=== PATIENT | female | born 1950 | race Caucasian/White ===

== ENCOUNTER → 2016-05-11 | Outpatient (CLI) | payer MEDICAID | LOC: RAD 17:15 | PROVIDERS: ATTEND Nurse Practitioner Family | DX: R05 Cough (principal); M54.2 Cervicalgia; M54.9 Dorsalgia, unspecified | CPT/HCPCS: 71020; 72050; 72070; 72110 ==

== ENCOUNTER 2016-06-07 15:13 | Emergency (ER) | payer MEDICAID ==
--- NOTE | 2016-06-07 15:44 | ER Document Report ---
ED Medical Screen (RME) - General Stated Complaint: LEG PAIN Time seen by provider: 15:43 Mode of Arrival: Wheelchair Information source: Patient Notes: 65-year-old female presents to ED with pain to her left foot running up to her left hip. She is a diabetic. There is no active sores noted at this time. I have greeted and performed a rapid initial assessment of this patient. A comprehensive ED assessment and evaluation of the patient, analysis of test results and completion of medical decision making process will be conducted by an additional ED providers. TRAVEL OUTSIDE OF THE [place] IN LAST 30 DAYS: No - Related Data Allergies/Adverse Reactions: alprazolam [From Xanax] Allergy (Verified 06/07/16 15:41) azithromycin [Azithromycin] Allergy (Verified 06/07/16 15:41) propoxyphene napsylate [From Darvocet-N 100] Allergy (Verified 06/07/16 15:41) Past Medical History - Past Medical History Cardiac Medical History: Reports: Hx Hypercholesterolemia, Hx Hypertension Endocrine Medical History: Reports: Hx Diabetes Mellitus Type 2 Psychiatric Medical History: Reports: Hx Depression Past Surgical History: Reports: Hx Hysterectomy Physical Exam - Vital signs Vitals: Temp Pulse Resp BP Pulse Ox 97.9 F 77 16 114/61 98 06/07/16 15:20 06/07/16 15:20 06/07/16 15:20 06/07/16 15:20 06/07/16 15:20 Course - Vital Signs Vital signs: Temp Pulse Resp BP Pulse Ox 97.9 F 77 16 114/61 98 06/07/16 15:20 06/07/16 15:20 06/07/16 15:20 06/07/16 15:20 06/07/16 15:20
[2016-06-07] MEDS ORDERED: IBUPROFEN 800 MG TABLET PO ONE (16:40)
--- NOTE | 2016-06-07 17:40 | ER Document Report ---
ED General - General Chief Complaint: Leg Pain Stated Complaint: LEG PAIN Mode of Arrival: Wheelchair Information source: Patient Notes: Patient presents to the emergency department with complaints of left lower leg pain. She reports pain started in her toes on Wednesday and now radiates up her leg. She denies trauma. She denies history of DVT or PE. Patient reports she was evaluated by her primary care provider on Wednesday but did not mention the leg. She reports that she is waiting for pain management for her chronic back pain. She denies fever vomiting diarrhea. She denies recent trip. Patient is a diabetic. TRAVEL OUTSIDE OF THE [place] IN LAST 30 DAYS: No - HPI Onset: Other - wednesday Onset/Duration: Gradual, Persistent Quality of pain: Achy Severity: Severe Pain Level: 5 Associated symptoms: None Exacerbated by: Walking Relieved by: Denies Similar symptoms previously: No Recently seen / treated by doctor: Yes - Related Data Allergies/Adverse Reactions: alprazolam [From Xanax] Allergy (Verified 06/07/16 15:41) azithromycin [Azithromycin] Allergy (Verified 06/07/16 15:41) propoxyphene napsylate [From Darvocet-N 100] Allergy (Verified 06/07/16 15:41) Past Medical History - General Information source: Patient Last Menstrual Period: hys - Social History Smoking Status: Never Smoker Cigarette use (# per day): No Chew tobacco use (# tins/day): No Frequency of alcohol use: None Drug Abuse: None Lives with: Family - daughter Family History: Reviewed & Not Pertinent Patient has suicidal ideation: No Patient has homicidal ideation: No - Past Medical History Cardiac Medical History: Reports: Hx Hypercholesterolemia, Hx Hypertension Endocrine Medical History: Reports: Hx Diabetes Mellitus Type 2 Renal/ Medical History: Denies: Hx Peritoneal Dialysis Psychiatric Medical History: Reports: Hx Depression Past Surgical History: Reports: Hx Hysterectomy, Hx Oral Surgery, Hx Orthopedic Surgery, Hx Tonsillectomy - Immunizations Hx Diphtheria, Pertussis, Tetanus Vaccination: Yes Review of Systems - Review of Systems Notes: Review HPI for review of systems., All other systems negative Physical Exam - Vital signs Vitals: Temp Pulse Resp BP Pulse Ox 97.9 F 77 16 114/61 98 06/07/16 15:20 06/07/16 15:20 06/07/16 15:20 06/07/16 15:20 06/07/16 15:20 - Notes Notes: PHYSICAL EXAMINATION: GENERAL: Well-appearing and in no acute distress nontoxic looking HEAD: Atraumatic, normocephalic. EYES: Pupils equal round extraocular movements intact, sclera anicteric, conjunctiva are normal. ENT: nares patent, oropharynx clear without exudates. Moist mucous membranes. NECK: Normal range of motion, supple without lymphadenopathy LUNGS: CTAB and equal. No wheezes rales or rhonchi. HEART: Regular rate and rhythm without murmurs ABDOMEN: Soft, no tenderness. No guarding, no rebound BACK: No c/o pain EXTREMITIES: Normal range of motion, no pitting edema. No cyanosis. neg homans NEUROLOGICAL: Cranial nerves grossly intact. Normal sensory/motor exams. PSYCH: Normal mood, normal affect. SKIN: Warm, Dry, normal turgor, no rashes or lesions noted - Extremities General upper extremity: Normal ROM General lower extremity: Tender, Normal color - no erythema, no swelling, no signs of DVT, Normal ROM, Normal temperature, Other - good pedal pulse, brisk cap refill. No: Nasreen's sign Calf: Tender - no erythema, no swelling, no warmth, no signs of DVT Left calf in cm: 40 Right calf in cm: 40 Course - Re-evaluation Re-evalutation: 06/07/16 PT INSTRUCTED ON PENDING DOPPLER. 06/07/16 19:01 Preliminary report is negative patient will be discharged follow-up with her primary care provider - Vital Signs Vital signs: Temp Pulse Resp BP Pulse Ox 97.9 F 77 16 114/61 98 06/07/16 15:20 06/07/16 15:20 06/07/16 15:20 06/07/16 15:20 06/07/16 15:20 - Diagnostic Test Radiology reviewed: Image reviewed Discharge - Discharge Clinical Impression: Lower extremity pain, left Condition: Stable Disposition: HOME, SELF-CARE Additional Instructions: *You have been evaluated for left leg pain *Take tylenol as indicated for pain *Follow up with your primary care provider tomorrow *Return to ED for worsening condition, changes, needs Referrals: GUANAKO FRIEDMAN MD [Primary Care Provider] - Follow up tomorrow
--- NOTE | 2016-06-07 20:18 | VASCULAR PRELIM REPORT ---
Provider Note Provider Note: negative for DVT. called in to the er at 2018 hrs.
[2016-06-07 20:56] VITALS: BP 116/69
--- NOTE | 2016-06-08 14:53 | XCELERA REPORT ---
[address] [address] Lower Extremity Venous Evaluation Name: IMANI WHITTAKER Age: 65 yrs Gender: Female : 1950 Patient Status: Emergency Patient Location: ER Study Date: 06/07/2016 06:10 PM Procedure: Color flow and duplex imaging of the veins of the left lower extremity as well as the right Common Femoral vein. Reason For Study: DANE ch pain Ordering Physician: MEGAN ESPARZA Performed By: Valarie Spear Right Sided Venous Evaluation The right common femoral vein is fully compressible. Spontaneous and phasic flow is present in the right common femoral vein. Left Sided Venous Evaluation Normal vessel filling wall to wall, compression and augmentation as well as Colour flow down to the infrageniculate veins. Critical Findings Per preliminary report. Interpretation Summary No duplex evidence of DVT or obstruction in the left lower extremity nor in the right Common Femoral vein. : MEGAN ESPARZA > Rigo Laguna
== END 2016-06-07 19:45 | disposition home or self-care (01) ==
LOC: ER 15:13
DX: M79.662 Pain in left lower leg (principal); E11.9 Type 2 diabetes mellitus without complications; M54.9 Dorsalgia, unspecified; G89.29 Other chronic pain; I10 Essential (primary) hypertension; Z88.8 Allergy status to other drugs, medicaments and biological substances; Z88.1 Allergy status to other antibiotic agents; Z88.5 Allergy status to narcotic agent
CPT/HCPCS: 99283; 93971 ×2; J3490

== ENCOUNTER 2016-11-02 22:59 | Emergency (ER) | payer MEDICAID ==
--- NOTE | 2016-11-03 00:27 | ER Document Report ---
ED General - General Chief Complaint: Low Back Pain Stated Complaint: LOWER BACK PAIN Time Seen by Provider: 11/02/16 23:06 Mode of Arrival: Medic Information source: Patient Notes: 65-year-old female presents with multitude of complaints. Patient notes that she fell one week prior landed on her buttocks has had coccyx pain which improved but then worsened today. Patient denies any numbness weakness. Patient also notes that she has had a sore throat for over one month duration states that she has had decreased appetite. Patient also notes shakiness in her hands, admits to weakness in her legs, admits to vaginal foul smell, admits to hearing voices. Patient denies any suicidal or homicidal ideations. Patient denies any recent sexual activity TRAVEL OUTSIDE OF THE [place] IN LAST 30 DAYS: No - HPI Onset: Last week Onset/Duration: Persistent Quality of pain: Achy Severity: Mild Pain Level: 1 Associated symptoms: Other Exacerbated by: Denies Relieved by: Denies Similar symptoms previously: No Recently seen / treated by doctor: No - Related Data Allergies/Adverse Reactions: alprazolam [From Xanax] Allergy (Verified 06/07/16 15:41) azithromycin [Azithromycin] Allergy (Verified 06/07/16 15:41) propoxyphene napsylate [From Darvocet-N 100] Allergy (Verified 06/07/16 15:41) Past Medical History - Social History Smoking Status: Never Smoker Cigarette use (# per day): No Chew tobacco use (# tins/day): No Smoking Education Provided: No Family History: Reviewed & Not Pertinent Patient has suicidal ideation: No Patient has homicidal ideation: No - Past Medical History Cardiac Medical History: Reports: Hx Hypercholesterolemia, Hx Hypertension Endocrine Medical History: Reports: Hx Diabetes Mellitus Type 2 Renal/ Medical History: Denies: Hx Peritoneal Dialysis Psychiatric Medical History: Reports: Hx Depression Past Surgical History: Reports: Hx Hysterectomy, Hx Oral Surgery, Hx Orthopedic Surgery, Hx Tonsillectomy - Immunizations Hx Diphtheria, Pertussis, Tetanus Vaccination: Yes Review of Systems - Review of Systems Notes: REVIEW OF SYSTEMS: CONSTITUTIONAL : Denies fever, chills, or sweats. Denies recent illness. EENT: Admits to difficulty swallowing CARDIOVASCULAR: Denies chest pain. Denies palpitations or racing or irregular heart beat. Denies ankle edema. RESPIRATORY: Denies cough, cold, or chest congestion. Denies shortness of breath, difficulty breathing, or wheezing. GASTROINTESTINAL: Admits to decreased appetite GENITOURINARY: Denies difficulty urinating, painful urination, burning, frequency, blood in urine, or discharge. FEMALE GENITOURINARY: Admits to vaginal discharge and foul smell MUSCULOSKELETAL: Admits to coccyx pain SKIN: Denies rash, lesions or sores. HEMATOLOGIC : Denies easy bruising or bleeding. LYMPHATIC: Denies swollen, enlarged glands. NEUROLOGICAL: Admits to tremors PSYCHIATRIC: Admits to hearing voices ALL OTHER SYSTEMS REVIEWED AND NEGATIVE. PHYSICAL EXAMINATION: GENERAL: Well-appearing, well-nourished and in no acute distress. HEAD: Atraumatic, normocephalic. EYES: Pupils equal round and reactive to light, extraocular movements intact, conjunctiva are normal. ENT: Nares patent, oropharynx clear without exudates. Moist mucous membranes. NECK: Normal range of motion, supple without lymphadenopathy LUNGS: Breath sounds clear to auscultation bilaterally and equal. No wheezes rales or rhonchi. HEART: Regular rate and rhythm without murmurs ABDOMEN: Soft, nontender, nondistended abdomen. No guarding, no rebound. No masses appreciated. Female : deferred Musculoskeletal: Normal range of motion, no pitting or edema. No cyanosis. NEUROLOGICAL: Cranial nerves grossly intact. Normal speech, normal gait. Normal sensory, motor exams PSYCH: Normal mood, normal affect. SKIN: Warm, Dry, normal turgor, no rashes or lesions noted. Dictation was performed using [employer] voice recognition software Physical Exam - Vital signs Vitals: Temp Pulse Resp BP Pulse Ox 98.3 F 83 17 100/67 100 11/02/16 23:11 11/02/16 23:11 11/02/16 23:11 11/02/16 23:11 11/02/16 23:11 Course - Re-evaluation Re-evalutation: 11/03/16 00:27 Patient appears to have a multitude of complaints, lab work is pending at this time, she defers on pelvic exam, 11/03/16 02:36 Patient's lab work is consistent with chronic mild renal insufficiency otherwise patient has been resting comfortably, I will have patient follow-up with mental health as well as primary care for further evaluation and care Patient given resources for mental health After performing a Medical Screening Examination, I estimate there is LOW risk for INTRACRANIAL HEMORRHAGE, ISCHEMIC CVA, MALIGNANT DYSRHYTHMIA, ACUTE CORONARY SYNDROME, MENINGITIS, PULMONARY EMBOLISM, or SEPSIS thus I consider the discharge disposition reasonable. I have reevaluated this patient multiple times and no significant life threatening changes are noted. The patient and I have discussed the diagnosis and risks, and we agree with discharging home with close follow-up with the understanding that symptoms and presentations can change. We also discussed returning to the Emergency Department immediately if new or worsening symptoms occur. We have discussed the symptoms which are most concerning (e.g., changing or worsening pain, weakness, vomiting, fever) that necessitate immediate return. - Vital Signs Vital signs: Temp Pulse Resp BP Pulse Ox 97.8 F 86 14 104/63 97 11/02/16 23:19 11/02/16 23:19 11/02/16 23:19 11/02/16 23:19 11/02/16 23:19 - Laboratory Result Diagrams: 11/03/16 00:10 11/03/16 00:10 Laboratory results interpreted by me: 11/03/16 11/03/16 00:10 00:10 Hgb 11.3 L Hct 35.8 L MCHC 31.6 L Chloride 109 H Carbon Dioxide 17 L BUN 26 H Creatinine 1.70 H Est GFR ( Amer) 37 L Est GFR (Non-Af Amer) 30 L Glucose 132 H Calcium 11.1 H Alkaline Phosphatase 34 L Discharge - Discharge Clinical Impression: Hypercalcemia, Decreased appetite CKD (chronic kidney disease) Qualifiers: Chronic kidney disease stage: stage 2 (mild) Qualified Code(s): N18.2 - Chronic kidney disease, stage 2 (mild) Low back pain Qualifiers: Chronicity: acute Back pain laterality: midline Sciatica presence: without sciatica Qualified Code(s): M54.5 - Low back pain Condition: Stable Disposition: HOME, SELF-CARE Instructions: Low Back Pain ([facility]) Referrals: GUANAKO FRIEDMAN MD [Primary Care Provider] - Follow up tomorrow
[2016-11-03 00:44] LABS: ABSOLUTE BASOPHILS # (AUTO) 0.1 10^3/uL (0.0-0.2); ABSOLUTE EOSINOPHILS # (AUTO) 0.1 10^3/uL (0.0-0.6); ABSOLUTE LYMPHOCYTES (AUTO) 1.9 10^3/uL (0.5-4.7); ABSOLUTE MONOCYTES (AUTO) 0.6 10^3/uL (0.1-1.4); ABSOLUTE NEUT (AUTO) 6.3 10^3/uL (1.7-8.2); BASOPHILS % (AUTO) 0.6 % (0-2); EOSINOPHILS % (AUTO) 1.3 % (0-6); HEMATOCRIT 35.8 % (36.0-47.0); HEMOGLOBIN 11.3 g/dL (12.0-15.5); HGB HCT DIFFERENCE -1.9; LYMPHOCYTES % (AUTO) 20.9 % (13-45); MEAN CORPUSCULAR HEMOGLOBIN 27.7 pg (27.0-33.4); MEAN CORPUSCULAR HGB CONC 31.6 g/dL (32.0-36.0); MEAN CORPUSCULAR VOLUME 88 fl (80-97); MONOCYTES % (AUTO) 6.8 % (3-13); RED BLOOD COUNT 4.09 10^6/uL (3.72-5.28); RED CELL DISTRIBUTION WIDTH 12.7 % (11.5-14.0); SEGMENTED NEUTROPHILS % (AUTO) 70.4 % (42-78); WHITE BLOOD COUNT 8.9 10^3/uL (4.0-10.5)
[2016-11-03 00:45] LABS: ALANINE AMINOTRANSFERASE 31 U/L (9-52); ALBUMIN 4.1 g/dL (3.5-5.0); ALKALINE PHOSPHATASE 34 U/L (38-126); ANION GAP 14 (5-19); ASPARTATE AMINO TRANSFERASE 32 U/L (14-36); BILIRUBIN,DIRECT 0.4 mg/dL (0.0-0.4); BILIRUBIN,TOTAL 0.4 mg/dL (0.2-1.3); BLOOD UREA NITROGEN 26 mg/dL (7-20); CALCIUM 11.1 mg/dL (8.4-10.2); CARBON DIOXIDE 17 mmol/L (22-30); CHLORIDE 109 mmol/L (98-107); GLUCOSE 132 mg/dL (75-110); POTASSIUM 4.6 mmol/L (3.6-5.0); SODIUM 140.3 mmol/L (137-145); TOTAL PROTEIN 6.9 g/dL (6.3-8.2)
[2016-11-03 02:28] LABS: APPEARANCE,URINE CLEAR; BILIRUBIN,URINE NEGATIVE (NEGATIVE); GLUCOSE, URINE NEGATIVE (NEGATIVE); KETONES,URINE NEGATIVE (NEGATIVE); LEUKOCYTE ESTERASE,URINE NEGATIVE (NEGATIVE); NITRITE,URINE NEGATIVE (NEGATIVE); PROTEIN,URINE NEGATIVE (NEGATIVE); UROBILINOGEN,URINE NEGATIVE mg/dL (<2.0)
[2016-11-03 05:11] VITALS: BP 104/56
== END 2016-11-03 04:19 | disposition home or self-care (01) ==
LOC: ER 22:59
DX: M54.5 Low back pain (principal); M53.3 Sacrococcygeal disorders, not elsewhere classified; W19.XXXA Unspecified fall, initial encounter; E83.52 Hypercalcemia; I12.9 Hypertensive chronic kidney disease with stage 1 through stage 4 chronic kidney disease, or unspecified chronic kidney disease; E11.22 Type 2 diabetes mellitus with diabetic chronic kidney disease; N18.2 Chronic kidney disease, stage 2 (mild); J02.9 Acute pharyngitis, unspecified; R63.0 Anorexia; R13.10 Dysphagia, unspecified; R53.1 Weakness; R25.1 Tremor, unspecified; N89.8 Other specified noninflammatory disorders of vagina; R44.0 Auditory hallucinations; Z88.8 Allergy status to other drugs, medicaments and biological substances; Z88.1 Allergy status to other antibiotic agents; Z88.5 Allergy status to narcotic agent
CPT/HCPCS: 36415; 80053; 81001; 85025; 99284

== ENCOUNTER → 2016-12-30 | Outpatient (CLI) | payer MEDICAID ==
--- NOTE | 2016-12-30 16:23 | RADIOLOGY REPORT (SQ) ---
EXAM DESCRIPTION: MRI HEAD WITHOUT COMPLETED DATE/TIME: 12/30/2016 3:56 pm REASON FOR STUDY: VISUAL HALLUCINATIONS R44.1 VISUAL HALLUCINATIONS COMPARISON: None. TECHNIQUE: Multiplanar imaging includes non-contrasted T1, T2, FLAIR, and diffusion with ADC map seq uences. Images stored on PACS. LIMITATIONS: None. FINDINGS: ANATOMY: No anomalies. Normal vascular flow voids. Pituitary fossa normal. CSF SPACES: Normal in size and contour. No hemorrhage. CEREBRUM: Sulci and gyri normal in size and contour. Normal white matter signal on FLAIR imaging. No evidence of hemorrhage, mass, or extraaxial fluid collection. POSTERIOR FOSSA: No signal alteration. No hemorrhage. No edema, masses or mass effect. Internal pankaj tory canals, cerebello-pontine angles, mastoids normal. DIFFUSION IMAGING: Negative for acute or sub-acute infarction. ORBITS: No masses. Globes post cataract surgery. . PARANASAL SINUSES: Left maxillary sinus is opacified with fluid and dried secretions. Remainder of the paranasal sinuses are clear. OTHER: No other significant finding. IMPRESSION: CHRONIC INFLAMMATORY CHANGES LEFT MAXILLARY SINUS. OTHERWISE, MRI OF THE BRAIN WITHOUT INTRAVENOUS GADOLINIUM CONTRAST. EVIDENCE OF ACUTE STROKE: NO. TECHNICAL DOCUMENTATION: JOB ID: [id number] [employer]- All Rights Reserved
--- NOTE | 2016-12-30 16:30 | RADIOLOGY REPORT (SQ) ---
EXAM DESCRIPTION: SHOULDER RIGHT 2 OR MORE VIEWS COMPLETED DATE/TIME: 12/30/2016 4:14 pm REASON FOR STUDY: SHOULDER PAIN, RIGHT R44.1 VISUAL HALLUCINATIONS COMPARISON: None. NUMBER OF VIEWS: Three views. TECHNIQUE: Internal rotation, external rotation, and Y view images acquired of the right shoulder. LIMITATIONS: None. FINDINGS: MINERALIZATION: Normal. BONES: No acute fracture is seen. The humeral head is sitting quite low in the joint, raising the po ssibility of an anterior dislocation. JOINTS: Possible anterior dislocation. VISUALIZED LUNGS AND RIBS: No pneumothorax. No rib fracture. SOFT TISSUES: No radiopaque foreign body. OTHER: No other significant finding. IMPRESSION: Possible anterior dislocation of the glenohumeral joint. TECHNICAL DOCUMENTATION: JOB ID: [id number]- All Rights Reserved
--- NOTE | 2016-12-30 16:34 | RADIOLOGY REPORT (SQ) ---
EXAM DESCRIPTION: CERV SP 4 OR 5 VIEWS COMPLETED DATE/TIME: 12/30/2016 4:14 pm REASON FOR STUDY: NECK PAIN, CHRONIC R44.1 VISUAL HALLUCINATIONS COMPARISON: 05/11/2016 NUMBER OF VIEWS: Five views. TECHNIQUE: AP, lateral, obliques and odontoid radiographic images acquired of the cervical spine. LIMITATIONS: None. FINDINGS: MINERALIZATION: Osteopenia. ALIGNMENT: Anatomic. VERTEBRAE: Vertebral bodies of normal height. DISCS: Surgical changes are present from C4-C6. Bridging anterior osteophytes extend from C2 to C7. FORAMINA: No osteophytes or foraminal narrowing. LATERAL AND POSTERIOR ELEMENTS: Facets, lateral masses and spinous processes without significant find ings. HARDWARE: An anterior plate extends from C4-C6 with screws extending into the vertebral bodies. SOFT TISSUES: No masses or calcifications. Lung apices clear. OTHER: No other significant finding. IMPRESSION: Surgical changes with extensive spondylosis. The neural foramina remain patent. TECHNICAL DOCUMENTATION: JOB ID: [id number] [employer]- All Rights Reserved
== END ==
LOC: RAD 14:58
PROVIDERS: ATTEND Family Medicine
DX: M25.511 Pain in right shoulder (principal); R44.1 Visual hallucinations; M54.2 Cervicalgia
CPT/HCPCS: 70551; 72050

== ENCOUNTER 2017-01-23 00:32 | Emergency (ER) | payer MEDICAID ==
[2017-01-23] MEDS ORDERED: LIDOCAINE 2% JELLY 5 ML TUBE TOP ONE (02:50)
[2017-01-23] MEDS ORDERED: CEPHALEXIN 500 MG CAPSULE PO ONE (02:51)
[2017-01-23] MEDS ORDERED: SULFAMETHOXAZOLE/TRIMETHOPRIM 800-160 MG TABLET PO ONE (02:51)
--- NOTE | 2017-01-23 02:51 | ER Document Report ---
ED General - General Chief Complaint: Ear Pain Stated Complaint: LEFT EAR PAIN Time Seen by Provider: 01/23/17 02:21 Notes: Patient is a 66-year-old female with a history of diabetes, hypertension, obesity who presents with complaints of left ear pain. Patient does present by EMS. She states for the past 12 hours she has had a severe, constant, stabbing pain to the left ear. Nothing improves or worsens the pain. States she has had similar symptoms on the right ear for the past 2 months but never anything to the left ear. She has not tried anything to relieve her pain and has not noted that anything worsens her pain. Patient has not seen her primary doctor regarding today's concerns. TRAVEL OUTSIDE OF THE [place] IN LAST 30 DAYS: No - Related Data Allergies/Adverse Reactions: alprazolam [From Xanax] Allergy (Verified 01/23/17 00:42) azithromycin [Azithromycin] Allergy (Verified 01/23/17 00:42) propoxyphene napsylate [From Darvocet-N 100] Allergy (Verified 01/23/17 00:42) Past Medical History - General Information source: Patient - Social History Smoking Status: Never Smoker Frequency of alcohol use: None Drug Abuse: None Lives with: Family Family History: Reviewed & Not Pertinent Patient has suicidal ideation: No Patient has homicidal ideation: No - Past Medical History Cardiac Medical History: Reports: Hx Hypercholesterolemia, Hx Hypertension Endocrine Medical History: Reports: Hx Diabetes Mellitus Type 2 Renal/ Medical History: Denies: Hx Peritoneal Dialysis Psychiatric Medical History: Reports: Hx Depression Past Surgical History: Reports: Hx Hysterectomy, Hx Oral Surgery, Hx Orthopedic Surgery, Hx Tonsillectomy - Immunizations Hx Diphtheria, Pertussis, Tetanus Vaccination: Yes Review of Systems - Review of Systems Notes: Constitutional: Negative for fever. HENT: Negative for sore throat. Positive for ear pain Eyes: Negative for visual changes. Cardiovascular: Negative for chest pain. Respiratory: Negative for shortness of breath. Gastrointestinal: Negative for abdominal pain, vomiting or diarrhea. Genitourinary: Negative for dysuria. Musculoskeletal: Negative for back pain. Skin: Positive for rash. Neurological: Negative for headaches, weakness or numbness. 10 point ROS negative except as marked above and in HPI. Physical Exam - Vital signs Vitals: Temp Pulse Resp BP Pulse Ox 98.0 F 107 H 18 135/69 H 98 10/14/17 00:42 01/23/17 00:42 01/23/17 00:42 01/23/17 00:42 01/23/17 00:42 Interpretation: Tachycardic Notes: PHYSICAL EXAMINATION: GENERAL: Well-appearing, well-nourished and in no acute distress. HEAD: Atraumatic, normocephalic. EYES: Pupils equal round and reactive to light, extraocular movements intact, sclera anicteric, conjunctiva are normal. ENT: nares patent, oropharynx clear without exudates. Moist mucous membranes. Right TM clear. Left TM with a purulent effusion and slight bulging of an erythematous tympanic membrane NECK: Normal range of motion, supple without lymphadenopathy LUNGS: Breath sounds clear to auscultation bilaterally and equal. No wheezes rales or rhonchi. HEART: Regular rate and rhythm without murmurs ABDOMEN: Soft, nontender, normoactive bowel sounds. No guarding, no rebound. No masses appreciated. EXTREMITIES: Normal range of motion, no pitting or edema. No cyanosis. NEUROLOGICAL: No focal neurological deficits. Moves all extremities spontaneously and on command. PSYCH: Normal mood, normal affect. SKIN: Warm, Dry, normal turgor, there is a 2 x 2 centimeter open wound on the right elbow with a mild area of surrounding erythema. There is a small amount of purulent drainage coming from the wound. Course - Re-evaluation Re-evalutation: 01/23/17 02:48 Patient presents with findings consistent with an acute left otitis media. Patient incidentally was also noted to have a cellulitis with associated purulent drainage over the right olecranon which she states is been present for the past 2-3 weeks. This was not originally the reason for her ER visit but given that I noted this on examination she has been started on TMP-SMX as well as cephalexin for coverage of both the cellulitis and otitis media. Patient is otherwise well in appearance, vitals within normal limits, no acute distress. No indication for laboratories or imaging. At this time will discharge with return precautions and follow-up recommendations. Verbal discharge instructions given a the bedside and opportunity for questions given. Medication warnings reviewed. Patient is in agreement with this plan and has verbalized understanding of return precautions and the need for primary care follow-up in the next 24-72 hours. - Vital Signs Vital signs: Temp Pulse Resp BP Pulse Ox 98.0 F 76 15 133/74 H 97 01/23/17 00:42 01/23/17 03:13 01/23/17 03:13 01/23/17 03:13 01/23/17 03:13 Discharge - Discharge Clinical Impression: Otitis media Qualifiers: Otitis media type: serous Chronicity: acute Laterality: left Recurrence: not specified as recurrent Qualified Code(s): H65.02 - Acute serous otitis media, left ear Cellulitis Qualifiers: Site of cellulitis: extremity Site of cellulitis of extremity: upper extremity Laterality: right Qualified Code(s): L03.113 - Cellulitis of right upper limb Condition: Good Disposition: HOME, SELF-CARE Additional Instructions: The rash is likely due to infection of your skin. You need to take the antibiotics as prescribed. Do not stop even if the rash goes away until you have completed all the antibiotics. These antibiotics will also treat your left ear infection. You should also return if you develop fevers with temperature greater than 101, persistent vomiting, worsening pain, or have any other symptoms that are concerning to you. Prescriptions: Cephalexin Monohydrate [Keflex 500 mg Capsule] 500 mg PO Q6H 7 Days capsule Sulfamethoxazole/Trimethoprim [Bactrim Ds Tablet] 2 tab PO BID #20 tablet Referrals: GUANAKO FRIEDMAN MD [Primary Care Provider] - Follow up in 3-5 days
[2017-01-23 03:17] VITALS: BP 133/74
== END 2017-01-23 03:15 | disposition home or self-care (01) ==
LOC: ER 00:32
DX: H65.02 Acute serous otitis media, left ear (principal); L03.113 Cellulitis of right upper limb; H92.02 Otalgia, left ear; R00.0 Tachycardia, unspecified; E11.9 Type 2 diabetes mellitus without complications; I10 Essential (primary) hypertension; Z88.8 Allergy status to other drugs, medicaments and biological substances; Z88.1 Allergy status to other antibiotic agents; Z88.5 Allergy status to narcotic agent
CPT/HCPCS: 99283; J3490 ×2

== ENCOUNTER 2017-02-02 14:04 | Inpatient (IN) | payer MEDICAID ==
[2017-02-02] MEDS ORDERED: NORMAL SALINE 1000 ML 1,000 ML IV ONE (15:17)
--- NOTE | 2017-02-02 15:18 | ER Document Report ---
ED Medical Screen (RME) - General Chief Complaint: General Weakness Stated Complaint: FALL Time Seen by Provider: 02/02/17 15:17 Notes: Patient is brought in by family for weakness low blood sugar and falls. They state that the patient has a history of schizophrenia and has recently been diagnosed with dementia. Family states patient is refusing to eat. She has no longer taking her diabetic medications because she is not eating. No vomiting or diarrhea. Patient states he just does not feel hungry. Family states they have taken the patient to the family doctor who has referred her for lab work but laboratory is unable to draw her blood so they brought her here. TRAVEL OUTSIDE OF THE [place] IN LAST 30 DAYS: No - Related Data Allergies/Adverse Reactions: alprazolam [From Xanax] Allergy (Verified 02/02/17 14:22) azithromycin [Azithromycin] Allergy (Verified 02/02/17 14:22) propoxyphene napsylate [From Darvocet-N 100] Allergy (Verified 02/02/17 14:22) Tetanus Vaccines and Toxoid Allergy (Verified 02/02/17 14:22) Past Medical History - Past Medical History Cardiac Medical History: Reports: Hx Hypercholesterolemia, Hx Hypertension Endocrine Medical History: Reports: Hx Diabetes Mellitus Type 2 Renal/ Medical History: Denies: Hx Peritoneal Dialysis Psychiatric Medical History: Reports: Hx Depression Past Surgical History: Reports: Hx Hysterectomy, Hx Oral Surgery, Hx Orthopedic Surgery, Hx Tonsillectomy - Immunizations Hx Diphtheria, Pertussis, Tetanus Vaccination: Yes Physical Exam - Vital signs Vitals: Temp Pulse BP Pulse Ox 97.9 F 104 H 134/67 H 99 02/02/17 14:19 02/02/17 14:19 02/02/17 14:19 02/02/17 14:19 Course - Vital Signs Vital signs: Temp Pulse Resp BP Pulse Ox 97.9 F 104 H 134/67 H 99 02/02/17 14:19 02/02/17 14:19 02/02/17 14:19 02/02/17 14:19
[2017-02-02 17:48] LABS: ABSOLUTE BASOPHILS # (AUTO) 0.1 10^3/uL (0.0-0.2); ABSOLUTE EOSINOPHILS # (AUTO) 0.1 10^3/uL (0.0-0.6); ABSOLUTE LYMPHOCYTES (AUTO) 1.4 10^3/uL (0.5-4.7); ABSOLUTE MONOCYTES (AUTO) 0.5 10^3/uL (0.1-1.4); ABSOLUTE NEUT (AUTO) 5.9 10^3/uL (1.7-8.2); BASOPHILS % (AUTO) 0.8 % (0-2); EOSINOPHILS % (AUTO) 0.9 % (0-6); HEMATOCRIT 31.1 % (36.0-47.0); HEMOGLOBIN 10.1 g/dL (12.0-15.5); HGB HCT DIFFERENCE -0.8; LYMPHOCYTES % (AUTO) 17.4 % (13-45); MEAN CORPUSCULAR HEMOGLOBIN 26.7 pg (27.0-33.4); MEAN CORPUSCULAR HGB CONC 32.4 g/dL (32.0-36.0); MEAN CORPUSCULAR VOLUME 82 fl (80-97); MONOCYTES % (AUTO) 6.3 % (3-13); RED BLOOD COUNT 3.78 10^6/uL (3.72-5.28); RED CELL DISTRIBUTION WIDTH 15.8 % (11.5-14.0); SEGMENTED NEUTROPHILS % (AUTO) 74.6 % (42-78); WHITE BLOOD COUNT 7.9 10^3/uL (4.0-10.5)
--- NOTE | 2017-02-02 18:02 | RADIOLOGY REPORT (SQ) ---
EXAM DESCRIPTION: CHEST SINGLE VIEW COMPLETED DATE/TIME: 02/02/2017 5:50 pm REASON FOR STUDY: Weight loss COMPARISON: None. EXAM PARAMETERS: NUMBER OF VIEWS: One view. TECHNIQUE: Single frontal radiographic view of the chest acquired. RADIATION DOSE: NA LIMITATIONS: None. FINDINGS: LUNGS AND PLEURA: No opacities, masses or pneumothorax. No pleural effusion. MEDIASTINUM AND HILAR STRUCTURES: No masses. Contour normal. HEART AND VASCULAR STRUCTURES: Heart normal in size. Normal vasculature. BONES: Degenerative changes are identified in the thoracic spine. HARDWARE: Orthopedic hardware is identified in the lower cervical spine OTHER: No other significant finding. IMPRESSION: NO ACUTE RADIOGRAPHIC FINDING IN THE CHEST. TECHNICAL DOCUMENTATION: JOB ID: [id number]
[2017-02-02 18:07] LABS: ALANINE AMINOTRANSFERASE 64 U/L (9-52); ALBUMIN 3.8 g/dL (3.5-5.0); ALKALINE PHOSPHATASE 40 U/L (38-126); ANION GAP 10 (5-19); ASPARTATE AMINO TRANSFERASE 69 U/L (14-36); BILIRUBIN,DIRECT 0.4 mg/dL (0.0-0.4); BILIRUBIN,TOTAL 0.4 mg/dL (0.2-1.3); BLOOD UREA NITROGEN 14 mg/dL (7-20); CARBON DIOXIDE 24 mmol/L (22-30); CHLORIDE 103 mmol/L (98-107); CREATININE RESULT 1.16 mg/dL (0.52-1.25); GLUCOSE 93 mg/dL (75-110); TOTAL PROTEIN 7.1 g/dL (6.3-8.2)
[2017-02-02 18:18] LABS: CALCIUM 12.2 mg/dL (8.4-10.2)
[2017-02-02 18:48] LABS: APPEARANCE,URINE CLEAR; BILIRUBIN,URINE NEGATIVE (NEGATIVE); GLUCOSE, URINE NEGATIVE (NEGATIVE); KETONES,URINE NEGATIVE (NEGATIVE); LEUKOCYTE ESTERASE,URINE NEGATIVE (NEGATIVE); NITRITE,URINE NEGATIVE (NEGATIVE); PROTEIN,URINE NEGATIVE (NEGATIVE); UROBILINOGEN,URINE NEGATIVE mg/dL (<2.0)
--- NOTE | 2017-02-02 19:18 | ER Document Report ---
ED General - General Chief Complaint: General Weakness Stated Complaint: WEAKNESS Time Seen by Provider: 02/02/17 15:17 Notes: Patient is a 66-year-old female brought in by her family because she is having continuous falling episodes for the past several months. It is happening once or twice a week. She is also acting confused and "delusional" and they are concerned that she may have dementia. She has had about a 50 pound weight loss in the last 4 months. She walks with a walker because she is so weak. She previously was on oral meds or high blood sugar, but her family stopped it because her blood sugars have been running low because she is not eating. Today it was 51. She has had some vomiting lately, but no diarrhea. No UTI symptoms. No shortness of breath or difficulty breathing. Patient was seen here couple of weeks ago and was told that she had an ear infection and a right elbow infection and was put on Keflex, which she is continuing to take, and Bactrim which she has finished. Patient denies any fever, chills, or sweats. Patient has been seeing her local doctor, Dr. Charles, over the past couple of months and the family is upset that he is not finding anything wrong with her. He did do an MRI of her brain about a month ago and it was read as normal. TRAVEL OUTSIDE OF THE [place] IN LAST 30 DAYS: No - Related Data Allergies/Adverse Reactions: alprazolam [From Xanax] Allergy (Verified 02/02/17 14:22) azithromycin [Azithromycin] Allergy (Verified 02/02/17 14:22) propoxyphene napsylate [From Darvocet-N 100] Allergy (Verified 02/02/17 14:22) Tetanus Vaccines and Toxoid Allergy (Verified 02/02/17 14:22) Home Medications: Current Home Medications Aripiprazole 20 mg PO DAILY 02/02/17 [History] Aspirin [Aspirin EC] 81 mg PO DAILY 02/02/17 [History] Atorvastatin Calcium [Lipitor 40 mg Tablet] 40 mg PO QHS 02/02/17 [History] Cephalexin [Keflex] 500 mg PO Q6H 02/02/17 [History] Cyclobenzaprine HCl 10 mg PO TID PRN 02/02/17 [History] Doxepin HCl 100 mg PO DAILY 02/02/17 [History] Hydroxyzine Pamoate 100 mg PO TID 02/02/17 [History] [place]-3 Fatty Acids/Fish Oil [Fish Oil 1,000 mg Capsule] 1 each PO BID 02/02/17 [History] Oxycodone HCl/Acetaminophen [Oxycodon-Acetaminophen 7.5-325] 1 each PO Q8H PRN 02/02/17 [History] Ranitidine HCl [Zantac 150 mg Tablet] 150 mg PO BID 02/02/17 [History] Topiramate 100 mg PO BID 02/02/17 [History] Past Medical History - Social History Smoking Status: Current Every Day Smoker Frequency of alcohol use: Occasional Family History: Reviewed & Not Pertinent - Past Medical History Cardiac Medical History: Reports: Hx Hypercholesterolemia, Hx Hypertension Endocrine Medical History: Reports: Hx Diabetes Mellitus Type 2 Psychiatric Medical History: Reports: Hx Depression Past Surgical History: Reports: Hx Hysterectomy, Hx Oral Surgery, Hx Orthopedic Surgery, Hx Tonsillectomy - Immunizations Hx Diphtheria, Pertussis, Tetanus Vaccination: Yes Review of Systems - Review of Systems Notes: REVIEW OF SYSTEMS: CONSTITUTIONAL : Denies fever. EENT: Denies eye, ear, nose or mouth or throat pain or other symptoms. CARDIOVASCULAR: Denies chest pain. RESPIRATORY: Denies cough, chest congestion, but occasional difficulty breathing and shortness of breath. GASTROINTESTINAL: Denies abdominal pain. See HPI. GENITOURINARY: Denies difficulty or painful urinating, urinary frequency, blood in urine. MUSCULOSKELETAL: Denies back or neck pain. Denies joint pain or swelling. SKIN: Patient has several skin lesions that look like they could be infections , 1 distal to the right elbow on the proximal forearm, another over the right hip and another very close to the right anus. NEUROLOGICAL: Denies LOC. See HPI. Denies headache. Denies sensory loss or motor deficits. ALL OTHER SYSTEMS REVIEWED AND NEGATIVE. Physical Exam - Vital signs Vitals: Temp Pulse BP Pulse Ox 97.9 F 104 H 134/67 H 99 02/02/17 14:19 02/02/17 14:19 02/02/17 14:19 02/02/17 14:19 Interpretation: Normal - Notes Notes: PHYSICAL EXAMINATION: GENERAL: Well-appearing, in no acute distress. Cooperative and seems to understand westerns and follows commands. HEAD: Atraumatic, normocephalic. EYES: Pupils equal round and reactive to light, extraocular movements intact. ENT: oropharynx clear without exudates. Moist mucous membranes. NECK: Normal range of motion, supple. LUNGS: Breath sounds clear and equal bilaterally. HEART: Regular rate and rhythm without murmurs. ABDOMEN: Soft, nontender. No guarding or rebound. BACK: No tenderness throughout entire back. EXTREMITIES: Normal range of motion without pain. NEUROLOGICAL: Normal speech, unable to stand patient up to examine gait. Awake, alert, and oriented x3. Grossly normal neurologic awareness. SKIN: Warm, dry. Patient has a weeping wound of the proximal right forearm just distal to the elbow which appears to be infected. She has a large eschar on the right lateral buttock and hip area. It surrounded by some erythematous margin. Nurse says that there is another lesion near the patient's anus which I cannot get to and examine by myself. Patient also has a couple of cuts with Band-Aids on them on her shins which the family says is from her falling. Course - Re-evaluation Re-evalutation: 02/02/17 19:[address] Hoffman who is the hospitalist retail consultant and he will admit the patient for treatment of her hypercalcemia and her wound infections. - Vital Signs Vital signs: Temp Pulse Resp BP Pulse Ox 97.9 F 104 H 134/67 H 99 02/02/17 14:19 02/02/17 14:19 02/02/17 14:19 02/02/17 14:19 - Laboratory Result Diagrams: 02/02/17 17:15 02/02/17 17:15 Laboratory results interpreted by me: 02/02/17 02/02/17 17:15 17:15 Hgb 10.1 L Hct 31.1 L MCH 26.7 L RDW 15.8 H Est GFR ( Amer) 57 L Est GFR (Non-Af Amer) 47 L Calcium 12.2 H* AST 69 H ALT 64 H 02/02/17 19:37 Calcium is 12.2. Patient has had high calcium in the past treated with IV fluids. Discharge - Discharge Clinical Impression: Altered mental status, Hypercalcemia, Multiple wounds of skin Condition: Stable Disposition: ADMITTED INPATIENT Admitting Provider: Hospitalist Unit Admitted: Telemetry
[2017-02-02] MEDS ORDERED: GLUCAGON,HUMAN RECOMB 1 MG INJ IM PRN (19:30)
[2017-02-02] MEDS ORDERED: INSULIN LISPRO 100 UNIT/ML 3 ML VIAL SUBCUT PRN (19:30)
[2017-02-02] MEDS ORDERED: DEXTROSE 40% GEL 15 GM TUBE PO PRN (19:30)
[2017-02-02] MEDS ORDERED: ACETAMINOPHEN 325 MG TABLET PO PRN (19:30)
[2017-02-02] MEDS ORDERED: MAG HYDROX/AL HYDROX/SIMETH SUSP 30 ML UDCUP PO PRN (19:30)
[2017-02-02] MEDS ORDERED: IPRATROPIUM/ALBUTEROL 0.5-2.5 MG/3 ML AMPUL NEB PRN (19:30)
[2017-02-02 19:58] LABS: URINE BARBITURATES SCREEN NEGATIVE; URINE METHADONE SCREEN NEGATIVE; URINE OPIATES LOW UNCONFIRMED POSITIVE; URINE PHENCYCLIDINE SCREEN NEGATIVE
[2017-02-02 21:12] LABS: CREATINE KINASE MB 1.33 ng/mL (<4.55)
[2017-02-02 21:17] LABS: TROPONIN I < 0.012 ng/mL
[2017-02-02] MEDS: NORMAL SALINE 1000 ML 1,000 ML IV SCH (22:15)
[2017-02-02] MEDS: HEPARIN SOD (PORCINE) 5,000 UNIT/ML 1 ML SYRINGE SUBCUT SCH (22:28)
[2017-02-03] MEDS ORDERED: INFLUENZA ADLT QUAD (36MOS+) 2017-18 VAC 0.5 ML SYR IM PRN (00:43)
[2017-02-03] MEDS: OXYCODONE-ACETAMINOPHEN 5-325 MG TABLET PO PRN ×3 (00:48→21:54)
[2017-02-03] MEDS: NORMAL SALINE 1000 ML 1,000 ML IV SCH (02:30)
[2017-02-03] MEDS: HEPARIN SOD (PORCINE) 5,000 UNIT/ML 1 ML SYRINGE SUBCUT SCH ×3 (05:02→21:50)
[2017-02-03 05:09] LABS: ABSOLUTE BASOPHILS # (AUTO) 0.1 10^3/uL (0.0-0.2); ABSOLUTE EOSINOPHILS # (AUTO) 0.1 10^3/uL (0.0-0.6); ABSOLUTE LYMPHOCYTES (AUTO) 1.7 10^3/uL (0.5-4.7); ABSOLUTE MONOCYTES (AUTO) 0.5 10^3/uL (0.1-1.4); ABSOLUTE NEUT (AUTO) 4.4 10^3/uL (1.7-8.2); BASOPHILS % (AUTO) 0.8 % (0-2); EOSINOPHILS % (AUTO) 1.8 % (0-6); HEMATOCRIT 27.6 % (36.0-47.0); HGB HCT DIFFERENCE -0.6; LYMPHOCYTES % (AUTO) 24.8 % (13-45); MEAN CORPUSCULAR HEMOGLOBIN 26.9 pg (27.0-33.4); MEAN CORPUSCULAR HGB CONC 32.6 g/dL (32.0-36.0); MEAN CORPUSCULAR VOLUME 82 fl (80-97); RED BLOOD COUNT 3.35 10^6/uL (3.72-5.28); RED CELL DISTRIBUTION WIDTH 15.7 % (11.5-14.0); SEGMENTED NEUTROPHILS % (AUTO) 65.6 % (42-78); WHITE BLOOD COUNT 6.7 10^3/uL (4.0-10.5)
--- NOTE | 2017-02-03 05:09 | PDOC H&P ---
History of Present Illness Admission Date/PCP: 02/02/17 19:30 Patient complains of: Altered mental status History of Present Illness: IMANI WHITTAKER is a 66 year old female with a past medical history of obesity, diabetes, hypertension, depression and anxiety. She had been her usual state of health until approximately a month ago having recurrent falls, weight loss and confusion. Patient is unable to provide history as she is awake and alert but very poor historian. In the emergency room she is also found to have hypercalcemia of 12.2, right arm Cellulitis and tardive dyskinesia. She is started on IV fluids and empiric antibiotics and referred to the hospitalist for admission. It is unclear if she is on any new medications patient denies chest pain nausea or vomiting. Past Medical History Cardiac Medical History: Reports: Hyperlipidema, Hypertension Endocrine Medical History: Reports: Diabetes Mellitus Type 2, Obesity Psychiatric Medical History: Reports: Depression, General Anxiety Disorder, Tobacco Dependency Past Surgical History Past Surgical History: Reports: Hysterectomy, Orthopedic Surgery, Tonsillectomy Social History Information Source: [facility] Smoking Status: Current Some Day Smoker Cigarettes Packs Per Day: 0.5 Number of Years Smokin Frequency of Alcohol Use: None Hx Recreational Drug Use: No Drugs: None Hx Prescription Drug Abuse: No - Advance Directive Resuscitation Status: Full Code Family History Family History: CAD, COPD, Malignancy - Lung cancer Parental Family History Reviewed: Yes Children Family History Reviewed: Yes Sibling(s) Family History Reviewed.: Yes Medication/Allergy Home Medications: Aripiprazole 20 mg PO DAILY 02/02/17 Aspirin [Aspirin EC] 81 mg PO DAILY 02/02/17 Atorvastatin Calcium [Lipitor 40 mg Tablet] 40 mg PO QHS 02/02/17 Cyclobenzaprine HCl 10 mg PO Q8HP PRN 02/02/17 Doxepin HCl 100 mg PO DAILY 02/02/17 Hydroxyzine Pamoate 100 mg PO Q8 02/02/17 Lisinopril [Prinivil 40 mg Tablet] 40 mg PO DAILY 02/02/17 Lubiprostone [Amitiza 24 Mcg Capsule] 24 mcg PO Q12 02/02/17 Metformin HCl [Glucophage 500 mg Tablet] 1,000 mg PO BID 02/02/17 Metoprolol Succinate [Toprol Xl 50 mg Tab.sr] 50 mg PO DAILY 02/02/17 [place]-3 Fatty Acids/Fish Oil [Fish Oil 1,000 mg Capsule] 1 each PO BID 02/02/17 Oxycodone HCl/Acetaminophen [Oxycodon-Acetaminophen 7.5-325] 1 each PO Q8HP PRN 02/02/17 Polyethylene Glycol 3350 [Miralax Powder 17 gm/Packet] 17 gm PO DAILY 02/02/17 Topiramate 100 mg PO Q12 02/02/17 Allergies/Adverse Reactions: Penicillins Allergy (Severe, Verified 02/03/17 00:33) Anaphylaxis alprazolam [From Xanax] Allergy (Verified 02/02/17 14:22) azithromycin [Azithromycin] Allergy (Verified 02/02/17 14:22) propoxyphene napsylate [From Darvocet-N 100] Allergy (Verified 02/02/17 14:22) Tetanus Vaccines and Toxoid Allergy (Verified 02/02/17 14:22) Review of Systems ROS unobtainable: Due to mental status Physical Exam Vital Signs: Temp Pulse Resp BP Pulse Ox 97.7 F 94 15 141/74 H 100 02/02/17 22:29 02/03/17 02:00 02/02/17 22:29 02/02/17 22:29 02/02/17 22:29 Intake & Output 02/01/17 02/02/17 02/03/17 11:59 11:59 11:59 Intake Total 2300 Output Total 450 Balance 1850 General appearance: PRESENT: cooperative, disheveled, mild distress, obese Head exam: PRESENT: atraumatic, normocephalic Eye exam: PRESENT: conjunctiva pink, EOMI, PERRLA. ABSENT: scleral icterus Ear exam: PRESENT: normal external ear exam Mouth exam: PRESENT: moist, tongue midline Neck exam: ABSENT: carotid bruit, JVD, lymphadenopathy, thyromegaly Respiratory exam: PRESENT: clear to auscultation christy. ABSENT: rales, rhonchi, wheezes Cardiovascular exam: PRESENT: RRR. ABSENT: diastolic murmur, rubs, systolic murmur Pulses: PRESENT: normal dorsalis pedis pul Vascular exam: PRESENT: normal capillary refill GI/Abdominal exam: PRESENT: normal bowel sounds, soft. ABSENT: distended, guarding, mass, organolmegaly, rebound, tenderness Rectal exam: PRESENT: deferred Extremities exam: PRESENT: other - Right arm proximal, medial with 2 cm eschar with purulent exudate and surrounding erythema Musculoskeletal exam: PRESENT: other - Global atrophy Neurological exam: PRESENT: alert, altered, awake, oriented to person, CN II- XII grossly intact, other - Tardive dyskinesia. ABSENT: oriented to place, oriented to time, oriented to situation Psychiatric exam: PRESENT: appropriate affect, normal mood. ABSENT: homicidal ideation, suicidal ideation Skin exam: PRESENT: dry, intact, warm, other - Right arm proximal, medial with 2 cm eschar with purulent exudate and surrounding erythema. ABSENT: cyanosis, rash Results Laboratory Results: 02/02/17 02/02/17 20:18 20:18 Creatine Kinase 74 CK-MB (CK-2) 1.33 Troponin I < 0.012 Impressions: Chest X-Ray 02/02/17 17:05 IMPRESSION: NO ACUTE RADIOGRAPHIC FINDING IN THE CHEST. Assessment & Plan - Diagnosis (1) Hypercalcemia Is this a current diagnosis for this admission?: Yes Plan: Patient had previous episode of hypercalcemia with unclear workup in conclusion. She is admitted to a telemetry bed with IV fluid hydration and consider loop diuretic and bisphosphonate. UPEP and SPEP ordered. Likely contributing to mental status changes. (2) Cellulitis Qualifiers: Site of cellulitis: unspecified site Qualified Code(s): L03.90 - Cellulitis , unspecified Is this a current diagnosis for this admission?: Yes Plan: Right arm proximal, medial with 2 cm eschar with purulent exudate and surrounding erythema. Will obtain surgical consult, consider bone biopsy versus MRI for likely osteomyelitis. Vancomycin initiated follow-up CBC (3) Osteomyelitis Plan: Right arm proximal, medial with 2 cm eschar with purulent exudate and surrounding erythema. Will obtain surgical consult, consider bone biopsy versus MRI for likely osteomyelitis. Vancomycin initiated follow-up CBC and culture (4) Weight loss Is this a current diagnosis for this admission?: Yes Plan: Obtain TSH (5) Encephalopathy Is this a current diagnosis for this admission?: Yes Plan: Possibly secondary to hypercalcemia though multiple medications also suspected. We will reduce Percocet, topiramate, hold doxepin for tardive dyskinesia. - Time Time Spent: 50 to 70 Minutes
[2017-02-03] MEDS ORDERED: FUROSEMIDE INJ/PF 40 MG/4 ML SDV IV ONE (05:30)
[2017-02-03 05:40] LABS: ANION GAP 9 (5-19); BLOOD UREA NITROGEN 10 mg/dL (7-20); CALCIUM 10.6 mg/dL (8.4-10.2); CARBON DIOXIDE 20 mmol/L (22-30); CHLORIDE 111 mmol/L (98-107); CREATININE RESULT 0.93 mg/dL (0.52-1.25); GLUCOSE 98 mg/dL (75-110); POTASSIUM 3.8 mmol/L (3.6-5.0); SODIUM 139.9 mmol/L (137-145)
[2017-02-03 05:45] LABS: CREATINE KINASE MB 1.32 ng/mL (<4.55)
[2017-02-03 06:02] LABS: TROPONIN I < 0.012 ng/mL
[2017-02-03] MEDS: POLYETHYLENE GLYCOL 3350 POWDER 17 GM/1 PACKET PO SCH (09:54)
[2017-02-03] MEDS: ASPIRIN 81 MG TABLET, ENT COATED PO SCH (09:55)
[2017-02-03] MEDS: DOCUSATE SODIUM 100 MG CAPSULE PO SCH ×2 (09:55→18:35)
[2017-02-03] MEDS: METOPROLOL SUCCINATE 50 MG TAB.SR.24H PO SCH (09:56)
[2017-02-03] MEDS: ARIPIPRAZOLE 5 MG TABLET PO SCH (09:56)
[2017-02-03] MEDS: TOPIRAMATE 100 MG TABLET PO SCH ×2 (09:56→21:50)
[2017-02-03] MEDS ORDERED: ARIPIPRAZOLE 20 MG PO SCH (10:00)
[2017-02-03 13:09] LABS: TROPONIN I < 0.012 ng/mL
--- NOTE | 2017-02-03 14:28 | PDOC CONSULTATION ---
Consultation Consult Date: 02/03/17 Attending physician:: GUANAKO GRADY Consult reason:: right arm cellulitis History of Present Illness Admission Date/PCP: 02/02/17 19:30 Patient complains of: Falls History of Present Illness: Mrs Ma is a 66 year old female who presents to [facility] ER with recurrent history of falling and altered mentation. Currently she has both daughters present at bedside to corroborate history as patient's confusion has improved per family but not resolved. Notable per the patient and family member she has had recurrent episodes of falling over the last month that it progressively worsened. She has sores to her right elbow right hip and sacral area. The right elbow site is without surrounding cellulitis at this time but was documented on presentation. This gives rise to the possibility of either a resolved infection or recent trauma to the area. Regardless with normal white count and no apparent cellulitis or edema would not pursue continued workup of the area. Likely this is secondary to pressure for which now she has a pressure reduction bandage both the right hip and right elbow. Right elbow wound is measuring 1-1/2 cm in greatest diameter in the right hip 2 cm in greatest diameter currently in the subcutaneous fat. No surrounding cellulitis at this time. Currently denying any fever chest pain shortness of breath nausea vomiting diarrhea. Workup at this time is for intermittent episodes of falling. With further questioning of the patient she denies any dizziness or history of seizures strokes. Past Medical History Cardiac Medical History: Reports: Hyperlipidema, Hypertension Endocrine Medical History: Reports: Diabetes Mellitus Type 2, Obesity Psychiatric Medical History: Reports: Depression, General Anxiety Disorder, Tobacco Dependency Past Surgical History Past Surgical History: Reports: Hysterectomy, Orthopedic Surgery, Tonsillectomy , Other - JAMARCUS/BSO, EGD, Colonoscopy - incomplete most recent, Left jaw plate/ trauma Social History Information Source: Patient Lives with: Family Smoking Status: Current Some Day Smoker Cigarettes Packs Per Day: 0.5 Number of Years Smokin Frequency of Alcohol Use: None Hx Recreational Drug Use: No Drugs: None Hx Prescription Drug Abuse: No - Advance Directive Resuscitation Status: Full Code Family History Family History: CAD, COPD, DM - Grandfather, Malignancy - Lung cancer Parental Family History Reviewed: Yes Children Family History Reviewed: Yes Sibling(s) Family History Reviewed.: Yes Medication/Allergy Home Medications: Aripiprazole 20 mg PO DAILY 02/02/17 Aspirin [Aspirin EC] 81 mg PO DAILY 02/02/17 Atorvastatin Calcium [Lipitor 40 mg Tablet] 40 mg PO QHS 02/02/17 Cyclobenzaprine HCl 10 mg PO Q8HP PRN 02/02/17 Doxepin HCl 100 mg PO DAILY 02/02/17 Hydroxyzine Pamoate 100 mg PO Q8 02/02/17 Lisinopril [Prinivil 40 mg Tablet] 40 mg PO DAILY 02/02/17 Lubiprostone [Amitiza 24 Mcg Capsule] 24 mcg PO Q12 02/02/17 Metformin HCl [Glucophage 500 mg Tablet] 1,000 mg PO BID 02/02/17 Metoprolol Succinate [Toprol Xl 50 mg Tab.sr] 50 mg PO DAILY 02/02/17 [place]-3 Fatty Acids/Fish Oil [Fish Oil 1,000 mg Capsule] 1 each PO BID 02/02/17 Oxycodone HCl/Acetaminophen [Oxycodon-Acetaminophen 7.5-325] 1 each PO Q8HP PRN 02/02/17 Polyethylene Glycol 3350 [Miralax Powder 17 gm/Packet] 17 gm PO DAILY 02/02/17 Topiramate 100 mg PO Q12 02/02/17 Allergies/Adverse Reactions: Penicillins Allergy (Severe, Verified 02/03/17 00:33) Anaphylaxis alprazolam [From Xanax] Allergy (Verified 02/02/17 14:22) azithromycin [Azithromycin] Allergy (Verified 02/02/17 14:22) propoxyphene napsylate [From Darvocet-N 100] Allergy (Verified 02/02/17 14:22) Tetanus Vaccines and Toxoid Allergy (Verified 02/02/17 14:22) Review of Systems Constitutional: PRESENT: fatigue, weakness. ABSENT: fever(s), headache(s) Eyes: ABSENT: visual disturbances Ears: ABSENT: hearing changes Nose, Mouth, and Throat: ABSENT: headache(s), mouth pain, vertigo Cardiovascular: ABSENT: chest pain, dyspnea on exertion, orthropnea Respiratory: ABSENT: cough, dyspnea, hemoptysis Gastrointestinal: ABSENT: abdominal pain, nausea, vomiting Genitourinary: ABSENT: difficulty urinating, dysuria Musculoskeletal: ABSENT: joint swelling Integumentary: PRESENT: as per HPI - as per HPI, sacral wound an avulsion very superficial and appears recent, measures 2cms Neurological: PRESENT: confusion - family at bedside assisting with history, daughters, frequent falls, weakness. ABSENT: dizziness, numbness, paresthesias , syncope Physical Exam Vital Signs: Temp Pulse Resp BP Pulse Ox 98.0 F 96 16 137/66 H 96 02/03/17 03:00 02/03/17 13:50 02/03/17 13:50 02/03/17 03:00 02/03/17 13:50 Intake & Output 02/02/17 02/03/17 02/04/17 06:59 06:59 06:59 Intake Total 2600 Output Total 1350 Balance 1250 General appearance: PRESENT: no acute distress, obese Head exam: PRESENT: atraumatic, normocephalic Eye exam: PRESENT: conjunctiva pink Mouth exam: PRESENT: moist, neck supple, tongue midline Neck exam: ABSENT: thyromegaly, tracheal deviation Respiratory exam: PRESENT: symmetrical, unlabored Vascular exam: PRESENT: normal capillary refill GI/Abdominal exam: PRESENT: soft. ABSENT: tenderness Extremities exam: ABSENT: calf tenderness, clubbing, joint swelling, tenderness Skin exam: PRESENT: other - as per HPI, apparant pressure ulcers to right elbow and right hip Results Laboratory Results: 02/03/17 04:35 02/03/17 04:35 02/03/17 02/03/17 02/03/17 04:35 04:35 04:35 WBC 6.7 RBC 3.35 L Hgb 9.0 L Hct 27.6 L MCV 82 MCH 26.9 L MCHC 32.6 RDW 15.7 H Plt Count 331 Seg Neutrophils % 65.6 Lymphocytes % 24.8 Monocytes % 7.0 Eosinophils % 1.8 Basophils % 0.8 Absolute Neutrophils 4.4 Absolute Lymphocytes 1.7 Absolute Monocytes 0.5 Absolute Eosinophils 0.1 Absolute Basophils 0.1 Sodium 139.9 Potassium 3.8 Chloride 111 H Carbon Dioxide 20 L Anion Gap 9 BUN 10 Creatinine 0.93 Est GFR ( Amer) > 60 Est GFR (Non-Af Amer) > 60 Glucose 98 Calcium 10.6 H Ionized Calcium Alfreda C-Reactive Protein 53.2 H 02/03/17 09:22 WBC RBC Hgb Hct MCV MCH MCHC RDW Plt Count Seg Neutrophils % Lymphocytes % Monocytes % Eosinophils % Basophils % Absolute Neutrophils Absolute Lymphocytes Absolute Monocytes Absolute Eosinophils Absolute Basophils Sodium Potassium Chloride Carbon Dioxide Anion Gap BUN Creatinine Est GFR ( Amer) Est GFR (Non-Af Amer) Glucose Calcium Ionized Calcium Alfreda 1.46 H C-Reactive Protein 02/02/17 02/02/17 02/03/17 20:18 20:18 04:35 Creatine Kinase 74 58 CK-MB (CK-2) 1.33 Troponin I < 0.012 02/03/17 02/03/17 02/03/17 04:35 12:21 12:21 Creatine Kinase 53 CK-MB (CK-2) 1.32 1.00 Troponin I < 0.012 < 0.012 Impressions: Chest X-Ray 02/02/17 17:05 IMPRESSION: NO ACUTE RADIOGRAPHIC FINDING IN THE CHEST. Assessment & Plan - Diagnosis (1) Pressure ulcer of right hip, stage 2 Is this a current diagnosis for this admission?: No Plan: Pressure reduction strategies Monitor WBC but would not pursue workup without sirs/sepsis criteria Superficial dressings, pressure reduction dressings Current workup pressing for recent falls, pending MRI (2) Pressure ulcer of right elbow, stage 2 Is this a current diagnosis for this admission?: No Plan: Pressure reduction strategies Monitor WBC but would not pursue workup without sirs/sepsis criteria Superficial dressings, pressure reduction dressings Current workup pressing for recent falls, pending MRI
--- NOTE | 2017-02-03 17:33 | RADIOLOGY REPORT (SQ) ---
EXAM DESCRIPTION: MRI RT UPPER EXTREMITY WITHOUT COMPLETED DATE/TIME: 02/03/2017 5:08 pm REASON FOR STUDY: arm wound, r/o osteo COMPARISON: None. TECHNIQUE: Multiplanar imaging of the right elbow to include fat and fluid sensitive sequences. LIMITATIONS: Large patient, heterogeneous fat saturation, motion artifact FINDINGS: There is subcutaneous edema along the dorsal proximal forearm, with a 2.5 cm diameter soft tissue ulcer, just distal to the bony olecranon. No soft tissue fluid collection worrisome for abscess. Inflammation and cellulitis is extrinsic to the forearm extensor muscle compartment. There is no olecranon for ulnar bone marrow edema worrisome for osteomyelitis. In the antecubital fossa, there is edema, question superficial thrombophlebitis in area. Adjacent br achialis muscle and distal biceps tendon grossly intact. IMPRESSION: Subcutaneous edema along the dorsal proximal forearm ulcer with cellulitis. No bone marrow edema worrisome for osteomyelitis Edema is present in the deep antecubital fossa along the median cubital vein. Question thrombophlebi tis. Adjacent brachialis and distal biceps muscle and tendon are intact. TECHNICAL DOCUMENTATION: JOB ID: [id number] [employer]- All Rights Reserved
--- NOTE | 2017-02-03 18:23 | RADIOLOGY REPORT (SQ) ---
EXAM DESCRIPTION: U/S ABDOMEN COMPLETE W/O DOP COMPLETED DATE/TIME: 02/03/2017 6:11 pm REASON FOR STUDY: elevated lft COMPARISON: None. TECHNIQUE: Dynamic and static grayscale images acquired of the abdomen and recorded on PACS. Additio nal selected color Doppler and spectral images recorded. LIMITATIONS: None. FINDINGS: PANCREAS: No masses. Visualized pancreatic duct normal caliber. LIVER: No masses. Echotexture normal. LIVER VASCULATURE: Normal directional flow of the main portal vein and hepatic veins. GALLBLADDER: No stones. Small amount of layering sludge. Normal wall thickness. No pericholecystic fluid. ULTRASOUND-DETECTED FRIAS'S SIGN: Negative. INTRAHEPATIC DUCTS AND COMMON DUCT: CBD and intrahepatic ducts normal caliber. No filling defects. INFERIOR VENA CAVA: Normal flow. AORTA: No aneurysm. RIGHT KIDNEY: Normal size. Normal echogenicity. No solid or suspicious masses. No hydronephros is. No calcifications. LEFT KIDNEY: Normal size. Normal echogenicity. No solid or suspicious masses. No hydronephrosi s. No calcifications. SPLEEN: Not visualized. PERITONEAL AND PLEURAL SPACES: No ascites or effusions. OTHER: No other significant finding. IMPRESSION: SMALL AMOUNT OF SLUDGE IN THE GALLBLADDER. NO OTHER SIGNIFICANT FINDINGS. THE SPLEEN I S NOT VISUALIZED DUE TO OVERLYING BOWEL GAS. TECHNICAL DOCUMENTATION: JOB ID: [id number] [employer]- All Rights Reserved
[2017-02-03] MEDS: COLLAGENASE CLOSTRIDIUM HIST. OINT 30 GM TP SCH (18:35)
[2017-02-03] MEDS ORDERED: VANCOMYCIN HCL 0 MG in DEXTROSE 5%-WATER 250 ML IV NR (19:00)
--- NOTE | 2017-02-03 19:05 | PDOC PROGRESS REPORT ---
Subjective Progress Note for:: 02/03/17 Subjective:: The patient is resting in her bed. She states that overall she just is not feeling well today. She is having pain at the site of her arm. She states she has had increasing weakness. She states that she has 0 appetite and has lost 50 pounds over the past 4 months. She states that she does not get nauseated and that she does not have any abdominal pain. She states she just has no appetite. Food does not taste good. She does not report any difficulty swallowing. She has had no abdominal pain. She reports intermittent constipation. She has noted no black stools or tarry stools. No blood noted in her stools. She has no dysuria, frequency or hematuria. Physical Exam Vital Signs: Temp Pulse Resp BP Pulse Ox 97.9 F 85 16 126/52 H 100 02/03/17 15:45 02/03/17 15:45 02/03/17 13:50 02/03/17 15:45 02/03/17 15:45 Intake & Output 02/02/17 02/03/17 02/04/17 06:59 06:59 06:59 Intake Total 2600 100 Output Total 1350 1000 Balance 1250 -900 General appearance: PRESENT: no acute distress, morbidly obese Head exam: PRESENT: atraumatic, normocephalic Ear exam: PRESENT: normal external ear exam Mouth exam: PRESENT: moist, tongue midline Respiratory exam: PRESENT: clear to auscultation christy. ABSENT: rales, rhonchi, wheezes Cardiovascular exam: PRESENT: RRR. ABSENT: diastolic murmur, rubs, systolic murmur GI/Abdominal exam: PRESENT: normal bowel sounds, soft. ABSENT: distended, guarding, mass, organolmegaly, rebound, tenderness Extremities exam: PRESENT: full ROM. ABSENT: calf tenderness, clubbing, pedal edema Neurological exam: PRESENT: alert, awake, oriented to person, oriented to place , oriented to time, oriented to situation. ABSENT: motor sensory deficit Psychiatric exam: PRESENT: appropriate affect, normal mood. ABSENT: homicidal ideation, suicidal ideation Skin exam: PRESENT: dry, intact, warm. ABSENT: cyanosis, rash Results Laboratory Results: 02/03/17 04:35 02/03/17 04:35 02/03/17 02/03/17 02/03/17 04:35 04:35 04:35 WBC 6.7 RBC 3.35 L Hgb 9.0 L Hct 27.6 L MCV 82 MCH 26.9 L MCHC 32.6 RDW 15.7 H Plt Count 331 Seg Neutrophils % 65.6 Lymphocytes % 24.8 Monocytes % 7.0 Eosinophils % 1.8 Basophils % 0.8 Absolute Neutrophils 4.4 Absolute Lymphocytes 1.7 Absolute Monocytes 0.5 Absolute Eosinophils 0.1 Absolute Basophils 0.1 Sodium 139.9 Potassium 3.8 Chloride 111 H Carbon Dioxide 20 L Anion Gap 9 BUN 10 Creatinine 0.93 Est GFR ( Amer) > 60 Est GFR (Non-Af Amer) > 60 Glucose 98 Calcium 10.6 H Ionized Calcium Alfreda C-Reactive Protein 53.2 H 02/03/17 09:22 WBC RBC Hgb Hct MCV MCH MCHC RDW Plt Count Seg Neutrophils % Lymphocytes % Monocytes % Eosinophils % Basophils % Absolute Neutrophils Absolute Lymphocytes Absolute Monocytes Absolute Eosinophils Absolute Basophils Sodium Potassium Chloride Carbon Dioxide Anion Gap BUN Creatinine Est GFR ( Amer) Est GFR (Non-Af Amer) Glucose Calcium Ionized Calcium Alfreda 1.46 H C-Reactive Protein 02/02/17 02/02/17 02/03/17 20:18 20:18 04:35 Creatine Kinase 74 58 CK-MB (CK-2) 1.33 Troponin I < 0.012 02/03/17 02/03/17 02/03/17 04:35 12:21 12:21 Creatine Kinase 53 CK-MB (CK-2) 1.32 1.00 Troponin I < 0.012 < 0.012 Impressions: Chest X-Ray 02/02/17 17:05 IMPRESSION: NO ACUTE RADIOGRAPHIC FINDING IN THE CHEST. Abdomen Ultrasound 02/03/17 00:00 IMPRESSION: SMALL AMOUNT OF SLUDGE IN THE GALLBLADDER. NO OTHER SIGNIFICANT FINDINGS. THE SPLEEN IS NOT VISUALIZED DUE TO OVERLYING BOWEL GAS. Upper Extremity MRI 02/03/17 00:00 IMPRESSION: Subcutaneous edema along the dorsal proximal forearm ulcer with cellulitis. No bone marrow edema worrisome for osteomyelitis Edema is present in the deep antecubital fossa along the median cubital vein. Question thrombophlebitis. Adjacent brachialis and distal biceps muscle and tendon are intact. Assessment & Plan - Diagnosis (1) Hypercalcemia Is this a current diagnosis for this admission?: Yes Plan: We will obtain an intact PTH and ionized calcium today. She is receiving IV fluids however I am highly suspicious of underlying malignancy. Workup will be outlined below. (2) Encephalopathy Is this a current diagnosis for this admission?: Yes Plan: The patient's encephalopathy seems to be improving with IV fluids. She has had a recent workup from her primary care provider as an outpatient with a recent MRI of the brain. Her acute encephalopathy could have been due to underlying infection. (3) Bacteremia Plan: Emergency room but still just this is the second patient the patient has underlying cellulitis which is likely the source of her bacteremia. At this point she has 3 blood cultures positive for gram-positive cocci. She has been started on IV vancomycin and Zosyn. This is the first full day of treatment. We can repeat blood cultures in the next 24-48 hours. (4) Cellulitis Qualifiers: Site of cellulitis: unspecified site Qualified Code(s): L03.90 - Cellulitis , unspecified Is this a current diagnosis for this admission?: Yes Plan: The patient has right upper extremity wound as well as a stage II sacral decubitus ulcer and also a stage II ulcer on her hip. She has been started on IV vancomycin and Zosyn. This is day #1 of treatment. (5) Weight loss Is this a current diagnosis for this admission?: Yes Plan: The patient has lost over 50 pounds in the past 4 months. She will have an abdominal ultrasound today to evaluate her elevated liver function tests. I am highly worried about malignancy in light of her hypercalcemia. (6) Elevated liver function tests Plan: These will be repleted in the repeated in the morning. I will obtain an abdominal ultrasound. (7) Anemia Plan: I will obtain an anemia panel. (8) Metabolic acidosis Plan: She will have a chemistry panel drawn in the morning. (9) Chronic narcotic use Plan: The patient has chronic pain with continuous narcotic use. She has as needed Percocet listed as a home med but according to the daughter takes it on a regular basis every day. (10) Ambulatory dysfunction Plan: We will have PT see the patient. She has been having frequent falls at home. (11) Hypertension Plan: Stable for now (13) Depression Plan: Continue Abilify (14) Diabetes Plan: Stable - Time Time Spent with patient: 25-34 minutes - Inpatient Certification Medical Necessity: Need For IV Fluids, Need for IV Antibiotics - Inpatient hospitalization remains necessary. The patient has 3 positive blood cultures and underlying cellulitis. Timing of disposition will be determined by her clinical course.
[2017-02-03] MEDS ORDERED: AZTREONAM 1 GM in DEXTROSE 5%-WATER 50 ML IV ONE (20:00)
[2017-02-03] MEDS ORDERED: PIPERACILLIN SODIUM/TAZOBACTAM 3.375 GM in NORMAL SALINE 100 ML IV SCH (21:00)
[2017-02-03] MEDS: VANCOMYCIN HCL 750 MG in DEXTROSE 5%-WATER 250 ML IV SCH (21:50)
[2017-02-03] MEDS: ATORVASTATIN CALCIUM 40 MG TABLET PO SCH (21:50)
[2017-02-04] MEDS: AZTREONAM 1 GM in DEXTROSE 5%-WATER 50 ML IV SCH ×3 (02:18→19:19)
--- NOTE | 2017-02-04 04:16 | Physician Advisory Note ---
Physician Advisor ProgressNote .: Pursuant to the plan for [facility], I have reviewed the medical record for this patient. Physician Advisor Statement: Very nice documentation of co-morbidities & clinical thinking. When stating "metabolic acidosis", please don't forget to state if it is "acute ". CK
[2017-02-04] MEDS: HEPARIN SOD (PORCINE) 5,000 UNIT/ML 1 ML SYRINGE SUBCUT SCH ×3 (05:15→22:38)
--- NOTE | 2017-02-04 08:24 | PDOC PROGRESS REPORT ---
Subjective Progress Note for:: 02/04/17 Subjective:: No events overnight Minimal pain to right elbow eschar site Wound inspected today, again resolution of erythema and edema, eschar near total resolution - continue santyl Right hip eschar site still solid, continue santyl Continue pressure reduction strategies Physical Exam Vital Signs: Temp Pulse Resp BP Pulse Ox 98.2 F 84 18 129/58 H 100 02/03/17 23:52 02/04/17 02:00 02/03/17 23:52 02/03/17 23:52 02/03/17 23:52 Intake & Output 02/03/17 02/04/17 02/05/17 06:59 06:59 06:59 Intake Total 2600 750 Output Total 1350 1200 Balance 1250 -450 Weight 79.1 kg General appearance: PRESENT: no acute distress, cooperative, obese Head exam: PRESENT: atraumatic, normocephalic Eye exam: PRESENT: conjunctiva pink Mouth exam: PRESENT: moist, neck supple Neck exam: ABSENT: lymphadenopathy, thyromegaly, tracheal deviation Respiratory exam: PRESENT: symmetrical, unlabored. ABSENT: tachypnea GI/Abdominal exam: PRESENT: soft. ABSENT: distended, firm, tenderness Neurological exam: PRESENT: awake, oriented to person, oriented to place, CN II- XII grossly intact, other - Mild confusion, not great historian, no family at bedside Results Laboratory Results: 02/03/17 04:35 02/03/17 04:35 02/03/17 02/03/17 02/04/17 04:35 09:22 06:39 Retic Count (auto) 1.71 Absolute Retic 0.062 Ionized Calcium Alfreda 1.46 H C-Reactive Protein 53.2 H 02/02/17 02/02/17 02/03/17 20:18 20:18 04:35 Creatine Kinase 74 58 CK-MB (CK-2) 1.33 Troponin I < 0.012 02/03/17 02/03/17 02/03/17 04:35 12:21 12:21 Creatine Kinase 53 CK-MB (CK-2) 1.32 1.00 Troponin I < 0.012 < 0.012 Impressions: Chest X-Ray 02/02/17 17:05 IMPRESSION: NO ACUTE RADIOGRAPHIC FINDING IN THE CHEST. Abdomen Ultrasound 02/03/17 00:00 IMPRESSION: SMALL AMOUNT OF SLUDGE IN THE GALLBLADDER. NO OTHER SIGNIFICANT FINDINGS. THE SPLEEN IS NOT VISUALIZED DUE TO OVERLYING BOWEL GAS. Upper Extremity MRI 02/03/17 00:00 IMPRESSION: Subcutaneous edema along the dorsal proximal forearm ulcer with cellulitis. No bone marrow edema worrisome for osteomyelitis Edema is present in the deep antecubital fossa along the median cubital vein. Question thrombophlebitis. Adjacent brachialis and distal biceps muscle and tendon are intact. Assessment & Plan - Diagnosis (1) Pressure ulcer of right hip, stage 2 Is this a current diagnosis for this admission?: No Plan: Wound inspected today, again resolution of erythema and edema, eschar near total resolution - continue santyl Right hip eschar site still solid, continue santyl Continue pressure reduction strategies No signs of cellulitis since admission, presence noted on admission note, continue antibiotics as per PCP note significant response to antibiotic regimen (2) Pressure ulcer of right elbow, stage 2 Is this a current diagnosis for this admission?: No Plan: maintain pressure reduction strategies and santyl to site to help with eschar resolution
[2017-02-04 08:38] LABS: FOLATE 2.62 ng/mL (>2.76)
[2017-02-04] MEDS: ARIPIPRAZOLE 5 MG TABLET PO SCH (09:18)
[2017-02-04] MEDS: ASPIRIN 81 MG TABLET, ENT COATED PO SCH (09:18)
[2017-02-04] MEDS: TOPIRAMATE 100 MG TABLET PO SCH ×2 (09:18→22:38)
[2017-02-04] MEDS: DOCUSATE SODIUM 100 MG CAPSULE PO SCH ×2 (09:18→19:19)
[2017-02-04] MEDS: POLYETHYLENE GLYCOL 3350 POWDER 17 GM/1 PACKET PO SCH (09:18)
[2017-02-04] MEDS: COLLAGENASE CLOSTRIDIUM HIST. OINT 30 GM TP SCH (09:18)
[2017-02-04] MEDS: METOPROLOL SUCCINATE 50 MG TAB.SR.24H PO SCH (09:18)
--- NOTE | 2017-02-04 10:57 | PDOC PROGRESS REPORT ---
Subjective Subjective:: The patient is a 66-year-old -Spanish female with a past medical history significant for obesity, diabetes mellitus, hypertension as well as depression and anxiety. She presented to the emergency room with altered mental status and recurrent falls at home. She was found to have evidence of hypercalcemia. She also had a wound on her right arm, sacrum and right hip with evidence of cellulitis. She was admitted to the hospital. In obtaining further history it appears that she has had a 50 pound weight loss over the past 4 months. She overall has been having increasing weakness. She states she has been having night sweats for the past 4 months associated with increasing weakness and frequent falls. She states that over the past week or 2 she felt as if she has had some fevers and chills, especially at night. She has a little bit of a cough but overall her breathing has been stable. She reports that she has no appetite. Food does not taste good. She denies difficulty swallowing. She has had no abdominal pain. She really has not had any nausea at home. She reports intermittent constipation. She has not noted any black or tarry stools. She has had no dysuria, frequency or hematuria. Her outpatient physician ordered an MRI of the brain which was negative. She was scheduled in the near future to have a colonoscopy as an outpatient. This morning the nursing staff reports that she vomited. She vomited when she tried to eat her breakfast and after she took her pills. The patient states that she just does not feel well this morning and is somewhat nauseated. No fever chills overnight. No chest pain, shortness of breath or heart palpitations. She has not had a bowel movement yet. No abdominal pain. No dysuria, frequency or hematuria. Of note the patient has been followed by general surgery and they do not feel as if any of her wounds need surgical debridement. Physical Exam Vital Signs: Temp Pulse Resp BP Pulse Ox 98.2 F 82 18 129/58 H 100 02/03/17 23:52 02/04/17 07:00 02/03/17 23:52 02/03/17 23:52 02/03/17 23:52 Intake & Output 02/03/17 02/04/17 02/05/17 06:59 06:59 06:59 Intake Total 2600 750 Output Total 1350 1200 Balance 1250 -450 Weight 79.1 kg General appearance: PRESENT: no acute distress, obese Head exam: PRESENT: atraumatic, normocephalic Eye exam: PRESENT: conjunctiva pink, EOMI, PERRLA. ABSENT: scleral icterus Mouth exam: PRESENT: moist, tongue midline Respiratory exam: PRESENT: clear to auscultation christy. ABSENT: rales, rhonchi, wheezes Cardiovascular exam: PRESENT: RRR. ABSENT: diastolic murmur, rubs, systolic murmur GI/Abdominal exam: PRESENT: normal bowel sounds, soft. ABSENT: distended, guarding, mass, organolmegaly, rebound, tenderness Rectal exam: PRESENT: deferred Extremities exam: PRESENT: full ROM. ABSENT: calf tenderness, clubbing, pedal edema Neurological exam: PRESENT: alert, awake, oriented to person, oriented to place , oriented to time, oriented to situation. ABSENT: motor sensory deficit Psychiatric exam: PRESENT: appropriate affect, normal mood. ABSENT: homicidal ideation, suicidal ideation Skin exam: PRESENT: dry, warm, other - The patient has wound on her right elbow , the wound looks clean with no evidence of infection today. Sacrum and right hip were not examined today. She has stage II decubitus ulcers per exam yesterday.. ABSENT: cyanosis, rash Results Laboratory Results: 02/03/17 04:35 02/03/17 04:35 02/04/17 02/04/17 06:39 06:39 Retic Count (auto) 1.71 Absolute Retic 0.062 Iron 48.6 TIBC 174 L % Saturation 28 Ferritin 304.00 H Vitamin B12 579.0 Folate 2.62 L 02/02/17 02/02/17 02/03/17 20:18 20:18 04:35 Creatine Kinase 74 58 CK-MB (CK-2) 1.33 Troponin I < 0.012 02/03/17 02/03/17 02/03/17 04:35 12:21 12:21 Creatine Kinase 53 CK-MB (CK-2) 1.32 1.00 Troponin I < 0.012 < 0.012 Impressions: Chest X-Ray 02/02/17 17:05 IMPRESSION: NO ACUTE RADIOGRAPHIC FINDING IN THE CHEST. Abdomen Ultrasound 02/03/17 00:00 IMPRESSION: SMALL AMOUNT OF SLUDGE IN THE GALLBLADDER. NO OTHER SIGNIFICANT FINDINGS. THE SPLEEN IS NOT VISUALIZED DUE TO OVERLYING BOWEL GAS. Upper Extremity MRI 02/03/17 00:00 IMPRESSION: Subcutaneous edema along the dorsal proximal forearm ulcer with cellulitis. No bone marrow edema worrisome for osteomyelitis Edema is present in the deep antecubital fossa along the median cubital vein. Question thrombophlebitis. Adjacent brachialis and distal biceps muscle and tendon are intact. Assessment & Plan - Diagnosis (1) Hypercalcemia Is this a current diagnosis for this admission?: Yes Plan: The patient's ionized calcium level is elevated. Her calcium level is somewhat better today after receiving IV fluids overnight. Intact PTH is pending. We will follow-up with these results. I am concerned about possible underlying malignancy. The patient is having increasing nausea. I am going to scan her chest abdomen and pelvis today and we will follow-up with those results. (2) Gram-positive bacteremia Plan: Patient has 2 out of 2 blood cultures positive for gram-positive cocci. She has MRSA growing from the wound on her arm. BHAVIN to vancomycin is 1. Her multiple wounds are likely the source of her bacteremia. Repeat blood cultures will be drawn today. This is day #2 of treatment with IV vancomycin. I have ordered a 2D echocardiogram. Hopefully her blood cultures were clear and she will not require further evaluation or a ODALIS. (3) Encephalopathy Is this a current diagnosis for this admission?: Yes Plan: The patient's encephalopathy seems to be improving with IV fluids. She has had a recent workup from her primary care provider as an outpatient with a recent MRI of the brain. Her acute encephalopathy could have been due to underlying infection as well as hypercalcemia she is somewhat improved. (4) Cellulitis Qualifiers: Site of cellulitis: unspecified site Qualified Code(s): L03.90 - Cellulitis , unspecified Is this a current diagnosis for this admission?: Yes Plan: Patient has MRSA growing from the wound on her elbow. Continue IV vancomycin. This is day #2 of treatment. General surgery has seen the patient and does not feel as if she needs any surgical debridement. Continue local wound care. (5) Weight loss Is this a current diagnosis for this admission?: Yes Plan: The patient has lost over 50 pounds in the past 4 months. Abdominal ultrasound was unremarkable. I am going to get a CT scan of the abdomen and pelvis as well as the chest. We will use IV and oral contrast. Unfortunately we do not have gastroenterology available today. We will follow-up with these results. I am quite worried about an underlying malignancy. (6) Elevated liver function tests Plan: Again we are going to get a CT scan of the abdomen and pelvis today. Abdominal ultrasound was unrevealing. Will repeat liver function test today. (7) Anemia Plan: I will obtain an anemia panel. (8) Metabolic acidosis Plan: The patient has had nausea and vomiting this morning. Labs are still pending as of the time of this dictation. At this point it is difficult to determine the clinical significance. Will follow up with the results from today's blood work. (9) Chronic narcotic use Plan: The patient has chronic pain with continuous narcotic use. She has as needed Percocet listed as a home med but according to the daughter takes it on a regular basis every day. (10) Ambulatory dysfunction Plan: We will have PT see the patient. She has been having frequent falls at home. (11) Hypertension Plan: Stable for now (12) Tobacco abuse Plan: Certainly would be in her best interest to quit smoking (13) Depression Plan: Continue Abilify (14) Diabetes Plan: Stable. Continue sliding scale coverage here in the hospital. - Time Time Spent with patient: 25-34 minutes - Inpatient Certification Medical Necessity: Need For IV Fluids, Need for IV Antibiotics - Inpatient hospitalization remains necessary. The patient has bacteremia and wound infection requiring parenteral antibiotics. She still has hypercalcemia requiring IV fluids. Timing of disposition will be determined by her clinical course.
[2017-02-04 11:43] LABS: ABSOLUTE BASOPHILS # (AUTO) 0.1 10^3/uL (0.0-0.2); ABSOLUTE EOSINOPHILS # (AUTO) 0.1 10^3/uL (0.0-0.6); ABSOLUTE LYMPHOCYTES (AUTO) 1.7 10^3/uL (0.5-4.7); ABSOLUTE MONOCYTES (AUTO) 0.5 10^3/uL (0.1-1.4); ABSOLUTE NEUT (AUTO) 4.9 10^3/uL (1.7-8.2); BASOPHILS % (AUTO) 0.8 % (0-2); EOSINOPHILS % (AUTO) 1.7 % (0-6); HEMATOCRIT 28.5 % (36.0-47.0); HEMOGLOBIN 9.1 g/dL (12.0-15.5); HGB HCT DIFFERENCE -1.2; LYMPHOCYTES % (AUTO) 23.9 % (13-45); MEAN CORPUSCULAR HEMOGLOBIN 26.4 pg (27.0-33.4); MEAN CORPUSCULAR HGB CONC 32.1 g/dL (32.0-36.0); MEAN CORPUSCULAR VOLUME 82 fl (80-97); MONOCYTES % (AUTO) 6.6 % (3-13); RED BLOOD COUNT 3.47 10^6/uL (3.72-5.28); RED CELL DISTRIBUTION WIDTH 15.4 % (11.5-14.0); WHITE BLOOD COUNT 7.3 10^3/uL (4.0-10.5)
[2017-02-04 12:01] LABS: ALANINE AMINOTRANSFERASE 53 U/L (9-52); ALBUMIN 2.9 g/dL (3.5-5.0); ALKALINE PHOSPHATASE 33 U/L (38-126); ANION GAP 10 (5-19); ASPARTATE AMINO TRANSFERASE 35 U/L (14-36); BILIRUBIN,DIRECT 0.3 mg/dL (0.0-0.4); BILIRUBIN,TOTAL 0.3 mg/dL (0.2-1.3); BLOOD UREA NITROGEN 9 mg/dL (7-20); CALCIUM 10.6 mg/dL (8.4-10.2); CARBON DIOXIDE 24 mmol/L (22-30); CHLORIDE 104 mmol/L (98-107); CREATININE RESULT 0.97 mg/dL (0.52-1.25); GLUCOSE 100 mg/dL (75-110); PHOSPHORUS 2.1 mg/dL (2.5-4.5); POTASSIUM 3.9 mmol/L (3.6-5.0); SODIUM 137.8 mmol/L (137-145); TOTAL PROTEIN 5.5 g/dL (6.3-8.2)
[2017-02-04 12:20] LABS: MAGNESIUM 1.2 mg/dL (1.6-2.3)
[2017-02-04] MEDS ORDERED: MAGNESIUM OXIDE 400 MG TABLET PO ONE (12:45)
--- NOTE | 2017-02-04 16:06 | Operative Report ---
Operative Report DATE OF SURGERY: 02/04/17 Operative Report: Patient was sterilely prepped and draped in usual manner. Positioning was supine in Trendelenburg. Access point was right subclavian. Prior to axis that was locally anesthetized with 1% lidocaine without epinephrine which 3 mL' s were used. Access to the vein was accomplished with the introducer needle and guidewire was advanced. Introducer needle was removed site was incised and dilated up using accompanying dilator. Triple lumen catheter was advanced to 16 cm and fixed to the skin using the accompanying device as well as stitches 2. Bioblock patch was placed to skin and superficially surgical site was placed after the site was then cleaned a second time using ChloraPrep. Patient tolerated the procedure well. Pending portable chest x-ray for confirmation placement. At completion of procedure 2 ports were able to be accessed and blood withdrawn the third was unable to draw blood, injection of sterile saline was easily done needleless lock system were applied all port sites. PREOPERATIVE DIAGNOSIS: Cellulitis, Hypercalcemia, need for CVC POSTOPERATIVE DIAGNOSIS: Cellulitis, Hypercalcemia, need for CVC OPERATION: right subclavian CVC SURGEON: MIMA PATIÑO ANESTHESIA: Local COMPLICATIONS: None ESTIMATED BLOOD LOSS: 5mls
[2017-02-04] MEDS: VANCOMYCIN HCL 750 MG in DEXTROSE 5%-WATER 250 ML IV SCH ×2 (16:21→22:38)
[2017-02-04] MEDS ORDERED: MORPHINE SULFATE 10 MG/ML INJ ONE (16:30)
[2017-02-04 16:40] LABS: ALBUMIN UR 24.7 % (.); GAMMA GLOBULIN URINE 32.2 % (.); M-SPIKE % UR Not Observed % (Not Observed)
--- NOTE | 2017-02-04 16:56 | RADIOLOGY REPORT (SQ) ---
EXAM DESCRIPTION: CHEST SINGLE VIEW COMPLETED DATE/TIME: 02/04/2017 4:40 pm REASON FOR STUDY: central line placement COMPARISON: 02/02/2017 EXAM PARAMETERS: NUMBER OF VIEWS: One view. TECHNIQUE: Single frontal radiographic view of the chest acquired. RADIATION DOSE: NA LIMITATIONS: None. FINDINGS: LUNGS AND PLEURA: No opacities, masses or pneumothorax. No pleural effusion. MEDIASTINUM AND HILAR STRUCTURES: No masses. Contour normal. HEART AND VASCULAR STRUCTURES: Heart normal in size. Normal vasculature. BONES: No acute findings. Degenerative changes are identified. HARDWARE: Central line is identified extending superiorly presumably in the right internal jugular ve in without its tip being identified. OTHER: No other significant finding. IMPRESSION: No evidence for pneumothorax. No acute consolidations or pleural effusions. Central li ne is identified extending superiorly presumably in the right internal jugular vein without its tip b geo identified TECHNICAL DOCUMENTATION: JOB ID: [id number]
--- NOTE | 2017-02-04 17:04 | Operative Report ---
Operative Report DATE OF SURGERY: 02/04/17 Operative Report: Clinical indications: Mrs Ma is a 66 year old female who presented to [facility] ER for fall, altered mentation. During ER evaluation she was noted to have hypercalcemia as well as what appeared to be cellulitis of the right arm prompting admission. During admission her peripheral IV access was lost to and subsequent attempts at IV access were unsuccessful. She was found to have a bacteremia with her initial workup in the ER and given this PICC line option was foregone for central venous catheterization. Recently a right subclavian central venous catheter was placed but postprocedural x-ray noted that the catheter had made a cephalad turn. At this point further questioning of the patient and family member notes that she has had a prior central catheter in her neck on the same side. Given the concerns for stenosis and difficulty for repositioning is opted at this time to have her undergo right femoral central venous catheterization. A completion of the procedure the right subclavian CVC was removed and a pressure dressing was placed. Procedure in detail: She sterilely prepped and draped in usual manner. Positioning was supine recumbent reverse Trendelenburg. Prior to access local was instilled in the subcutaneous tissue 1% lidocaine without epinephrine of which 5 mL's were used. Access to the vein was done using the introducer needle , guidewire was advanced, needle was withdrawn, incision was done to the site. Dilation was done to allow advancement of the catheter which was advanced until the triple-lumen catheter cannula was butted up against the skin. At this point it was secured to the skin using the accompanying stitch. The Biopatch was placed against the skin after the skin was cleaned using the second ChloraPrep stick. Superficial dressing was of an OpSite. All 3 cannula sites were able to be aspirated with easy return of blood and flushed with 10 cc of saline at each site. The needleless skin access points were used for each site. Patient tolerated the procedure well. PREOPERATIVE DIAGNOSIS: Cellulitis, Hypercalcemia, need for CVC POSTOPERATIVE DIAGNOSIS: Cellulitis, Hypercalcemia, need for CVC OPERATION: right femoral CVC SURGEON: MIMA PATIÑO ANESTHESIA: Local ESTIMATED BLOOD LOSS: 5mls
--- NOTE | 2017-02-04 18:20 | RADIOLOGY REPORT (SQ) ---
EXAM DESCRIPTION: CT CHEST WITH COMPLETED DATE/TIME: 02/04/2017 6:06 pm REASON FOR STUDY: 50 pound weight loss, sob, cough COMPARISON: None. TECHNIQUE: CT scan of the chest performed using helical scanning technique with dynamic intravenous contrast injection. Images reviewed with lung, soft tissue and bone windows. Reconstructed coronal and sagittal MPR images reviewed. All images stored on PACS. All CT scanners at this facility use dose modulation, iterative reconstruction, and/or weight based d osing when appropriate to reduce radiation dose to as low as reasonably achievable (ALARA). [facility]: Dose Right [facility]: CareDose [facility]: Dose Right [facility]: Teradose 4D [facility]: PhotoTLC CONTRAST TYPE AND DOSE: 95 cc Isovue 370- low osmolar. RENAL FUNCTION: Not recorded. RADIATION DOSE: Total exam DLP 1969 mGy cm LIMITATIONS: None. FINDINGS: LUNGS AND PLEURA: No opacities, nodules, masses. No pneumothorax. No effusions. HILAR AND MEDIASTINAL STRUCTURES: No identified masses or abnormal nodes. HEART AND VASCULAR STRUCTURES: No aneurysm or dissection. No central pulmonary emboli. No pericardi al effusion. HARDWARE: None in the chest. UPPER ABDOMEN: See separate report of the CT of the abdomen. THYROID AND OTHER SOFT TISSUES: No masses. No adenopathy. BONES: Bridging osteophytes in the thoracic spine. No acute abnormality. OTHER: No other significant finding. IMPRESSION: Extensive thoracic spondylosis. No acute abnormality in the thorax. TECHNICAL DOCUMENTATION: JOB ID: [id number] Quality ID # [id number]: Final reports with documentation of one or more dose reduction techniques (e.g., Au tomated exposure control, adjustment of the mA and/or kV according to patient size, use of iterative reconstruction technique) 2010 [employer]- All Rights Reserved
--- NOTE | 2017-02-04 18:34 | RADIOLOGY REPORT (SQ) ---
EXAM DESCRIPTION: CT ABD/PELVIS WITH IV ORAL COMPLETED DATE/TIME: 02/04/2017 6:06 pm REASON FOR STUDY: 50 pound weight loss, NV, constipation COMPARISON: None. TECHNIQUE: CT scan of the abdomen and pelvis performed using helical scanning technique with dynamic intravenous contrast injection and with oral contrast. Images reviewed with lung, soft tissue, and b one windows. Reconstructed coronal and sagittal MPR images reviewed. Delayed images for evaluation of the urinary system also acquired. All images stored on PACS. All CT scanners at this facility use dose modulation, iterative reconstruction, and/or weight based d osing when appropriate to reduce radiation dose to as low as reasonably achievable (ALARA). [facility]: Dose Right [facility]: CareDose [facility]: Dose Right [facility]: Teradose 4D [facility]: Bitly CONTRAST TYPE AND DOSE: contrast/concentration: Isovue 370.00 mg/ml; Total Contrast Delivered: 95.0 ml; Total Saline Delivered: 69.0 ml RENAL FUNCTION: BUN 9 creatinine 0.97. RADIATION DOSE: Up-to-date CT equipment and radiation dose reduction techniques were employed. CTDIv ol: 15.7 - 19.4 mGy. DLP: 1969 mGy-cm.. LIMITATIONS: None. FINDINGS: LOWER CHEST: No significant findings. No nodules or infiltrates. LIVER: Normal size. No masses. No dilated ducts. SPLEEN: Normal size. No focal lesions. PANCREAS: No masses. No significant calcifications. No adjacent inflammation or peripancreatic fluid collections. Pancreatic duct not dilated. GALLBLADDER: No identified stones by CT criteria. No inflammatory changes to suggest cholecystitis. ADRENAL GLANDS: No significant masses or asymmetry. RIGHT KIDNEY AND URETER: No solid masses. No significant calcifications. No hydronephrosis or hyd roureter. LEFT KIDNEY AND URETER: No solid masses. No significant calcifications. No hydronephrosis or hydr oureter. AORTA AND VESSELS: No aneurysm. No dissection. Renal arteries, SMA, celiac without stenosis. RETROPERITONEUM: No retroperitoneal adenopathy, hemorrhage or masses. BOWEL AND PERITONEAL CAVITY: No masses or inflammatory changes. No free fluid or peritoneal masses. APPENDIX: Normal. PELVIS: No mass. No free fluid. Catheter in the bladder. Right femoral vein catheter. ABDOMINAL WALL: No masses. No hernias. BONES: No significant or acute findings. OTHER: No other significant finding. IMPRESSION: NO SIGNIFICANT OR ACUTE FINDING IN THE ABDOMEN OR PELVIS ON CT SCAN WITH IV CONTRAST. TECHNICAL DOCUMENTATION: JOB ID: [id number] Quality ID # [id number]: Final reports with documentation of one or more dose reduction techniques (e.g., Au tomated exposure control, adjustment of the mA and/or kV according to patient size, use of iterative reconstruction technique) 2010 [employer]- All Rights Reserved
--- NOTE | 2017-02-04 19:21 | XCELERA REPORT ---
[address] [address] Transthoracic Echocardiogram Report Name: IMANI WHITTAKER Age: 66 yrs Gender: Female : 1950 Patient Status: Inpatient Patient Location: [address] [place] [address] Study Date: 02/04/2017 02:21 PM Height: 64 in Weight: 174 lb BSA: 1.8 m2 Procedure: A complete two-dimensional transthoracic echocardiogram was performed (2D, M-mode, spectral and color flow Doppler). The study was technically adequate with some images being suboptimal in quality. Reason For Study: bacteremia Ordering Physician: CRIS GONZALES Performed By: Lashell Pereyra Interpretation Summary The left ventricular ejection fraction is within normal limits. There is mild concentric left ventricular hypertrophy. Doppler measurements suggest pseudonormalized left ventricular relaxation, which is associated with grade II/IV or mild to moderate diastolic dysfunction The left ventricle is grossly normal size. Wall motion cannot be accurately commented on, but no definite regional wall motion abnormalities noted. The right ventricular systolic function is normal. The left atrial size is normal. The right atrium is normal in size There is a trace amount of mitral regurgitation There is no mitral valve stenosis. No aortic regurgitation is present. There is no aortic valve stenosis There is a trace or physiologic amount of tricuspid regurgitation Tricuspid regurgitation jet envelope not well defined to measure RV systolic pressure accurately. There is no pericardial effusion. No definite vegetations noted but if clinical suspicion is high, then consider ODALIS and multiple blood cultures. MMode/2D Measurements & Calculations RVDd: 2.7 cm LVIDd: 4.2 cm FS: 34.4 % Ao root diam: 2.4 cm IVSd: 0.96 cm LVIDs: 2.7 cm EDV(Teich): 77.6 ml LVPWd: 1.0 cm ESV(Teich): 28.0 ml Ao root area: 4.6 cm2 EF(Teich): 63.9 % Doppler Measurements & Calculations MV E max gilberto: MV dec slope: Ao V2 max: LV V1 max P.0 cm/sec 109.9 cm/sec 2.6 mmHg MV A max gilberto: 300.6 cm/sec2 Ao max PG: LV V1 max: 72.1 cm/sec MV dec time: 4.8 mmHg 81.2 cm/sec MV E/A: 0.79 0.19 sec PA V2 max: TR max gilberto: 63.6 cm/sec 177.1 cm/sec PA max PG: TR max P.6 mmHg 1.6 mmHg Left Ventricle The left ventricle is grossly normal size. There is mild concentric left ventricular hypertrophy. The left ventricular ejection fraction is within normal limits. Doppler measurements suggest pseudonormalized left ventricular relaxation, which is associated with grade II/IV or mild to moderate diastolic dysfunction. Wall motion cannot be accurately commented on, but no definite regional wall motion abnormalities noted. Right Ventricle The right ventricle is grossly normal size. There is normal right ventricular wall thickness. The right ventricular systolic function is normal. Atria The right atrium is normal in size. The left atrial size is normal. Interarterial septum not well visualized and not well dopplered. Cannot comment on ASD/PFO presence. Mitral Valve The mitral valve is grossly normal. There is no mitral valve stenosis. There is a trace amount of mitral regurgitation. Aortic Valve The aortic valve is grossly normal. There is no aortic valve stenosis. No aortic regurgitation is present. Tricuspid Valve The tricuspid valve is not well visualized, but is grossly normal. There is no tricuspid stenosis. There is a trace or physiologic amount of tricuspid regurgitation. Tricuspid regurgitation jet envelope not well defined to measure RV systolic pressure accurately. Pulmonic Valve The pulmonic valve is not well visualized. Great Vessels The aortic root is not well visualized but is probably normal size. The inferior vena cava appeared normal and decreased < 50% with respiration (RAP 10-15 mmHg). Effusions There is no pericardial effusion. Incidental Findings No definite vegetations noted but cannot completely rule it out. No definite vegetations noted but if clinical suspicion is high, then consider ODALIS and multiple blood cultures. : CRIS GONZALES > Annabella Jones
[2017-02-04] MEDS: ATORVASTATIN CALCIUM 40 MG TABLET PO SCH (22:38)
[2017-02-04] MEDS: OXYCODONE-ACETAMINOPHEN 5-325 MG TABLET PO PRN (22:38)
[2017-02-05] MEDS: AZTREONAM 1 GM in DEXTROSE 5%-WATER 50 ML IV SCH ×3 (02:48→18:29)
[2017-02-05] MEDS: HEPARIN SOD (PORCINE) 5,000 UNIT/ML 1 ML SYRINGE SUBCUT SCH ×3 (06:07→22:02)
[2017-02-05 06:24] LABS: ABSOLUTE EOSINOPHILS # (AUTO) 0.2 10^3/uL (0.0-0.6); ABSOLUTE MONOCYTES (AUTO) 0.6 10^3/uL (0.1-1.4); ABSOLUTE NEUT (AUTO) 6.3 10^3/uL (1.7-8.2); BASOPHILS % (AUTO) 0.5 % (0-2); LYMPHOCYTES % (AUTO) 21.5 % (13-45); MEAN CORPUSCULAR HEMOGLOBIN 26.5 pg (27.0-33.4); MEAN CORPUSCULAR HGB CONC 32.1 g/dL (32.0-36.0); MEAN CORPUSCULAR VOLUME 83 fl (80-97); MONOCYTES % (AUTO) 6.8 % (3-13); RED CELL DISTRIBUTION WIDTH 15.7 % (11.5-14.0); SEGMENTED NEUTROPHILS % (AUTO) 69.2 % (42-78); WHITE BLOOD COUNT 9.2 10^3/uL (4.0-10.5)
[2017-02-05 06:42] LABS: ANION GAP 9 (5-19); BLOOD UREA NITROGEN 10 mg/dL (7-20); CALCIUM 10.5 mg/dL (8.4-10.2); CARBON DIOXIDE 24 mmol/L (22-30); CHLORIDE 105 mmol/L (98-107); CREATININE RESULT 0.93 mg/dL (0.52-1.25); GLUCOSE 75 mg/dL (75-110); MAGNESIUM 1.3 mg/dL (1.6-2.3); POTASSIUM 4.1 mmol/L (3.6-5.0); SODIUM 138.2 mmol/L (137-145)
--- NOTE | 2017-02-05 09:06 | PDOC PROGRESS REPORT ---
Subjective Progress Note for:: 02/05/17 Subjective:: No events overnight CVC sites doing well, no echymosis, minimal pain Right Subclavian site removed last pm after right femoral site obtained Pressure bandages in place with santyl to right elbow and right hip Pressure reduction strategies in place Physical Exam Vital Signs: Temp Pulse Resp BP Pulse Ox 97.4 F 77 15 131/62 H 100 02/05/17 08:11 02/05/17 08:11 02/05/17 08:11 02/05/17 08:11 02/05/17 08:11 Intake & Output 02/04/17 02/05/17 02/06/17 06:59 06:59 06:59 Intake Total 750 950 Output Total 1200 1500 Balance -450 -550 Weight 79.1 kg 85.2 kg General appearance: PRESENT: no acute distress, well-developed Head exam: PRESENT: atraumatic, normocephalic Eye exam: PRESENT: conjunctiva pale Mouth exam: PRESENT: moist, neck supple Neck exam: ABSENT: lymphadenopathy, thyromegaly, tracheal deviation Respiratory exam: PRESENT: symmetrical, unlabored. ABSENT: tachypnea GI/Abdominal exam: PRESENT: soft. ABSENT: firm, guarding, hernia, tenderness Extremities exam: ABSENT: calf tenderness, tenderness Neurological exam: PRESENT: alert, awake, oriented to person, oriented to place , CN II-XII grossly intact Skin exam: PRESENT: other - right elbow wound improving with santyl, no signs of surrounding cellulitis right hip wound improving with santyl, no signs of surrounding cellulitis Results Laboratory Results: 02/05/17 06:00 02/05/17 06:00 02/04/17 02/04/17 02/04/17 06:39 11:20 11:20 WBC 7.3 RBC 3.47 L Hgb 9.1 L Hct 28.5 L MCV 82 MCH 26.4 L MCHC 32.1 RDW 15.4 H Plt Count 336 Seg Neutrophils % 67.0 Lymphocytes % 23.9 Monocytes % 6.6 Eosinophils % 1.7 Basophils % 0.8 Absolute Neutrophils 4.9 Absolute Lymphocytes 1.7 Absolute Monocytes 0.5 Absolute Eosinophils 0.1 Absolute Basophils 0.1 Sodium 137.8 Potassium 3.9 Chloride 104 Carbon Dioxide 24 Anion Gap 10 BUN 9 Creatinine 0.97 Est GFR ( Amer) > 60 Est GFR (Non-Af Amer) 58 L Glucose 100 Calcium 10.6 H Phosphorus 2.1 L Magnesium 1.2 L* Transferrin 121 L Total Bilirubin 0.3 AST 35 ALT 53 H Alkaline Phosphatase 33 L Total Protein 5.5 L Albumin 2.9 L 02/05/17 02/05/17 06:00 06:00 WBC 9.2 RBC 3.40 L Hgb 9.0 L Hct 28.0 L MCV 83 MCH 26.5 L MCHC 32.1 RDW 15.7 H Plt Count 327 Seg Neutrophils % 69.2 Lymphocytes % 21.5 Monocytes % 6.8 Eosinophils % 2.0 Basophils % 0.5 Absolute Neutrophils 6.3 Absolute Lymphocytes 2.0 Absolute Monocytes 0.6 Absolute Eosinophils 0.2 Absolute Basophils 0.0 Sodium 138.2 Potassium 4.1 Chloride 105 Carbon Dioxide 24 Anion Gap 9 BUN 10 Creatinine 0.93 Est GFR ( Amer) > 60 Est GFR (Non-Af Amer) > 60 Glucose 75 Calcium 10.5 H Phosphorus Magnesium 1.3 L Transferrin Total Bilirubin AST ALT Alkaline Phosphatase Total Protein Albumin 02/02/17 02/02/17 02/03/17 20:18 20:18 04:35 Creatine Kinase 74 58 CK-MB (CK-2) 1.33 Troponin I < 0.012 02/03/17 02/03/17 02/03/17 04:35 12:21 12:21 Creatine Kinase 53 CK-MB (CK-2) 1.32 1.00 Troponin I < 0.012 < 0.012 Impressions: Abdomen Ultrasound 02/03/17 00:00 IMPRESSION: SMALL AMOUNT OF SLUDGE IN THE GALLBLADDER. NO OTHER SIGNIFICANT FINDINGS. THE SPLEEN IS NOT VISUALIZED DUE TO OVERLYING BOWEL GAS. Upper Extremity MRI 02/03/17 00:00 IMPRESSION: Subcutaneous edema along the dorsal proximal forearm ulcer with cellulitis. No bone marrow edema worrisome for osteomyelitis Edema is present in the deep antecubital fossa along the median cubital vein. Question thrombophlebitis. Adjacent brachialis and distal biceps muscle and tendon are intact. Abdomen/Pelvis CT 02/04/17 00:00 IMPRESSION: NO SIGNIFICANT OR ACUTE FINDING IN THE ABDOMEN OR PELVIS ON CT SCAN WITH IV CONTRAST. Chest CT 02/04/17 00:00 IMPRESSION: Extensive thoracic spondylosis. No acute abnormality in the thorax. Chest X-Ray 02/04/17 00:00 IMPRESSION: No evidence for pneumothorax. No acute consolidations or pleural effusions. Central line is identified extending superiorly presumably in the right internal jugular vein without its tip being identified Assessment & Plan - Diagnosis (1) Pressure ulcer of right hip, stage 2 Is this a current diagnosis for this admission?: No Plan: Continue pressure reduction strategies for right hip and right elbow wound Monitor sacrum for any signs of deterioration, avulsion injury noted from prior to admission Santyl to both right hip and right elbow to return wounds from chronic to active healing states Optimize nutrition CVC management per hospital protocols Call with any questions (2) Pressure ulcer of right elbow, stage 2 Is this a current diagnosis for this admission?: No
[2017-02-05] MEDS: OXYCODONE-ACETAMINOPHEN 5-325 MG TABLET PO PRN (10:09)
[2017-02-05] MEDS: ARIPIPRAZOLE 5 MG TABLET PO SCH (10:10)
[2017-02-05] MEDS: TOPIRAMATE 100 MG TABLET PO SCH ×2 (10:11→22:02)
[2017-02-05] MEDS: ASPIRIN 81 MG TABLET, ENT COATED PO SCH (10:11)
[2017-02-05] MEDS: METOPROLOL SUCCINATE 50 MG TAB.SR.24H PO SCH (10:12)
[2017-02-05] MEDS: VANCOMYCIN HCL 750 MG in DEXTROSE 5%-WATER 250 ML IV SCH ×2 (10:14→22:02)
[2017-02-05] MEDS ORDERED: MAGNESIUM SULFATE 4 GM/100 ML RTUPB IV ONE (12:00)
[2017-02-05] MEDS: DOCUSATE SODIUM 100 MG CAPSULE PO SCH ×2 (13:23→17:15)
[2017-02-05] MEDS: POLYETHYLENE GLYCOL 3350 POWDER 17 GM/1 PACKET PO SCH (13:23)
--- NOTE | 2017-02-05 15:19 | PDOC PROGRESS REPORT ---
Subjective Progress Note for:: 02/05/17 Subjective:: Prior inpatient history: The patient is a 66-year-old -[place] female with a past medical history significant for obesity, diabetes mellitus, hypertension as well as depression and anxiety. She presented to the emergency room with altered mental status and recurrent falls at home. She was found to have evidence of hypercalcemia. She also had a wound on her right arm, sacrum and right hip with evidence of cellulitis. She was admitted to the hospital. In obtaining further history it appears that she has had a 50 pound weight loss over the past 4 months. She overall has been having increasing weakness. She states she has been having night sweats for the past 4 months associated with increasing weakness and frequent falls. She states that over the past week or 2 she felt as if she has had some fevers and chills, especially at night. She has a little bit of a cough but overall her breathing has been stable. She reports that she has no appetite. Food does not taste good. She denies difficulty swallowing. She has had no abdominal pain. She really has not had any nausea at home. She reports intermittent constipation. She has not noted any black or tarry stools. She has had no dysuria, frequency or hematuria. Her outpatient physician ordered an MRI of the brain which was negative. She was scheduled in the near future to have a colonoscopy as an outpatient. Today, the patient was seen with 2 of her daughters. In addition to the history above the daughter who lives with the patient stated that her mother's Klonopin was abruptly discontinued a couple of months ago. In place of Klonopin she was placed on high-dose Vistaril. Also, the daughter has mentioned that she has had some lip smacking since this medication change was made. Today, the patient is not really complaining of any pain. She has no breathing difficulties. She was able to eat a little bit of breakfast and according to both daughters this is the most she has eaten in a long time. Physical Exam Vital Signs: Temp Pulse Resp BP Pulse Ox 97.3 F 66 16 116/57 L 100 02/05/17 11:08 02/05/17 13:00 02/05/17 13:00 02/05/17 11:08 02/05/17 11:08 Intake & Output 02/04/17 02/05/17 02/06/17 06:59 06:59 06:59 Intake Total 750 950 Output Total 1200 1500 Balance -450 -550 Weight 79.1 kg 85.2 kg Additional comments: The patient is an obese black female. She is sitting up in bed. She is awake and alert and conversant with her daughters. Most of the history however is obtained by the daughters. Patient will answer questions when asked but is somewhat reticent to speak. Her facial appearance is normal but she does have chewing sensations without lipsmacking. Her mucous membranes and lips are moist and normal. The lungs are clear to auscultation bilaterally. Cardiac exam is regular. She has a grade 1/6 systolic ejection murmur at the left upper sternal border. The abdomen is soft and flat. Bowel sounds are present in all 4 quadrants. She has mild mid epigastric pain only with deep palpation. There are no hernias or masses noted. There is no guarding or rebound noted. The lower extremities are warm to touch without pitting edema. The right elbow shows a 2.5 cm x 1.5 cm lesion that appears to be healing. The lesion on the right hip and right buttocks actually appear to be stage II decubitus ulcers that are healing well. Results Laboratory Results: 02/05/17 06:00 02/05/17 06:00 02/04/17 02/05/17 02/05/17 06:39 06:00 06:00 WBC 9.2 RBC 3.40 L Hgb 9.0 L Hct 28.0 L MCV 83 MCH 26.5 L MCHC 32.1 RDW 15.7 H Plt Count 327 Seg Neutrophils % 69.2 Lymphocytes % 21.5 Monocytes % 6.8 Eosinophils % 2.0 Basophils % 0.5 Absolute Neutrophils 6.3 Absolute Lymphocytes 2.0 Absolute Monocytes 0.6 Absolute Eosinophils 0.2 Absolute Basophils 0.0 Sodium 138.2 Potassium 4.1 Chloride 105 Carbon Dioxide 24 Anion Gap 9 BUN 10 Creatinine 0.93 Est GFR ( Amer) > 60 Est GFR (Non-Af Amer) > 60 Glucose 75 Calcium 10.5 H Magnesium 1.3 L Transferrin 121 L 02/02/17 02/02/17 02/03/17 20:18 20:18 04:35 Creatine Kinase 74 58 CK-MB (CK-2) 1.33 Troponin I < 0.012 02/03/17 02/03/1717 04:35 12:21 12:21 Creatine Kinase 53 CK-MB (CK-2) 1.32 1.00 Troponin I < 0.012 < 0.012 Impressions: Abdomen Ultrasound 02/03/17 00:00 IMPRESSION: SMALL AMOUNT OF SLUDGE IN THE GALLBLADDER. NO OTHER SIGNIFICANT FINDINGS. THE SPLEEN IS NOT VISUALIZED DUE TO OVERLYING BOWEL GAS. Upper Extremity MRI 02/03/17 00:00 IMPRESSION: Subcutaneous edema along the dorsal proximal forearm ulcer with cellulitis. No bone marrow edema worrisome for osteomyelitis Edema is present in the deep antecubital fossa along the median cubital vein. Question thrombophlebitis. Adjacent brachialis and distal biceps muscle and tendon are intact. Abdomen/Pelvis CT 02/04/17 00:00 IMPRESSION: NO SIGNIFICANT OR ACUTE FINDING IN THE ABDOMEN OR PELVIS ON CT SCAN WITH IV CONTRAST. Chest CT 02/04/17 00:00 IMPRESSION: Extensive thoracic spondylosis. No acute abnormality in the thorax. Chest X-Ray 02/04/17 00:00 IMPRESSION: No evidence for pneumothorax. No acute consolidations or pleural effusions. Central line is identified extending superiorly presumably in the right internal jugular vein without its tip being identified Assessment & Plan - Diagnosis (1) Ambulatory dysfunction Is this a current diagnosis for this admission?: Yes (2) Anemia Is this a current diagnosis for this admission?: Yes (3) Cellulitis Qualifiers: Site of cellulitis: unspecified site Qualified Code(s): L03.90 - Cellulitis , unspecified Is this a current diagnosis for this admission?: Yes (4) Chronic narcotic use Is this a current diagnosis for this admission?: Yes (6) Elevated liver function tests Is this a current diagnosis for this admission?: Yes (7) Encephalopathy Is this a current diagnosis for this admission?: Yes (8) Gram-positive bacteremia Is this a current diagnosis for this admission?: Yes (9) Hypercalcemia Is this a current diagnosis for this admission?: Yes (10) Hypertension Is this a current diagnosis for this admission?: Yes (11) Metabolic acidosis Is this a current diagnosis for this admission?: Yes (12) Pressure ulcer of right elbow, stage 2 Is this a current diagnosis for this admission?: No (13) Pressure ulcer of right hip, stage 2 Is this a current diagnosis for this admission?: Yes (14) Tobacco abuse Is this a current diagnosis for this admission?: Yes (15) Weight loss Is this a current diagnosis for this admission?: Yes (16) Diabetes Is this a current diagnosis for this admission?: Yes - Time Time Spent with patient: 25-34 minutes - Inpatient Certification Medical Necessity: Need Close Monitoring Due to Risk of Patient Decompensation, Need for IV Antibiotics - Plan Summary Plan Summary: The patient is admitted for the above diagnoses. The patient presented with significant hypercalcemia, this is improving. A PTH hormone is not currently available. I will reorder this. In terms of the patient's bacteremia she is currently receiving vancomycin for MRSA. Her encephalopathy appears to be improving. Her areas of cellulitis also appeared to be improving significantly. She does not appear to have any underlying osteomyelitis. Certainly, the patient's presentation with hypercalcemia and weight loss is very concerning for malignancy. Thankfully, the abdomen and pelvic CT was unremarkable. She will need a full evaluation. She was scheduled to have colonoscopy as an outpatient. Currently, we are waiting for GI evaluation during her inpatient stay. Her anemia will be followed and certainly this could be associated with malignancy. She presented with an acute metabolic acidosis and currently her labs indicate that this is resolved. The patient is chronically on narcotics. She uses Percocet daily. Certainly, this could predispose to her ambulatory dysfunction and falls at home. However, her electrolytes disturbances could do the same thing. I am also concerned about her facial movements. She was recently discontinued on Clonopin. This could lead to subacute seizures and other abnormalities. Since this was done many months ago I am not going to restart the benzodiazepines secondary to her falls , etc. The patient continues to smoke which is increasing her risk for cancer. She is on a low-dose sliding scale insulin for diabetes and currently, her hypertension is under good control. The patient had severe hypomagnesemia which was replaced IV today.
[2017-02-05] MEDS: MORPHINE SULFATE 10 MG/ML INJ IV PRN ×2 (15:56→23:02)
[2017-02-05 16:39] LABS: ALBUMIN URINE 24.8 % (.); BETA GLOBULIN UR 22.5 % (.); GAMMA GLOBULIN UR 29.4 % (.); M-SPIKE % URINE Not Observed % (Not Observed)
[2017-02-05] MEDS: ATORVASTATIN CALCIUM 40 MG TABLET PO SCH (22:02)
[2017-02-06] MEDS: AZTREONAM 1 GM in DEXTROSE 5%-WATER 50 ML IV SCH ×3 (02:43→17:59)
[2017-02-06] MEDS: OXYCODONE-ACETAMINOPHEN 5-325 MG TABLET PO PRN ×3 (02:43→23:10)
[2017-02-06] MEDS: HEPARIN SOD (PORCINE) 5,000 UNIT/ML 1 ML SYRINGE SUBCUT SCH ×3 (05:55→22:50)
[2017-02-06] MEDS: COLLAGENASE CLOSTRIDIUM HIST. OINT 30 GM TP SCH (10:32)
[2017-02-06] MEDS: POLYETHYLENE GLYCOL 3350 POWDER 17 GM/1 PACKET PO SCH (10:32)
[2017-02-06] MEDS: METOPROLOL SUCCINATE 50 MG TAB.SR.24H PO SCH (10:33)
[2017-02-06] MEDS: TOPIRAMATE 100 MG TABLET PO SCH ×2 (10:34→22:50)
[2017-02-06] MEDS: DOCUSATE SODIUM 100 MG CAPSULE PO SCH ×2 (10:35→17:55)
[2017-02-06] MEDS: ASPIRIN 81 MG TABLET, ENT COATED PO SCH (10:35)
[2017-02-06] MEDS: VANCOMYCIN HCL 750 MG in DEXTROSE 5%-WATER 250 ML IV SCH ×2 (10:51→22:51)
[2017-02-06 11:03] LABS: CREATININE RESULT 0.79 mg/dL (0.52-1.25)
--- NOTE | 2017-02-06 14:19 | PDOC PROGRESS REPORT ---
Subjective Progress Note for:: 02/06/17 Subjective:: Prior inpatient history: The patient is a 66-year-old -H[place] female with a past medical history significant for obesity, diabetes mellitus, hypertension as well as depression and anxiety. She presented to the emergency room with altered mental status and recurrent falls at home. She was found to have evidence of hypercalcemia. She also had a wound on her right arm, sacrum and right hip with evidence of cellulitis. She was admitted to the hospital. In obtaining further history it appears that she has had a 50 pound weight loss over the past 4 months. She overall has been having increasing weakness. She states she has been having night sweats for the past 4 months associated with increasing weakness and frequent falls. She states that over the past week or 2 she felt as if she has had some fevers and chills, especially at night. She has a little bit of a cough but overall her breathing has been stable. She reports that she has no appetite. Food does not taste good. She denies difficulty swallowing. She has had no abdominal pain. She really has not had any nausea at home. She reports intermittent constipation. She has not noted any black or tarry stools. She has had no dysuria, frequency or hematuria. Her outpatient physician ordered an MRI of the brain which was negative. She was scheduled in the near future to have a colonoscopy as an outpatient. Yesterday, the patient was seen with 2 of her daughters. In addition to the history above the daughter who lives with the patient stated that her mother's Klonopin was abruptly discontinued a couple of months ago. In place of Klonopin she was placed on high-dose Vistaril. Also, the daughter has mentioned that she has had some lip smacking since this medication change was made. This morning, the patient was able to eat her breakfast. She is aware of moving her mouth more frequently and then in the past but she stated that this started months before the Klonopin was abruptly discontinued. She is not having a pulmonary complaints this morning. She is breathing well. She has no GI or complaints. She denies subjective fevers or chills. When I asked her what she thinks is wrong she states that she really does not know. Physical Exam Vital Signs: Temp Pulse Resp BP Pulse Ox 97.4 F 76 17 135/60 H 100 02/06/17 11:20 02/06/17 11:20 02/06/17 11:20 02/06/17 11:20 02/06/17 11:20 Intake & Output 02/05/17 02/06/17 02/07/17 06:59 06:59 06:59 Intake Total 950 1290 Output Total 1500 1200 680 Balance -550 90 -680 Weight 85.2 kg 85.2 kg Additional comments: Patient was very awake and interactive today. She does not appear to be in any distress and she does not appear to be septic or toxic at this time. Her mentation appears to be appropriate. She was able to give me fairly explicit details of her recent medical history. Her facial appearance is normal. She is edentulous. Her lungs are noted to be clear bilaterally. Her cardiac exam demonstrates a regular rate and rhythm. No murmurs, gallops or rubs are noted. The abdomen is soft and flat. Bowel sounds are noted in the lower quadrants. There is no guarding or rebound noted and there are no hernias or masses noted. The lower extremities are warm to touch. No pitting edema is present. The wounds were examined yesterday. They are currently covered with Tegaderm dressings. Results Laboratory Results: 02/05/17 06:00 02/06/17 10:20 02/06/17 10:20 Creatinine 0.79 Est GFR ( Amer) > 60 Est GFR (Non-Af Amer) > 60 02/02/17 02/02/17 02/03/17 20:18 20:18 04:35 Creatine Kinase 74 58 CK-MB (CK-2) 1.33 Troponin I < 0.012 02/03/17 02/03/17 02/03/17 04:35 12:21 12:21 Creatine Kinase 53 CK-MB (CK-2) 1.32 1.00 Troponin I < 0.012 < 0.012 Impressions: Abdomen Ultrasound 02/03/17 00:00 IMPRESSION: SMALL AMOUNT OF SLUDGE IN THE GALLBLADDER. NO OTHER SIGNIFICANT FINDINGS. THE SPLEEN IS NOT VISUALIZED DUE TO OVERLYING BOWEL GAS. Upper Extremity MRI 02/03/17 00:00 IMPRESSION: Subcutaneous edema along the dorsal proximal forearm ulcer with cellulitis. No bone marrow edema worrisome for osteomyelitis Edema is present in the deep antecubital fossa along the median cubital vein. Question thrombophlebitis. Adjacent brachialis and distal biceps muscle and tendon are intact. Abdomen/Pelvis CT 02/04/17 00:00 IMPRESSION: NO SIGNIFICANT OR ACUTE FINDING IN THE ABDOMEN OR PELVIS ON CT SCAN WITH IV CONTRAST. Chest CT 02/04/17 00:00 IMPRESSION: Extensive thoracic spondylosis. No acute abnormality in the thorax. Chest X-Ray 02/04/17 00:00 IMPRESSION: No evidence for pneumothorax. No acute consolidations or pleural effusions. Central line is identified extending superiorly presumably in the right internal jugular vein without its tip being identified Assessment & Plan - Diagnosis (1) Ambulatory dysfunction Is this a current diagnosis for this admission?: Yes Plan: Begin or continue physical therapy. (2) Anemia Is this a current diagnosis for this admission?: Yes Plan: Patient will need GI evaluation. Colonoscopy is needed. Upper endoscopy may be required if colonoscopy is negative. (3) Cellulitis Qualifiers: Site of cellulitis: unspecified site Qualified Code(s): L03.90 - Cellulitis , unspecified Is this a current diagnosis for this admission?: Yes Plan: Continue aztreonam and vancomycin. (4) Chronic narcotic use Is this a current diagnosis for this admission?: Yes Plan: As could certainly be predisposing the patient to fall. (5) Depression Plan: This could be secondary to medication effect. She does not appear to be significantly depressed to me. Psychiatry consult is not warranted at this time. (6) Elevated liver function tests Is this a current diagnosis for this admission?: Yes Plan: ALT was minimally elevated on admission. Will repeat. (7) Encephalopathy Is this a current diagnosis for this admission?: Yes Plan: Resolved. (8) Gram-positive bacteremia Is this a current diagnosis for this admission?: Yes Plan: Cultures are growing staph epi and staph capitis. These are likely contaminants. However, vancomycin will be continued for the wound which is growing MRSA. (9) Hypercalcemia Is this a current diagnosis for this admission?: Yes Plan: Intact PTH was ordered yesterday. Pending results, malignancy evaluation should be completed as well. (10) Hypertension Is this a current diagnosis for this admission?: Yes Plan: stable (11) Metabolic acidosis Is this a current diagnosis for this admission?: Yes Plan: resolved (12) Pressure ulcer of right elbow, stage 2 Is this a current diagnosis for this admission?: No Plan: Continue wound care and dressing care. (13) Pressure ulcer of right hip, stage 2 Is this a current diagnosis for this admission?: Yes Plan: Change wound care and dressing care. (14) Tobacco abuse Is this a current diagnosis for this admission?: Yes (15) Weight loss Is this a current diagnosis for this admission?: Yes (16) Diabetes Is this a current diagnosis for this admission?: Yes Plan: Continue fingerstick checks and sliding scale insulin. - Time Time Spent with patient: 25-34 minutes - Inpatient Certification Medical Necessity: Need for IV Antibiotics - Plan Summary Plan Summary: Patient has many complex healthcare problems. I explained to the patient and her daughters that a lot of these issues will need to be formally evaluated in the outpatient setting and that we will just try to stabilize her current issues. I am very concerned about the potential for malignancy. The patient is a smoker. She presents with hypercalcemia and weight loss. GI evaluation will be underway early this week. She still requires IV antibiotics at this time is not yet stable for discharge.
--- NOTE | 2017-02-06 14:27 | Progress Note ---
Provider Note Provider Note: Patient was receiving psychiatric medications that could have contributed to tardive dyskinesia. Also, upon admission and SPEP and UPEP were ordered regarding the hypercalcemia. I will need to track down these results. They may still be outstanding. I do think that her facial movements are from tardive dyskinesia.
[2017-02-06] MEDS ORDERED: MAGNESIUM OXIDE 400 MG TABLET PO ONE (15:00)
[2017-02-06] MEDS: MAGNESIUM OXIDE 400 MG TABLET PO SCH (17:56)
[2017-02-06] MEDS: ARIPIPRAZOLE 5 MG TABLET PO SCH (18:19)
[2017-02-06] MEDS: DOXEPIN HCL 25 MG CAPSULE PO PRN (22:49)
[2017-02-06] MEDS: ATORVASTATIN CALCIUM 40 MG TABLET PO SCH (22:50)
[2017-02-07] MEDS: AZTREONAM 1 GM in DEXTROSE 5%-WATER 50 ML IV SCH ×2 (02:46→10:13)
[2017-02-07] MEDS: HEPARIN SOD (PORCINE) 5,000 UNIT/ML 1 ML SYRINGE SUBCUT SCH ×3 (06:13→22:59)
[2017-02-07 06:48] LABS: ABSOLUTE BASOPHILS # (AUTO) 0.1 10^3/uL (0.0-0.2); ABSOLUTE EOSINOPHILS # (AUTO) 0.2 10^3/uL (0.0-0.6); ABSOLUTE LYMPHOCYTES (AUTO) 2.2 10^3/uL (0.5-4.7); ABSOLUTE MONOCYTES (AUTO) 0.6 10^3/uL (0.1-1.4); ABSOLUTE NEUT (AUTO) 3.8 10^3/uL (1.7-8.2); BASOPHILS % (AUTO) 0.7 % (0-2); EOSINOPHILS % (AUTO) 3.5 % (0-6); HEMATOCRIT 28.1 % (36.0-47.0); HEMOGLOBIN 8.9 g/dL (12.0-15.5); HGB HCT DIFFERENCE -1.4; LYMPHOCYTES % (AUTO) 31.3 % (13-45); MEAN CORPUSCULAR HEMOGLOBIN 26.1 pg (27.0-33.4); MEAN CORPUSCULAR HGB CONC 31.8 g/dL (32.0-36.0); MEAN CORPUSCULAR VOLUME 82 fl (80-97); MONOCYTES % (AUTO) 8.8 % (3-13); RED BLOOD COUNT 3.43 10^6/uL (3.72-5.28); RED CELL DISTRIBUTION WIDTH 16.1 % (11.5-14.0); SEGMENTED NEUTROPHILS % (AUTO) 55.7 % (42-78); WHITE BLOOD COUNT 6.9 10^3/uL (4.0-10.5)
[2017-02-07 07:34] LABS: ALANINE AMINOTRANSFERASE 52 U/L (9-52); ALBUMIN 2.7 g/dL (3.5-5.0); ALKALINE PHOSPHATASE 46 U/L (38-126); ANION GAP 7 (5-19); ASPARTATE AMINO TRANSFERASE 25 U/L (14-36); BILIRUBIN,DIRECT 0.4 mg/dL (0.0-0.4); BILIRUBIN,TOTAL 0.4 mg/dL (0.2-1.3); BLOOD UREA NITROGEN 9 mg/dL (7-20); CALCIUM 10.5 mg/dL (8.4-10.2); CARBON DIOXIDE 24 mmol/L (22-30); CHLORIDE 108 mmol/L (98-107); CREATININE RESULT 0.81 mg/dL (0.52-1.25); GLUCOSE 85 mg/dL (75-110); MAGNESIUM 1.9 mg/dL (1.6-2.3); PHOSPHORUS 2.2 mg/dL (2.5-4.5); POTASSIUM 4.3 mmol/L (3.6-5.0); SODIUM 138.7 mmol/L (137-145)
[2017-02-07] MEDS: DOCUSATE SODIUM 100 MG CAPSULE PO SCH ×2 (10:10→17:38)
[2017-02-07] MEDS: OXYCODONE-ACETAMINOPHEN 5-325 MG TABLET PO PRN ×2 (10:10→18:26)
[2017-02-07] MEDS: MAGNESIUM OXIDE 400 MG TABLET PO SCH ×2 (10:11→17:40)
[2017-02-07] MEDS: TOPIRAMATE 100 MG TABLET PO SCH ×2 (10:11→22:59)
[2017-02-07] MEDS: ASPIRIN 81 MG TABLET, ENT COATED PO SCH (10:11)
[2017-02-07] MEDS: METOPROLOL SUCCINATE 50 MG TAB.SR.24H PO SCH (10:12)
[2017-02-07] MEDS: COLLAGENASE CLOSTRIDIUM HIST. OINT 30 GM TP SCH (10:13)
[2017-02-07] MEDS: POLYETHYLENE GLYCOL 3350 POWDER 17 GM/1 PACKET PO SCH (10:14)
[2017-02-07] MEDS: VANCOMYCIN HCL 750 MG in DEXTROSE 5%-WATER 250 ML IV SCH (11:21)
--- NOTE | 2017-02-07 15:38 | PDOC PROGRESS REPORT ---
Subjective Progress Note for:: 02/07/17 Subjective:: Prior inpatient history: The patient is a 66-year-old -Tristanian female with a past medical history significant for obesity, diabetes mellitus, hypertension as well as depression and anxiety. She presented to the emergency room with altered mental status and recurrent falls at home. She was found to have evidence of hypercalcemia. She also had a wound on her right arm, sacrum and right hip with evidence of cellulitis. She was admitted to the hospital. In obtaining further history it appears that she has had a 50 pound weight loss over the past 4 months. She overall has been having increasing weakness. She states she has been having night sweats for the past 4 months associated with increasing weakness and frequent falls. She states that over the past week or 2 she felt as if she has had some fevers and chills, especially at night. She has a little bit of a cough but overall her breathing has been stable. She reports that she has no appetite. Food does not taste good. She denies difficulty swallowing. She has had no abdominal pain. She really has not had any nausea at home. She reports intermittent constipation. She has not noted any black or tarry stools. She has had no dysuria, frequency or hematuria. Her outpatient physician ordered an MRI of the brain which was negative. She was scheduled in the near future to have a colonoscopy as an outpatient. Today, the patient was examined with the daughter who lives with her. Her daughter does state that she thinks that her mother is feeling better. She is not eating normally but she is eating more than when she first came into the hospital. We discussed the movements of her face. I explained that this is likely tar dive dyskinesia from the Abilify. The daughter was satisfied with this answer and agrees with me. I explained to the patient and her daughter that I am still concerned about the hypercalcemia and the weight loss and that there is a possibility of malignancy. We are waiting for GI consultants and potential for colonoscopy. I did explain that many of these procedures could be delayed into the outpatient setting. They are happy with the plan so far. I also spoke to pharmacy today. We are going to switch the patient from IV vancomycin for the MRSA in the wound to Bactrim. Physical Exam Vital Signs: Temp Pulse Resp BP Pulse Ox 97.7 F 78 18 116/53 L 100 02/07/17 12:05 02/07/17 12:05 02/07/17 12:05 02/07/17 12:05 02/07/17 12:05 Intake & Output 02/06/17 02/07/17 02/08/17 06:59 06:59 06:59 Intake Total 1290 1450 Output Total 1200 1705 Balance 90 -255 Weight 85.2 kg 84.2 kg Additional comments: The patient is a middle-aged black female. She is not in any distress. She does have facial movements consistent with tardive dyskinesia. Otherwise, the facial appearance is normal. Her mentation is intact. She follows commands. Her lungs are clear to auscultation bilaterally. Her cardiac exam is regular without murmurs, gallops or rubs. The abdomen is soft and flat. Bowel sounds are noted in the lower quadrants. There is no guarding or rebound noted and there are no hernias or masses present. The lower extremities are warm to touch. Her ulcers are covered with Tegaderm at this time. I did examine them yesterday and they appear to be healing nicely. Results Laboratory Results: 02/07/17 06:25 02/07/17 06:25 02/07/17 02/07/17 06:25 06:25 WBC 6.9 RBC 3.43 L Hgb 8.9 L Hct 28.1 L MCV 82 MCH 26.1 L MCHC 31.8 L RDW 16.1 H Plt Count 292 Seg Neutrophils % 55.7 Lymphocytes % 31.3 Monocytes % 8.8 Eosinophils % 3.5 Basophils % 0.7 Absolute Neutrophils 3.8 Absolute Lymphocytes 2.2 Absolute Monocytes 0.6 Absolute Eosinophils 0.2 Absolute Basophils 0.1 Sodium 138.7 Potassium 4.3 Chloride 108 H Carbon Dioxide 24 Anion Gap 7 BUN 9 Creatinine 0.81 Est GFR ( Amer) > 60 Est GFR (Non-Af Amer) > 60 Glucose 85 Calcium 10.5 H Phosphorus 2.2 L Magnesium 1.9 Total Bilirubin 0.4 AST 25 ALT 52 Alkaline Phosphatase 46 Total Protein 5.0 L Albumin 2.7 L 02/02/17 20:18 Blood Blood Culture - Final Staphylococcus Capitis 02/02/17 02/02/17 02/03/17 20:18 20:18 04:35 Creatine Kinase 74 58 CK-MB (CK-2) 1.33 Troponin I < 0.012 02/03/17 02/03/17 02/03/17 04:35 12:21 12:21 Creatine Kinase 53 CK-MB (CK-2) 1.32 1.00 Troponin I < 0.012 < 0.012 Impressions: Abdomen Ultrasound 02/03/17 00:00 IMPRESSION: SMALL AMOUNT OF SLUDGE IN THE GALLBLADDER. NO OTHER SIGNIFICANT FINDINGS. THE SPLEEN IS NOT VISUALIZED DUE TO OVERLYING BOWEL GAS. Upper Extremity MRI 02/03/17 00:00 IMPRESSION: Subcutaneous edema along the dorsal proximal forearm ulcer with cellulitis. No bone marrow edema worrisome for osteomyelitis Edema is present in the deep antecubital fossa along the median cubital vein. Question thrombophlebitis. Adjacent brachialis and distal biceps muscle and tendon are intact. Abdomen/Pelvis CT 02/04/17 00:00 IMPRESSION: NO SIGNIFICANT OR ACUTE FINDING IN THE ABDOMEN OR PELVIS ON CT SCAN WITH IV CONTRAST. Chest CT 02/04/17 00:00 IMPRESSION: Extensive thoracic spondylosis. No acute abnormality in the thorax. Chest X-Ray 02/04/17 00:00 IMPRESSION: No evidence for pneumothorax. No acute consolidations or pleural effusions. Central line is identified extending superiorly presumably in the right internal jugular vein without its tip being identified Assessment & Plan - Diagnosis (1) Ambulatory dysfunction Is this a current diagnosis for this admission?: Yes Plan: Begin or continue physical therapy. (2) Anemia Is this a current diagnosis for this admission?: Yes Plan: Patient will need GI evaluation. Colonoscopy is needed. Upper endoscopy may be required if colonoscopy is negative. (3) Cellulitis Qualifiers: Site of cellulitis: unspecified site Qualified Code(s): L03.90 - Cellulitis , unspecified Is this a current diagnosis for this admission?: Yes Plan: Cultures are likely due to contamination with staph epi and staph capitis. MRSA in the wound is now being treated with Bactrim. (4) Chronic narcotic use Is this a current diagnosis for this admission?: Yes Plan: As could certainly be predisposing the patient to fall. (5) Depression Plan: This could be secondary to medication effect. She does not appear to be significantly depressed to me. Psychiatry consult is not warranted at this time. (6) Elevated liver function tests Is this a current diagnosis for this admission?: Yes Plan: ALT was minimally elevated on admission. Will repeat. (7) Encephalopathy Is this a current diagnosis for this admission?: Yes Plan: Resolved. (8) Gram-positive bacteremia Is this a current diagnosis for this admission?: Yes Plan: Cultures are growing staph epi and staph capitis. These are likely contaminants. Vancomycin has been discontinued and patient is now on Bactrim. (9) Hypercalcemia Is this a current diagnosis for this admission?: Yes Plan: Intact PTH was ordered yesterday. Pending results, malignancy evaluation should be completed as well. SPEP and UPEP have been reordered as well. (10) Hypertension Is this a current diagnosis for this admission?: Yes Plan: stable (11) Metabolic acidosis Is this a current diagnosis for this admission?: Yes Plan: resolved (12) Pressure ulcer of right elbow, stage 2 Is this a current diagnosis for this admission?: No Plan: Continue wound care and dressing care. (13) Pressure ulcer of right hip, stage 2 Is this a current diagnosis for this admission?: Yes Plan: Change wound care and dressing care. (14) Tobacco abuse Is this a current diagnosis for this admission?: Yes Plan: Daughter has noted that her mother is no longer coughing since she came into the hospital. I explained that this is likely from cessation of smoking while she is an inpatient. I also explained that because she is a smoker she is at increased risk for malignancy and again we need to make sure that her malignancy screening is up-to-date. Daughter is in agreement. (15) Weight loss Is this a current diagnosis for this admission?: Yes (16) Diabetes Is this a current diagnosis for this admission?: Yes Plan: Continue fingerstick checks and sliding scale insulin. (17) Tardive dyskinesia Is this a current diagnosis for this admission?: Yes Plan: This is likely associated with long-term use of Abilify. Patient and daughter are aware. I explained that this will not likely get better and could progress. - Time Time Spent with patient: 25-34 minutes - Inpatient Certification Medical Necessity: Risk of Diagnosis Which Will Require Inpatient Eval/Care/ Monitoring - Plan Summary Plan Summary: Divided the patient remains improved I will determine if she can be discharged home versus [facility] facility early this week. I would like her seen by our heritage consultant hopefully tomorrow. I will also make sure physical therapy has evaluated the patient's that we can make a disposition for home versus [facility] facility. Hopefully discharge can be accomplished by Wednesday of this week.
[2017-02-07] MEDS: ARIPIPRAZOLE 5 MG TABLET PO SCH (17:40)
[2017-02-07] MEDS: ATORVASTATIN CALCIUM 40 MG TABLET PO SCH (22:58)
[2017-02-07] MEDS: SULFAMETHOXAZOLE/TRIMETHOPRIM 800-160 MG TABLET PO SCH (22:59)
[2017-02-07] MEDS ORDERED: DOXEPIN HCL 25 MG CAPSULE ONE (23:46)
[2017-02-07] MEDS: DOXEPIN HCL 25 MG CAPSULE PO PRN (23:52)
[2017-02-08] MEDS: OXYCODONE-ACETAMINOPHEN 5-325 MG TABLET PO PRN ×3 (02:34→22:52)
[2017-02-08] MEDS: HEPARIN SOD (PORCINE) 5,000 UNIT/ML 1 ML SYRINGE SUBCUT SCH ×3 (05:28→22:54)
[2017-02-08] MEDS: ASPIRIN 81 MG TABLET, ENT COATED PO SCH (09:43)
[2017-02-08] MEDS: TOPIRAMATE 100 MG TABLET PO SCH ×2 (09:46→22:54)
[2017-02-08] MEDS: MAGNESIUM OXIDE 400 MG TABLET PO SCH ×2 (09:46→18:27)
[2017-02-08] MEDS: POLYETHYLENE GLYCOL 3350 POWDER 17 GM/1 PACKET PO SCH (09:47)
[2017-02-08] MEDS: SULFAMETHOXAZOLE/TRIMETHOPRIM 800-160 MG TABLET PO SCH ×2 (09:47→22:54)
[2017-02-08] MEDS: METOPROLOL SUCCINATE 50 MG TAB.SR.24H PO SCH (09:48)
[2017-02-08] MEDS: DOCUSATE SODIUM 100 MG CAPSULE PO SCH ×2 (09:48→18:27)
[2017-02-08] MEDS: COLLAGENASE CLOSTRIDIUM HIST. OINT 30 GM TP SCH (09:49)
--- NOTE | 2017-02-08 14:43 | PDOC CONSULTATION ---
Consultation Consult Date: 02/08/17 Attending physician:: IZABELA STOUT Consult reason:: anemia, possible GI bleeding History of Present Illness Admission Date/PCP: 02/02/17 19:30 History of Present Illness: patient has been admitted for the treatment of cellulitis has apparently seen Dr Alegria in the past had EGD done, does not know findings has anemia likely has a combination of iron deficiency and anemia of chronic disease asked to perform colonoscopy to evaluate for possible GI source Patient denies any nausea vomiting There is no melena reported Denies any family history of colorectal cancer Denies any diarrhea Past Medical History Cardiac Medical History: Reports: Hyperlipidema, Hypertension Endocrine Medical History: Reports: Diabetes Mellitus Type 2, Obesity Psychiatric Medical History: Reports: Depression, General Anxiety Disorder, Tobacco Dependency Past Surgical History Past Surgical History: Reports: Hysterectomy, Orthopedic Surgery, Tonsillectomy , Other - JAMARCUS/BSO, EGD, Colonoscopy - incomplete most recent, Left jaw plate/ trauma Social History Lives with: Family Smoking Status: Current Some Day Smoker Cigarettes Packs Per Day: 0.5 Number of Years Smokin Frequency of Alcohol Use: None Hx Recreational Drug Use: No Drugs: None Hx Prescription Drug Abuse: No - Advance Directive Resuscitation Status: Full Code Family History Family History: CAD, COPD, DM - Grandfather, Malignancy - Lung cancer Parental Family History Reviewed: Yes Children Family History Reviewed: Unknown Sibling(s) Family History Reviewed.: Unknown Medication/Allergy Home Medications: Aripiprazole 20 mg PO DAILY 02/02/17 Aspirin [Aspirin EC] 81 mg PO DAILY 02/02/17 Atorvastatin Calcium [Lipitor 40 mg Tablet] 40 mg PO QHS 02/02/17 Cyclobenzaprine HCl 10 mg PO Q8HP PRN 02/02/17 Doxepin HCl 100 mg PO DAILY 02/02/17 Hydroxyzine Pamoate 100 mg PO Q8 02/02/17 Lisinopril [Prinivil 40 mg Tablet] 40 mg PO DAILY 02/02/17 Lubiprostone [Amitiza 24 Mcg Capsule] 24 mcg PO Q12 02/02/17 Metformin HCl [Glucophage 500 mg Tablet] 1,000 mg PO BID 02/02/17 Metoprolol Succinate [Toprol Xl 50 mg Tab.sr] 50 mg PO DAILY 02/02/17 Jensen-3 Fatty Acids/Fish Oil [Fish Oil 1,000 mg Capsule] 1 each PO BID 02/02/17 Oxycodone HCl/Acetaminophen [Oxycodon-Acetaminophen 7.5-325] 1 each PO Q8HP PRN 02/02/17 Polyethylene Glycol 3350 [Miralax Powder 17 gm/Packet] 17 gm PO DAILY 02/02/17 Topiramate 100 mg PO Q12 02/02/17 Allergies/Adverse Reactions: Penicillins Allergy (Severe, Verified 02/03/17 00:33) Anaphylaxis alprazolam [From Xanax] Allergy (Verified 02/02/17 14:22) azithromycin [Azithromycin] Allergy (Verified 02/02/17 14:22) propoxyphene napsylate [From Darvocet-N 100] Allergy (Verified 02/02/17 14:22) Tetanus Vaccines and Toxoid Allergy (Verified 02/02/17 14:22) Review of Systems Constitutional: ABSENT: fever(s), headache(s), night sweats, weakness Eyes: ABSENT: visual disturbances Ears: ABSENT: hearing changes Nose, Mouth, and Throat: ABSENT: mouth pain, sore throat Cardiovascular: ABSENT: chest pain, edema, orthropnea, palpitations Respiratory: ABSENT: dyspnea, hemoptysis Gastrointestinal: ABSENT: diarrhea, dysphagia, melena, nausea, vomiting Genitourinary: ABSENT: dysuria, hematuria Musculoskeletal: ABSENT: deformity, joint swelling Integumentary: ABSENT: lesions, pruritus Neurological: ABSENT: syncope, tingling, tremor(s), vertigo Endocrine: ABSENT: polydipsia, polyphagia, polyuria Hematologic/Lymphatic: ABSENT: easy bruising Physical Exam Vital Signs: Temp Pulse Resp BP Pulse Ox 98.3 F 76 14 116/41 L 95 02/08/17 11:16 02/08/17 11:16 02/08/17 11:16 02/08/17 11:16 02/08/17 11:16 Intake & Output 02/07/17 02/08/17 02/09/17 06:59 06:59 06:59 Intake Total 1450 1180 Output Total 1705 1700 Balance -255 -520 Weight 84.2 kg 85 kg General appearance: PRESENT: no acute distress, well-developed, well-nourished Head exam: PRESENT: atraumatic, normocephalic Eye exam: PRESENT: EOMI, PERRLA. ABSENT: nystagmus, periorbital swelling, scleral icterus Mouth exam: PRESENT: moist, neck supple Throat exam: ABSENT: tonsillar exudate, tonsillogmegaly Neck exam: ABSENT: meningismus, tenderness, thyromegaly Respiratory exam: PRESENT: unlabored. ABSENT: symmetrical, tachypnea, wheezes Cardiovascular exam: PRESENT: RRR, +S1, +S2 GI/Abdominal exam: PRESENT: soft. ABSENT: Dupree's sign, rebound, rigid, tenderness Extremities exam: ABSENT: joint swelling Musculoskeletal exam: PRESENT: full ROM Neurological exam: PRESENT: alert, awake, oriented to time, oriented to situation, CN II-XII grossly intact Psychiatric exam: PRESENT: appropriate affect Skin exam: PRESENT: normal color. ABSENT: mottled, pallor, petechiae, urticaria , vesicles Results Laboratory Results: 02/07/17 06:25 02/07/17 06:25 02/06/17 05:50 PTH Intact 71 H 02/02/17 02/02/17 02/03/17 20:18 20:18 04:35 Creatine Kinase 74 58 CK-MB (CK-2) 1.33 Troponin I < 0.012 02/03/17 02/03/17 02/03/17 04:35 12:21 12:21 Creatine Kinase 53 CK-MB (CK-2) 1.32 1.00 Troponin I < 0.012 < 0.012 Impressions: Abdomen Ultrasound 02/03/17 00:00 IMPRESSION: SMALL AMOUNT OF SLUDGE IN THE GALLBLADDER. NO OTHER SIGNIFICANT FINDINGS. THE SPLEEN IS NOT VISUALIZED DUE TO OVERLYING BOWEL GAS. Upper Extremity MRI 02/03/17 00:00 IMPRESSION: Subcutaneous edema along the dorsal proximal forearm ulcer with cellulitis. No bone marrow edema worrisome for osteomyelitis Edema is present in the deep antecubital fossa along the median cubital vein. Question thrombophlebitis. Adjacent brachialis and distal biceps muscle and tendon are intact. Abdomen/Pelvis CT 02/04/17 00:00 IMPRESSION: NO SIGNIFICANT OR ACUTE FINDING IN THE ABDOMEN OR PELVIS ON CT SCAN WITH IV CONTRAST. Chest CT 02/04/17 00:00 IMPRESSION: Extensive thoracic spondylosis. No acute abnormality in the thorax. Chest X-Ray 02/04/17 00:00 IMPRESSION: No evidence for pneumothorax. No acute consolidations or pleural effusions. Central line is identified extending superiorly presumably in the right internal jugular vein without its tip being identified Assessment & Plan - Diagnosis (1) Anemia Qualifiers: Anemia type: unspecified type Qualified Code(s): D64.9 - Anemia, unspecified Plan: could be due to possible GI bleeding, has not had a colonoscopy will need to exclude possible GI source had EGD done as an outpatient will need colonoscopy Risks, benefits and alternatives are explained to the patient in detail further recommendations to follow she is willing to proceed - Time Time Spent: 50 to 70 Minutes
[2017-02-08] MEDS ORDERED: INFLUENZA ADLT QUAD (36MOS+) 2017-18 VAC 0.5 ML SYR IM PRN (15:00)
--- NOTE | 2017-02-08 15:26 | PDOC PROGRESS REPORT ---
Subjective Progress Note for:: 02/08/17 Subjective:: Prior inpatient history: The patient is a 66-year-old -[place] Citizen female with a past medical history significant for obesity, diabetes mellitus, hypertension as well as depression and anxiety. She presented to the emergency room with altered mental status and recurrent falls at home. She was found to have evidence of hypercalcemia. She also had a wound on her right arm, sacrum and right hip with evidence of cellulitis. She was admitted to the hospital. In obtaining further history it appears that she has had a 50 pound weight loss over the past 4 months. She overall has been having increasing weakness. She states she has been having night sweats for the past 4 months associated with increasing weakness and frequent falls. She states that over the past week or 2 she felt as if she has had some fevers and chills, especially at night. She has a little bit of a cough but overall her breathing has been stable. She reports that she has no appetite. Food does not taste good. She denies difficulty swallowing. She has had no abdominal pain. She really has not had any nausea at home. She reports intermittent constipation. She has not noted any black or tarry stools. She has had no dysuria, frequency or hematuria. Her outpatient physician ordered an MRI of the brain which was negative. She was scheduled in the near future to have a colonoscopy as an outpatient. 02/07/17: the patient was examined with the daughter who lives with her. Her daughter does state that she thinks that her mother is feeling better. She is not eating normally but she is eating more than when she first came into the hospital. We discussed the movements of her face. I explained that this is likely tar dive dyskinesia from the Abilify. The daughter was satisfied with this answer and agrees with me. I explained to the patient and her daughter that I am still concerned about the hypercalcemia and the weight loss and that there is a possibility of malignancy. We are waiting for GI consultants and potential for colonoscopy. I did explain that many of these procedures could be delayed into the outpatient setting. They are happy with the plan so far. I also spoke to pharmacy today. We are going to switch the patient from IV vancomycin for the MRSA in the wound to Bactrim. Today, the patient was alone in her room. She is intermittently complaining of ear pain. This was brought to my attention from the nurse. She did not complain to me herself. However, she is receiving systemic antibiotics and this reassured her. She really is not feeling bad. She has not been getting up out of bed but by report the daughter who is an MEDICAL ASSISTING PROGRAM DIRECTOR has been getting the patient up out of bed and she is able to ambulate to the bathroom and take a shower. Physical therapy has been consulted. GI has been consulted. Dr. Ely saw the patient today and is planning on colonoscopy in the morning. Physical Exam Vital Signs: Temp Pulse Resp BP Pulse Ox 98.3 F 103 H 14 116/41 L 95 02/08/17 11:16 02/08/17 14:00 02/08/17 11:16 02/08/17 11:16 02/08/17 11:16 Intake & Output 02/07/17 02/08/17 02/09/17 06:59 06:59 06:59 Intake Total 1450 1180 Output Total 1705 1700 Balance -255 -520 Weight 84.2 kg 85 kg Additional comments: The patient was not in any distress this morning. She continues to have facial movements consistent with tardive dyskinesia but they did appear to be less apparent than previously. Otherwise, her facial appearance is normal. Her lungs are clear to auscultation bilaterally. She does not have any wheezing, rales or rhonchi noted. The cardiac exam is regular. She does not have any murmurs, gallops or rubs. The abdomen is soft and flat. Bowel sounds are present. There is no guarding or rebound noted. There are no hernias or masses noted. The lower extremities are warm to touch without edema. The lesion on the right elbow looks significantly improved. The eschar that was present is completely gone. Patient has a shallow based ulcer with good granulation tissue present. The 2 lesions on the right hip and buttock are also healing well with granulation tissue present. Results Laboratory Results: 02/07/17 06:25 02/07/17 06:25 02/06/17 05:50 PTH Intact 71 H 02/02/17 02/02/17 02/03/17 20:18 20:18 04:35 Creatine Kinase 74 58 CK-MB (CK-2) 1.33 Troponin I < 0.012 02/03/17 02/03/17 02/03/17 04:35 12:21 12:21 Creatine Kinase 53 CK-MB (CK-2) 1.32 1.00 Troponin I < 0.012 < 0.012 Impressions: Abdomen Ultrasound 02/03/17 00:00 IMPRESSION: SMALL AMOUNT OF SLUDGE IN THE GALLBLADDER. NO OTHER SIGNIFICANT FINDINGS. THE SPLEEN IS NOT VISUALIZED DUE TO OVERLYING BOWEL GAS. Upper Extremity MRI 02/03/17 00:00 IMPRESSION: Subcutaneous edema along the dorsal proximal forearm ulcer with cellulitis. No bone marrow edema worrisome for osteomyelitis Edema is present in the deep antecubital fossa along the median cubital vein. Question thrombophlebitis. Adjacent brachialis and distal biceps muscle and tendon are intact. Abdomen/Pelvis CT 02/04/17 00:00 IMPRESSION: NO SIGNIFICANT OR ACUTE FINDING IN THE ABDOMEN OR PELVIS ON CT SCAN WITH IV CONTRAST. Chest CT 02/04/17 00:00 IMPRESSION: Extensive thoracic spondylosis. No acute abnormality in the thorax. Chest X-Ray 02/04/17 00:00 IMPRESSION: No evidence for pneumothorax. No acute consolidations or pleural effusions. Central line is identified extending superiorly presumably in the right internal jugular vein without its tip being identified Assessment & Plan - Diagnosis (1) Ambulatory dysfunction Is this a current diagnosis for this admission?: Yes Plan: Begin or continue physical therapy. (2) Anemia Is this a current diagnosis for this admission?: Yes Plan: GI evaluation was completed today. Patient has seen Dr. Alegria in the past. Upper endoscopy was performed. Colonoscopy will be performed in the morning. (3) Cellulitis Qualifiers: Site of cellulitis: unspecified site Qualified Code(s): L03.90 - Cellulitis , unspecified Is this a current diagnosis for this admission?: Yes Plan: Cultures are likely due to contamination with staph epi and staph capitis. MRSA in the wound is now being treated with Bactrim. (4) Chronic narcotic use Is this a current diagnosis for this admission?: Yes Plan: As could certainly be predisposing the patient to falls. (5) Depression Plan: This could be secondary to medication effect, e.g. narcotics. She does not appear to be significantly depressed to me. Psychiatry consult is not warranted at this time. (6) Elevated liver function tests Is this a current diagnosis for this admission?: Yes Plan: ALT was minimally elevated on admission. On repeat is normal. (7) Encephalopathy Is this a current diagnosis for this admission?: Yes Plan: Resolved. However, the patient does appear to have some deficits at times. Also, she does appear to perseverate on certain things. (8) Gram-positive bacteremia Is this a current diagnosis for this admission?: Yes Plan: Cultures are growing staph epi and staph capitis. These are likely contaminants. Vancomycin has been discontinued and patient is now on Bactrim for MRSA in the wound. (9) Hypercalcemia Is this a current diagnosis for this admission?: Yes Plan: Patient remains hypercalcemic. Intact PTH and SPEP and UPEP are still pending. (10) Hypertension Is this a current diagnosis for this admission?: Yes Plan: stable (11) Metabolic acidosis Is this a current diagnosis for this admission?: Yes Plan: resolved (12) Pressure ulcer of right elbow, stage 2 Is this a current diagnosis for this admission?: No Plan: Continue wound care and dressing care. Improved. (13) Pressure ulcer of right hip, stage 2 Is this a current diagnosis for this admission?: Yes Plan: Change wound care and dressing care. ImProved. (14) Tobacco abuse Is this a current diagnosis for this admission?: Yes Plan: Daughter has noted that her mother is no longer coughing since she came into the hospital. I explained that this is likely from cessation of smoking while she is an inpatient. I also explained that because she is a smoker she is at increased risk for malignancy and again we need to make sure that her malignancy screening is up-to-date. Daughter is in agreement. (15) Weight loss Is this a current diagnosis for this admission?: Yes Plan: We are continuing to screen the patient for malignancy. (16) Diabetes Is this a current diagnosis for this admission?: Yes Plan: Continue fingerstick checks and sliding scale insulin. (17) Tardive dyskinesia Is this a current diagnosis for this admission?: Yes Plan: This is likely associated with long-term use of Abilify. Patient and daughter are aware. I explained that this will not likely get better and could progress. - Time Time Spent with patient: 25-34 minutes - Inpatient Certification Medical Necessity: Risk of Diagnosis Which Will Require Inpatient Eval/Care/ Monitoring
[2017-02-08] MEDS ORDERED: MAG HYDROX/AL HYDROX/SIMETH SUSP 30 ML UDCUP PO PRN (15:30)
[2017-02-08] MEDS ORDERED: PEG 3350/NA SULF,BICARB,CL/KCL 4000 ML PO SCH (16:00)
[2017-02-08] MEDS: PHOSPHORUS #1 250 MG TABLET PO SCH (16:31)
[2017-02-08] MEDS: DEXTROSE 50%-WATER 25 GM/50 ML DISP.SYRIN IV PRN (17:20)
[2017-02-08] MEDS ORDERED: DEXTROSE 5%-1/2 NORMAL SALINE 1,000 ML IV PRN (18:01)
[2017-02-08] MEDS: ARIPIPRAZOLE 5 MG TABLET PO SCH (18:27)
[2017-02-08] MEDS: ATORVASTATIN CALCIUM 40 MG TABLET PO SCH (22:54)
[2017-02-08] MEDS ORDERED: DOXEPIN HCL 25 MG CAPSULE ONE (23:57)
[2017-02-09] MEDS: DOXEPIN HCL 25 MG CAPSULE PO PRN ×2 (00:15→22:31)
[2017-02-09] MEDS: HEPARIN SOD (PORCINE) 5,000 UNIT/ML 1 ML SYRINGE SUBCUT SCH ×3 (05:33→21:56)
[2017-02-09] MEDS: PHOSPHORUS #1 250 MG TABLET PO SCH ×3 (08:16→16:44)
[2017-02-09] MEDS: SULFAMETHOXAZOLE/TRIMETHOPRIM 800-160 MG TABLET PO SCH ×2 (11:12→21:56)
[2017-02-09] MEDS: ASPIRIN 81 MG TABLET, ENT COATED PO SCH (11:12)
[2017-02-09] MEDS: DOCUSATE SODIUM 100 MG CAPSULE PO SCH ×2 (11:12→18:01)
[2017-02-09] MEDS: METOPROLOL SUCCINATE 50 MG TAB.SR.24H PO SCH (11:12)
[2017-02-09] MEDS: MAGNESIUM OXIDE 400 MG TABLET PO SCH ×2 (11:12→17:58)
[2017-02-09] MEDS: POLYETHYLENE GLYCOL 3350 POWDER 17 GM/1 PACKET PO SCH (11:12)
[2017-02-09] MEDS: TOPIRAMATE 100 MG TABLET PO SCH ×2 (11:12→21:56)
[2017-02-09] MEDS: COLLAGENASE CLOSTRIDIUM HIST. OINT 30 GM TP SCH (11:15)
[2017-02-09] MEDS ORDERED: ONDANSETRON HCL INJ/PF 4 MG/2 ML SDV ONE (12:17)
[2017-02-09] MEDS ORDERED: DIPHENHYDRAMINE HCL 50 MG/ML VIAL ONE (12:17)
[2017-02-09] MEDS ORDERED: NALOXONE HCL INJ/PF 0.4 MG/1 ML SDV ONE (12:18)
[2017-02-09] MEDS ORDERED: GLUCAGON,HUMAN RECOMB 1 MG INJ ONE (12:19)
[2017-02-09] MEDS ORDERED: FLUMAZENIL INJ 0.5 MG/5 ML VIAL ONE (12:19)
[2017-02-09] MEDS ORDERED: FENTANYL CITRATE INJ/PF 100 MCG/2 ML AMPUL ONE ×2 (12:19)
[2017-02-09] MEDS ORDERED: EPINEPHRINE INJ 1 MG/10 ML DISP.SYRIN ONE (12:19)
[2017-02-09] MEDS: MIDAZOLAM 2 MG/2 ML INJ ONE ×2 (13:25→13:31)
--- NOTE | 2017-02-09 13:54 | Operative Report ---
Operative Report DATE OF SURGERY: 02/09/17 Operative Report: The risks, benefits and alternatives of the procedure including risks of bleeding, perforation requiring surgery are explained to the patient in detail and informed consent was obtained. Patient is brought back to the endoscopy suite and placed in the left, lateral decubital position. Timeout was called. Conscious sedation medications are provided. A rectal examination is done which did not reveal any masses, tears or fissures. An Olympus videoscope was inserted into the patient's rectum. The scope was then carefully advanced all the way to the cecum. The cecum was identified by the usual anatomical landmarks including the ileocecal valve as well as the appendiceal office. Photodocumentation is obtained. Prep is reasonably good. I did have to irrigate the colon and suctioned back the material. Good luminal and circumferential views are obtained. The scope was then sequentially pulled back via the various segments of the colon including the ascending colon, hepatic flexure, transverse colon, splenic flexure, descending colon went to the rectosigmoid portions of the colon. Retroflexion maneuvers performed. PREOPERATIVE DIAGNOSIS: Chronic anemia, rule out GI bleed POSTOPERATIVE DIAGNOSIS: No inflammation noted, right side of the colon status post biopsy. Internal hemorrhoids. Diverticulosis OPERATION: Colonoscopy with biopsy SURGEON: IZABELA STOUT ANESTHESIA: Moderate Sedation - 3 mg of Versed, 25 mcg of fentanyl. Conscious sedation monitoring time 30 minutes. TISSUE REMOVED OR ALTERED: As noted above. COMPLICATIONS: None. ESTIMATED BLOOD LOSS: None. INTRAOPERATIVE FINDINGS: As noted above. PROCEDURE: Patient tolerated procedure well. No immediate postprocedure complications are noted. Patient is sent back to her room in good condition. Resume previous diet. Resume previous activity level. No observed GI bleeding. We will await biopsies. Follow-up as outpatient.
[2017-02-09 16:39] LABS: ALBUMIN 3 2.8 g/dL (2.9-4.4); ALPHA-1-GLOBULIN 0.3 g/dL (0.0-0.4); ALPHA-2-GLOBULIN 3 0.8 g/dL (0.4-1.0); BETA GLOBULIN 0.8 g/dL (0.7-1.3); GLOBULIN TTL 2.4 g/dL (2.2-3.9); IMMUNOGLOBULIN A 153 mg/dL (87-352); IMMUNOGLOBULIN G 704 mg/dL (700-1600); MONOCLONAL-SPIKE Not Observed g/dL (Not Observed); PROTEIN TOTAL SERUM 5.2 g/dL (6.0-8.5)
--- NOTE | 2017-02-09 17:51 | PDOC PROGRESS REPORT ---
Subjective Progress Note for:: 02/09/17 Subjective:: Prior inpatient history: The patient is a 66-year-old -[place] female with a past medical history significant for obesity, diabetes mellitus, hypertension as well as depression and anxiety. She presented to the emergency room with altered mental status and recurrent falls at home. She was found to have evidence of hypercalcemia. She also had a wound on her right arm, sacrum and right hip with evidence of cellulitis. She was admitted to the hospital. In obtaining further history it appears that she has had a 50 pound weight loss over the past 4 months. She overall has been having increasing weakness. She states she has been having night sweats for the past 4 months associated with increasing weakness and frequent falls. She states that over the past week or 2 she felt as if she has had some fevers and chills, especially at night. She has a little bit of a cough but overall her breathing has been stable. She reports that she has no appetite. Food does not taste good. She denies difficulty swallowing. She has had no abdominal pain. She really has not had any nausea at home. She reports intermittent constipation. She has not noted any black or tarry stools. She has had no dysuria, frequency or hematuria. Her outpatient physician ordered an MRI of the brain which was negative. She was scheduled in the near future to have a colonoscopy as an outpatient. Therefore, GI was consulted during this hospitalization. Dr. Ely performed a colonoscopy today which only demonstrated internal hemorrhoids and diverticulosis. Patient is noted to have tar dive dyskinesia. This is likely secondary to the fact that she has been using Abilify. Both the patient and the daughter are aware of this connection. Upon admission blood cultures were drawn secondary to the patient's fever. She has had 2 blood cultures. One blood culture grew staph epidermidis and one blood culture grew staph capitis. These are likely contaminants. The wound culture has grown MRSA. IV therapy has been discontinued and the patient is receiving oral Bactrim. Other workup for the patient's hypercalcemia has included an intact PTH which is mildly elevated at 71. SPEP and UPEP are still pending. Yesterday, the patient developed hypoglycemia requiring therapy with dextrose and she continues on a dextrose drip at this time. She is only receiving a mild amount of dextrose per hour but still not eating enough to maintain her blood sugars. This is a fairly new development. Current nursing staff the patient has been assisting more with her activities of daily living. She is getting up and moving about. Physical therapy is consulted. Physical Exam Vital Signs: Temp Pulse Resp BP Pulse Ox 98.2 F 82 18 110/50 L 100 02/09/17 16:30 02/09/17 16:30 02/09/17 16:30 02/09/17 16:30 02/09/17 16:30 Intake & Output 02/08/17 02/09/17 02/10/17 06:59 06:59 06:59 Intake Total 1180 721 275 Output Total 1700 700 Balance -520 21 275 Weight 85 kg Additional comments: The patient was not in any distress this morning. Her mentation and cognition are appropriate. She is able to follow all commands. Her strength is 5/5 throughout upper and lower extremities. Her facial appearance again demonstrates tar dive dyskinesia but otherwise cranial nerves II through XII are intact. The patient's lungs are noted to be clear to auscultation both anteriorly and posteriorly. Cardiac exam is regular. I do not appreciate any murmurs, gallops or rubs. The abdomen is soft and flat. Bowel sounds are noted in all 4 quadrants and are normoactive. There is no guarding or rebound noted and there are no hernias or masses noted. The lower extremities are warm to touch without any edema. The skin is warm, dry and intact. The lesion on the right elbow shows a 2 x 2 centimeter ulcer. Granulation tissue is present. The patient also has a lesion on the right hip which is a dime-sized lesion and an area on the sacrum which is a shallow based ulcer. All of her ulcers appear to be healing nicely. They are currently being treated with Santyl and Tegaderm. Results Laboratory Results: 02/07/17 06:25 02/07/17 06:25 02/04/17 13:16 Blood Blood Culture - Final NO GROWTH IN 5 DAYS 02/02/17 02/02/17 02/03/17 20:18 20:18 04:35 Creatine Kinase 74 58 CK-MB (CK-2) 1.33 Troponin I < 0.012 02/03/17 02/03/17 02/03/17 04:35 12:21 12:21 Creatine Kinase 53 CK-MB (CK-2) 1.32 1.00 Troponin I < 0.012 < 0.012 Impressions: Abdomen Ultrasound 02/03/17 00:00 IMPRESSION: SMALL AMOUNT OF SLUDGE IN THE GALLBLADDER. NO OTHER SIGNIFICANT FINDINGS. THE SPLEEN IS NOT VISUALIZED DUE TO OVERLYING BOWEL GAS. Upper Extremity MRI 02/03/17 00:00 IMPRESSION: Subcutaneous edema along the dorsal proximal forearm ulcer with cellulitis. No bone marrow edema worrisome for osteomyelitis Edema is present in the deep antecubital fossa along the median cubital vein. Question thrombophlebitis. Adjacent brachialis and distal biceps muscle and tendon are intact. Abdomen/Pelvis CT 02/04/17 00:00 IMPRESSION: NO SIGNIFICANT OR ACUTE FINDING IN THE ABDOMEN OR PELVIS ON CT SCAN WITH IV CONTRAST. Chest CT 02/04/17 00:00 IMPRESSION: Extensive thoracic spondylosis. No acute abnormality in the thorax. Chest X-Ray 02/04/17 00:00 IMPRESSION: No evidence for pneumothorax. No acute consolidations or pleural effusions. Central line is identified extending superiorly presumably in the right internal jugular vein without its tip being identified Assessment & Plan - Diagnosis (1) Ambulatory dysfunction Is this a current diagnosis for this admission?: Yes Plan: Begin or continue physical therapy. I have discussed the potential for custodial facility placement with the patient and care team. However, the patient is ambulating with her daughter. Her daughter explained to me that she is able to get up and get into the shower slowly. Therefore, the plan will be for discharge home when patient is medically stable. (2) Anemia Is this a current diagnosis for this admission?: Yes Plan: GI evaluation was completed today. Patient has seen Dr. Alegria in the past. Upper endoscopy was performed by Dr. Alegria. Anoscopy was performed today with Dr. Ely. The findings were only significant for internal hemorrhoids and diverticulosis. (3) Cellulitis Qualifiers: Site of cellulitis: unspecified site Qualified Code(s): L03.90 - Cellulitis , unspecified Is this a current diagnosis for this admission?: Yes Plan: Cultures are likely due to contamination with staph epi and staph capitis. MRSA in the wound is now being treated with Bactrim. (4) Chronic narcotic use Is this a current diagnosis for this admission?: Yes Plan: This could certainly be predisposing the patient to falls. (5) Depression Plan: This could be secondary to medication effect, e.g. narcotics. She does not appear to be significantly depressed to me. Psychiatry consult is not warranted at this time. (6) Elevated liver function tests Is this a current diagnosis for this admission?: Yes Plan: ALT was minimally elevated on admission. On repeat is normal. (7) Encephalopathy Is this a current diagnosis for this admission?: Yes Plan: Resolved. However, the patient does appear to have some deficits at times. Also, she does appear to perseverate on certain things. Certainly could be secondary to the hypercalcemia and hyperparathyroidism. (8) Gram-positive bacteremia Is this a current diagnosis for this admission?: Yes Plan: Cultures are growing staph epi and staph capitis. These are likely contaminants. Vancomycin has been discontinued and patient is now on Bactrim for MRSA in the wound. (9) Hypercalcemia Is this a current diagnosis for this admission?: Yes Plan: Patient remains hypercalcemic. Intact PTH is slightly elevated at 71. SPEP and UPEP are still pending. Currently, the working diagnosis is primary hyperparathyroidism. Due to the fact that the patient appears to be having neuro psychiatric defects she may be a candidate for surgery. At this point time I would like to check thyroid studies. If these are abnormal thyroid ultrasound will be warranted. However, her workup can be completed after discharge. (10) Hypertension Is this a current diagnosis for this admission?: Yes Plan: stable (11) Metabolic acidosis Is this a current diagnosis for this admission?: Yes Plan: resolved (12) Pressure ulcer of right elbow, stage 2 Is this a current diagnosis for this admission?: No Plan: Continue wound care and dressing care. Improving. (13) Pressure ulcer of right hip, stage 2 Is this a current diagnosis for this admission?: Yes Plan: Change wound care and dressing care. Improving. (14) Tobacco abuse Is this a current diagnosis for this admission?: Yes Plan: Daughter has noted that her mother is no longer coughing since she came into the hospital. I explained that this is likely from cessation of smoking while she is an inpatient. I also explained that because she is a smoker she is at increased risk for malignancy and again we need to make sure that her malignancy screening is up-to-date. Daughter is in agreement. (15) Weight loss Is this a current diagnosis for this admission?: Yes Plan: Is reassuring that colonoscopy does not demonstrate malignancy. (16) Diabetes Is this a current diagnosis for this admission?: Yes Plan: Patient is not receiving any oral hypoglycemics or insulin. She has been having issues with hypoglycemia since she started the prep last night for the colonoscopy. She remains on dextrose. We will need to correct her high hypoglycemia prior to discharge. Hopefully, p.o. intake will correct this. Otherwise, additional workup may be needed for an insulinoma? (17) Tardive dyskinesia Is this a current diagnosis for this admission?: Yes Plan: This is likely associated with long-term use of Abilify. Patient and daughter are aware. I explained that this will not likely get better and could progress. (18) Hypoglycemia Is this a current diagnosis for this admission?: Yes Plan: She is now receiving a dextrose drip. This developed after she was made n.p.o. and started on her colon prep. However, this is preventing discharge at this time. - Time Time Spent with patient: 25-34 minutes - Inpatient Certification Medical Necessity: Need For IV Fluids
[2017-02-09] MEDS: OXYCODONE-ACETAMINOPHEN 5-325 MG TABLET PO PRN (17:58)
[2017-02-09] MEDS: ARIPIPRAZOLE 5 MG TABLET PO SCH (18:00)
[2017-02-09] MEDS: ATORVASTATIN CALCIUM 40 MG TABLET PO SCH (21:56)
[2017-02-09] MEDS ORDERED: DOXEPIN HCL 25 MG CAPSULE ONE (22:19)
[2017-02-10] MEDS ORDERED: OXYCODONE-ACETAMINOPHEN 5-325 MG TABLET PO ONE (03:15)
[2017-02-10] MEDS: HEPARIN SOD (PORCINE) 5,000 UNIT/ML 1 ML SYRINGE SUBCUT SCH ×3 (06:03→22:26)
[2017-02-10 07:02] LABS: ABSOLUTE EOSINOPHILS # (AUTO) 0.2 10^3/uL (0.0-0.6); ABSOLUTE LYMPHOCYTES (AUTO) 1.9 10^3/uL (0.5-4.7); ABSOLUTE MONOCYTES (AUTO) 0.5 10^3/uL (0.1-1.4); BASOPHILS % (AUTO) 0.5 % (0-2); EOSINOPHILS % (AUTO) 2.7 % (0-6); HEMATOCRIT 26.2 % (36.0-47.0); HEMOGLOBIN 8.5 g/dL (12.0-15.5); HGB HCT DIFFERENCE -0.7; LYMPHOCYTES % (AUTO) 25.1 % (13-45); MEAN CORPUSCULAR HEMOGLOBIN 26.9 pg (27.0-33.4); MEAN CORPUSCULAR HGB CONC 32.5 g/dL (32.0-36.0); MEAN CORPUSCULAR VOLUME 83 fl (80-97); MONOCYTES % (AUTO) 6.7 % (3-13); RED BLOOD COUNT 3.16 10^6/uL (3.72-5.28); RED CELL DISTRIBUTION WIDTH 16.3 % (11.5-14.0); WHITE BLOOD COUNT 7.7 10^3/uL (4.0-10.5)
[2017-02-10 07:08] LABS: IMMUNOGLOBULIN M 22 mg/dL (26-217)
[2017-02-10 07:15] LABS: ALANINE AMINOTRANSFERASE 50 U/L (9-52); ALBUMIN 2.6 g/dL (3.5-5.0); ALKALINE PHOSPHATASE 47 U/L (38-126); ANION GAP 8 (5-19); ASPARTATE AMINO TRANSFERASE 38 U/L (14-36); BILIRUBIN,DIRECT 0.2 mg/dL (0.0-0.4); BILIRUBIN,TOTAL 0.2 mg/dL (0.2-1.3); BLOOD UREA NITROGEN 6 mg/dL (7-20); CALCIUM 10.6 mg/dL (8.4-10.2); CARBON DIOXIDE 21 mmol/L (22-30); CHLORIDE 110 mmol/L (98-107); CREATININE RESULT 0.87 mg/dL (0.52-1.25); GLUCOSE 154 mg/dL (75-110); MAGNESIUM 1.7 mg/dL (1.6-2.3); PHOSPHORUS 3.3 mg/dL (2.5-4.5); POTASSIUM 4.4 mmol/L (3.6-5.0); SODIUM 138.9 mmol/L (137-145); TOTAL PROTEIN 4.9 g/dL (6.3-8.2)
[2017-02-10 07:32] LABS: FREE T3 3.36 pg/mL (2.77-5.27)
[2017-02-10 07:45] LABS: THYROID STIMULATING HORMONE 3.11 uIU/mL (0.47-4.68)
--- NOTE | 2017-02-10 09:19 | RADIOLOGY REPORT (SQ) ---
EXAM DESCRIPTION: U/S THYROID/SFT TISS HD NECK COMPLETED DATE/TIME: 02/10/2017 8:58 am REASON FOR STUDY: patient with hyperparathyroidism COMPARISON: None. TECHNIQUE: Dynamic and static jones-scale images acquired of the thyroid gland. Selected additional c olor/power Doppler images recorded. All images stored to PACS. LIMITATIONS: None. FINDINGS: RIGHT LOBE: Normal size. Homogeneous echotexture. No cystic or solid masses. LEFT LOBE: Normal size. Homogeneous echotexture. No cystic or solid masses. ISTHMUS: Normal size. Homogeneous echotexture. No cystic or solid masses. OTHER: No other significant finding. IMPRESSION: NORMAL THYROID ULTRASOUND. NO FOCAL MASSES. TECHNICAL DOCUMENTATION: JOB ID: [id number] [employer]- All Rights Reserved
[2017-02-10] MEDS: MAGNESIUM OXIDE 400 MG TABLET PO SCH ×2 (09:21→18:47)
[2017-02-10] MEDS: PHOSPHORUS #1 250 MG TABLET PO SCH ×3 (09:22→18:47)
[2017-02-10] MEDS: METOPROLOL SUCCINATE 50 MG TAB.SR.24H PO SCH ×2 (09:22→18:49)
[2017-02-10] MEDS: DOCUSATE SODIUM 100 MG CAPSULE PO SCH ×2 (09:22→18:47)
[2017-02-10] MEDS: TOPIRAMATE 100 MG TABLET PO SCH (09:23)
[2017-02-10] MEDS: SULFAMETHOXAZOLE/TRIMETHOPRIM 800-160 MG TABLET PO SCH ×2 (09:23→22:18)
[2017-02-10] MEDS: ASPIRIN 81 MG TABLET, ENT COATED PO SCH (09:23)
[2017-02-10] MEDS: POLYETHYLENE GLYCOL 3350 POWDER 17 GM/1 PACKET PO SCH (09:25)
[2017-02-10] MEDS: COLLAGENASE CLOSTRIDIUM HIST. OINT 30 GM TP SCH (11:04)
[2017-02-10] MEDS ORDERED: OXYCODONE-ACETAMINOPHEN 5-325 MG TABLET ONE (11:16)
--- NOTE | 2017-02-10 11:56 | PDOC PROGRESS REPORT ---
Subjective Progress Note for:: 02/10/17 Subjective:: patient underwent colonoscopy and tolerated her procedure well did not have any significant overnight events no bleeding is noted had EGD done by Dr Alegria recently and reportedly was normal patient undergoing further work up denies any abdominal pain tolerated diet some mild internal hemorrhoids are noted biopsies are still pending Physical Exam Vital Signs: Temp Pulse Resp BP Pulse Ox 97.4 F 84 16 114/52 L 96 02/10/17 07:59 02/10/17 09:20 02/10/17 09:20 02/10/17 07:59 02/10/17 09:20 Intake & Output 02/09/17 02/10/17 02/11/17 06:59 06:59 06:59 Intake Total 721 2380 Output Total 700 1000 Balance 21 1380 Weight 86.5 kg General appearance: PRESENT: no acute distress, well-developed, well-nourished Head exam: PRESENT: atraumatic, normocephalic Eye exam: PRESENT: EOMI, PERRLA. ABSENT: nystagmus, periorbital swelling, scleral icterus Mouth exam: PRESENT: moist, neck supple Throat exam: ABSENT: tonsillar exudate, tonsillogmegaly Neck exam: ABSENT: meningismus, tenderness, thyromegaly Respiratory exam: PRESENT: symmetrical, unlabored. ABSENT: tachypnea Cardiovascular exam: PRESENT: RRR, +S1, systolic murmur GI/Abdominal exam: PRESENT: soft. ABSENT: rebound, rigid, tenderness Extremities exam: ABSENT: joint swelling Neurological exam: PRESENT: alert, oriented to person, oriented to place, oriented to time, oriented to situation, CN II-XII grossly intact Psychiatric exam: PRESENT: appropriate affect Skin exam: ABSENT: erythema, jaundice, urticaria, vesicles Results Laboratory Results: 02/10/17 06:00 02/10/17 06:00 02/06/17 02/10/17 02/10/17 10:20 06:00 06:00 WBC 7.7 RBC 3.16 L Hgb 8.5 L Hct 26.2 L MCV 83 MCH 26.9 L MCHC 32.5 RDW 16.3 H Plt Count 281 Seg Neutrophils % 65.0 Lymphocytes % 25.1 Monocytes % 6.7 Eosinophils % 2.7 Basophils % 0.5 Absolute Neutrophils 5.0 Absolute Lymphocytes 1.9 Absolute Monocytes 0.5 Absolute Eosinophils 0.2 Absolute Basophils 0.0 Sodium 138.9 Potassium 4.4 Chloride 110 H Carbon Dioxide 21 L Anion Gap 8 BUN 6 L Creatinine 0.87 Est GFR ( Amer) > 60 Est GFR (Non-Af Amer) > 60 Glucose 154 H Calcium 10.6 H Phosphorus 3.3 Magnesium 1.7 Total Bilirubin 0.2 AST 38 H ALT 50 Alkaline Phosphatase 47 Total Protein 5.2 L 4.9 L Albumin 2.8 L 2.6 L TSH Free T4 Free T3 pg/mL 02/10/17 06:00 WBC RBC Hgb Hct MCV MCH MCHC RDW Plt Count Seg Neutrophils % Lymphocytes % Monocytes % Eosinophils % Basophils % Absolute Neutrophils Absolute Lymphocytes Absolute Monocytes Absolute Eosinophils Absolute Basophils Sodium Potassium Chloride Carbon Dioxide Anion Gap BUN Creatinine Est GFR ( Amer) Est GFR (Non-Af Amer) Glucose Calcium Phosphorus Magnesium Total Bilirubin AST ALT Alkaline Phosphatase Total Protein Albumin TSH 3.11 Free T4 0.89 Free T3 pg/mL 3.36 02/04/17 19:12 Blood Blood Culture - Final NO GROWTH IN 5 DAYS 02/04/17 13:16 Blood Blood Culture - Final NO GROWTH IN 5 DAYS 02/02/17 02/02/17 02/03/17 20:18 20:18 04:35 Creatine Kinase 74 58 CK-MB (CK-2) 1.33 Troponin I < 0.012 02/03/17 02/03/17 02/03/17 04:35 12:21 12:21 Creatine Kinase 53 CK-MB (CK-2) 1.32 1.00 Troponin I < 0.012 < 0.012 Impressions: Abdomen Ultrasound 02/03/17 00:00 IMPRESSION: SMALL AMOUNT OF SLUDGE IN THE GALLBLADDER. NO OTHER SIGNIFICANT FINDINGS. THE SPLEEN IS NOT VISUALIZED DUE TO OVERLYING BOWEL GAS. Upper Extremity MRI 02/03/17 00:00 IMPRESSION: Subcutaneous edema along the dorsal proximal forearm ulcer with cellulitis. No bone marrow edema worrisome for osteomyelitis Edema is present in the deep antecubital fossa along the median cubital vein. Question thrombophlebitis. Adjacent brachialis and distal biceps muscle and tendon are intact. Abdomen/Pelvis CT 02/04/17 00:00 IMPRESSION: NO SIGNIFICANT OR ACUTE FINDING IN THE ABDOMEN OR PELVIS ON CT SCAN WITH IV CONTRAST. Chest CT 02/04/17 00:00 IMPRESSION: Extensive thoracic spondylosis. No acute abnormality in the thorax. Chest X-Ray 02/04/17 00:00 IMPRESSION: No evidence for pneumothorax. No acute consolidations or pleural effusions. Central line is identified extending superiorly presumably in the right internal jugular vein without its tip being identified Thyroid Ultrasound 02/10/17 00:00 IMPRESSION: NORMAL THYROID ULTRASOUND. NO FOCAL MASSES. Assessment & Plan - Diagnosis (1) Anemia Qualifiers: Anemia type: unspecified type Qualified Code(s): D64.9 - Anemia, unspecified Plan: likely multifactorial, there is no evidence for acute GI bleeding in the colon previous EGD done by Dr Alegria, may want to get copy of procedure, biopsies from Dr Alegria's office will wait on biopsies otherwise doing better continue work up follow up as needed - Time Time Spent with patient: 15-24 minutes
--- NOTE | 2017-02-10 14:48 | RADIOLOGY REPORT (SQ) ---
EXAM DESCRIPTION: CT HEAD WITHOUT COMPLETED DATE/TIME: 02/10/2017 2:38 pm REASON FOR STUDY: falls and confusion COMPARISON: MR dated 12/30/2016. TECHNIQUE: Axial images acquired through the brain without intravenous contrast. Images reviewed wi th bone, brain and subdural windows. Images stored on PACS. All CT scanners at this facility use dose modulation, iterative reconstruction, and/or weight based d osing when appropriate to reduce radiation dose to as low as reasonably achievable (ALARA). [facility]: Dose Right [facility]: CareDose [facility]: Dose Right [facility]: Teradose 4D [facility]: Thumb Reading RADIATION DOSE: Up-to-date CT equipment and radiation dose reduction techniques were employed. CTDIv ol: 49.0 mGy. DLP: 783 mGy-cm. mGy. LIMITATIONS: None. FINDINGS: VENTRICLES: Normal size and contour. CEREBRUM: No masses. No hemorrhage. No midline shift. No evidence for acute infarction. Normal gra y/white matter differentiation. No areas of low density in the white matter. CEREBELLUM: No masses. No hemorrhage. No alteration of density. No evidence for acute infarction. EXTRAAXIAL SPACES: No fluid collections. No masses. ORBITS AND GLOBE: No intra- or extraconal masses. Normal contour of globe without masses. CALVARIUM: No fracture. PARANASAL SINUSES: Soft tissue in the left maxillary sinus. SOFT TISSUES: No mass or hematoma. OTHER: No other significant finding. IMPRESSION: NORMAL BRAIN CT WITHOUT CONTRAST. LEFT MAXILLARY SINUS DISEASE. EVIDENCE OF ACUTE STROKE: NO. COMMENT: Quality ID # [id number]: Final reports with documentation of one or more dose reduction techniques (e.g., Automated exposure control, adjustment of the mA and/or kV according to patient size, use of iterative reconstruction technique) TECHNICAL DOCUMENTATION: JOB ID: [id number] [employer]- All Rights Reserved
[2017-02-10 15:38] LABS: M-SPIKE % UR Not Observed % (Not Observed)
--- NOTE | 2017-02-10 17:03 | PDOC PROGRESS REPORT ---
Subjective Progress Note for:: 02/10/17 Subjective:: Patient presented with altered mental status and falls at home. Patient found to have hypercalcemia. Patient did have some abnormal cultures which were thought to be contaminants. Patient did have MRSA in her wound for which patient is currently on Bactrim. After speaking with patient's daughter it was stated to us that patient has been confused for the past 6 months and paranoid and combative at home. She is concerned that her mother may have signs of dementia. I did ask where patient was receiving her psych medications and she told me at the clinic however she is not really followed closely. Also she has been having some weight loss however she has not been eating. She states that her mother is getting better however she still not back to herself. Physical Exam Vital Signs: Temp Pulse Resp BP Pulse Ox 97.4 F 84 16 114/52 L 96 02/10/17 07:59 02/10/17 09:20 02/10/17 09:20 02/10/17 07:59 02/10/17 09:20 Intake & Output 02/09/17 02/10/17 02/11/17 06:59 06:59 06:59 Intake Total 721 2380 Output Total 700 1000 Balance 21 1380 Weight 86.5 kg General appearance: PRESENT: no acute distress, well-nourished Head exam: PRESENT: normocephalic Eye exam: PRESENT: EOMI. ABSENT: scleral icterus Ear exam: PRESENT: normal external ear exam Mouth exam: PRESENT: moist Neck exam: ABSENT: carotid bruit, JVD, lymphadenopathy, thyromegaly Respiratory exam: PRESENT: clear to auscultation christy. ABSENT: rales, rhonchi, wheezes Cardiovascular exam: PRESENT: RRR. ABSENT: diastolic murmur, rubs, systolic murmur Pulses: PRESENT: normal dorsalis pedis pul Vascular exam: PRESENT: normal capillary refill GI/Abdominal exam: PRESENT: normal bowel sounds, soft. ABSENT: distended, guarding, mass, organolmegaly, rebound, tenderness Rectal exam: PRESENT: deferred Extremities exam: PRESENT: full ROM. ABSENT: calf tenderness, clubbing, pedal edema Neurological exam: PRESENT: alert, awake, oriented to person, oriented to place , oriented to time, oriented to situation, CN II-XII grossly intact. ABSENT: motor sensory deficit Psychiatric exam: PRESENT: appropriate affect, normal mood. ABSENT: homicidal ideation, suicidal ideation Skin exam: PRESENT: dry, intact, warm. ABSENT: cyanosis, rash Results Laboratory Results: 02/10/17 06:00 02/10/17 06:00 02/06/17 02/10/17 02/10/17 10:20 06:00 06:00 WBC 7.7 RBC 3.16 L Hgb 8.5 L Hct 26.2 L MCV 83 MCH 26.9 L MCHC 32.5 RDW 16.3 H Plt Count 281 Seg Neutrophils % 65.0 Lymphocytes % 25.1 Monocytes % 6.7 Eosinophils % 2.7 Basophils % 0.5 Absolute Neutrophils 5.0 Absolute Lymphocytes 1.9 Absolute Monocytes 0.5 Absolute Eosinophils 0.2 Absolute Basophils 0.0 Sodium 138.9 Potassium 4.4 Chloride 110 H Carbon Dioxide 21 L Anion Gap 8 BUN 6 L Creatinine 0.87 Est GFR ( Amer) > 60 Est GFR (Non-Af Amer) > 60 Glucose 154 H Calcium 10.6 H Phosphorus 3.3 Magnesium 1.7 Total Bilirubin 0.2 AST 38 H ALT 50 Alkaline Phosphatase 47 Total Protein 5.2 L 4.9 L Albumin 2.8 L 2.6 L TSH Free T4 Free T3 pg/mL 02/10/17 06:00 WBC RBC Hgb Hct MCV MCH MCHC RDW Plt Count Seg Neutrophils % Lymphocytes % Monocytes % Eosinophils % Basophils % Absolute Neutrophils Absolute Lymphocytes Absolute Monocytes Absolute Eosinophils Absolute Basophils Sodium Potassium Chloride Carbon Dioxide Anion Gap BUN Creatinine Est GFR ( Amer) Est GFR (Non-Af Amer) Glucose Calcium Phosphorus Magnesium Total Bilirubin AST ALT Alkaline Phosphatase Total Protein Albumin TSH 3.11 Free T4 0.89 Free T3 pg/mL 3.36 02/04/17 19:12 Blood Blood Culture - Final NO GROWTH IN 5 DAYS 02/04/17 13:16 Blood Blood Culture - Final NO GROWTH IN 5 DAYS 02/02/17 02/02/17 02/03/17 20:18 20:18 04:35 Creatine Kinase 74 58 CK-MB (CK-2) 1.33 Troponin I < 0.012 02/03/17 02/03/17 02/03/17 04:35 12:21 12:21 Creatine Kinase 53 CK-MB (CK-2) 1.32 1.00 Troponin I < 0.012 < 0.012 Impressions: Abdomen Ultrasound 02/03/17 00:00 IMPRESSION: SMALL AMOUNT OF SLUDGE IN THE GALLBLADDER. NO OTHER SIGNIFICANT FINDINGS. THE SPLEEN IS NOT VISUALIZED DUE TO OVERLYING BOWEL GAS. Upper Extremity MRI 02/03/17 00:00 IMPRESSION: Subcutaneous edema along the dorsal proximal forearm ulcer with cellulitis. No bone marrow edema worrisome for osteomyelitis Edema is present in the deep antecubital fossa along the median cubital vein. Question thrombophlebitis. Adjacent brachialis and distal biceps muscle and tendon are intact. Abdomen/Pelvis CT 02/04/17 00:00 IMPRESSION: NO SIGNIFICANT OR ACUTE FINDING IN THE ABDOMEN OR PELVIS ON CT SCAN WITH IV CONTRAST. Chest CT 02/04/17:00 IMPRESSION: Extensive thoracic spondylosis. No acute abnormality in the thorax. Chest X-Ray 02/04/17 IMPRESSION: No evidence for pneumothorax. No acute consolidations or pleural effusions. Central line is identified extending superiorly presumably in the right internal jugular vein without its tip being identified Thyroid Ultrasound 02/10/17 00:00 IMPRESSION: NORMAL THYROID ULTRASOUND. NO FOCAL MASSES. Assessment & Plan - Diagnosis (1) Encephalopathy Is this a current diagnosis for this admission?: Yes Plan: Metabolic encephalopathy although improved. Patient did come in with hypercalcemia which can cause confusion. However on speaking to the family patient may have dementia as these changes and behaviors have been going on for the last 6 months. Psychology was consulted to help adjust her medications as some of the psych medications may be exacerbating her symptoms. I believe the patient has dementia with behavioral changes. Psychology did recommend discontinuing the Abilify the doxepin. They did a recommend Depakote sprinkles 500 twice daily BuSpar 5 mg in the morning and 10 mg at night and decreasing Topamax to 100 mg daily. This can also be worsened by hypoglycemia. Efforts are being made to correct this. So far her blood glucoses seem to be improving. (2) Ambulatory dysfunction Is this a current diagnosis for this admission?: Yes Plan: Started having falls. Did repeat a CT of the head that did not show any acute findings. Will have patient evaluated by PT during this hospitalization. (3) Anemia Is this a current diagnosis for this admission?: Yes Plan: Was evaluated by GI. Dr. Alegria in the past has done an EGD which was negative colonoscopy did show internal hemorrhoids and reticulosis. Patient B12 was normal her folate was low. Patient iron level was normal ferritin was elevated. Will start patient on oral iron replacement. This could be related to her nutritional status. (4) Cellulitis Qualifiers: Site of cellulitis: unspecified site Qualified Code(s): L03.90 - Cellulitis , unspecified Is this a current diagnosis for this admission?: Yes Plan: Patient wound growing MRSA. Patient currently on Bactrim and will require 10 days of antibiotics. (5) Chronic narcotic use Is this a current diagnosis for this admission?: Yes Plan: This could put patient at risk for falls. This could also be affecting her mentation. (6) Depression Is this a current diagnosis for this admission?: Yes Plan: She is on Abilify however this may be affecting her mentation. There is concerned that patient may have underlying dementia therefore certain medications could be impacting her negatively. Psychology has seen patient and have recommended medication changes including discontinuing Abilify. Has been started on BuSpar 5 mg in the morning and 10 mg at night. Patient also started on Depakote 500 mg twice daily. (7) Elevated liver function tests Is this a current diagnosis for this admission?: Yes Plan: Resolved. However will follow-up since patient is being started on Depakote and this can affect her liver function (8) Gram-positive bacteremia Is this a current diagnosis for this admission?: Yes Plan: Both contaminants. Repeat cultures show no growth. (9) Hypercalcemia Is this a current diagnosis for this admission?: Yes Plan: Patient appears to have primary hyperparathyroidism. Echo of the thyroid is normal. Patient started on Sensipar daily. Will also check vitamin D levels. (10) Hypertension Is this a current diagnosis for this admission?: Yes Plan: Patient blood pressures are low normal on metoprolol succinate 50. Will decrease to 25 mg p.o. daily (11) Hypoglycemia Is this a current diagnosis for this admission?: Yes Plan: Uncertain as to why patient is hypoglycemic. Most likely due to being n.p.o. and not eating. Patient is on fluids with glucose. Patient blood glucoses appear to be trending up. Will encourage p.o. intake. (12) Metabolic acidosis Is this a current diagnosis for this admission?: Yes Plan: Possibly due to dehydration. (13) Pressure ulcer of right elbow, stage 2 Is this a current diagnosis for this admission?: No Plan: Appears to be healing. Continue wound care. (14) Pressure ulcer of right hip, stage 2 Is this a current diagnosis for this admission?: Yes (15) Tardive dyskinesia Is this a current diagnosis for this admission?: Yes Plan: Is likely due to the use of antipsychotic psychotics. Appears to be stable at this time. (16) Tobacco abuse Is this a current diagnosis for this admission?: Yes Plan: Encourage smoking cessation. (17) Weight loss Is this a current diagnosis for this admission?: Yes Plan: She does not have any obvious malignancy that may be causing her weight loss. This may be related to decreased p.o. intake and the use of Topamax can cause weight loss. By patient having a smoking history patient CT scan did not show any concerning lesions in the chest. (18) Hypomagnesemia Is this a current diagnosis for this admission?: Yes Plan: Patient currently on oral replacement. Patient magnesium is now 1.7. - Time Time Spent with patient: 15-24 minutes Anticipated discharge: Home with Homehealth Within: Other - Did have a discussion with the patient's daughter. Patient is minimally improved per the daughter. At this time patient is not eating very much. Patient was started on new psych medications would like to see how patient responds to the medications prior to discharging her home. - Inpatient Certification Medical Necessity: Significant Comorbidiites Make Outpatient Treatment Too Risky
[2017-02-10] MEDS: CINACALCET HCL 30 MG TABLET PO SCH (18:47)
[2017-02-10] MEDS: CARBAMIDE PEROXIDE 6.5% OTIC SOLN 15 ML AU SCH (18:48)
[2017-02-10] MEDS: OXYCODONE-ACETAMINOPHEN 5-325 MG TABLET PO PRN (19:51)
[2017-02-10] MEDS: DEXTROSE 40% GEL 15 GM TUBE PO PRN (19:59)
[2017-02-10] MEDS: ATORVASTATIN CALCIUM 40 MG TABLET PO SCH (22:25)
[2017-02-10] MEDS: BUSPIRONE HCL 10 MG TABLET PO SCH (22:26)
[2017-02-10] MEDS: DIVALPROEX SODIUM 125 MG CAP.SPRINK PO SCH (22:26)
[2017-02-11] MEDS: OXYCODONE-ACETAMINOPHEN 5-325 MG TABLET PO PRN ×2 (05:06→16:32)
[2017-02-11] MEDS: HEPARIN SOD (PORCINE) 5,000 UNIT/ML 1 ML SYRINGE SUBCUT SCH ×3 (05:06→21:32)
[2017-02-11] MEDS: PHOSPHORUS #1 250 MG TABLET PO SCH ×3 (08:35→16:31)
[2017-02-11] MEDS: MAGNESIUM OXIDE 400 MG TABLET PO SCH ×2 (09:59→16:32)
[2017-02-11] MEDS: FERROUS SULFATE 325 MG TABLET PO SCH (09:59)
[2017-02-11] MEDS: TOPIRAMATE 100 MG TABLET PO SCH (10:00)
[2017-02-11] MEDS: SULFAMETHOXAZOLE/TRIMETHOPRIM 800-160 MG TABLET PO SCH ×2 (10:00→21:32)
[2017-02-11] MEDS: BUSPIRONE HCL 10 MG TABLET PO SCH ×2 (10:00→21:32)
[2017-02-11] MEDS: DOCUSATE SODIUM 100 MG CAPSULE PO SCH ×2 (10:00→16:30)
[2017-02-11] MEDS: DIVALPROEX SODIUM 125 MG CAP.SPRINK PO SCH ×2 (10:01→21:32)
[2017-02-11] MEDS: POLYETHYLENE GLYCOL 3350 POWDER 17 GM/1 PACKET PO SCH (10:01)
[2017-02-11] MEDS: CARBAMIDE PEROXIDE 6.5% OTIC SOLN 15 ML AU SCH ×2 (10:02→17:35)
[2017-02-11] MEDS: COLLAGENASE CLOSTRIDIUM HIST. OINT 30 GM TP SCH (10:02)
[2017-02-11] MEDS: ASPIRIN 81 MG TABLET, ENT COATED PO SCH (10:03)
[2017-02-11] MEDS: MEGESTROL ACETATE SUSP 400 MG/10 ML UDCUP PO SCH (12:40)
--- NOTE | 2017-02-11 15:30 | PSYCHOLOGICAL NOTE ---
Psych Note - Psych Note Psych Note: Patient is brought in by family for weakness low blood sugar and falls. They state that the patient has a history of schizophrenia and has recently been diagnosed with dementia. Family states patient is refusing to eat. She has no longer taking her diabetic medications because she is not eating. Head CT 02/10/2017: no findings. Chart review: Patient appears to have slightly increased food intake. Evaluation: Patient disclosed that she is feeling better than yesterday "yes, I feel a difference." Patient was able to engage with clinician and correctly answer questions. Patient disclosed that she knows she is in the hospital in [place]. She states she came to the hospital because "lack of eating" patient is unable to explain why she stopped eating stating "I do not know...I cannot swallow it. " Patient was asked if she had ever had thoughts of harming herself patient stated "oh no" patient responded no thoughts of homicidal ideation. Patient disclosed she does not have an outpatient provider for mental health. Patient is alert and orientated to person, place, time and circumstance. Mood is euthymic with congruent affect. Patient denies suicidal and homicidal ideation. Patient denies auditory and visual hallucinations. Patient's family disclosed a history of schizophrenia. Patient is not presenting with psychosis. delusions are absent and behavior is consistence with an intact reality based presentation (i.e. organized, linear, rational thinking). Additionally patient made good eye contact and conversational speech was within normal rate tone and prosody. Intellectual abilities appear to be within the average range. Attention and concentration were good. Insight, judgment, impulse control appear to be fair due to patient's understanding that she should eat, acknowledges she has not, but is unclear on why she has not. 799.59 (R41.9) Unspecified Neurocognitive Disorder per history per patient's family 298.9 (F29) Unspecified schizophrenia spectrum and other psychosis disorder per history provided by family Impression\\plan: Patient is considered psychiatrically clear. Family disclosed the patient has recently been diagnosed with dementia. Behavioral health team provided medication recommendations. Studies have shown the risk for developing dementia is twice as high compared to patients without a severe mental health disease and functional abnormalities (rather than structural imaging abnormalities) are ajy in identifying a neurocognitive disorder. It is also important for patients that have a previous diagnosis with schizophrenia, to watch for any warning signs of a UTIs. Studies have shown a correlation between UTIs and relapse of active psychosis when the patient has a history of any diagnosis within the 8 DSM-V category of schizophrenia spectrum. Attending physicians are asked to consider not prescribing benzodiazepines (Ativan, Xanax , Valium), antipsychotics (Geodon, Haldol, Zyprexa), some medications commonly used for sleep (Ambien, temazepam, Elavil, trazodone and Seroquel), pain medication such as narcotics and steroids such as prednisone. These medications can exacerbate in aggression, confusion, and psychosis in patient with neurocognitive disorder. Dr. Antonio was consulted on the care and management of this patient.
[2017-02-11] MEDS: CINACALCET HCL 30 MG TABLET PO SCH (16:30)
[2017-02-11] MEDS: METOPROLOL SUCCINATE 50 MG TAB.SR.24H PO SCH (16:31)
--- NOTE | 2017-02-11 18:00 | PDOC PROGRESS REPORT ---
Subjective Progress Note for:: 02/11/17 Subjective:: Patient presented with altered mental status and falls at home. Patient found to have hypercalcemia. Patient did have some abnormal cultures which were thought to be contaminants. Patient did have MRSA in her wound for which patient is currently on Bactrim. The patient has been confused for some time. Patient daughter is upset that she was stopped off her doxepin. Discontinue the medication was per psychology's recommendations. To see the patient this morning. Patient stated that she still not eating very much. Suspicious exudates the food gets into her mouth she feels nauseated. Patient does not have any dentition stating that her dentures do not fit. Physical Exam Vital Signs: Temp Pulse Resp BP Pulse Ox 97.6 F 84 17 121/58 L 97 02/11/17 15:59 02/11/17 15:59 02/11/17 15:59 02/11/17 15:59 02/11/17 15:59 Intake & Output 02/10/17 02/11/17 02/12/17 06:59 06:59 06:59 Intake Total 2380 2750 480 Output Total 1000 3000 700 Balance 1380 -250 -220 Weight 86.5 kg 86.3 kg General appearance: PRESENT: no acute distress, morbidly obese Head exam: PRESENT: normocephalic Eye exam: PRESENT: EOMI. ABSENT: scleral icterus Ear exam: PRESENT: normal external ear exam Mouth exam: PRESENT: moist Teeth exam: PRESENT: edentulous Neck exam: ABSENT: carotid bruit, JVD, lymphadenopathy, thyromegaly Respiratory exam: PRESENT: clear to auscultation christy. ABSENT: rales, rhonchi, wheezes Cardiovascular exam: PRESENT: RRR. ABSENT: diastolic murmur, rubs, systolic murmur Pulses: PRESENT: normal dorsalis pedis pul Vascular exam: PRESENT: normal capillary refill GI/Abdominal exam: PRESENT: normal bowel sounds, soft. ABSENT: distended, guarding, mass, organolmegaly, rebound, tenderness Rectal exam: PRESENT: deferred Extremities exam: PRESENT: full ROM. ABSENT: calf tenderness, clubbing, pedal edema Neurological exam: PRESENT: alert, altered, awake, oriented to person, oriented to place, CN II-XII grossly intact. ABSENT: motor sensory deficit Psychiatric exam: PRESENT: flat affect. ABSENT: homicidal ideation, suicidal ideation Skin exam: PRESENT: dry, intact, warm. ABSENT: cyanosis, rash Results Laboratory Results: 02/10/17 06:00 02/10/17 06:00 02/02/17 02/02/17 02/03/17 20:18 20:18 04:35 Creatine Kinase 74 58 CK-MB (CK-2) 1.33 Troponin I < 0.012 02/03/17 02/03/17 02/03/17 04:35 12:21 12:21 Creatine Kinase 53 CK-MB (CK-2) 1.32 1.00 Troponin I < 0.012 < 0.012 Impressions: Abdomen Ultrasound 02/03/17 00:00 IMPRESSION: SMALL AMOUNT OF SLUDGE IN THE GALLBLADDER. NO OTHER SIGNIFICANT FINDINGS. THE SPLEEN IS NOT VISUALIZED DUE TO OVERLYING BOWEL GAS. Upper Extremity MRI 02/03/17 00:00 IMPRESSION: Subcutaneous edema along the dorsal proximal forearm ulcer with cellulitis. No bone marrow edema worrisome for osteomyelitis Edema is present in the deep antecubital fossa along the median cubital vein. Question thrombophlebitis. Adjacent brachialis and distal biceps muscle and tendon are intact. Abdomen/Pelvis CT 02/04/17 00:00 IMPRESSION: NO SIGNIFICANT OR ACUTE FINDING IN THE ABDOMEN OR PELVIS ON CT SCAN WITH IV CONTRAST. Chest CT 02/04/17 00:00 IMPRESSION: Extensive thoracic spondylosis. No acute abnormality in the thorax. Chest X-Ray 02/04/17 00:00 IMPRESSION: No evidence for pneumothorax. No acute consolidations or pleural effusions. Central line is identified extending superiorly presumably in the right internal jugular vein without its tip being identified Head CT 02/10/17 00:00 IMPRESSION: NORMAL BRAIN CT WITHOUT CONTRAST. LEFT MAXILLARY SINUS DISEASE. EVIDENCE OF ACUTE STROKE: NO. Thyroid Ultrasound 02/10/17 00:00 IMPRESSION: NORMAL THYROID ULTRASOUND. NO FOCAL MASSES. Assessment & Plan - Diagnosis (1) Encephalopathy Is this a current diagnosis for this admission?: Yes Plan: Metabolic encephalopathy gradually improving. Patient did come in with hypercalcemia which can cause confusion. However on speaking to the family patient may have dementia as these changes and behaviors have been going on for the last 6 months. Psychology made their recommendations which are currently being followed. Patient family's however upset that she was stopped off the doxepin. Will allow current medications to take effect before adjusting or resuming other medications. Patient insomnia could be a part of her dementia. Did discuss with psychology possible options they stated that the BuSpar and "should help with her insomnia. If the insomnia can continues then melatonin may be an option. (2) Ambulatory dysfunction Is this a current diagnosis for this admission?: Yes Plan: Started having falls. Did repeat a CT of the head that did not show any acute findings. Will have patient evaluated by PT during this hospitalization. It may benefit from home health and physical therapy on discharge. Patient family does not want her to be placed anywhere for rehabilitation. (3) Anemia Is this a current diagnosis for this admission?: Yes Plan: Was evaluated by GI. Dr. Alegria in the past has done an EGD which was negative colonoscopy did show internal hemorrhoids and diverticulosis. Patient B12 was normal her folate was low. She was given folate replacement. Will start patient on oral iron replacement. This could be related to her nutritional status. (4) Cellulitis Qualifiers: Site of cellulitis: unspecified site Qualified Code(s): L03.90 - Cellulitis , unspecified Is this a current diagnosis for this admission?: Yes Plan: Patient wound growing MRSA. Patient currently on Bactrim and will require 10 days of antibiotics. (5) Chronic narcotic use Is this a current diagnosis for this admission?: Yes Plan: This could put patient at risk for falls. This could also be affecting her mentation. Will continue current home dose. (6) Depression Is this a current diagnosis for this admission?: Yes Plan: She is on Abilify however this may be affecting her mentation. There is concerned that patient may have underlying dementia therefore certain medications could be impacting her negatively. Psychology has seen patient and have recommended medication changes including discontinuing Abilify. Continue BuSpar 5 mg in the morning and 10 mg at night. Patient also started on Depakote 500 mg twice daily. (7) Elevated liver function tests Is this a current diagnosis for this admission?: Yes Plan: Resolved. Will follow up liver functions as patient was started on depakote. (8) Gram-positive bacteremia Is this a current diagnosis for this admission?: Yes Plan: Both contaminants. Repeat cultures show no growth. (9) Hypercalcemia Is this a current diagnosis for this admission?: Yes Plan: Patient appears to have primary hyperparathyroidism. Echo of the thyroid is normal. Patient started on Sensipar daily. Vitamin level still pending. (10) Hypertension Is this a current diagnosis for this admission?: Yes Plan: Continue metoprolol succinate 25 mg p.o. daily (11) Hypoglycemia Is this a current diagnosis for this admission?: Yes Plan: Hypoglycemic resolved. Will continue dextrose for now and discontnue in the am. (12) Metabolic acidosis Is this a current diagnosis for this admission?: Yes Plan: Possibly due to dehydration. Resolved. (13) Pressure ulcer of right elbow, stage 2 Is this a current diagnosis for this admission?: No Plan: Appears to be healing. Continue wound care and bactrium. (14) Pressure ulcer of right hip, stage 2 Is this a current diagnosis for this admission?: Yes (15) Tardive dyskinesia Is this a current diagnosis for this admission?: Yes Plan: Is likely due to the use of antipsychotic psychotics. Appears to be stable at this time. (16) Tobacco abuse Is this a current diagnosis for this admission?: Yes Plan: Encourage smoking cessation. (17) Weight loss Is this a current diagnosis for this admission?: Yes Plan: She does not have any obvious malignancy that may be causing her weight loss. This may be related to decreased p.o. intake and the use of Topamax can cause weight loss. By patient having a smoking history patient CT scan did not show any concerning lesions in the chest. Patient started on megace. Patient placed on mechanical soft diet as patient has no dentition. (18) Hypomagnesemia Is this a current diagnosis for this admission?: Yes Plan: Resolved. Patient currently on oral replacement. Patient magnesium is now 1.7. - Time Time Spent with patient: Less than 15 minutes Anticipated discharge: Home with Homehealth - Inpatient Certification Medical Necessity: Need For IV Fluids - Patient being monitored for hypoglycemia. Patient still not eating.
[2017-02-11] MEDS: METOCLOPRAMIDE HCL 10 MG TABLET PO SCH (21:28)
[2017-02-11] MEDS: ATORVASTATIN CALCIUM 40 MG TABLET PO SCH (21:32)
[2017-02-11] MEDS: DEXTROSE 50%-WATER 25 GM/50 ML DISP.SYRIN IV PRN (22:43)
[2017-02-11] MEDS ORDERED: DEXTROSE 10%-WATER 1,000 ML IV PRN (23:08)
[2017-02-12] MEDS: DEXTROSE 50%-WATER 25 GM/50 ML DISP.SYRIN IV PRN (00:13)
[2017-02-12] MEDS: OXYCODONE-ACETAMINOPHEN 5-325 MG TABLET PO PRN ×3 (00:46→21:47)
[2017-02-12 05:40] LABS: ANION GAP 11 (5-19); BLOOD UREA NITROGEN 7 mg/dL (7-20); CALCIUM 9.9 mg/dL (8.4-10.2); CARBON DIOXIDE 21 mmol/L (22-30); CHLORIDE 109 mmol/L (98-107); CREATININE RESULT 0.97 mg/dL (0.52-1.25); GLUCOSE 119 mg/dL (75-110); PHOSPHORUS 3.4 mg/dL (2.5-4.5); POTASSIUM 4.3 mmol/L (3.6-5.0); SODIUM 140.9 mmol/L (137-145)
[2017-02-12] MEDS: HEPARIN SOD (PORCINE) 5,000 UNIT/ML 1 ML SYRINGE SUBCUT SCH ×3 (06:07→21:48)
[2017-02-12 07:24] LABS: VITAMIN D 25-HYDROXY 18.2 ng/mL (30.0-100.0)
[2017-02-12] MEDS: COLLAGENASE CLOSTRIDIUM HIST. OINT 30 GM TP SCH (10:00)
[2017-02-12] MEDS: CARBAMIDE PEROXIDE 6.5% OTIC SOLN 15 ML AU SCH ×2 (10:00→17:26)
[2017-02-12] MEDS: POLYETHYLENE GLYCOL 3350 POWDER 17 GM/1 PACKET PO SCH (10:00)
[2017-02-12] MEDS: MEGESTROL ACETATE SUSP 400 MG/10 ML UDCUP PO SCH ×2 (10:00→17:26)
[2017-02-12] MEDS: DIVALPROEX SODIUM 125 MG CAP.SPRINK PO SCH ×2 (10:01→21:47)
[2017-02-12] MEDS: SULFAMETHOXAZOLE/TRIMETHOPRIM 800-160 MG TABLET PO SCH ×2 (10:01→21:47)
[2017-02-12] MEDS: BUSPIRONE HCL 10 MG TABLET PO SCH ×2 (10:01→21:47)
[2017-02-12] MEDS: METOCLOPRAMIDE HCL 10 MG TABLET PO SCH ×4 (10:02→21:47)
[2017-02-12] MEDS: DOCUSATE SODIUM 100 MG CAPSULE PO SCH ×2 (10:02→17:24)
[2017-02-12] MEDS: PHOSPHORUS #1 250 MG TABLET PO SCH ×3 (10:02→17:24)
[2017-02-12] MEDS: MAGNESIUM OXIDE 400 MG TABLET PO SCH (10:03)
[2017-02-12] MEDS: FERROUS SULFATE 325 MG TABLET PO SCH (10:03)
[2017-02-12] MEDS: ASPIRIN 81 MG TABLET, ENT COATED PO SCH (10:03)
[2017-02-12] MEDS: TOPIRAMATE 100 MG TABLET PO SCH (10:03)
[2017-02-12 14:11] LABS: VITAMIN D 1,25 DIHYDROXY 53.5 pg/mL (19.9-79.3)
[2017-02-12] MEDS: METOPROLOL SUCCINATE 50 MG TAB.SR.24H PO SCH (17:25)
[2017-02-12] MEDS: CINACALCET HCL 30 MG TABLET PO SCH (17:26)
[2017-02-12] MEDS: NYSTATIN/DEXAMETH/DIPHEN SUSP 120 ML PO SCH (21:47)
[2017-02-12] MEDS: ATORVASTATIN CALCIUM 40 MG TABLET PO SCH (21:47)
[2017-02-13] MEDS: OXYCODONE-ACETAMINOPHEN 5-325 MG TABLET PO PRN ×3 (05:31→22:28)
[2017-02-13] MEDS: HEPARIN SOD (PORCINE) 5,000 UNIT/ML 1 ML SYRINGE SUBCUT SCH ×3 (05:31→22:28)
[2017-02-13] MEDS: METOCLOPRAMIDE HCL 10 MG TABLET PO SCH (09:41)
[2017-02-13] MEDS: SULFAMETHOXAZOLE/TRIMETHOPRIM 800-160 MG TABLET PO SCH ×2 (09:42→22:28)
[2017-02-13] MEDS: TOPIRAMATE 100 MG TABLET PO SCH (09:42)
[2017-02-13] MEDS: DOCUSATE SODIUM 100 MG CAPSULE PO SCH ×2 (09:43→17:18)
[2017-02-13] MEDS: MAGNESIUM OXIDE 400 MG TABLET PO SCH (09:43)
[2017-02-13] MEDS: PHOSPHORUS #1 250 MG TABLET PO SCH ×2 (09:44→12:29)
[2017-02-13] MEDS: FERROUS SULFATE 325 MG TABLET PO SCH (09:44)
[2017-02-13] MEDS: ASPIRIN 81 MG TABLET, ENT COATED PO SCH (09:44)
[2017-02-13] MEDS: BUSPIRONE HCL 10 MG TABLET PO SCH ×2 (09:45→22:34)
[2017-02-13] MEDS: DIVALPROEX SODIUM 125 MG CAP.SPRINK PO SCH ×2 (09:46→22:33)
[2017-02-13] MEDS: MEGESTROL ACETATE SUSP 400 MG/10 ML UDCUP PO SCH ×2 (09:47→17:19)
[2017-02-13] MEDS: CARBAMIDE PEROXIDE 6.5% OTIC SOLN 15 ML AU SCH ×2 (09:48→17:19)
[2017-02-13] MEDS: COLLAGENASE CLOSTRIDIUM HIST. OINT 30 GM TP SCH (09:48)
[2017-02-13] MEDS: NYSTATIN/DEXAMETH/DIPHEN SUSP 120 ML PO SCH ×4 (09:51→22:32)
[2017-02-13] MEDS ORDERED: DEXTROSE 10%-WATER 1,000 ML IV PRN (11:51)
[2017-02-13] MEDS ORDERED: SCOPOLAMINE HYDROBROMIDE 1.5 MG PATCH.TD72 TD ONE (12:30)
[2017-02-13] MEDS: CHOLECALCIFEROL (D3) 1,000 UNIT TABLET PO SCH (14:13)
[2017-02-13] MEDS: CINACALCET HCL 30 MG TABLET PO SCH (17:17)
[2017-02-13] MEDS: METOPROLOL SUCCINATE 50 MG TAB.SR.24H PO SCH (17:20)
[2017-02-13] MEDS: ATORVASTATIN CALCIUM 40 MG TABLET PO SCH (22:28)
[2017-02-14] MEDS: ACETAMINOPHEN 325 MG TABLET PO PRN (05:41)
[2017-02-14] MEDS: HEPARIN SOD (PORCINE) 5,000 UNIT/ML 1 ML SYRINGE SUBCUT SCH ×3 (05:41→21:44)
[2017-02-14] MEDS: SULFAMETHOXAZOLE/TRIMETHOPRIM 800-160 MG TABLET PO SCH (09:56)
[2017-02-14] MEDS: FERROUS SULFATE 325 MG TABLET PO SCH (09:57)
[2017-02-14] MEDS: DOCUSATE SODIUM 100 MG CAPSULE PO SCH ×2 (09:57→17:39)
[2017-02-14] MEDS: BUSPIRONE HCL 10 MG TABLET PO SCH ×2 (09:57→21:45)
[2017-02-14] MEDS: TOPIRAMATE 100 MG TABLET PO SCH (09:58)
[2017-02-14] MEDS: ASPIRIN 81 MG TABLET, ENT COATED PO SCH (09:58)
[2017-02-14] MEDS: CARBAMIDE PEROXIDE 6.5% OTIC SOLN 15 ML AU SCH (09:59)
[2017-02-14] MEDS: MEGESTROL ACETATE SUSP 400 MG/10 ML UDCUP PO SCH ×2 (09:59→17:42)
[2017-02-14] MEDS: COLLAGENASE CLOSTRIDIUM HIST. OINT 30 GM TP SCH (10:00)
[2017-02-14] MEDS: NYSTATIN/DEXAMETH/DIPHEN SUSP 120 ML PO SCH ×4 (10:00→21:46)
[2017-02-14] MEDS: DIVALPROEX SODIUM 125 MG CAP.SPRINK PO SCH ×2 (10:01→21:46)
[2017-02-14] MEDS: INSULIN LISPRO 100 UNIT/ML 3 ML VIAL SUBCUT SCH ×3 (10:21→21:44)
[2017-02-14] MEDS: CHOLECALCIFEROL (D3) 1,000 UNIT TABLET PO SCH (12:17)
[2017-02-14] MEDS: CINACALCET HCL 30 MG TABLET PO SCH (17:39)
[2017-02-14] MEDS: METOPROLOL SUCCINATE 50 MG TAB.SR.24H PO SCH (17:42)
[2017-02-14] MEDS: ATORVASTATIN CALCIUM 40 MG TABLET PO SCH (21:45)
[2017-02-14] MEDS: OXYCODONE-ACETAMINOPHEN 5-325 MG TABLET PO PRN (22:40)
[2017-02-15] MEDS: HEPARIN SOD (PORCINE) 5,000 UNIT/ML 1 ML SYRINGE SUBCUT SCH ×2 (05:14→15:15)
[2017-02-15] MEDS: INSULIN LISPRO 100 UNIT/ML 3 ML VIAL SUBCUT SCH (08:39)
[2017-02-15] MEDS: MEGESTROL ACETATE SUSP 400 MG/10 ML UDCUP PO SCH (09:39)
[2017-02-15] MEDS: ACETAMINOPHEN 325 MG TABLET PO PRN (09:40)
[2017-02-15] MEDS: BUSPIRONE HCL 10 MG TABLET PO SCH (09:41)
[2017-02-15] MEDS: COLLAGENASE CLOSTRIDIUM HIST. OINT 30 GM TP SCH (09:41)
[2017-02-15] MEDS: DOCUSATE SODIUM 100 MG CAPSULE PO SCH (09:42)
[2017-02-15] MEDS: TOPIRAMATE 100 MG TABLET PO SCH (09:43)
[2017-02-15] MEDS: FERROUS SULFATE 325 MG TABLET PO SCH (09:43)
[2017-02-15] MEDS: ASPIRIN 81 MG TABLET, ENT COATED PO SCH (09:43)
[2017-02-15] MEDS: DIVALPROEX SODIUM 125 MG CAP.SPRINK PO SCH (09:44)
[2017-02-15] MEDS: NYSTATIN/DEXAMETH/DIPHEN SUSP 120 ML PO SCH ×2 (09:44→15:14)
[2017-02-15] MEDS: CHOLECALCIFEROL (D3) 1,000 UNIT TABLET PO SCH (11:24)
[2017-02-15] MEDS: OXYCODONE-ACETAMINOPHEN 5-325 MG TABLET PO PRN (12:26)
[2017-02-16] MEDS: MEGESTROL ACETATE SUSP 400 MG/10 ML UDCUP PO SCH ×3 (00:32→18:35)
[2017-02-16] MEDS: METOPROLOL SUCCINATE 50 MG TAB.SR.24H PO SCH ×2 (00:32→18:34)
[2017-02-16] MEDS: DOCUSATE SODIUM 100 MG CAPSULE PO SCH ×3 (00:32→18:33)
[2017-02-16] MEDS ORDERED: OXYCODONE-ACETAMINOPHEN 5-325 MG TABLET ONE (00:43)
[2017-02-16] MEDS ORDERED: HEPARIN SOD (PORCINE) 5,000 UNIT/ML 1 ML SYRINGE ONE (00:44)
[2017-02-16] MEDS: DIVALPROEX SODIUM 125 MG CAP.SPRINK PO SCH ×3 (00:56→21:31)
[2017-02-16] MEDS: BUSPIRONE HCL 10 MG TABLET PO SCH ×3 (00:57→21:31)
[2017-02-16] MEDS: NYSTATIN/DEXAMETH/DIPHEN SUSP 120 ML PO SCH ×5 (00:57→21:31)
[2017-02-16] MEDS: HEPARIN SOD (PORCINE) 5,000 UNIT/ML 1 ML SYRINGE SUBCUT SCH ×4 (00:58→21:31)
[2017-02-16] MEDS: DEXTROSE 5%-WATER 1000 ML 1,000 ML IV PRN (01:15)
[2017-02-16] MEDS: TOPIRAMATE 100 MG TABLET PO SCH (10:52)
[2017-02-16] MEDS: FERROUS SULFATE 325 MG TABLET PO SCH (10:53)
[2017-02-16] MEDS: ASPIRIN 81 MG TABLET, ENT COATED PO SCH (10:53)
[2017-02-16] MEDS: SCOPOLAMINE HYDROBROMIDE 1.5 MG PATCH.TD72 TD SCH (10:55)
[2017-02-16] MEDS: COLLAGENASE CLOSTRIDIUM HIST. OINT 30 GM TP SCH (10:56)
[2017-02-16] MEDS: OXYCODONE-ACETAMINOPHEN 5-325 MG TABLET PO PRN ×2 (11:05→21:30)
[2017-02-16] MEDS: CHOLECALCIFEROL (D3) 1,000 UNIT TABLET PO SCH (12:53)
[2017-02-16] MEDS: ATORVASTATIN CALCIUM 40 MG TABLET PO SCH (21:31)
[2017-02-17] MEDS: HEPARIN SOD (PORCINE) 5,000 UNIT/ML 1 ML SYRINGE SUBCUT SCH ×3 (05:46→21:45)
[2017-02-17] MEDS: DEXTROSE 50%-WATER 25 GM/50 ML DISP.SYRIN IV PRN (06:20)
[2017-02-17] MEDS: DOCUSATE SODIUM 100 MG CAPSULE PO SCH ×2 (09:39→17:48)
[2017-02-17] MEDS: MEGESTROL ACETATE SUSP 400 MG/10 ML UDCUP PO SCH ×2 (09:40→17:49)
[2017-02-17] MEDS: FERROUS SULFATE 325 MG TABLET PO SCH (09:40)
[2017-02-17] MEDS: TOPIRAMATE 100 MG TABLET PO SCH (09:40)
[2017-02-17] MEDS: ASPIRIN 81 MG TABLET, ENT COATED PO SCH (09:40)
[2017-02-17] MEDS: BUSPIRONE HCL 10 MG TABLET PO SCH ×2 (09:40→21:45)
[2017-02-17] MEDS: NYSTATIN/DEXAMETH/DIPHEN SUSP 120 ML PO SCH ×4 (09:41→21:45)
[2017-02-17] MEDS: DIVALPROEX SODIUM 125 MG CAP.SPRINK PO SCH ×2 (09:41→21:45)
[2017-02-17] MEDS: COLLAGENASE CLOSTRIDIUM HIST. OINT 30 GM TP SCH (09:49)
[2017-02-17] MEDS: CHOLECALCIFEROL (D3) 1,000 UNIT TABLET PO SCH (11:34)
--- NOTE | 2017-02-17 17:22 | PDOC PROGRESS REPORT ---
Subjective Progress Note for:: 02/17/17 Subjective:: Patient is a 66-year-old -[place] woman with history of obesity, diabetes hypertension depression and anxiety has been admitted since January with altered mental status. She has been having increasing confusion and recurrent falls and weight loss prior to admission. She did have evidence of hypocalcemia, right arm cellulitis on admission have been resolved with IV antibiotic and IV fluid. Spoke with her daughter Savana this pm, she she reports to have been having loss of appetite the last 4 months and has had EGD and other evaluation outpatient and thus far unrevealing. She has been seen by psych and her regimen adjusted. She continues to have hypoglycemic episode and poor PO intake. Physical Exam Vital Signs: Temp Pulse Resp BP Pulse Ox 98.3 F 98 20 123/57 L 100 02/17/17 15:54 02/17/17 15:54 02/17/17 15:54 02/17/17 15:54 02/17/17 15:54 Intake & Output 02/16/17 02/17/17 02/18/17 06:59 06:59 06:59 Intake Total 920 2625 Output Total 400 700 Balance 520 1925 General appearance: PRESENT: no acute distress, obese, well-developed, well- nourished Head exam: PRESENT: atraumatic, normocephalic Eye exam: PRESENT: conjunctiva pink, EOMI, PERRLA. ABSENT: scleral icterus Ear exam: PRESENT: normal external ear exam Mouth exam: PRESENT: moist, tongue midline Neck exam: ABSENT: carotid bruit, JVD, lymphadenopathy, thyromegaly Respiratory exam: PRESENT: clear to auscultation christy. ABSENT: rales, rhonchi, wheezes Cardiovascular exam: PRESENT: RRR. ABSENT: diastolic murmur, rubs, systolic murmur Vascular exam: PRESENT: normal capillary refill GI/Abdominal exam: PRESENT: normal bowel sounds, soft. ABSENT: distended, guarding, mass, organolmegaly, rebound, tenderness Rectal exam: PRESENT: deferred Extremities exam: PRESENT: full ROM. ABSENT: calf tenderness, clubbing, pedal edema Neurological exam: PRESENT: alert, awake, oriented to person, oriented to place , oriented to time, oriented to situation. ABSENT: motor sensory deficit Psychiatric exam: PRESENT: depressed. ABSENT: homicidal ideation, suicidal ideation Skin exam: PRESENT: dry, warm. ABSENT: cyanosis, rash Results Laboratory Results: 02/10/17 06:00 02/12/17 04:20 02/02/17 02/02/17 02/03/17 20:18 20:18 04:35 Creatine Kinase 74 58 CK-MB (CK-2) 1.33 Troponin I < 0.012 02/03/17 02/03/17 02/03/17 04:35 12:21 12:21 Creatine Kinase 53 CK-MB (CK-2) 1.32 1.00 Troponin I < 0.012 < 0.012 Impressions: Abdomen Ultrasound 02/03/17 00:00 IMPRESSION: SMALL AMOUNT OF SLUDGE IN THE GALLBLADDER. NO OTHER SIGNIFICANT FINDINGS. THE SPLEEN IS NOT VISUALIZED DUE TO OVERLYING BOWEL GAS. Upper Extremity MRI 02/03/17 00:00 IMPRESSION: Subcutaneous edema along the dorsal proximal forearm ulcer with cellulitis. No bone marrow edema worrisome for osteomyelitis Edema is present in the deep antecubital fossa along the median cubital vein. Question thrombophlebitis. Adjacent brachialis and distal biceps muscle and tendon are intact. Abdomen/Pelvis CT 02/04/17 00:00 IMPRESSION: NO SIGNIFICANT OR ACUTE FINDING IN THE ABDOMEN OR PELVIS ON CT SCAN WITH IV CONTRAST. Chest CT 02/04/17 00:00 IMPRESSION: Extensive thoracic spondylosis. No acute abnormality in the thorax. Chest X-Ray 02/04/17 00:00 IMPRESSION: No evidence for pneumothorax. No acute consolidations or pleural effusions. Central line is identified extending superiorly presumably in the right internal jugular vein without its tip being identified Head CT 02/10/17 00:00 IMPRESSION: NORMAL BRAIN CT WITHOUT CONTRAST. LEFT MAXILLARY SINUS DISEASE. EVIDENCE OF ACUTE STROKE: NO. Thyroid Ultrasound 02/10/17 00:00 IMPRESSION: NORMAL THYROID ULTRASOUND. NO FOCAL MASSES. Assessment & Plan - Diagnosis (1) Encephalopathy Is this a current diagnosis for this admission?: Yes Plan: Seems to have improved although she continues to have hypoglycemia and poor PO intake She has been by psych and her medication regimen adjusted. She may need to be admitted to inpatient psych (2) Hypoglycemia Is this a current diagnosis for this admission?: Yes Plan: Likely 2/2 poor PO intake She has been off all insulin Continue to encourage PO intake and psych medications She did have insulin level done this admission and seems to be on the high side She may be benefited from endocrinology outpatient for further workup (3) Ambulatory dysfunction Is this a current diagnosis for this admission?: Yes Plan: Fall risks Continue physical therapy (4) Weight loss Is this a current diagnosis for this admission?: Yes Plan: Per the daughter 2 months ago, she has had EGD which was normal Will try to get the records Daughter continues to discuss with patient to have PEG done. She may be benefited from inpatient psych (5) Anemia of chronic disease Is this a current diagnosis for this admission?: Yes Plan: Continue to monitor hemoglobin Check iron studies CBC in a.m. (6) Depression Qualifiers: Depression Type: major depressive disorder Active/Remission status: currently active Is this a current diagnosis for this admission?: Yes Plan: Continue current regimen and she likely will benefit from inpatient psych
[2017-02-17] MEDS: METOPROLOL SUCCINATE 50 MG TAB.SR.24H PO SCH (17:46)
[2017-02-17] MEDS ORDERED: OXYCODONE-ACETAMINOPHEN 5-325 MG TABLET PO PRN (17:58)
[2017-02-17] MEDS: ATORVASTATIN CALCIUM 40 MG TABLET PO SCH (21:45)
[2017-02-17] MEDS: OXYCODONE-ACETAMINOPHEN 5-325 MG TABLET PO PRN (21:45)
[2017-02-18] MEDS: HEPARIN SOD (PORCINE) 5,000 UNIT/ML 1 ML SYRINGE SUBCUT SCH ×3 (05:42→21:16)
[2017-02-18] MEDS: DIVALPROEX SODIUM 125 MG CAP.SPRINK PO SCH (09:41)
[2017-02-18] MEDS: COLLAGENASE CLOSTRIDIUM HIST. OINT 30 GM TP SCH (09:41)
[2017-02-18] MEDS: MEGESTROL ACETATE SUSP 400 MG/10 ML UDCUP PO SCH ×2 (09:41→18:27)
[2017-02-18] MEDS: FERROUS SULFATE 325 MG TABLET PO SCH (09:42)
[2017-02-18] MEDS: TOPIRAMATE 100 MG TABLET PO SCH (09:42)
[2017-02-18] MEDS: ASPIRIN 81 MG TABLET, ENT COATED PO SCH (09:42)
[2017-02-18] MEDS: DOCUSATE SODIUM 100 MG CAPSULE PO SCH ×2 (09:42→18:27)
[2017-02-18] MEDS: BUSPIRONE HCL 10 MG TABLET PO SCH ×2 (09:42→21:32)
[2017-02-18] MEDS: NYSTATIN/DEXAMETH/DIPHEN SUSP 120 ML PO SCH ×4 (09:43→21:27)
[2017-02-18] MEDS: OXYCODONE-ACETAMINOPHEN 5-325 MG TABLET PO PRN ×2 (09:54→21:32)
[2017-02-18] MEDS: CHOLECALCIFEROL (D3) 1,000 UNIT TABLET PO SCH (12:08)
[2017-02-18] MEDS: DEXTROSE 5%-WATER 1000 ML 1,000 ML IV PRN (15:11)
--- NOTE | 2017-02-18 17:44 | PDOC PROGRESS REPORT ---
Subjective Progress Note for:: 02/18/17 Subjective:: Patient is a 66-year-old -[place] woman with history of obesity, diabetes hypertension depression and anxiety has been admitted since January with altered mental status. She has been having increasing confusion and recurrent falls and weight loss prior to admission. She did have evidence of hypocalcemia, right arm cellulitis on admission have been resolved with IV antibiotic and IV fluid. Spoke with her daughter Savana this admission who reported that patient has been having loss of appetite the last 4 months and has had EGD and other evaluation outpatient and thus far unrevealing. She has been seen by psych and her regimen adjusted. She continues to have hypoglycemic episode and poor PO intake during this admission. Seen and examined this am and no hypoglycemia noted ON. The patient is reluctant to have PEG inserted. Spoke with Nya the daughter about possibility of transferring to a facility with inpatient psych. Physical Exam Vital Signs: Temp Pulse Resp BP Pulse Ox 97.9 F 113 H 18 119/79 100 02/18/17 11:55 02/18/17 11:55 02/18/17 11:55 02/18/17 11:55 02/18/17 07:54 Intake & Output 02/17/17 02/18/17 02/19/17 06:59 06:59 06:59 Intake Total 2625 2589 Output Total 700 600 Balance 1925 1988 General appearance: PRESENT: no acute distress Head exam: PRESENT: atraumatic, normocephalic Eye exam: PRESENT: EOMI. ABSENT: scleral icterus Mouth exam: PRESENT: moist, tongue midline Neck exam: PRESENT: full ROM, other - posterior neck with lump- > abscess and tender and + fluctuant Respiratory exam: PRESENT: clear to auscultation christy. ABSENT: rales, rhonchi, wheezes Cardiovascular exam: PRESENT: RRR. ABSENT: diastolic murmur, rubs, systolic murmur Vascular exam: PRESENT: normal capillary refill GI/Abdominal exam: PRESENT: normal bowel sounds, soft. ABSENT: distended, guarding, mass, organolmegaly, rebound, tenderness Rectal exam: PRESENT: deferred Extremities exam: PRESENT: full ROM. ABSENT: calf tenderness, clubbing, pedal edema Neurological exam: PRESENT: alert, awake, oriented to person, oriented to place , oriented to time, oriented to situation. ABSENT: motor sensory deficit Psychiatric exam: PRESENT: depressed, homicidal ideation, normal mood, suicidal ideation Skin exam: PRESENT: dry, warm. ABSENT: cyanosis, rash Results Laboratory Results: 02/10/17 06:00 02/12/17 04:20 02/02/17 02/02/17 02/03/17 20:18 20:18 04:35 Creatine Kinase 74 58 CK-MB (CK-2) 1.33 Troponin I < 0.012 02/03/17 02/03/17 02/03/17 04:35 12:21 12:21 Creatine Kinase 53 CK-MB (CK-2) 1.32 1.00 Troponin I < 0.012 < 0.012 Impressions: Abdomen Ultrasound 02/03/17 00:00 IMPRESSION: SMALL AMOUNT OF SLUDGE IN THE GALLBLADDER. NO OTHER SIGNIFICANT FINDINGS. THE SPLEEN IS NOT VISUALIZED DUE TO OVERLYING BOWEL GAS. Upper Extremity MRI 02/03/17 00:00 IMPRESSION: Subcutaneous edema along the dorsal proximal forearm ulcer with cellulitis. No bone marrow edema worrisome for osteomyelitis Edema is present in the deep antecubital fossa along the median cubital vein. Question thrombophlebitis. Adjacent brachialis and distal biceps muscle and tendon are intact. Abdomen/Pelvis CT 02/04/17 00:00 IMPRESSION: NO SIGNIFICANT OR ACUTE FINDING IN THE ABDOMEN OR PELVIS ON CT SCAN WITH IV CONTRAST. Chest CT 02/04/17 00:00 IMPRESSION: Extensive thoracic spondylosis. No acute abnormality in the thorax. Chest X-Ray 02/04/17 00:00 IMPRESSION: No evidence for pneumothorax. No acute consolidations or pleural effusions. Central line is identified extending superiorly presumably in the right internal jugular vein without its tip being identified Head CT 02/10/17 00:00 IMPRESSION: NORMAL BRAIN CT WITHOUT CONTRAST. LEFT MAXILLARY SINUS DISEASE. EVIDENCE OF ACUTE STROKE: NO. Thyroid Ultrasound 02/10/17 00:00 IMPRESSION: NORMAL THYROID ULTRASOUND. NO FOCAL MASSES. Assessment & Plan - Diagnosis (1) Encephalopathy Is this a current diagnosis for this admission?: Yes Plan: Seems to have resolved The last 24 hours she seems to have eaten more and no further episode of hypoglycemia She may need to be admitted to inpatient psych Cornelius Fay plans to discuss with her mother before pursuing inpatient psych option (2) Hypoglycemia Is this a current diagnosis for this admission?: Yes Plan: Likely 2/2 poor PO intake She has been off all insulin regimen Continue to encourage PO intake and psych medications She did have insulin level done this admission and seems to be on the high side She may be benefited from endocrinology outpatient for further workup once medically optimized (3) Ambulatory dysfunction Is this a current diagnosis for this admission?: Yes Plan: Fall risks Continue physical therapy (4) Weight loss Is this a current diagnosis for this admission?: Yes Plan: Per the daughter 2 months ago, she has had EGD which was normal Will try to get the records Daughter continues to discuss with patient to have PEG done and she is reluctant She may be benefited from inpatient psych (5) Anemia of chronic disease Is this a current diagnosis for this admission?: Yes Plan: Continue to monitor hemoglobin Fe studies done this admission and adequate (6) Depression Qualifiers: Depression Type: major depressive disorder Active/Remission status: currently active Is this a current diagnosis for this admission?: Yes Plan: Continue current regimen and she likely will benefit from inpatient psych - Time Time Spent with patient: 15-24 minutes
[2017-02-18] MEDS: METOPROLOL SUCCINATE 25 MG TAB.SR.24H PO SCH (18:25)
--- NOTE | 2017-02-18 18:49 | PDOC CONSULTATION ---
Consultation Consult reason:: Abscess History of Present Illness Admission Date/PCP: 02/02/17 19:30 History of Present Illness: 66-year-old female currently in the hospital for failure to thrive noted with swelling and pain at the upper mid back. No drainage no prior surgical history at this site. Patient is diabetic Past Medical History Cardiac Medical History: Reports: Hyperlipidema, Hypertension Neurological Medical History: Denies: Seizures Endocrine Medical History: Reports: Diabetes Mellitus Type 2, Obesity Psychiatric Medical History: Reports: Depression, General Anxiety Disorder, Tobacco Dependency Past Surgical History Past Surgical History: Reports: Orthopedic Surgery, Tonsillectomy, Other - JAMARCUS/ BSO, EGD, Colonoscopy - incomplete most recent, Left jaw plate/trauma Denies: Hysterectomy Social History Lives with: Family Smoking Status: Current Some Day Smoker Cigarettes Packs Per Day: 0.5 Number of Years Smokin Frequency of Alcohol Use: None Hx Recreational Drug Use: No Drugs: None Hx Prescription Drug Abuse: No - Advance Directive Resuscitation Status: Full Code Family History Family History: CAD, COPD, DM - Grandfather, Malignancy - Lung cancer Parental Family History Reviewed: No Children Family History Reviewed: No Sibling(s) Family History Reviewed.: No Medication/Allergy Home Medications: Aripiprazole 20 mg PO DAILY 02/02/17 Aspirin [Aspirin EC] 81 mg PO DAILY 02/02/17 Atorvastatin Calcium [Lipitor 40 mg Tablet] 40 mg PO QHS 02/02/17 Cyclobenzaprine HCl 10 mg PO Q8HP PRN 02/02/17 Doxepin HCl 100 mg PO DAILY 02/02/17 Hydroxyzine Pamoate 100 mg PO Q8 02/02/17 Lisinopril [Prinivil 40 mg Tablet] 40 mg PO DAILY 02/02/17 Lubiprostone [Amitiza 24 Mcg Capsule] 24 mcg PO Q12 02/02/17 Metformin HCl [Glucophage 500 mg Tablet] 1,000 mg PO BID 02/02/17 Metoprolol Succinate [Toprol Xl 50 mg Tab.sr] 50 mg PO DAILY 02/02/17 [place]-3 Fatty Acids/Fish Oil [Fish Oil 1,000 mg Capsule] 1 each PO BID 02/02/17 Oxycodone HCl/Acetaminophen [Oxycodon-Acetaminophen 7.5-325] 1 each PO Q8HP PRN 02/02/17 Polyethylene Glycol 3350 [Miralax Powder 17 gm/Packet] 17 gm PO DAILY 02/02/17 Topiramate 100 mg PO Q12 02/02/17 Allergies/Adverse Reactions: Penicillins Allergy (Severe, Verified 02/03/17 00:33) Anaphylaxis alprazolam [From Xanax] Allergy (Verified 02/02/17 14:22) azithromycin [Azithromycin] Allergy (Verified 02/02/17 14:22) propoxyphene napsylate [From Darvocet-N 100] Allergy (Verified 02/02/17 14:22) Tetanus Vaccines and Toxoid Allergy (Verified 02/02/17 14:22) Physical Exam Vital Signs: Temp Pulse Resp BP Pulse Ox 97.7 F 99 18 136/56 H 99 02/18/17 16:00 02/18/17 16:00 02/18/17 16:00 02/18/17 16:00 02/18/17 16:00 Intake & Output 02/17/17 02/18/17 02/19/17 06:59 06:59 06:59 Intake Total 2625 2589 2566 Output Total 700 600 Balance 1925 1989 2566 General appearance: PRESENT: no acute distress, cooperative Respiratory exam: PRESENT: clear to auscultation christy Cardiovascular exam: PRESENT: RRR Skin exam: PRESENT: other - At the mid upper back there is an approximately 3-4 cm region of swelling with erythema with a central pit all consistent with infected sebaceous cyst. Results Laboratory Results: 02/10/17 06:00 02/12/17 04:20 02/02/17 02/02/17 02/03/17 20:18 20:18 04:35 Creatine Kinase 74 58 CK-MB (CK-2) 1.33 Troponin I < 0.012 02/03/17 02/03/17 02/03/17 04:35 12:21 12:21 Creatine Kinase 53 CK-MB (CK-2) 1.32 1.00 Troponin I < 0.012 < 0.012 Impressions: Abdomen Ultrasound 02/03/17 00:00 IMPRESSION: SMALL AMOUNT OF SLUDGE IN THE GALLBLADDER. NO OTHER SIGNIFICANT FINDINGS. THE SPLEEN IS NOT VISUALIZED DUE TO OVERLYING BOWEL GAS. Upper Extremity MRI 02/03/17 00:00 IMPRESSION: Subcutaneous edema along the dorsal proximal forearm ulcer with cellulitis. No bone marrow edema worrisome for osteomyelitis Edema is present in the deep antecubital fossa along the median cubital vein. Question thrombophlebitis. Adjacent brachialis and distal biceps muscle and tendon are intact. Abdomen/Pelvis CT 02/04/17 00:00 IMPRESSION: NO SIGNIFICANT OR ACUTE FINDING IN THE ABDOMEN OR PELVIS ON CT SCAN WITH IV CONTRAST. Chest CT 02/04/17 00:00 IMPRESSION: Extensive thoracic spondylosis. No acute abnormality in the thorax. Chest X-Ray 02/04/17:00 IMPRESSION: No evidence for pneumothorax. No acute consolidations or pleural effusions. Central line is identified extending superiorly presumably in the right internal jugular vein without its tip being identified Head CT 02/10/17 00:00 IMPRESSION: NORMAL BRAIN CT WITHOUT CONTRAST. LEFT MAXILLARY SINUS DISEASE. EVIDENCE OF ACUTE STROKE: NO. Thyroid Ultrasound 02/10/17 00:00 IMPRESSION: NORMAL THYROID ULTRASOUND. NO FOCAL MASSES. Assessment & Plan - Diagnosis (1) Infected sebaceous cyst Is this a current diagnosis for this admission?: Yes Plan: Patient will need excisional debridement. Probably better suited in the operating room due to the size of the sebaceous cyst to ensure complete excision. Patient is eating dinner as I examine her. We will plan procedure in the morning. Please keep patient n.p.o. in the morning
[2017-02-18] MEDS: DIVALPROEX SODIUM 250 MG TABLET.DR PO SCH (21:32)
[2017-02-18] MEDS: ATORVASTATIN CALCIUM 40 MG TABLET PO SCH (21:32)
[2017-02-19] MEDS: HEPARIN SOD (PORCINE) 5,000 UNIT/ML 1 ML SYRINGE SUBCUT SCH ×3 (04:02→21:31)
[2017-02-19] MEDS ORDERED: LIDOCAINE 0.5% INJ-PF (5 MG/ML) 50 ML SDV ONE (08:17)
[2017-02-19] MEDS: IPRATROPIUM/ALBUTEROL 0.5-2.5 MG/3 ML AMPUL NEB PRN (08:35)
[2017-02-19] MEDS ORDERED: CLINDAMYCIN 600 MG/D5W RTU 0 MG/0 ML RTUPB IV ONE (08:40)
[2017-02-19] MEDS ORDERED: MIDAZOLAM 2 MG/2 ML INJ ONE (09:21)
[2017-02-19] MEDS ORDERED: FENTANYL CITRATE INJ/PF 100 MCG/2 ML AMPUL ONE (09:21)
[2017-02-19] MEDS ORDERED: ONDANSETRON HCL INJ/PF 4 MG/2 ML SDV ONE (09:22)
[2017-02-19] MEDS ORDERED: PROPOFOL INJ 200 MG/20 ML VIAL IV ONE (09:22)
[2017-02-19 10:25] LABS: HEMATOCRIT 30.5 % (36.0-47.0); HEMOGLOBIN 9.9 g/dL (12.0-15.5); HGB HCT DIFFERENCE -0.8; MEAN CORPUSCULAR HEMOGLOBIN 27.3 pg (27.0-33.4); MEAN CORPUSCULAR HGB CONC 32.3 g/dL (32.0-36.0); MEAN CORPUSCULAR VOLUME 85 fl (80-97); RED BLOOD COUNT 3.61 10^6/uL (3.72-5.28); RED CELL DISTRIBUTION WIDTH 16.8 % (11.5-14.0)
[2017-02-19 10:39] LABS: ANION GAP 13 (5-19); BLOOD UREA NITROGEN 14 mg/dL (7-20); CARBON DIOXIDE 18 mmol/L (22-30); CHLORIDE 103 mmol/L (98-107); CREATININE RESULT 1.13 mg/dL (0.52-1.25); GLUCOSE 103 mg/dL (75-110); POTASSIUM 5.2 mmol/L (3.6-5.0); SODIUM 133.6 mmol/L (137-145)
[2017-02-19 10:50] LABS: CALCIUM 12.4 mg/dL (8.4-10.2)
[2017-02-19 10:57] LABS: WHITE BLOOD COUNT 17.1 10^3/uL (4.0-10.5)
--- NOTE | 2017-02-19 12:57 | EKG REPORT ---
SEVERITY:- BORDERLINE ECG - SINUS TACHYCARDIA PROBABLE LEFT ATRIAL ABNORMALITY : Confirmed by: Jl Sánchez MD 19-Feb-2017 12:56:32
--- NOTE | 2017-02-19 15:26 | PDOC PROGRESS REPORT ---
Subjective Progress Note for:: 02/19/17 Subjective:: Patient is a 66-year-old -[place] woman with history of obesity, diabetes hypertension depression and anxiety has been admitted since January with altered mental status. She has been having increasing confusion and recurrent falls and weight loss prior to admission. She did have evidence of hypercalcemia, right arm cellulitis on admission have been resolved with IV antibiotics. Her wound culture grew MRSA and she completed antibiotics. work up for hypercalcemia revealing primary hyperparathyroidism. No M-spike. Serum immunofixation without abnormal pattern. She also had colonoscopy part of the work revealing diverticulosis and internal hemorrhoid. Colonic biopsy negative for malignancy. Spoke with her daughter Savana this admission who reported that patient has been having loss of appetite the last 4 months and has had EGD and other evaluation outpatient and thus far unrevealing. She has been seen by psych and her regimen adjusted. Seen and examined this am and no hypoglycemia episodes the last 48 hours The patient is reluctant to have PEG inserted. The daughter preferred at this time to follow up outpatient with her primary psych once she is medically optimized. Physical Exam Vital Signs: Temp Pulse Resp BP Pulse Ox 97.9 F 107 H 20 120/48 L 98 02/19/17 12:00 02/19/17 12:00 02/19/17 12:00 02/19/17 12:00 02/19/17 12:00 Intake & Output 02/18/17 02/19/17 02/20/17 06:59 06:59 06:59 Intake Total 2589 3746 Output Total 600 600 Balance 1989 3146 General appearance: PRESENT: no acute distress, obese Head exam: PRESENT: atraumatic, normocephalic Eye exam: PRESENT: EOMI Mouth exam: PRESENT: moist, neck supple Neck exam: PRESENT: full ROM. ABSENT: JVD Respiratory exam: PRESENT: clear to auscultation christy, unlabored. ABSENT: accessory muscle use Rectal exam: PRESENT: deferred Extremities exam: PRESENT: full ROM Neurological exam: PRESENT: alert, oriented to person, oriented to place, oriented to time Psychiatric exam: PRESENT: flat affect Skin exam: PRESENT: dry, warm Results Laboratory Results: 02/19/17 10:07 02/19/17 10:07 02/19/17 02/19/17 10:07 10:07 WBC 17.1 H RBC 3.61 L Hgb 9.9 L Hct 30.5 L MCV 85 MCH 27.3 MCHC 32.3 RDW 16.8 H Plt Count 383 Sodium 133.6 L Potassium 5.2 H Chloride 103 Carbon Dioxide 18 L Anion Gap 13 BUN 14 Creatinine 1.13 Est GFR ( Amer) 59 L Est GFR (Non-Af Amer) 48 L Glucose 103 Calcium 12.4 H* 02/02/17 02/02/17 02/03/17 20:18 20:18 04:35 Creatine Kinase 74 58 CK-MB (CK-2) 1.33 Troponin I < 0.012 02/03/17 02/03/17 02/03/17 04:35 12:21 12:21 Creatine Kinase 53 CK-MB (CK-2) 1.32 1.00 Troponin I < 0.012 < 0.012 Impressions: Abdomen Ultrasound 02/03/17 00:00 IMPRESSION: SMALL AMOUNT OF SLUDGE IN THE GALLBLADDER. NO OTHER SIGNIFICANT FINDINGS. THE SPLEEN IS NOT VISUALIZED DUE TO OVERLYING BOWEL GAS. Upper Extremity MRI 02/03/17 00:00 IMPRESSION: Subcutaneous edema along the dorsal proximal forearm ulcer with cellulitis. No bone marrow edema worrisome for osteomyelitis Edema is present in the deep antecubital fossa along the median cubital vein. Question thrombophlebitis. Adjacent brachialis and distal biceps muscle and tendon are intact. Abdomen/Pelvis CT 02/04/17 00:00 IMPRESSION: NO SIGNIFICANT OR ACUTE FINDING IN THE ABDOMEN OR PELVIS ON CT SCAN WITH IV CONTRAST. Chest CT 02/04/17 00:00 IMPRESSION: Extensive thoracic spondylosis. No acute abnormality in the thorax. Chest X-Ray 02/04/17 00:00 IMPRESSION: No evidence for pneumothorax. No acute consolidations or pleural effusions. Central line is identified extending superiorly presumably in the right internal jugular vein without its tip being identified Head CT 02/10/17 00:00 IMPRESSION: NORMAL BRAIN CT WITHOUT CONTRAST. LEFT MAXILLARY SINUS DISEASE. EVIDENCE OF ACUTE STROKE: NO. Thyroid Ultrasound 02/10/17 00:00 IMPRESSION: NORMAL THYROID ULTRASOUND. NO FOCAL MASSES. Assessment & Plan - Diagnosis (1) Hypercalcemia due to hyperthyroidism Is this a current diagnosis for this admission?: Yes Plan: Thyroid US within normal and no focal masses Plan to have started sensipar Sensipar 30 mg PO BID Work up with no M-spike (2) Encephalopathy Is this a current diagnosis for this admission?: Yes Plan: Seems to have resolved The last 24 hours she seems to have eaten more and no further episode of hypoglycemia She may need to be admitted to inpatient psych Daughter Nya plans to discuss with her mother before pursuing inpatient psych option (3) Hypoglycemia Is this a current diagnosis for this admission?: Yes Plan: Likely 2/2 poor PO intake She has been off all insulin regimen Continue to encourage PO intake and psych medications She did have insulin level done this admission and seems to be on the high side She may be benefited from endocrinology outpatient for further workup once medically optimized (4) Ambulatory dysfunction Is this a current diagnosis for this admission?: Yes Plan: Fall risks Continue physical therapy (5) Weight loss Is this a current diagnosis for this admission?: Yes Plan: Per the daughter 2 months ago, she has had EGD which was normal Will try to get the records Daughter continues to discuss with patient to have PEG done and she is reluctant She may be benefited from inpatient psych and daughter not agreeable for psych transfer (6) Anemia of chronic disease Is this a current diagnosis for this admission?: Yes Plan: Continue to monitor hemoglobin Fe studies done this admission and adequate (7) Depression Qualifiers: Depression Type: major depressive disorder Active/Remission status: currently active Is this a current diagnosis for this admission?: Yes Plan: Continue current regimen and she likely will benefit from inpatient psych (8) Hyperkalemia Is this a current diagnosis for this admission?: Yes Plan: Mild Continue IVF and add bicarb supplements (9) Metabolic acidosis Is this a current diagnosis for this admission?: Yes Plan: Bicarb supplements added Follow up labs - Time Time Spent with patient: 25-34 minutes
[2017-02-19] MEDS ORDERED: DEXTROSE 5%-NORMAL SALINE 1,000 ML IV ONE ×2 (15:28→16:45)
[2017-02-19] MEDS ORDERED: DEXTROSE 5%-NORMAL SALINE 1,000 ML IV PRN (15:28)
[2017-02-19] MEDS: COLLAGENASE CLOSTRIDIUM HIST. OINT 30 GM TP SCH (15:37)
[2017-02-19] MEDS: CHOLECALCIFEROL (D3) 1,000 UNIT TABLET PO SCH (15:50)
[2017-02-19] MEDS: FERROUS SULFATE 325 MG TABLET PO SCH (15:50)
[2017-02-19] MEDS: ASPIRIN 81 MG TABLET, ENT COATED PO SCH (15:52)
[2017-02-19] MEDS: TOPIRAMATE 100 MG TABLET PO SCH (15:52)
[2017-02-19] MEDS: MEGESTROL ACETATE SUSP 400 MG/10 ML UDCUP PO SCH ×2 (15:55→18:59)
[2017-02-19] MEDS: DIVALPROEX SODIUM 250 MG TABLET.DR PO SCH ×2 (15:56→21:31)
[2017-02-19] MEDS: BUSPIRONE HCL 10 MG TABLET PO SCH ×2 (15:56→21:31)
[2017-02-19] MEDS: NYSTATIN/DEXAMETH/DIPHEN SUSP 120 ML PO SCH ×3 (15:57→21:31)
[2017-02-19] MEDS: DOCUSATE SODIUM 100 MG CAPSULE PO SCH ×2 (16:01→18:59)
[2017-02-19] MEDS: SCOPOLAMINE HYDROBROMIDE 1.5 MG PATCH.TD72 TD SCH (16:01)
[2017-02-19] MEDS: OXYCODONE-ACETAMINOPHEN 5-325 MG TABLET PO PRN (16:42)
--- NOTE | 2017-02-19 17:08 | PDOC PROGRESS REPORT ---
Subjective Progress Note for:: 02/19/17 Subjective:: Pains in the upper back just to the right of the midline where s He appears to have an infected cyst Neurosurgery today was canceled by anesthesia since her potassium was 5.4 and calcium is 12. Physical Exam Vital Signs: Temp Pulse Resp BP Pulse Ox 97.4 F 107 H 18 141/76 H 92 02/19/17 16:00 02/19/17 16:00 02/19/17 16:00 02/19/17 16:00 02/19/17 16:00 Intake & Output 02/18/17 02/19/17 02/20/17 06:59 06:59 06:59 Intake Total 2589 3746 Output Total 600 600 Balance 1989 3146 Exam: This about a 45 cm injury the area on the upper mid back just to the right with the middle somewhat reddened and inflamed. The mass also somewhat tender. This appears to be an infected cyst Results Laboratory Results: 02/19/17 10:07 02/19/17 10:07 02/19/17 02/19/17 10:07 10:07 WBC 17.1 H RBC 3.61 L Hgb 9.9 L Hct 30.5 L MCV 85 MCH 27.3 MCHC 32.3 RDW 16.8 H Plt Count 383 Sodium 133.6 L Potassium 5.2 H Chloride 103 Carbon Dioxide 18 L Anion Gap 13 BUN 14 Creatinine 1.13 Est GFR ( Amer) 59 L Est GFR (Non-Af Amer) 48 L Glucose 103 Calcium 12.4 H* 02/02/17 02/02/17 02/03/17 20:18 20:18 04:35 Creatine Kinase 74 58 CK-MB (CK-2) 1.33 Troponin I < 0.012 02/03/17 02/03/17 02/03/17 04:35 12:21 12:21 Creatine Kinase 53 CK-MB (CK-2) 1.32 1.00 Troponin I < 0.012 < 0.012 Impressions: Abdomen Ultrasound 02/03/17 00:00 IMPRESSION: SMALL AMOUNT OF SLUDGE IN THE GALLBLADDER. NO OTHER SIGNIFICANT FINDINGS. THE SPLEEN IS NOT VISUALIZED DUE TO OVERLYING BOWEL GAS. Upper Extremity MRI 02/03/17 00:00 IMPRESSION: Subcutaneous edema along the dorsal proximal forearm ulcer with cellulitis. No bone marrow edema worrisome for osteomyelitis Edema is present in the deep antecubital fossa along the median cubital vein. Question thrombophlebitis. Adjacent brachialis and distal biceps muscle and tendon are intact. Abdomen/Pelvis CT 02/04/17 00:00 IMPRESSION: NO SIGNIFICANT OR ACUTE FINDING IN THE ABDOMEN OR PELVIS ON CT SCAN WITH IV CONTRAST. Chest CT 02/04/17 00:00 IMPRESSION: Extensive thoracic spondylosis. No acute abnormality in the thorax. Chest X-Ray 02/04/17 00:00 IMPRESSION: No evidence for pneumothorax. No acute consolidations or pleural effusions. Central line is identified extending superiorly presumably in the right internal jugular vein without its tip being identified Head CT 02/10/17 00:00 IMPRESSION: NORMAL BRAIN CT WITHOUT CONTRAST. LEFT MAXILLARY SINUS DISEASE. EVIDENCE OF ACUTE STROKE: NO. Thyroid Ultrasound 02/10/17 00:00 IMPRESSION: NORMAL THYROID ULTRASOUND. NO FOCAL MASSES. Assessment & Plan - Diagnosis (1) Infected cyst of right shoulder Is this a current diagnosis for this admission?: Yes Plan: For possible I&D of the cyst in a.m. - Time Time Spent with patient: 15-24 minutes
[2017-02-19] MEDS: CINACALCET HCL 30 MG TABLET PO SCH (18:59)
[2017-02-19] MEDS: METOPROLOL SUCCINATE 25 MG TAB.SR.24H PO SCH (18:59)
[2017-02-19] MEDS: CLINDAMYCIN 600 MG/D5W RTU 600 MG/50 ML RTUPB IV SCH (21:30)
[2017-02-19] MEDS: ATORVASTATIN CALCIUM 40 MG TABLET PO SCH (21:31)
[2017-02-19] MEDS: SODIUM BICARBONATE 650 MG TABLET PO SCH (21:31)
[2017-02-19] MEDS ORDERED: NORMAL SALINE 1000 ML 1,000 ML IV PRN (21:57)
[2017-02-20] MEDS: CLINDAMYCIN 600 MG/D5W RTU 600 MG/50 ML RTUPB IV SCH ×4 (05:12→23:10)
[2017-02-20] MEDS: HEPARIN SOD (PORCINE) 5,000 UNIT/ML 1 ML SYRINGE SUBCUT SCH ×3 (05:14→22:06)
[2017-02-20 06:21] LABS: ANION GAP 10 (5-19); BLOOD UREA NITROGEN 12 mg/dL (7-20); CALCIUM 10.9 mg/dL (8.4-10.2); CARBON DIOXIDE 20 mmol/L (22-30); CHLORIDE 106 mmol/L (98-107); CREATININE RESULT 0.92 mg/dL (0.52-1.25); GLUCOSE 73 mg/dL (75-110); POTASSIUM 4.7 mmol/L (3.6-5.0); SODIUM 135.5 mmol/L (137-145)
[2017-02-20 06:30] LABS: HEMATOCRIT 25.4 % (36.0-47.0); HEMOGLOBIN 8.2 g/dL (12.0-15.5); HGB HCT DIFFERENCE -0.8; MEAN CORPUSCULAR HEMOGLOBIN 27.5 pg (27.0-33.4); MEAN CORPUSCULAR HGB CONC 32.3 g/dL (32.0-36.0); MEAN CORPUSCULAR VOLUME 85 fl (80-97); RED BLOOD COUNT 2.99 10^6/uL (3.72-5.28); RED CELL DISTRIBUTION WIDTH 16.7 % (11.5-14.0); WHITE BLOOD COUNT 9.8 10^3/uL (4.0-10.5)
[2017-02-20 06:56] LABS: BAND NEUTROPHILS % (MANUAL) 3 % (3-5); BASOPHILS % (MANUAL) 0 % (0-2); EOSINOPHILS % (MANUAL) 2 % (0-6); LYMPHOCYTES % (MANUAL) 13 % (13-45); TOTAL CELLS COUNTED 100
[2017-02-20 06:59] LABS: ANISOCYTOSIS 1+; POIKILOCYTOSIS 2+; POLYCHROMASIA 1+; TOXIC GRANULATION SLIGHT; TOXIC VACUOLATION PRESENT
[2017-02-20 07:00] LABS: OVALOCYTES 1+; TEAR DROP CELLS 1+
[2017-02-20 07:01] LABS: ACANTHOCYTES 1+
[2017-02-20] MEDS: IPRATROPIUM/ALBUTEROL 0.5-2.5 MG/3 ML AMPUL NEB PRN (08:24)
[2017-02-20] MEDS ORDERED: FENTANYL CITRATE INJ/PF 100 MCG/2 ML AMPUL ONE (08:39)
[2017-02-20] MEDS ORDERED: ONDANSETRON HCL INJ/PF 4 MG/2 ML SDV ONE (08:40)
[2017-02-20] MEDS ORDERED: MIDAZOLAM 2 MG/2 ML INJ ONE (08:40)
[2017-02-20] MEDS ORDERED: PROPOFOL INJ 200 MG/20 ML VIAL IV ONE (08:40)
[2017-02-20] MEDS ORDERED: LIDOCAINE 0.5% INJ-PF (5 MG/ML) 50 ML SDV ONE (09:09)
[2017-02-20] MEDS ORDERED: DIPHENHYDRAMINE HCL 50 MG/ML VIAL IV PRN (09:13)
[2017-02-20] MEDS ORDERED: FENTANYL CITRATE INJ/PF 100 MCG/2 ML AMPUL IV PRN ×2 (09:13)
[2017-02-20] MEDS ORDERED: MEPERIDINE HCL/PF INJ 25 MG/1 ML DISP.SYRIN IV PRN (09:13)
[2017-02-20] MEDS ORDERED: ONDANSETRON HCL INJ/PF 4 MG/2 ML SDV IV PRN (09:41)
--- NOTE | 2017-02-20 09:45 | PDOC PROGRESS REPORT ---
Subjective Progress Note for:: 02/12/17 Subjective:: Patient presented with altered mental status and falls at home. Patient found to have hypercalcemia. Patient did have some abnormal cultures which were thought to be contaminants. Patient did have MRSA in her wound for which patient is currently on Bactrim. The patient has been confused for some time. Patient daughter is upset that she was stopped off her doxepin. Discontinue the medication was per psychology's recommendations. Patient still not eating very much. Patient states she feels weak. Physical Exam Vital Signs: Vitals Temp 98.1 HR 90 BP 138/42 RR 20 Sat 99 General appearance: PRESENT: no acute distress, obese Head exam: PRESENT: normocephalic Eye exam: PRESENT: EOMI. ABSENT: scleral icterus Ear exam: PRESENT: normal external ear exam Mouth exam: PRESENT: moist Teeth exam: PRESENT: edentulous Neck exam: ABSENT: carotid bruit, JVD, lymphadenopathy, thyromegaly Respiratory exam: PRESENT: clear to auscultation christy. ABSENT: rales, rhonchi, wheezes Cardiovascular exam: PRESENT: RRR, +S1, +S2. ABSENT: diastolic murmur, rubs, systolic murmur GI/Abdominal exam: PRESENT: normal bowel sounds, soft. ABSENT: distended, guarding, mass, organolmegaly, rebound, tenderness Rectal exam: PRESENT: deferred Extremities exam: PRESENT: full ROM. ABSENT: calf tenderness, clubbing, pedal edema Neurological exam: PRESENT: alert, awake, oriented to person, oriented to place , oriented to time, oriented to situation, CN II-XII grossly intact. ABSENT: motor sensory deficit Psychiatric exam: PRESENT: depressed, flat affect. ABSENT: homicidal ideation, suicidal ideation Skin exam: PRESENT: dry, intact, warm, other - dressing on right elbow dressing on sacrum. ABSENT: cyanosis, rash Results Laboratory Results: 02/20/17 05:15 02/20/17 05:15 02/19/17 02/19/17 02/20/17 10:07 10:07 05:15 WBC 17.1 H 9.8 RBC 3.61 L 2.99 L Hgb 9.9 L 8.2 L Hct 30.5 L 25.4 L MCV 85 85 MCH 27.3 27.5 MCHC 32.3 32.3 RDW 16.8 H 16.7 H Plt Count 383 461 H Seg Neutrophils % Not Reportable Lymphocytes % Not Reportable Monocytes % Not Reportable Eosinophils % Not Reportable Basophils % Not Reportable Absolute Neutrophils Not Reportable Absolute Lymphocytes Not Reportable Absolute Monocytes Not Reportable Absolute Eosinophils Not Reportable Absolute Basophils Not Reportable Sodium 133.6 L Potassium 5.2 H Chloride 103 Carbon Dioxide 18 L Anion Gap 13 BUN 14 Creatinine 1.13 Est GFR ( Amer) 59 L Est GFR (Non-Af Amer) 48 L Glucose 103 Calcium 12.4 H* 02/20/17 05:15 WBC RBC Hgb Hct MCV MCH MCHC RDW Plt Count Seg Neutrophils % Lymphocytes % Monocytes % Eosinophils % Basophils % Absolute Neutrophils Absolute Lymphocytes Absolute Monocytes Absolute Eosinophils Absolute Basophils Sodium 135.5 L Potassium 4.7 Chloride 106 Carbon Dioxide 20 L Anion Gap 10 BUN 12 Creatinine 0.92 Est GFR ( Amer) > 60 Est GFR (Non-Af Amer) > 60 Glucose 73 L Calcium 10.9 H 02/02/17 02/02/17 02/03/17 20:18 20:18 04:35 Creatine Kinase 74 58 CK-MB (CK-2) 1.33 Troponin I < 0.012 02/03/17 02/03/17 02/03/17 04:35 12:21 12:21 Creatine Kinase 53 CK-MB (CK-2) 1.32 1.00 Troponin I < 0.012 < 0.012 Impressions: Abdomen Ultrasound 02/03/17 00:00 IMPRESSION: SMALL AMOUNT OF SLUDGE IN THE GALLBLADDER. NO OTHER SIGNIFICANT FINDINGS. THE SPLEEN IS NOT VISUALIZED DUE TO OVERLYING BOWEL GAS. Upper Extremity MRI 02/03/17 00:00 IMPRESSION: Subcutaneous edema along the dorsal proximal forearm ulcer with cellulitis. No bone marrow edema worrisome for osteomyelitis Edema is present in the deep antecubital fossa along the median cubital vein. Question thrombophlebitis. Adjacent brachialis and distal biceps muscle and tendon are intact. Abdomen/Pelvis CT 02/04/17 00:00 IMPRESSION: NO SIGNIFICANT OR ACUTE FINDING IN THE ABDOMEN OR PELVIS ON CT SCAN WITH IV CONTRAST. Chest CT 02/04/17 00:00 IMPRESSION: Extensive thoracic spondylosis. No acute abnormality in the thorax. Chest X-Ray 02/04/17 00:00 IMPRESSION: No evidence for pneumothorax. No acute consolidations or pleural effusions. Central line is identified extending superiorly presumably in the right internal jugular vein without its tip being identified Head CT 02/10/17 00:00 IMPRESSION: NORMAL BRAIN CT WITHOUT CONTRAST. LEFT MAXILLARY SINUS DISEASE. EVIDENCE OF ACUTE STROKE: NO. Thyroid Ultrasound 02/10/17 00:00 IMPRESSION: NORMAL THYROID ULTRASOUND. NO FOCAL MASSES. Assessment & Plan - Diagnosis (1) Weight loss Is this a current diagnosis for this admission?: Yes Plan: Patient weight loss is most likely the result of not eating. Patient dose of megace has been increased to bid. Patient drinking ensure. Will give patient some time to eat on her own. Will suggest feeding tube if does not improve. (2) Encephalopathy Is this a current diagnosis for this admission?: Yes Plan: Secondary to primary hyperparathyroidism. Improved with the correction of the calcium. No findings on CT scan. (3) Ambulatory dysfunction Is this a current diagnosis for this admission?: Yes Plan: Debility from poor nutrition and inactivity. Recommend rehab. Will continue with PT and OT. (4) Anemia Is this a current diagnosis for this admission?: Yes Plan: Was evaluated by GI. Dr. Alegria in the past has done an EGD which was negative colonoscopy did show internal hemorrhoids and diverticulosis. Patient B12 was normal her folate was low. She was given folate replacement. Will start patient on oral iron replacement. This could be related to her poor oral intake. (5) Cellulitis Qualifiers: Site of cellulitis: unspecified site Qualified Code(s): L03.90 - Cellulitis , unspecified Is this a current diagnosis for this admission?: Yes Plan: Patient wound growing MRSA. Patient currently on Bactrim and will require 10 days of antibiotics. (6) Chronic narcotic use Is this a current diagnosis for this admission?: Yes Plan: This could put patient at risk for falls. This could also be affecting her mentation. Patient continues to ask for the medication and her family wants for her to have. 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 Psychology has seen patient and have recommended medication changes including discontinuing Abilify and doxipin. Continue BuSpar 5 mg in the morning and 10 mg at night. Patient also started on Depakote 500 mg twice daily. Decrease topamax to 100mg daily. (8) Elevated liver function tests Is this a current diagnosis for this admission?: Yes Plan: Resolved. Will follow up liver functions as patient was started on depakote. (9) Gram-positive bacteremia Is this a current diagnosis for this admission?: Yes Plan: Both contaminants. Repeat cultures show no growth. (10) Hypercalcemia Is this a current diagnosis for this admission?: Yes Plan: Patient appears to have primary hyperparathyroidism. Patient was started on sensipar. Not sure patient is a surgical candidate at this time. She does qualify for the surgery. (11) Hypertension Is this a current diagnosis for this admission?: Yes Plan: Continue metoprolol succinate 25 mg p.o. daily (12) Hypoglycemia Is this a current diagnosis for this admission?: Yes Plan: Patient maintaining blood glucoses. Will continue to monitor. (13) Metabolic acidosis Is this a current diagnosis for this admission?: Yes Plan: Possibly due to dehydration. (14) Pressure ulcer of right elbow, stage 2 Is this a current diagnosis for this admission?: No Plan: Appears to be healing. Continue wound care and bactrium. Patient may having difficulty healing if she continues not to eat. Patient taking ensure. (15) Pressure ulcer of right hip, stage 2 Is this a current diagnosis for this admission?: Yes Plan: Continue local wound care. (16) Tardive dyskinesia Is this a current diagnosis for this admission?: Yes Plan: Is likely due to the use of antipsychotic psychotics. Appears to be stable at this time. (17) Tobacco abuse Is this a current diagnosis for this admission?: Yes Plan: Encourage smoking cessation. (18) Hypomagnesemia Is this a current diagnosis for this admission?: Yes Plan: Resolved. - Time Time Spent with patient: Less than 15 minutes Anticipated discharge: Home Within: Other - Patient still with poor oral intake. Monitor closely for hypoglycemia.
[2017-02-20] MEDS ORDERED: DEXTROSE 50%-WATER 25 GM/50 ML DISP.SYRIN IV ONE (09:51)
--- NOTE | 2017-02-20 09:53 | OPERATIVE REPORT E ---
Operative Report NAME: IMANI WHITTAKER : 1950 AGE: 66Y DATE OF SURGERY: 02/20/2017 ROOM: 433 PREOPERATIVE DIAGNOSIS: Infected large cyst of the upper back,just to the right of the midline. POSTOPERATIVE DIAGNOSIS: Infected large cyst of the upper back,just to the right of the midline, with the cyst measuring about 5 x 5 cm. PROCEDURE: Incision and drainage of large abscess of the back. SURGEON: MAHESH CLARK M.D. ANESTHESIA: Local MAC. INDICATION: This is a 66-year-old female noted to have a large infected cyst of the upper back. This was supposed to be drained yesterday, but the patient's potassium and calcium were elevated and rescheduled for this morning. DESCRIPTION OF PROCEDURE: After adequate IV sedation, the patient was placed in the left lateral decubitus position with the right side up. The lesion the right upper back was then prepped and draped in the usual sterile fashion. Appropriate timeout was called. Local anesthesia was then infiltrated around the cyst using at least 10 mL of saline. A cruciate incision was made on the mid part of the inflamed cyst and a lot of purulent material extruded out and cultures were obtained. The incision was further extended horizontally to about 4 cm and the mid cruciate incision about 2 cm long. The wound was then palpated with the index finger and no evidence of other tunneling noted. The area was then irrigated with saline solution. Following this, hemostasis was controlled with electrocautery and also the presumed sac of the cyst was electrocoagulated all throughout. This was done to hopefully prevent the cyst from coming back. Following this and after great hemostasis noted, the wound was then packed with quarter-inch Iodoform gauze. Sterile dressing placed over the operating site. [place], instruments and sponge counts were all correct. Estimated blood loss about 5 mL. The patient was then brought to recovery room in satisfactory condition. DICTATING PHYSICIAN: MAHESH CLARK M.D. [id number] PHY#: [id number] ID: [id number] JOB#: [id number] ACCT: [id number] cc:MAHESH CLARK M.D. >
[2017-02-20] MEDS: FERROUS SULFATE 325 MG TABLET PO SCH ×2 (11:55→18:29)
[2017-02-20] MEDS: DOCUSATE SODIUM 100 MG CAPSULE PO SCH ×2 (11:55→18:29)
[2017-02-20] MEDS: ASPIRIN 81 MG TABLET, ENT COATED PO SCH (11:56)
[2017-02-20] MEDS: CINACALCET HCL 30 MG TABLET PO SCH ×2 (11:56→16:01)
[2017-02-20] MEDS: TOPIRAMATE 100 MG TABLET PO SCH (11:56)
[2017-02-20] MEDS: SODIUM BICARBONATE 650 MG TABLET PO SCH ×2 (11:56→22:05)
[2017-02-20] MEDS: OXYCODONE-ACETAMINOPHEN 5-325 MG TABLET PO PRN ×2 (11:56→22:22)
[2017-02-20] MEDS: NYSTATIN/DEXAMETH/DIPHEN SUSP 120 ML PO SCH ×4 (11:56→22:06)
[2017-02-20] MEDS: COLLAGENASE CLOSTRIDIUM HIST. OINT 30 GM TP SCH (11:57)
--- NOTE | 2017-02-20 14:43 | PDOC PROGRESS REPORT ---
Subjective Progress Note for:: 02/20/17 Subjective:: Patient is a 66-year-old -[place] woman with history of obesity, diabetes hypertension depression and anxiety has been admitted since January with altered mental status. She has been having increasing confusion and recurrent falls and weight loss prior to admission. She did have evidence of hypercalcemia, she also had wounds on her right arm, sacrum and right hip with evidence of cellulitis. Her wound culture grew MRSA and she completed antibiotics. Blood cultures grew staph epidermidis and one blood culture grew staph capitis.Work up for hypercalcemia revealing primary hyperparathyroidism. No M-spike. Serum immunofixation without abnormal pattern. She also had colonoscopy part of the work revealing diverticulosis and internal hemorrhoid. Colonic biopsy negative for malignancy. Spoke with her daughter Savana this admission who reported that patient has been having loss of appetite and weight loss the last 4 months and has had EGD and other evaluation outpatient and thus far unrevealing. Daughter wanted her to have PEG inserted but patient has been reluctant. she has been seen by psych and her regimen adjusted.The daughter preferred at this time that she follows up outpatient with her primary psych and she declines inpatient psych. She seems to have been eating more the last few days and no hypoglycemia noted. Surgery consulted, OR cancelled for elevated Ca 12 and K 5.2. She was resumed on IV fluid and started Sensipar. She was taken to the OR early today for procedures for infected cysts. Seen and examined after she came from the OR. She had no new complaints. Apparently she mentioned to her nurse that she did want to return to her home with daughter. But she denies that when I asked her this am. Physical Exam Vital Signs: Temp Pulse Resp BP Pulse Ox 97.4 F 85 18 103/46 L 100 02/20/17 12:09 02/20/17 12:09 02/20/17 12:09 02/20/17 12:09 02/20/17 11:20 Intake & Output 02/19/17 02/20/17 02/21/17 06:59 06:59 06:59 Intake Total 3746 3141 425 Output Total 600 600 130 Balance 3146 2541 295 Weight 86.5 kg General appearance: PRESENT: no acute distress, obese Head exam: PRESENT: atraumatic, normocephalic Eye exam: PRESENT: conjunctiva pink Mouth exam: PRESENT: moist, neck supple Neck exam: PRESENT: full ROM. ABSENT: JVD Respiratory exam: PRESENT: clear to auscultation christy, symmetrical, unlabored. ABSENT: accessory muscle use Cardiovascular exam: PRESENT: RRR, +S1, +S2 GI/Abdominal exam: PRESENT: normal bowel sounds, soft. ABSENT: distended, tenderness Rectal exam: PRESENT: deferred Extremities exam: PRESENT: full ROM. ABSENT: pedal edema Musculoskeletal exam: PRESENT: full ROM Neurological exam: PRESENT: alert, oriented to person, oriented to place, oriented to time, oriented to situation Psychiatric exam: PRESENT: flat affect Skin exam: PRESENT: warm, other - Stage 3 sacrum and R hip Results Laboratory Results: 02/20/17 05:15 02/20/17 05:15 02/20/17 02/20/17 05:15 05:15 WBC 9.8 RBC 2.99 L Hgb 8.2 L Hct 25.4 L MCV 85 MCH 27.5 MCHC 32.3 RDW 16.7 H Plt Count 461 H Seg Neutrophils % Not Reportable Lymphocytes % Not Reportable Monocytes % Not Reportable Eosinophils % Not Reportable Basophils % Not Reportable Absolute Neutrophils Not Reportable Absolute Lymphocytes Not Reportable Absolute Monocytes Not Reportable Absolute Eosinophils Not Reportable Absolute Basophils Not Reportable Sodium 135.5 L Potassium 4.7 Chloride 106 Carbon Dioxide 20 L Anion Gap 10 BUN 12 Creatinine 0.92 Est GFR ( Amer) > 60 Est GFR (Non-Af Amer) > 60 Glucose 73 L Calcium 10.9 H 02/02/17 02/02/17 02/03/17 20:18 20:18 04:35 Creatine Kinase 74 58 CK-MB (CK-2) 1.33 Troponin I < 0.012 02/03/17 02/03/17 02/03/17 04:35 12:21 12:21 Creatine Kinase 53 CK-MB (CK-2) 1.32 1.00 Troponin I < 0.012 < 0.012 Impressions: Abdomen Ultrasound 02/03/17 00:00 IMPRESSION: SMALL AMOUNT OF SLUDGE IN THE GALLBLADDER. NO OTHER SIGNIFICANT FINDINGS. THE SPLEEN IS NOT VISUALIZED DUE TO OVERLYING BOWEL GAS. Upper Extremity MRI 02/03/17 00:00 IMPRESSION: Subcutaneous edema along the dorsal proximal forearm ulcer with cellulitis. No bone marrow edema worrisome for osteomyelitis Edema is present in the deep antecubital fossa along the median cubital vein. Question thrombophlebitis. Adjacent brachialis and distal biceps muscle and tendon are intact. Abdomen/Pelvis CT 02/04/17 00:00 IMPRESSION: NO SIGNIFICANT OR ACUTE FINDING IN THE ABDOMEN OR PELVIS ON CT SCAN WITH IV CONTRAST. Chest CT 02/04/17 00:00 IMPRESSION: Extensive thoracic spondylosis. No acute abnormality in the thorax. Chest X-Ray 02/04/17 00:00 IMPRESSION: No evidence for pneumothorax. No acute consolidations or pleural effusions. Central line is identified extending superiorly presumably in the right internal jugular vein without its tip being identified Head CT 02/10/17 00:00 IMPRESSION: NORMAL BRAIN CT WITHOUT CONTRAST. LEFT MAXILLARY SINUS DISEASE. EVIDENCE OF ACUTE STROKE: NO. Thyroid Ultrasound 02/10/17 00:00 IMPRESSION: NORMAL THYROID ULTRASOUND. NO FOCAL MASSES. Assessment & Plan - Diagnosis (1) Hypercalcemia due to hyperthyroidism Is this a current diagnosis for this admission?: Yes Plan: Thyroid US within normal and no focal masses Work up with no M-spike and serum immunofixation without abnormal patterns Continue Sensipar and IVF and follow up labs She will benefit from endocrine evaluation outpatient (2) Encephalopathy Is this a current diagnosis for this admission?: Yes Plan: Resolved (3) Hypoglycemia Is this a current diagnosis for this admission?: Yes Plan: Likely 2/2 poor PO intake She has been off all insulin regimen Continue to encourage PO intake and psych medications She did have insulin level done this admission and seems to be on the high side She may be benefited from endocrinology outpatient for further workup once medically optimized (4) Ambulatory dysfunction Is this a current diagnosis for this admission?: Yes Plan: Fall risks Continue physical therapy (5) Weight loss Is this a current diagnosis for this admission?: Yes Plan: Per the daughter 2 months ago, she has had EGD which was normal Obtain medical records (6) Anemia of chronic disease Is this a current diagnosis for this admission?: Yes Plan: Continue to monitor hemoglobin Continue PO iron Fe studies seems adequate (7) Depression Qualifiers: Depression Type: major depressive disorder Active/Remission status: currently active Is this a current diagnosis for this admission?: Yes Plan: Continue current regimen Plan to follow up with her primary psych once she is discharge (8) Hyperkalemia Is this a current diagnosis for this admission?: Yes Plan: Resolve d (9) Metabolic acidosis Is this a current diagnosis for this admission?: Yes Plan: Continue bicarb supplements Follow up labs (10) Decubitus skin ulcer Is this a current diagnosis for this admission?: Yes Plan: Continue wound care Encourage good PO intake (11) Infected cyst of skin Is this a current diagnosis for this admission?: Yes Plan: Posterior neck Status post drainage - Time Time Spent with patient: 25-34 minutes Anticipated discharge: Home Within: within 72 hours
[2017-02-20] MEDS ORDERED: NORMAL SALINE 1000 ML 1,000 ML IV PRN (15:46)
[2017-02-20] MEDS: MEGESTROL ACETATE SUSP 400 MG/10 ML UDCUP PO SCH ×2 (16:01→21:01)
[2017-02-20] MEDS: BUSPIRONE HCL 10 MG TABLET PO SCH ×2 (16:02→22:05)
[2017-02-20] MEDS: DIVALPROEX SODIUM 250 MG TABLET.DR PO SCH ×2 (16:02→22:05)
[2017-02-20] MEDS: METOPROLOL SUCCINATE 25 MG TAB.SR.24H PO SCH (18:29)
[2017-02-20] MEDS: ATORVASTATIN CALCIUM 40 MG TABLET PO SCH (22:05)
[2017-02-21] MEDS: DEXTROSE 50%-WATER 25 GM/50 ML DISP.SYRIN IV PRN ×4 (00:07→14:05)
[2017-02-21] MEDS: HEPARIN SOD (PORCINE) 5,000 UNIT/ML 1 ML SYRINGE SUBCUT SCH ×3 (05:30→22:48)
[2017-02-21] MEDS: CLINDAMYCIN 600 MG/D5W RTU 600 MG/50 ML RTUPB IV SCH ×4 (05:30→23:27)
[2017-02-21 07:06] LABS: ALANINE AMINOTRANSFERASE 24 U/L (9-52); ALKALINE PHOSPHATASE 35 U/L (38-126); ANION GAP 17 (5-19); ASPARTATE AMINO TRANSFERASE 27 U/L (14-36); BILIRUBIN,DIRECT 0.3 mg/dL (0.0-0.4); BILIRUBIN,TOTAL 0.3 mg/dL (0.2-1.3); BLOOD UREA NITROGEN 11 mg/dL (7-20); CALCIUM 10.4 mg/dL (8.4-10.2); CARBON DIOXIDE 18 mmol/L (22-30); CHLORIDE 114 mmol/L (98-107); CREATININE RESULT 0.96 mg/dL (0.52-1.25); GLUCOSE 44 mg/dL (75-110); POTASSIUM 5.2 mmol/L (3.6-5.0); SODIUM 149.1 mmol/L (137-145)
[2017-02-21] MEDS: DEXTROSE 5%-WATER 1000 ML 1,000 ML IV PRN ×2 (10:23→22:48)
[2017-02-21] MEDS: FERROUS SULFATE 325 MG TABLET PO SCH ×2 (10:23→17:37)
[2017-02-21] MEDS: SODIUM BICARBONATE 650 MG TABLET PO SCH ×2 (10:23→22:48)
[2017-02-21] MEDS: CINACALCET HCL 30 MG TABLET PO SCH ×2 (10:24→17:39)
[2017-02-21] MEDS: ASPIRIN 81 MG TABLET, ENT COATED PO SCH (10:24)
[2017-02-21] MEDS: TOPIRAMATE 100 MG TABLET PO SCH (10:24)
[2017-02-21] MEDS: DOCUSATE SODIUM 100 MG CAPSULE PO SCH ×2 (10:24→17:37)
[2017-02-21] MEDS: COLLAGENASE CLOSTRIDIUM HIST. OINT 30 GM TP SCH (10:25)
[2017-02-21] MEDS: MEGESTROL ACETATE SUSP 400 MG/10 ML UDCUP PO SCH ×2 (10:25→17:38)
[2017-02-21] MEDS: NYSTATIN/DEXAMETH/DIPHEN SUSP 120 ML PO SCH ×4 (10:26→22:48)
[2017-02-21] MEDS: DIVALPROEX SODIUM 250 MG TABLET.DR PO SCH ×2 (10:39→22:49)
[2017-02-21] MEDS: OXYCODONE-ACETAMINOPHEN 5-325 MG TABLET PO PRN ×3 (10:40→23:26)
[2017-02-21] MEDS: BUSPIRONE HCL 10 MG TABLET PO SCH ×2 (10:40→22:50)
--- NOTE | 2017-02-21 10:51 | PDOC PROGRESS REPORT ---
Subjective Progress Note for:: 02/21/17 Subjective:: less pains at he I&D site on the back Physical Exam Vital Signs: Temp Pulse Resp BP Pulse Ox 97.2 F 81 16 119/57 L 93 02/21/17 07:19 02/21/17 07:19 02/21/17 07:19 02/21/17 07:19 02/20/17 23:58 Intake & Output 02/20/17 02/21/17 02/22/17 06:59 06:59 06:59 Intake Total 3141 3873 Output Total 600 2705 Balance 2541 1168 Weight 86.5 kg Exam: Packing removed. Wound is dry. A light gauze dressing applied . no packing placed. Results Laboratory Results: 02/20/17 05:15 02/21/17 06:32 02/21/17 02/21/17 00:04 06:32 Sodium 149.1 H Potassium 5.2 H Chloride 114 H Carbon Dioxide 18 L Anion Gap 17 BUN 11 Creatinine 0.96 Est GFR ( Amer) > 60 Est GFR (Non-Af Amer) 59 L Glucose 130 H 44 L Calcium 10.4 H Total Bilirubin 0.3 AST 27 ALT 24 Alkaline Phosphatase 35 L Total Protein 6.0 L Albumin 3.0 L 02/02/17 02/02/17 02/03/17 20:18 20:18 04:35 Creatine Kinase 74 58 CK-MB (CK-2) 1.33 Troponin I < 0.012 02/03/17 02/03/17 02/03/17 04:35 12:21 12:21 Creatine Kinase 53 CK-MB (CK-2) 1.32 1.00 Troponin I < 0.012 < 0.012 Impressions: Abdomen Ultrasound 02/03/17 00:00 IMPRESSION: SMALL AMOUNT OF SLUDGE IN THE GALLBLADDER. NO OTHER SIGNIFICANT FINDINGS. THE SPLEEN IS NOT VISUALIZED DUE TO OVERLYING BOWEL GAS. Upper Extremity MRI 02/03/17 00:00 IMPRESSION: Subcutaneous edema along the dorsal proximal forearm ulcer with cellulitis. No bone marrow edema worrisome for osteomyelitis Edema is present in the deep antecubital fossa along the median cubital vein. Question thrombophlebitis. Adjacent brachialis and distal biceps muscle and tendon are intact. Abdomen/Pelvis CT 02/04/17 00:00 IMPRESSION: NO SIGNIFICANT OR ACUTE FINDING IN THE ABDOMEN OR PELVIS ON CT SCAN WITH IV CONTRAST. Chest CT 02/04/17 00:00 IMPRESSION: Extensive thoracic spondylosis. No acute abnormality in the thorax. Chest X-Ray 02/04/17 00:00 IMPRESSION: No evidence for pneumothorax. No acute consolidations or pleural effusions. Central line is identified extending superiorly presumably in the right internal jugular vein without its tip being identified Head CT 02/10/17 00:00 IMPRESSION: NORMAL BRAIN CT WITHOUT CONTRAST. LEFT MAXILLARY SINUS DISEASE. EVIDENCE OF ACUTE STROKE: NO. Thyroid Ultrasound 02/10/17 00:00 IMPRESSION: NORMAL THYROID ULTRASOUND. NO FOCAL MASSES. Assessment & Plan - Diagnosis (1) Infected cyst of right shoulder Is this a current diagnosis for this admission?: Yes - Time Time Spent with patient: 15-24 minutes - Plan Summary Plan Summary: Continue antibiotics x 5 days. OK to switch to po on discharge depending on the C/S results
[2017-02-21] MEDS ORDERED: NYSTATIN TOPICAL POWDER 15 GM TP ONE (12:00)
[2017-02-21] MEDS: IPRATROPIUM/ALBUTEROL 0.5-2.5 MG/3 ML AMPUL NEB PRN (14:38)
--- NOTE | 2017-02-21 16:35 | PDOC PROGRESS REPORT ---
Subjective Progress Note for:: 02/21/17 Subjective:: Patient is a 66-year-old -[place] woman with history of obesity, diabetes hypertension depression and anxiety has been admitted since January with altered mental status. She has been having increasing confusion and recurrent falls and weight loss prior to admission. She did have evidence of hypercalcemia, she also had wounds on her right arm, sacrum and right hip with evidence of cellulitis. Her wound culture grew MRSA and she completed antibiotics. Blood cultures grew staph epidermidis and one blood culture grew staph capitis.Work up for hypercalcemia revealing primary hyperparathyroidism. No M-spike. Serum immunofixation without abnormal pattern. She was started on Sensipar and she will need to be evaluated by endocrine outpatient. She also had colonoscopy part of the work revealing diverticulosis and internal hemorrhoid. Colonic biopsy negative for malignancy. Spoke with her daughter Savana this admission who reported that patient has been having loss of appetite and weight loss the last 4 months and has had EGD and other evaluation outpatient and thus far unrevealing. Daughter wanted her to have PEG inserted but patient has been reluctant. she has been seen by psych and her regimen adjusted.The daughter preferred at this time that she follows up outpatient with her primary psych and she declines inpatient psych.The patient appetite has not been consistent and not enough for maintenance. Two days ago she confided to her nurse that she does not want to go home with her daughter. She later denied when I asked her but she told that her daughter was to controlling. The last 24 hours, she has not been eating and hypoglycemia noted but glucose sent to labs earlier and not consistent with the glucometer. She reports no pain. Today she did not even eat lunch. I have discussed with her that she may need to have PEG inserted. Physical Exam Vital Signs: Temp Pulse Resp BP Pulse Ox 97.6 F 91 18 109/68 100 02/21/17 11:44 02/21/17 11:44 02/21/17 11:44 02/21/17 11:44 02/21/17 11:44 Intake & Output 02/20/17 02/21/17 02/22/17 06:59 06:59 06:59 Intake Total 3141 3873 Output Total 600 2705 Balance 2541 1168 Weight 86.5 kg General appearance: PRESENT: no acute distress, disheveled, other Head exam: PRESENT: atraumatic, normocephalic Eye exam: PRESENT: EOMI Mouth exam: PRESENT: moist, tongue midline Neck exam: PRESENT: full ROM. ABSENT: JVD Respiratory exam: PRESENT: clear to auscultation christy. ABSENT: accessory muscle use Cardiovascular exam: PRESENT: RRR, +S1, +S2 GI/Abdominal exam: PRESENT: normal bowel sounds, soft. ABSENT: distended, tenderness Rectal exam: PRESENT: deferred Extremities exam: PRESENT: full ROM Musculoskeletal exam: PRESENT: full ROM Neurological exam: PRESENT: alert, awake, oriented to person, oriented to place , oriented to situation Psychiatric exam: PRESENT: depressed, flat affect Results Laboratory Results: 02/20/17 05:15 02/21/17 02/21/17 00:04 06:32 Sodium 149.1 H Potassium 5.2 H Chloride 114 H Carbon Dioxide 18 L Anion Gap 17 BUN 11 Creatinine 0.96 Est GFR ( Amer) > 60 Est GFR (Non-Af Amer) 59 L Glucose 130 H 44 L Calcium 10.4 H Total Bilirubin 0.3 AST 27 ALT 24 Alkaline Phosphatase 35 L Total Protein 6.0 L Albumin 3.0 L 02/02/17 02/02/17 02/03/17 20:18 20:18 04:35 Creatine Kinase 74 58 CK-MB (CK-2) 1.33 Troponin I < 0.012 02/03/17 02/03/17 02/03/17 04:35 12:21 12:21 Creatine Kinase 53 CK-MB (CK-2) 1.32 1.00 Troponin I < 0.012 < 0.012 Impressions: Abdomen Ultrasound 02/03/17 00:00 IMPRESSION: SMALL AMOUNT OF SLUDGE IN THE GALLBLADDER. NO OTHER SIGNIFICANT FINDINGS. THE SPLEEN IS NOT VISUALIZED DUE TO OVERLYING BOWEL GAS. Upper Extremity MRI 02/03/17 00:00 IMPRESSION: Subcutaneous edema along the dorsal proximal forearm ulcer with cellulitis. No bone marrow edema worrisome for osteomyelitis Edema is present in the deep antecubital fossa along the median cubital vein. Question thrombophlebitis. Adjacent brachialis and distal biceps muscle and tendon are intact. Abdomen/Pelvis CT 02/04/17 00:00 IMPRESSION: NO SIGNIFICANT OR ACUTE FINDING IN THE ABDOMEN OR PELVIS ON CT SCAN WITH IV CONTRAST. Chest CT 02/04/17 00:00 IMPRESSION: Extensive thoracic spondylosis. No acute abnormality in the thorax. Chest X-Ray 02/04/17 00:00 IMPRESSION: No evidence for pneumothorax. No acute consolidations or pleural effusions. Central line is identified extending superiorly presumably in the right internal jugular vein without its tip being identified Head CT 02/10/17 00:00 IMPRESSION: NORMAL BRAIN CT WITHOUT CONTRAST. LEFT MAXILLARY SINUS DISEASE. EVIDENCE OF ACUTE STROKE: NO. Thyroid Ultrasound 02/10/17 00:00 IMPRESSION: NORMAL THYROID ULTRASOUND. NO FOCAL MASSES. Assessment & Plan - Diagnosis (1) Hypercalcemia due to hyperthyroidism Is this a current diagnosis for this admission?: Yes Plan: Thyroid US within normal and no focal masses Work up with no M-spike and serum immunofixation without abnormal patterns Continue Sensipar and noted with her improvement She will benefit from endocrine evaluation outpatient (2) Encephalopathy Is this a current diagnosis for this admission?: Yes Plan: Resolved (3) Hypoglycemia Is this a current diagnosis for this admission?: Yes Plan: Likely 2/2 poor PO intake She has been off all insulin regimen Continue to encourage PO intake and psych medications She did have insulin level done this admission and seems to be on the high side She may be benefited from endocrinology outpatient for further workup once medically optimized Have discussed with her today due to need for PEG insertion if she would like to return home (4) Ambulatory dysfunction Is this a current diagnosis for this admission?: Yes Plan: Fall risks Continue physical therapy (5) Weight loss Is this a current diagnosis for this admission?: Yes Plan: Per the daughter 2 months ago, she has had EGD which was normal Continue Megace (6) Anemia of chronic disease Is this a current diagnosis for this admission?: Yes Plan: Continue to monitor hemoglobin Continue PO iron Fe studies seems adequate (7) Depression Qualifiers: Depression Type: major depressive disorder Active/Remission status: currently active Is this a current diagnosis for this admission?: Yes Plan: Continue current regimen Plan to follow up with her primary psych once she is discharge I really think she will benefit from inpatient psych (8) Hyperkalemia Is this a current diagnosis for this admission?: Yes Plan: Mild Continue IV fluid Recurrent and medication reviewed (9) Metabolic acidosis Is this a current diagnosis for this admission?: Yes Plan: Continue bicarb supplements Follow up labs (10) Decubitus skin ulcer Is this a current diagnosis for this admission?: Yes Plan: Continue wound care Encourage good PO intake (11) Infected cyst of skin Is this a current diagnosis for this admission?: Yes Plan: Posterior neck and status post drainage Continue clindamycin until 02/24/2017 May transition to p.o. per surgery recommendation on discharge (12) Hypernatremia Is this a current diagnosis for this admission?: Yes Plan: Change IVF from NS to D5W Labs in am - Time Time Spent with patient: 25-34 minutes
[2017-02-21] MEDS: METOPROLOL SUCCINATE 25 MG TAB.SR.24H PO SCH (17:41)
[2017-02-21] MEDS: NYSTATIN TOPICAL POWDER 15 GM TP SCH (20:45)
[2017-02-21] MEDS: ATORVASTATIN CALCIUM 40 MG TABLET PO SCH (22:48)
--- NOTE | 2017-02-21 23:10 | PDOC PROGRESS REPORT ---
Subjective Progress Note for:: 02/13/17 Subjective:: Patient presented with altered mental status and falls at home. Patient found to have hypercalcemia. Patient did have some abnormal cultures which were thought to be contaminants. Patient did have MRSA in her wound for which patient is currently on Bactrim. Patient has been maintaining her blood glucoses off dextrose. Patient still not eating very much. Physical Exam Vital Signs: Vitals: Temp 98.0 HR 97 BP 131/54 RR 16 pulse ox 100 General appearance: PRESENT: no acute distress, obese Head exam: PRESENT: normocephalic Eye exam: PRESENT: EOMI. ABSENT: scleral icterus Teeth exam: PRESENT: edentulous Neck exam: ABSENT: carotid bruit, JVD, lymphadenopathy, thyromegaly Respiratory exam: PRESENT: clear to auscultation christy. ABSENT: rales, rhonchi, wheezes Cardiovascular exam: PRESENT: RRR. ABSENT: diastolic murmur, rubs, systolic murmur Pulses: PRESENT: normal dorsalis pedis pul Vascular exam: PRESENT: normal capillary refill GI/Abdominal exam: PRESENT: normal bowel sounds, soft. ABSENT: distended, guarding, mass, organolmegaly, rebound, tenderness Rectal exam: PRESENT: deferred Extremities exam: PRESENT: full ROM. ABSENT: calf tenderness, clubbing, pedal edema Musculoskeletal exam: PRESENT: normal inspection Neurological exam: PRESENT: alert, awake, oriented to person, oriented to place , oriented to time, oriented to situation, CN II-XII grossly intact, other - repeatative movement of the mouth. ABSENT: motor sensory deficit Psychiatric exam: PRESENT: appropriate affect, normal mood. ABSENT: homicidal ideation, suicidal ideation Skin exam: PRESENT: dry, intact, skin tears - right elbow and hip, warm. ABSENT : cyanosis, rash Results Laboratory Results: 02/20/17 05:15 02/21/17 13:48 02/21/17 02/21/17 02/21/17 00:04 06:32 13:48 Sodium 149.1 H Potassium 5.2 H Chloride 114 H Carbon Dioxide 18 L Anion Gap 17 BUN 11 Creatinine 0.96 Est GFR ( Amer) > 60 Est GFR (Non-Af Amer) 59 L Glucose 130 H 44 L 139 H Calcium 10.4 H Total Bilirubin 0.3 AST 27 ALT 24 Alkaline Phosphatase 35 L Total Protein 6.0 L Albumin 3.0 L 02/02/17 02/02/17 02/03/17 20:18 20:18 04:35 Creatine Kinase 74 58 CK-MB (CK-2) 1.33 Troponin I < 0.012 02/03/17 02/03/17 02/03/17 04:35 12:21 12:21 Creatine Kinase 53 CK-MB (CK-2) 1.32 1.00 Troponin I < 0.012 < 0.012 Impressions: Abdomen Ultrasound 02/03/17 00:00 IMPRESSION: SMALL AMOUNT OF SLUDGE IN THE GALLBLADDER. NO OTHER SIGNIFICANT FINDINGS. THE SPLEEN IS NOT VISUALIZED DUE TO OVERLYING BOWEL GAS. Upper Extremity MRI 02/03/17 00:00 IMPRESSION: Subcutaneous edema along the dorsal proximal forearm ulcer with cellulitis. No bone marrow edema worrisome for osteomyelitis Edema is present in the deep antecubital fossa along the median cubital vein. Question thrombophlebitis. Adjacent brachialis and distal biceps muscle and tendon are intact. Abdomen/Pelvis CT 02/04/17 00:00 IMPRESSION: NO SIGNIFICANT OR ACUTE FINDING IN THE ABDOMEN OR PELVIS ON CT SCAN WITH IV CONTRAST. Chest CT 02/04/17 00:00 IMPRESSION: Extensive thoracic spondylosis. No acute abnormality in the thorax. Chest X-Ray 02/04/17 00:00 IMPRESSION: No evidence for pneumothorax. No acute consolidations or pleural effusions. Central line is identified extending superiorly presumably in the right internal jugular vein without its tip being identified Head CT 02/10/17 00:00 IMPRESSION: NORMAL BRAIN CT WITHOUT CONTRAST. LEFT MAXILLARY SINUS DISEASE. EVIDENCE OF ACUTE STROKE: NO. Thyroid Ultrasound 02/10/17 00:00 IMPRESSION: NORMAL THYROID ULTRASOUND. NO FOCAL MASSES. Assessment & Plan - Diagnosis (1) Weight loss Is this a current diagnosis for this admission?: Yes Plan: Patient weight loss is most likely the result of not eating. Patient on magace bid. Patient drinking ensure. Will give patient some time to eat on her own. Will suggest feeding tube if does not improve. (2) Encephalopathy Is this a current diagnosis for this admission?: Yes Plan: Secondary to primary hyperparathyroidism. Improved with the correction of the calcium. No findings on CT scan. (3) Ambulatory dysfunction Is this a current diagnosis for this admission?: Yes Plan: Debility from poor nutrition and inactivity. Recommend rehab. Will continue with PT and OT. (4) Anemia Is this a current diagnosis for this admission?: Yes Plan: Was evaluated by GI. Dr. Alegria in the past has done an EGD which was negative colonoscopy did show internal hemorrhoids and diverticulosis. Patient B12 was normal her folate was low. She was given folate replacement. On iron supplement. This could be related to her poor oral intake. (5) Cellulitis Qualifiers: Site of cellulitis: unspecified site Qualified Code(s): L03.90 - Cellulitis , unspecified Is this a current diagnosis for this admission?: Yes Plan: Patient wound growing MRSA. Patient currently on Bactrim and will require 10 days of antibiotics. (6) Chronic narcotic use Is this a current diagnosis for this admission?: Yes Plan: This could put patient at risk for falls. This could also be affecting her mentation. Patient continues to ask for the medication and her family wants for her to have it. 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 Psychology has seen patient and have recommended medication changes including discontinuing Abilify and doxipin. Continue BuSpar 5 mg in the morning and 10 mg at night. Patient also started on Depakote 500 mg twice daily. Decrease topamax to 100mg daily. Psychology does not recommend adding anything for sleep or adjusting current dosages. (8) Elevated liver function tests Is this a current diagnosis for this admission?: Yes Plan: Resolved. Will monitor especially with patient being started on depakote. (9) Hypercalcemia Is this a current diagnosis for this admission?: Yes Plan: Patient appears to have primary hyperparathyroidism. Patient was started on sensipar 30mg daily. Not sure patient is a surgical candidate at this time. She does qualify for the surgery. (10) Hypertension Is this a current diagnosis for this admission?: Yes Plan: Continue metoprolol succinate 25 mg p.o. daily (11) Hypoglycemia Is this a current diagnosis for this admission?: Yes Plan: Patient maintaining blood glucoses. Will continue to monitor. (12) Metabolic acidosis Is this a current diagnosis for this admission?: Yes Plan: Possibly due to dehydration. (13) Pressure ulcer of right elbow, stage 2 Is this a current diagnosis for this admission?: No Plan: Appears to be healing. Continue wound care and bactrium. Patient may having difficulty healing if she continues not to eat. Patient taking ensure. (14) Pressure ulcer of right hip, stage 2 Is this a current diagnosis for this admission?: Yes Plan: Continue local wound care. (15) Tardive dyskinesia Is this a current diagnosis for this admission?: Yes Plan: Is likely due to the use of antipsychotic psychotics. Appears to be stable at this time. (16) Hypomagnesemia Is this a current diagnosis for this admission?: Yes Plan: Resolved. - Time Time Spent with patient: Less than 15 minutes Medications reviewed and adjusted accordingly: Yes Anticipated discharge: Home - Inpatient Certification Medical Necessity: Other - Patient still with poor oral intake.
--- NOTE | 2017-02-21 23:33 | PDOC PROGRESS REPORT ---
Subjective Progress Note for:: 02/14/17 Subjective:: Patient presented with altered mental status and falls at home. Patient found to have hypercalcemia. Patient did have some abnormal cultures which were thought to be contaminants. Patient did have MRSA in her wound for which patient is currently on Bactrim. Patient still maintaining blood glucose. Patient attempting to eat. Patient reports to staff that she does not like how she is treated at home. Patient is apprehensive about going home. Physical Exam Vital Signs: Vitals Temp 97.9 HR 108 BP 126/66 RR 88 Pulse ox 100 General appearance: PRESENT: no acute distress, obese Head exam: PRESENT: normocephalic Eye exam: ABSENT: scleral icterus Mouth exam: PRESENT: moist Teeth exam: PRESENT: edentulous Neck exam: ABSENT: carotid bruit, JVD, lymphadenopathy, thyromegaly Respiratory exam: PRESENT: clear to auscultation christy. ABSENT: rales, rhonchi, wheezes Cardiovascular exam: PRESENT: RRR. ABSENT: diastolic murmur, rubs, systolic murmur GI/Abdominal exam: PRESENT: normal bowel sounds, soft. ABSENT: distended, guarding, mass, organolmegaly, rebound, tenderness Rectal exam: PRESENT: deferred Extremities exam: PRESENT: full ROM. ABSENT: calf tenderness, clubbing, pedal edema Neurological exam: PRESENT: alert, awake, oriented to person, oriented to place , oriented to time, oriented to situation, CN II-XII grossly intact. ABSENT: motor sensory deficit Psychiatric exam: PRESENT: appropriate affect, normal mood. ABSENT: homicidal ideation, suicidal ideation Skin exam: PRESENT: dry, intact, warm. ABSENT: cyanosis, rash Results Laboratory Results: 02/20/17 05:15 02/21/17 13:48 02/21/17 02/21/17 02/21/17 00:04 06:32 13:48 Sodium 149.1 H Potassium 5.2 H Chloride 114 H Carbon Dioxide 18 L Anion Gap 17 BUN 11 Creatinine 0.96 Est GFR ( Amer) > 60 Est GFR (Non-Af Amer) 59 L Glucose 130 H 44 L 139 H Calcium 10.4 H Total Bilirubin 0.3 AST 27 ALT 24 Alkaline Phosphatase 35 L Total Protein 6.0 L Albumin 3.0 L 02/02/17 02/02/17 02/03/17 20:18 20:18 04:35 Creatine Kinase 74 58 CK-MB (CK-2) 1.33 Troponin I < 0.012 02/03/17 02/03/17 02/03/17 04:35 12:21 12:21 Creatine Kinase 53 CK-MB (CK-2) 1.32 1.00 Troponin I < 0.012 < 0.012 Impressions: Abdomen Ultrasound 02/03/17 00:00 IMPRESSION: SMALL AMOUNT OF SLUDGE IN THE GALLBLADDER. NO OTHER SIGNIFICANT FINDINGS. THE SPLEEN IS NOT VISUALIZED DUE TO OVERLYING BOWEL GAS. Upper Extremity MRI 02/03/17 00:00 IMPRESSION: Subcutaneous edema along the dorsal proximal forearm ulcer with cellulitis. No bone marrow edema worrisome for osteomyelitis Edema is present in the deep antecubital fossa along the median cubital vein. Question thrombophlebitis. Adjacent brachialis and distal biceps muscle and tendon are intact. Abdomen/Pelvis CT 02/04/17 00:00 IMPRESSION: NO SIGNIFICANT OR ACUTE FINDING IN THE ABDOMEN OR PELVIS ON CT SCAN WITH IV CONTRAST. Chest CT 02/04/17 00:00 IMPRESSION: Extensive thoracic spondylosis. No acute abnormality in the thorax. Chest X-Ray 02/04/17 00:00 IMPRESSION: No evidence for pneumothorax. No acute consolidations or pleural effusions. Central line is identified extending superiorly presumably in the right internal jugular vein without its tip being identified Head CT 02/10/17 00:00 IMPRESSION: NORMAL BRAIN CT WITHOUT CONTRAST. LEFT MAXILLARY SINUS DISEASE. EVIDENCE OF ACUTE STROKE: NO. Thyroid Ultrasound 02/10/17 00:00 IMPRESSION: NORMAL THYROID ULTRASOUND. NO FOCAL MASSES. Assessment & Plan - Diagnosis (1) Weight loss Is this a current diagnosis for this admission?: Yes Plan: Patient weight loss is most likely the result of not eating. Her loss of appetite could be due to depression. Hopefully the medications shes own will regulate this behavior and she will want to eat. Patient on magace bid. Patient drinking ensure. Will give patient some time to eat on her own. Will suggest feeding tube if does not improve. (2) Encephalopathy Is this a current diagnosis for this admission?: Yes Plan: Secondary to primary hyperparathyroidism. Improved with the correction of the calcium. No findings on CT scan. (3) Ambulatory dysfunction Is this a current diagnosis for this admission?: Yes Plan: Debility from poor nutrition and inactivity. Recommend rehab. Will continue with PT and OT. Patient not participating at times stating that she is too weak. Patient is up in chair with the nursing staff. (4) Anemia Is this a current diagnosis for this admission?: Yes Plan: Was evaluated by GI. Dr. Alegria in the past has done an EGD which was negative colonoscopy did show internal hemorrhoids and diverticulosis. Patient B12 was normal her folate was low. She was given folate replacement. On iron supplement. This could be related to her poor oral intake. (5) Cellulitis Qualifiers: Site of cellulitis: unspecified site Qualified Code(s): L03.90 - Cellulitis , unspecified Is this a current diagnosis for this admission?: Yes Plan: Patient wound growing MRSA. Patient currently on Bactrim and will require 10 days of antibiotics. (6) Chronic narcotic use Is this a current diagnosis for this admission?: Yes Plan: This could put patient at risk for falls. This could also be affecting her mentation. Patient continues to ask for the medication and her family wants for her to have it. 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 Psychology has seen patient and have recommended medication changes including discontinuing Abilify and doxipin. Continue BuSpar 5 mg in the morning and 10 mg at night. Patient also started on Depakote 500 mg twice daily. Decrease topamax to 100mg daily. Psychology does not recommend adding anything for sleep or adjusting current dosages. (8) Elevated liver function tests Is this a current diagnosis for this admission?: Yes Plan: Resolved. Will monitor especially with patient being started on depakote. (9) Hypercalcemia Is this a current diagnosis for this admission?: Yes Plan: Patient appears to have primary hyperparathyroidism. Patient was started on sensipar 30mg daily. Not sure patient is a surgical candidate at this time. She does qualify for the surgery. (10) Hypertension Is this a current diagnosis for this admission?: Yes Plan: Continue metoprolol succinate 25 mg p.o. daily (11) Hypoglycemia Is this a current diagnosis for this admission?: Yes Plan: Patient maintaining blood glucoses. Will continue to monitor. (12) Metabolic acidosis Is this a current diagnosis for this admission?: Yes Plan: Possibly due to dehydration. (13) Pressure ulcer of right elbow, stage 2 Is this a current diagnosis for this admission?: No Plan: Appears to be healing. Continue wound care and bactrium. Patient may having difficulty healing if she continues not to eat. Patient taking ensure. (14) Pressure ulcer of right hip, stage 2 Is this a current diagnosis for this admission?: Yes Plan: Continue local wound care. (15) Hypomagnesemia Is this a current diagnosis for this admission?: Yes Plan: Resolved. - Time Time Spent with patient: Less than 15 minutes Medications reviewed and adjusted accordingly: Yes Anticipated discharge: Home - Patient being monitored for hypoglycemia. Also patient continues to have poor oral intake.
--- NOTE | 2017-02-22 04:43 | PDOC PROGRESS REPORT ---
Subjective Progress Note for:: 02/15/17 Subjective:: Patient presented with altered mental status and falls at home. Patient found to have hypercalcemia. Patient did have some abnormal cultures which were thought to be contaminants. Patient did have MRSA in her wound for which patient is currently on Bactrim. Patient became hypoglycemic after she was given 2 units coverage. Patient restarted on D5NS overnight. Physical Exam Vital Signs: Vitals Temp 99.4 Pulse 110 BP 126/61 RR 19 Pulse ox 100 General appearance: PRESENT: no acute distress, obese Head exam: PRESENT: normocephalic Eye exam: ABSENT: scleral icterus Mouth exam: PRESENT: moist Neck exam: ABSENT: carotid bruit, JVD, lymphadenopathy, thyromegaly Respiratory exam: PRESENT: clear to auscultation christy. ABSENT: rales, rhonchi, wheezes Cardiovascular exam: PRESENT: RRR. ABSENT: diastolic murmur, rubs, systolic murmur GI/Abdominal exam: PRESENT: normal bowel sounds, soft. ABSENT: distended, guarding, mass, organolmegaly, rebound, tenderness Rectal exam: PRESENT: deferred Extremities exam: PRESENT: full ROM. ABSENT: calf tenderness, clubbing, pedal edema Neurological exam: PRESENT: alert, awake, oriented to person, oriented to place , oriented to time, oriented to situation. ABSENT: motor sensory deficit Psychiatric exam: PRESENT: appropriate affect, normal mood. ABSENT: homicidal ideation, suicidal ideation Skin exam: PRESENT: dry, intact, warm. ABSENT: cyanosis, rash Results Laboratory Results: 02/20/17 05:15 02/21/17 13:48 02/21/17 02/21/17 02/21/17 00:04 06:32 13:48 Sodium 149.1 H Potassium 5.2 H Chloride 114 H Carbon Dioxide 18 L Anion Gap 17 BUN 11 Creatinine 0.96 Est GFR ( Amer) > 60 Est GFR (Non-Af Amer) 59 L Glucose 130 H 44 L 139 H Calcium 10.4 H Total Bilirubin 0.3 AST 27 ALT 24 Alkaline Phosphatase 35 L Total Protein 6.0 L Albumin 3.0 L 02/02/17 02/02/17 02/03/17 20:18 20:18 04:35 Creatine Kinase 74 58 CK-MB (CK-2) 1.33 Troponin I < 0.012 10/02/03/17 02/03/17 04:35 12:21 12:21 Creatine Kinase 53 CK-MB (CK-2) 1.32 1.00 Troponin I < 0.012 < 0.012 Impressions: Abdomen Ultrasound 02/03/17 00:00 IMPRESSION: SMALL AMOUNT OF SLUDGE IN THE GALLBLADDER. NO OTHER SIGNIFICANT FINDINGS. THE SPLEEN IS NOT VISUALIZED DUE TO OVERLYING BOWEL GAS. Upper Extremity MRI 02/03/17 00:00 IMPRESSION: Subcutaneous edema along the dorsal proximal forearm ulcer with cellulitis. No bone marrow edema worrisome for osteomyelitis Edema is present in the deep antecubital fossa along the median cubital vein. Question thrombophlebitis. Adjacent brachialis and distal biceps muscle and tendon are intact. Abdomen/Pelvis CT 02/04/17 00:00 IMPRESSION: NO SIGNIFICANT OR ACUTE FINDING IN THE ABDOMEN OR PELVIS ON CT SCAN WITH IV CONTRAST. Chest CT 02/04/17 00:00 IMPRESSION: Extensive thoracic spondylosis. No acute abnormality in the thorax. Chest X-Ray 02/04/17 00:00 IMPRESSION: No evidence for pneumothorax. No acute consolidations or pleural effusions. Central line is identified extending superiorly presumably in the right internal jugular vein without its tip being identified Head CT 02/10/17 00:00 IMPRESSION: NORMAL BRAIN CT WITHOUT CONTRAST. LEFT MAXILLARY SINUS DISEASE. EVIDENCE OF ACUTE STROKE: NO. Thyroid Ultrasound 02/10/17 00:00 IMPRESSION: NORMAL THYROID ULTRASOUND. NO FOCAL MASSES. Assessment & Plan - Diagnosis (1) Weight loss Is this a current diagnosis for this admission?: Yes Plan: Patient weight loss is most likely the result of not eating. Her loss of appetite could be due to depression. Hopefully the medications shes own will regulate this behavior and she will want to eat. Patient on magace bid. Patient drinking ensure. Will give patient some time to eat on her own. Will suggest feeding tube if does not improve. Will make sure to follow daily weights. (2) Encephalopathy Is this a current diagnosis for this admission?: Yes Plan: Secondary to primary hyperparathyroidism. Improved with the correction of the calcium. No findings on CT scan. (3) Ambulatory dysfunction Is this a current diagnosis for this admission?: Yes Plan: Debility from poor nutrition and inactivity. Recommend rehab. Will continue with PT and OT. Patient not participating at times stating that she is too weak. Patient is up in chair with the nursing staff. (4) Anemia Is this a current diagnosis for this admission?: Yes Plan: Was evaluated by GI. Dr. Alegria in the past has done an EGD which was negative colonoscopy did show internal hemorrhoids and diverticulosis. Patient B12 was normal her folate was low. She was given folate replacement. On iron supplement. This could be related to her poor oral intake. (5) Cellulitis Qualifiers: Site of cellulitis: unspecified site Qualified Code(s): L03.90 - Cellulitis , unspecified Is this a current diagnosis for this admission?: Yes Plan: Patient wound growing MRSA. Patient currently on Bactrim and will require 10 days of antibiotics. (6) Chronic narcotic use Is this a current diagnosis for this admission?: Yes Plan: This could put patient at risk for falls. This could also be affecting her mentation. Patient continues to ask for the medication and her family wants for her to have it. 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 Psychology has seen patient and have recommended medication changes including discontinuing Abilify and doxipin. Continue BuSpar 5 mg in the morning and 10 mg at night. Continue Depakote 500 mg twice daily. Continue topamax to 100mg daily. Psychology does not recommend adding anything for sleep or adjusting current dosages. (8) Elevated liver function tests Is this a current diagnosis for this admission?: Yes Plan: Resolved. Will monitor especially with patient being started on depakote. (9) Hypercalcemia Is this a current diagnosis for this admission?: Yes Plan: Patient appears to have primary hyperparathyroidism. Patient was started on sensipar 30mg daily. Not sure patient is a surgical candidate at this time. Patient will need a dexa scan at some point. (10) Hypertension Is this a current diagnosis for this admission?: Yes Plan: Continue metoprolol succinate 25 mg p.o. daily (11) Hypoglycemia Is this a current diagnosis for this admission?: Yes Plan: Patient hypoglycemic this morning. Was given 2 units of insulin last night. Will discontinue insulin coverage as patient is very sensitive to insulin and she is still not eating. (12) Metabolic acidosis Is this a current diagnosis for this admission?: Yes Plan: Possibly due to dehydration. (13) Pressure ulcer of right elbow, stage 2 Is this a current diagnosis for this admission?: No Plan: Appears to be healing. Continue wound care and bactrium. Patient may having difficulty healing if she continues not to eat. Patient taking ensure. (14) Pressure ulcer of right hip, stage 2 Is this a current diagnosis for this admission?: Yes Plan: Continue local wound care. (15) Hypomagnesemia Is this a current diagnosis for this admission?: Yes Plan: Resolved. - Time Time Spent with patient: Less than 15 minutes Anticipated discharge: Home - Inpatient Certification Medical Necessity: Other - Patient with hypoglycemia again. Also patient not eating. Will discuss with patient and family the option of a feeding tube.
--- NOTE | 2017-02-22 05:00 | PDOC PROGRESS REPORT ---
Subjective Progress Note for:: 02/16/17 Subjective:: Patient presented with altered mental status and falls at home. Patient found to have hypercalcemia. Patient did have some abnormal cultures which were thought to be contaminants. Patient did have MRSA in her wound for which patient is currently on Bactrim. Discussed that option of feeding tube with patient and family. Patient has declined. Patient states she does not eat because the food is not well season. She is not on any restriction. She is given salt however she does not use it. Physical Exam Vital Signs: Vital Temp 97.9 HR 122 BP 151/80 RR 16 Pulse ox 100 General appearance: PRESENT: no acute distress Head exam: PRESENT: atraumatic, normocephalic Eye exam: PRESENT: EOMI. ABSENT: scleral icterus Ear exam: PRESENT: normal external ear exam Mouth exam: PRESENT: moist Neck exam: ABSENT: carotid bruit, JVD, lymphadenopathy, thyromegaly Respiratory exam: PRESENT: clear to auscultation christy. ABSENT: rales, rhonchi, wheezes Cardiovascular exam: PRESENT: RRR. ABSENT: diastolic murmur, rubs, systolic murmur GI/Abdominal exam: PRESENT: normal bowel sounds, soft. ABSENT: distended, guarding, mass, organolmegaly, rebound, tenderness Rectal exam: PRESENT: deferred Extremities exam: PRESENT: full ROM. ABSENT: calf tenderness, clubbing, pedal edema Neurological exam: PRESENT: alert, awake, oriented to person, oriented to place , oriented to time, oriented to situation. ABSENT: motor sensory deficit Psychiatric exam: PRESENT: depressed. ABSENT: homicidal ideation, suicidal ideation Skin exam: PRESENT: dry, intact, skin tears - ulcer on elbow and hip, warm. ABSENT: cyanosis, rash Results Laboratory Results: 02/20/17 05:15 02/21/17 13:48 02/21/17 02/21/17 06:32 13:48 Sodium 149.1 H Potassium 5.2 H Chloride 114 H Carbon Dioxide 18 L Anion Gap 17 BUN 11 Creatinine 0.96 Est GFR ( Amer) > 60 Est GFR (Non-Af Amer) 59 L Glucose 44 L 139 H Calcium 10.4 H Total Bilirubin 0.3 AST 27 ALT 24 Alkaline Phosphatase 35 L Total Protein 6.0 L Albumin 3.0 L 02/02/17 02/02/17 02/03/17 20:18 20:18 04:35 Creatine Kinase 74 58 CK-MB (CK-2) 1.33 Troponin I < 0.012 02/03/17 02/03/17 02/03/17 04:35 12:21 12:21 Creatine Kinase 53 CK-MB (CK-2) 1.32 1.00 Troponin I < 0.012 < 0.012 Impressions: Abdomen Ultrasound 02/03/17 00:00 IMPRESSION: SMALL AMOUNT OF SLUDGE IN THE GALLBLADDER. NO OTHER SIGNIFICANT FINDINGS. THE SPLEEN IS NOT VISUALIZED DUE TO OVERLYING BOWEL GAS. Upper Extremity MRI 02/03/17 00:00 IMPRESSION: Subcutaneous edema along the dorsal proximal forearm ulcer with cellulitis. No bone marrow edema worrisome for osteomyelitis Edema is present in the deep antecubital fossa along the median cubital vein. Question thrombophlebitis. Adjacent brachialis and distal biceps muscle and tendon are intact. Abdomen/Pelvis CT 02/04/17 00:00 IMPRESSION: NO SIGNIFICANT OR ACUTE FINDING IN THE ABDOMEN OR PELVIS ON CT SCAN WITH IV CONTRAST. Chest CT 02/04/17 00:00 IMPRESSION: Extensive thoracic spondylosis. No acute abnormality in the thorax. Chest X-Ray 02/04/17 00:00 IMPRESSION: No evidence for pneumothorax. No acute consolidations or pleural effusions. Central line is identified extending superiorly presumably in the right internal jugular vein without its tip being identified Head CT 02/10/17 00:00 IMPRESSION: NORMAL BRAIN CT WITHOUT CONTRAST. LEFT MAXILLARY SINUS DISEASE. EVIDENCE OF ACUTE STROKE: NO. Thyroid Ultrasound 02/10/17 00:00 IMPRESSION: NORMAL THYROID ULTRASOUND. NO FOCAL MASSES. Assessment & Plan - Diagnosis (1) Weight loss Is this a current diagnosis for this admission?: Yes Plan: Patient weight loss is most likely the result of not eating. Her loss of appetite could be due to depression. Hopefully the medications shes own will regulate this behavior and she will want to eat. Patient on magace bid. Patient drinking ensure. Will give patient some time to eat on her own. Patient refused feeding tube. (2) Encephalopathy Is this a current diagnosis for this admission?: Yes Plan: Secondary to primary hyperparathyroidism. Improved with the correction of the calcium. No findings on CT scan. (3) Ambulatory dysfunction Is this a current diagnosis for this admission?: Yes Plan: Debility from poor nutrition and inactivity. Recommend rehab. Will continue with PT and OT. Patient not participating at times stating that she is too weak. Patient is up in chair with the nursing staff. (4) Anemia Is this a current diagnosis for this admission?: Yes Plan: Was evaluated by GI. Dr. Alegria in the past has done an EGD which was negative colonoscopy did show internal hemorrhoids and diverticulosis. Patient B12 was normal her folate was low. She was given folate replacement. On iron supplement. This could be related to her poor oral intake. (5) Cellulitis Qualifiers: Site of cellulitis: unspecified site Qualified Code(s): L03.90 - Cellulitis , unspecified Is this a current diagnosis for this admission?: Yes Plan: Patient wound growing MRSA. Patient currently on Bactrim and will require 10 days of antibiotics. (6) Chronic narcotic use Is this a current diagnosis for this admission?: Yes Plan: This could put patient at risk for falls. This could also be affecting her mentation. Patient continues to ask for the medication and her family wants for her to have it. 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 Patient has decided to return home despite feeling that she is not being treated well. Case management is following closely. Psychology has seen patient and have recommended medication changes including discontinuing Abilify and doxipin. Continue BuSpar 5 mg in the morning and 10 mg at night. Continue Depakote 500 mg twice daily. Continue topamax to 100mg daily. Psychology does not recommend adding anything for sleep or adjusting current dosages. (8) Elevated liver function tests Is this a current diagnosis for this admission?: Yes Plan: Resolved. Will monitor especially with patient being started on depakote. (9) Hypercalcemia Is this a current diagnosis for this admission?: Yes Plan: Patient appears to have primary hyperparathyroidism. Patient was started on sensipar 30mg daily. Not sure patient is a surgical candidate at this time. Patient will need a dexa scan at some point to look at her bones. (10) Hypertension Is this a current diagnosis for this admission?: Yes Plan: Continue metoprolol succinate 25 mg p.o. daily (11) Hypoglycemia Is this a current diagnosis for this admission?: Yes Plan: Patient still requiring D5. Discussed with endocrinology at [facility] who states that insulinomas are rare. Patient will have to be fasting and become hypoglycemia below 50 and then serum glucose, c peptide, pro insulin, beta hydroxy butarate and insulin. She would also need a drug screen for hypoglycemic agents. She would also need an endoscopic ultrasound of the pancreas. Patient hypoglycemia is most likely do to poor oral intake. (12) Metabolic acidosis Is this a current diagnosis for this admission?: Yes Plan: Possibly due to dehydration. (13) Pressure ulcer of right elbow, stage 2 Is this a current diagnosis for this admission?: No Plan: Continue local wound care (14) Pressure ulcer of right hip, stage 2 Is this a current diagnosis for this admission?: Yes Plan: Continue local wound care. (15) Hypomagnesemia Is this a current diagnosis for this admission?: Yes Plan: Resolved. - Time Time Spent with patient: Less than 15 minutes Anticipated discharge: Home - Patient refused feeding tube. Patient still not eating Patient has decided to go home. Patient still intermittently hypoglycemic.
[2017-02-22] MEDS: HEPARIN SOD (PORCINE) 5,000 UNIT/ML 1 ML SYRINGE SUBCUT SCH ×3 (05:36→22:08)
[2017-02-22] MEDS: CLINDAMYCIN 600 MG/D5W RTU 600 MG/50 ML RTUPB IV SCH ×3 (05:36→17:16)
[2017-02-22] MEDS: DEXTROSE 5%-WATER 1000 ML 1,000 ML IV PRN ×2 (08:41→17:07)
[2017-02-22] MEDS: IPRATROPIUM/ALBUTEROL 0.5-2.5 MG/3 ML AMPUL NEB PRN (09:53)
[2017-02-22] MEDS: DIVALPROEX SODIUM 250 MG TABLET.DR PO SCH ×2 (10:39→22:10)
[2017-02-22] MEDS: COLLAGENASE CLOSTRIDIUM HIST. OINT 30 GM TP SCH (10:39)
[2017-02-22] MEDS: OXYCODONE-ACETAMINOPHEN 5-325 MG TABLET PO PRN ×2 (10:43→18:42)
[2017-02-22 10:52] LABS: HEMATOCRIT 23.7 % (36.0-47.0); MEAN CORPUSCULAR HEMOGLOBIN 28.3 pg (27.0-33.4); MEAN CORPUSCULAR HGB CONC 33.1 g/dL (32.0-36.0); MEAN CORPUSCULAR VOLUME 85 fl (80-97); RED BLOOD COUNT 2.78 10^6/uL (3.72-5.28); RED CELL DISTRIBUTION WIDTH 18.3 % (11.5-14.0); WHITE BLOOD COUNT 10.3 10^3/uL (4.0-10.5)
[2017-02-22 11:03] LABS: HEMOGLOBIN 7.9 g/dL (12.0-15.5)
[2017-02-22 11:12] LABS: PATH REVIEW PATHOLOGIST REVIEWED
[2017-02-22] MEDS: DEXTROSE 50%-WATER 25 GM/50 ML DISP.SYRIN IV PRN ×2 (11:50→22:30)
[2017-02-22] MEDS ORDERED: ONDANSETRON HCL INJ/PF 4 MG/2 ML SDV ONE (13:04)
[2017-02-22] MEDS ORDERED: GLYCOPYRROLATE INJ 0.4 MG/2 ML VIAL ONE (13:04)
[2017-02-22] MEDS ORDERED: NALOXONE HCL INJ/PF 0.4 MG/1 ML SDV ONE (13:04)
[2017-02-22] MEDS ORDERED: FLUMAZENIL INJ 0.5 MG/5 ML VIAL ONE (13:05)
[2017-02-22] MEDS ORDERED: GLUCAGON,HUMAN RECOMB 1 MG INJ ONE (13:05)
[2017-02-22] MEDS ORDERED: FENTANYL CITRATE INJ/PF 100 MCG/2 ML AMPUL ONE (13:05)
[2017-02-22] MEDS ORDERED: EPINEPHRINE INJ 1 MG/10 ML DISP.SYRIN ONE (13:05)
--- NOTE | 2017-02-22 13:37 | PDOC PROGRESS REPORT ---
Subjective Subjective:: Patient is a 66-year-old -[place] woman with history of obesity, diabetes hypertension depression and anxiety has been admitted since January with altered mental status. She has been having increasing confusion and recurrent falls and weight loss prior to admission. She did have evidence of hypercalcemia, she also had wounds on her right arm, sacrum and right hip with evidence of cellulitis. Her wound culture grew MRSA and she completed antibiotics. Blood cultures grew staph epidermidis and staph capitis. Work up for hypercalcemia revealing primary hyperparathyroidism. No M-spike. Serum immunofixation without abnormal pattern. She was started on Sensipar and she will need to be evaluated by endocrine outpatient. She also had colonoscopy part of the work revealing diverticulosis and internal hemorrhoid. Colonic biopsy negative for malignancy. Spoke with her daughter Savana this admission who reported that patient has been having loss of appetite and weight loss the last 4 months and has had EGD and other evaluation outpatient and thus far unrevealing. She has been seen by psych and her regimen adjusted.The daughter preferred at this time that she follows up outpatient with her primary psych and she declines inpatient psych.The patient appetite has not been consistent and not enough for maintenance. Last week she confided to her nurse that she does not want to go home with her daughter. She later denied when I asked her but she told that her daughter was too controlling. Daughter wants her to have PEG inserted but patient has been reluctant. She finally agrees to have the PEG inserted. The the daughter was present during rounds this morning. When asked about returning home with her daughter on discharge, she states that she does not know. I have discussed the possibility to go to rehab then assisted living arrangements. Physical Exam Vital Signs: Temp Pulse Resp BP Pulse Ox 98.3 F 88 17 121/58 L 98 02/22/17 12:11 02/22/17 12:11 02/22/17 12:11 02/22/17 12:11 02/22/17 12:11 Intake & Output 02/21/17 02/22/17 02/23/17 06:59 06:59 06:59 Intake Total 3873 3975 Output Total 2705 2800 Balance 1168 1175 General appearance: PRESENT: no acute distress, obese, other - looks older than stated age Head exam: PRESENT: atraumatic, normocephalic Eye exam: PRESENT: EOMI. ABSENT: scleral icterus Mouth exam: PRESENT: moist, neck supple, other - Posterior neck with dressing intact Neck exam: PRESENT: carotid bruit, full ROM. ABSENT: JVD Respiratory exam: PRESENT: clear to auscultation christy. ABSENT: rales, rhonchi, wheezes Cardiovascular exam: PRESENT: RRR. ABSENT: diastolic murmur, rubs, systolic murmur Vascular exam: PRESENT: normal capillary refill GI/Abdominal exam: PRESENT: normal bowel sounds, soft. ABSENT: distended, guarding, mass, organolmegaly, rebound, tenderness Rectal exam: PRESENT: deferred Extremities exam: PRESENT: full ROM. ABSENT: calf tenderness, clubbing, pedal edema Neurological exam: PRESENT: alert, awake, oriented to person, oriented to place , oriented to time, oriented to situation. ABSENT: motor sensory deficit Psychiatric exam: PRESENT: depressed, flat affect. ABSENT: homicidal ideation, suicidal ideation Skin exam: PRESENT: dry, intact, warm. ABSENT: cyanosis, rash Results Laboratory Results: 02/22/17 10:35 02/22/17 10:35 02/21/17 02/22/17 02/22/17 13:48 10:35 10:35 WBC 10.3 RBC 2.78 L Hgb 7.9 L Hct 23.7 L MCV 85 MCH 28.3 MCHC 33.1 RDW 18.3 H Plt Count 449 Sodium Cancelled Potassium Cancelled Chloride Cancelled Carbon Dioxide Cancelled Anion Gap Cancelled BUN Cancelled Creatinine Cancelled Est GFR ( Amer) Cancelled Est GFR (Non-Af Amer) Cancelled Glucose 139 H Cancelled Calcium Cancelled 02/02/17 02/02/17 02/03/17 20:18 20:18 04:35 Creatine Kinase 74 58 CK-MB (CK-2) 1.33 Troponin I < 0.012 02/03/17 02/03/17 02/03/17 04:35 12:21 12:21 Creatine Kinase 53 CK-MB (CK-2) 1.32 1.00 Troponin I < 0.012 < 0.012 Impressions: Abdomen Ultrasound 02/03/17 00:00 IMPRESSION: SMALL AMOUNT OF SLUDGE IN THE GALLBLADDER. NO OTHER SIGNIFICANT FINDINGS. THE SPLEEN IS NOT VISUALIZED DUE TO OVERLYING BOWEL GAS. Upper Extremity MRI 02/03/17 00:00 IMPRESSION: Subcutaneous edema along the dorsal proximal forearm ulcer with cellulitis. No bone marrow edema worrisome for osteomyelitis Edema is present in the deep antecubital fossa along the median cubital vein. Question thrombophlebitis. Adjacent brachialis and distal biceps muscle and tendon are intact. Abdomen/Pelvis CT 02/04/17 00:00 IMPRESSION: NO SIGNIFICANT OR ACUTE FINDING IN THE ABDOMEN OR PELVIS ON CT SCAN WITH IV CONTRAST. Chest CT 02/04/17 00:00 IMPRESSION: Extensive thoracic spondylosis. No acute abnormality in the thorax. Chest X-Ray 02/04/17 00:00 IMPRESSION: No evidence for pneumothorax. No acute consolidations or pleural effusions. Central line is identified extending superiorly presumably in the right internal jugular vein without its tip being identified Head CT 02/10/17:00 IMPRESSION: NORMAL BRAIN CT WITHOUT CONTRAST. LEFT MAXILLARY SINUS DISEASE. EVIDENCE OF ACUTE STROKE: NO. Thyroid Ultrasound 02/10/17 00:00 IMPRESSION: NORMAL THYROID ULTRASOUND. NO FOCAL MASSES. Assessment & Plan - Diagnosis (1) Hypercalcemia due to hyperthyroidism Is this a current diagnosis for this admission?: Yes Plan: Thyroid US within normal and no focal masses Work up with no M-spike and serum immunofixation without abnormal patterns Continue Sensipar and Ca level has been improving She will benefit from endocrine evaluation outpatient (2) Encephalopathy Is this a current diagnosis for this admission?: Yes Plan: Resolved (3) Hypoglycemia Is this a current diagnosis for this admission?: Yes Plan: Likely 2/2 poor PO intake She has been off all insulin regimen Continue to encourage PO intake and psych medications She did have insulin level done this admission and seems to be on the high side She may be benefited from endocrinology outpatient for further workup once medically optimized She is finally has agreed to PEG tube and surgery has been consulted Plan for later today (4) Ambulatory dysfunction Is this a current diagnosis for this admission?: Yes Plan: Fall risks Continue physical therapy At this time, disposition is unclear. I have told her that she does not want to return home with daughter and the other option would be going to a facility Will consult case management (5) Weight loss Is this a current diagnosis for this admission?: Yes Plan: Per the daughter 2 months ago, she has had EGD which was normal Continue Megace and finally having PEG insertion (6) Anemia of chronic disease Is this a current diagnosis for this admission?: Yes Plan: Continue to monitor hemoglobin, Hg 7.9 this am Continue PO iron Fe studies seems adequate (7) Depression Qualifiers: Depression Type: major depressive disorder Active/Remission status: currently active Is this a current diagnosis for this admission?: Yes Plan: Continue current regimen Plan to follow up with her primary psych once she is discharged I really think she will benefit from inpatient psych (8) Hyperkalemia Is this a current diagnosis for this admission?: Yes Plan: Mild and ? hemolysis Continue IV fluid and today labs still pending (9) Metabolic acidosis Is this a current diagnosis for this admission?: Yes Plan: Continue bicarb supplements Labs pending (10) Decubitus skin ulcer Is this a current diagnosis for this admission?: Yes Plan: Continue wound care Encourage good PO intake (11) Infected cyst of skin Is this a current diagnosis for this admission?: Yes Plan: Posterior neck and status post drainage Continue Clindamycin until 02/24/2017 May transition to p.o. per surgery recommendation on discharge (12) Hypernatremia Is this a current diagnosis for this admission?: Yes Plan: Change IVF from NS to D5W Am labs still pending Labs have tried multiple times - Time Time Spent with patient: 25-34 minutes Within: Other - home vs facility
[2017-02-22] MEDS: MIDAZOLAM 2 MG/2 ML INJ ONE ×2 (14:30→14:35)
[2017-02-22 14:43] LABS: ANION GAP 10 (5-19); BLOOD UREA NITROGEN 7 mg/dL (7-20); CARBON DIOXIDE 21 mmol/L (22-30); CHLORIDE 107 mmol/L (98-107); CREATININE RESULT 0.85 mg/dL (0.52-1.25); GLUCOSE 116 mg/dL (75-110); POTASSIUM 4.1 mmol/L (3.6-5.0)
--- NOTE | 2017-02-22 16:13 | OPERATIVE REPORT E ---
Operative Report NAME: IMANI WHITTAKER : 1950 AGE: 66Y DATE OF SURGERY: 02/22/2017 ROOM: 433 PREOPERATIVE DIAGNOSES: 1. INANITION. 2. DYSPHAGIA. POSTOPERATIVE DIAGNOSES: 1. INANITION. 2. DYSPHAGIA WITH ANTRITIS. OPERATION: 1. ESOPHAGOGASTRODUODENOSCOPY. 2. PERCUTANEOUS ENDOSCOPIC GASTROSTOMY. SURGEON: SHARATH BELLA M.D. ANESTHESIA: Conscious sedation. COMPLICATIONS: None. FINDINGS: See below. ESTIMATED BLOOD LOSS: Negligible. SUMMARY OF PROCEDURE: The patient brought from the floor to the Endoscopy Suite where she was placed in a semirecumbent position, mouthpiece inserted, monitoring devices inserted, breasts elevated and taped away from the abdominal wall. Surgical plan and surgical timeout were conducted. Of note, the patient as well as the patient's daughter provided informed consent for the planned procedure. Suitable level of conscious sedation was induced with 4 mg of Versed. Abdominal wall was exposed. The flexible upper endoscope was advanced through the oropharynx, down the esophagus into the stomach. There was no significant retained gastric contents, only a minimal amount of bile which was aspirated. There was no evidence of tumor, stricture or bleeding. The scope was advanced into the duodenum which was essentially unremarkable with regards to the first and second portions. The scope was withdrawn from the duodenum back through the pylorus. There was mild gastric antritis. A suitable site for placement of the PEG was identified in the patient's left upper quadrant of the abdominal wall. We created nice insufflation in the stomach and there was excellent depression from the abdominal wall through the anterior stomach wall. There was excellent translumination through the anterior abdominal wall as well. The skin was anesthetized at 1% plain lidocaine, bonnie made in the skin with a left blade, and the Gelco and wire were threaded through the anterior abdominal wall into the stomach. The wire was then retrieved with the upper endoscope and snare. The scope, snare and wire were all pulled out of the patient's oropharynx. We used the 24-English EndoVive [place] pullout tube and pushed it over the wire and brought the wire and tube up through the anterior abdominal wall. Skin marking was at approximately 6 cm. This was likely due to subcutaneous tracking of the feeding tube during insertion. We attached the appropriate bolstering devices and connectors. We then repeated the upper endoscope uneventfully and found the bolster to be in good position and rotated easily. Photos were taken. I felt that the phalange was not too tight on the patient's skin. The patient tolerated the procedure well. DICTATING PHYSICIAN: SHARATH BELLA M.D. [id number] PHY#: [id number] ID: [id number] JOB#: [id number] ACCT: [id number] cc:SHARATH BELLA M.D. > MTDD
[2017-02-22] MEDS: DOCUSATE SODIUM 100 MG CAPSULE PO SCH ×2 (17:16→18:47)
[2017-02-22] MEDS: FERROUS SULFATE 325 MG TABLET PO SCH ×2 (17:16→18:45)
[2017-02-22] MEDS: MEGESTROL ACETATE SUSP 400 MG/10 ML UDCUP PO SCH ×2 (17:16→18:47)
[2017-02-22] MEDS: CHOLECALCIFEROL (D3) 1,000 UNIT TABLET PO SCH (18:40)
[2017-02-22] MEDS: ASPIRIN 81 MG TABLET, ENT COATED PO SCH (18:40)
[2017-02-22] MEDS: TOPIRAMATE 100 MG TABLET PO SCH (18:42)
[2017-02-22] MEDS: METOPROLOL SUCCINATE 25 MG TAB.SR.24H PO SCH (18:43)
[2017-02-22] MEDS: SCOPOLAMINE HYDROBROMIDE 1.5 MG PATCH.TD72 TD SCH (18:44)
[2017-02-22] MEDS: NYSTATIN/DEXAMETH/DIPHEN SUSP 120 ML PO SCH ×2 (18:47→22:10)
[2017-02-22] MEDS: BUSPIRONE HCL 10 MG TABLET PO SCH ×2 (18:49→22:09)
[2017-02-22] MEDS: NYSTATIN TOPICAL POWDER 15 GM TP SCH (18:51)
[2017-02-22] MEDS: SODIUM BICARBONATE 650 MG TABLET PO SCH (22:09)
[2017-02-22] MEDS: ATORVASTATIN CALCIUM 40 MG TABLET PO SCH (22:09)
[2017-02-23] MEDS: CLINDAMYCIN 600 MG/D5W RTU 600 MG/50 ML RTUPB IV SCH ×5 (00:09→23:47)
[2017-02-23] MEDS: HEPARIN SOD (PORCINE) 5,000 UNIT/ML 1 ML SYRINGE SUBCUT SCH ×3 (06:04→21:30)
[2017-02-23] MEDS: DEXTROSE 5%-WATER 1000 ML 1,000 ML IV PRN ×2 (06:05→20:44)
[2017-02-23] MEDS: DEXTROSE 50%-WATER 25 GM/50 ML DISP.SYRIN IV PRN ×3 (07:06→17:13)
[2017-02-23 10:01] LABS: HEMATOCRIT 26.1 % (36.0-47.0); HEMOGLOBIN 8.6 g/dL (12.0-15.5); HGB HCT DIFFERENCE -0.3; MEAN CORPUSCULAR HGB CONC 32.8 g/dL (32.0-36.0); MEAN CORPUSCULAR VOLUME 86 fl (80-97); RED BLOOD COUNT 3.06 10^6/uL (3.72-5.28); RED CELL DISTRIBUTION WIDTH 18.6 % (11.5-14.0); WHITE BLOOD COUNT 11.7 10^3/uL (4.0-10.5)
[2017-02-23] MEDS: ACETAMINOPHEN 325 MG TABLET PO PRN (10:02)
[2017-02-23] MEDS: DIVALPROEX SODIUM 250 MG TABLET.DR PO SCH ×2 (10:03→21:30)
[2017-02-23] MEDS: BUSPIRONE HCL 10 MG TABLET PO SCH ×2 (10:04→21:31)
[2017-02-23] MEDS: SODIUM BICARBONATE 650 MG TABLET PO SCH ×2 (10:04→21:30)
[2017-02-23] MEDS: ASPIRIN 81 MG TABLET, ENT COATED PO SCH (10:04)
[2017-02-23] MEDS: CINACALCET HCL 30 MG TABLET PO SCH (10:04)
[2017-02-23] MEDS: FERROUS SULFATE 325 MG TABLET PO SCH ×2 (10:05→17:12)
[2017-02-23] MEDS: TOPIRAMATE 100 MG TABLET PO SCH (10:05)
[2017-02-23] MEDS: NYSTATIN/DEXAMETH/DIPHEN SUSP 120 ML PO SCH ×4 (10:06→21:31)
[2017-02-23] MEDS: CHOLECALCIFEROL (D3) 1,000 UNIT TABLET PO SCH (10:06)
[2017-02-23] MEDS: MEGESTROL ACETATE SUSP 400 MG/10 ML UDCUP PO SCH ×2 (10:06→17:13)
[2017-02-23] MEDS: DOCUSATE SODIUM 100 MG CAPSULE PO SCH ×2 (10:06→17:12)
[2017-02-23] MEDS: COLLAGENASE CLOSTRIDIUM HIST. OINT 30 GM TP SCH (10:07)
[2017-02-23] MEDS: NYSTATIN TOPICAL POWDER 15 GM TP SCH ×2 (10:08→17:13)
[2017-02-23 13:20] LABS: ALANINE AMINOTRANSFERASE 18 U/L (9-52); ALBUMIN 2.5 g/dL (3.5-5.0); ALKALINE PHOSPHATASE 22 U/L (38-126); ANION GAP 10 (5-19); ASPARTATE AMINO TRANSFERASE 14 U/L (14-36); BILIRUBIN,DIRECT 0.2 mg/dL (0.0-0.4); BILIRUBIN,TOTAL 0.2 mg/dL (0.2-1.3); BLOOD UREA NITROGEN 6 mg/dL (7-20); CALCIUM 9.8 mg/dL (8.4-10.2); CARBON DIOXIDE 18 mmol/L (22-30); CHLORIDE 107 mmol/L (98-107); CREATININE RESULT 0.83 mg/dL (0.52-1.25); GLUCOSE 236 mg/dL (75-110); POTASSIUM 4.4 mmol/L (3.6-5.0); SODIUM 135.1 mmol/L (137-145); TOTAL PROTEIN 4.6 g/dL (6.3-8.2)
--- NOTE | 2017-02-23 14:12 | PDOC PROGRESS REPORT ---
Subjective Progress Note for:: 02/23/17 Subjective:: Awake, reports doing a little better today. Had episode of hypoglycemia earlier , treated with D50. Currently on D5 normal saline. Still with poor oral intake. Denies abdominal pain, no nausea or vomiting at this time, no fever or chills. Physical Exam Vital Signs: Temp Pulse Resp BP Pulse Ox 98.0 F 85 17 123/50 L 100 02/23/17 11:34 02/23/17 11:34 02/23/17 11:34 02/23/17 11:34 02/23/17 11:34 Intake & Output 02/22/17 02/23/17 02/24/17 06:59 06:59 06:59 Intake Total 3975 2775 Output Total 2800 2600 Balance 1175 175 Exam: GENERAL: Well-developed, no acute distress HEENT: Oral mucosa moist CARDIOVASCULAR: RRR, normal S1-S2 LUNGS: CTA bilaterally ABDOMEN: Soft, NT, NL bowel sounds EXTREMITIES: No edema, clubbing, cyanosis NEUROLOGICAL: Alert, oriented x 3, patient with generalized weakness Results Laboratory Results: 02/23/17 06:30 02/23/17 12:40 02/22/17 02/23/17 02/23/17 13:58 06:30 12:40 WBC 11.7 H RBC 3.06 L Hgb 8.6 L Hct 26.1 L MCV 86 MCH 28.0 MCHC 32.8 RDW 18.6 H Plt Count 496 H Sodium 138.0 135.1 L Potassium 4.1 4.4 Chloride 107 107 Carbon Dioxide 21 L 18 L Anion Gap 10 10 BUN 7 6 L Creatinine 0.85 0.83 Est GFR ( Amer) > 60 > 60 Est GFR (Non-Af Amer) > 60 > 60 Glucose 116 H 236 H Calcium 10.0 9.8 Total Bilirubin 0.2 AST 14 ALT 18 Alkaline Phosphatase 22 L Total Protein 4.6 L Albumin 2.5 L 02/02/17 02/02/17 02/03/17 20:18 20:18 04:35 Creatine Kinase 74 58 CK-MB (CK-2) 1.33 Troponin I < 0.012 02/03/17 02/03/17 02/03/17 04:35 12:21 12:21 Creatine Kinase 53 CK-MB (CK-2) 1.32 1.00 Troponin I < 0.012 < 0.012 Impressions: Abdomen Ultrasound 02/03/17 00:00 IMPRESSION: SMALL AMOUNT OF SLUDGE IN THE GALLBLADDER. NO OTHER SIGNIFICANT FINDINGS. THE SPLEEN IS NOT VISUALIZED DUE TO OVERLYING BOWEL GAS. Upper Extremity MRI 02/03/17 00:00 IMPRESSION: Subcutaneous edema along the dorsal proximal forearm ulcer with cellulitis. No bone marrow edema worrisome for osteomyelitis Edema is present in the deep antecubital fossa along the median cubital vein. Question thrombophlebitis. Adjacent brachialis and distal biceps muscle and tendon are intact. Abdomen/Pelvis CT 02/04/17 00:00 IMPRESSION: NO SIGNIFICANT OR ACUTE FINDING IN THE ABDOMEN OR PELVIS ON CT SCAN WITH IV CONTRAST. Chest CT 02/04/17 00:00 IMPRESSION: Extensive thoracic spondylosis. No acute abnormality in the thorax. Chest X-Ray 02/04/17 00:00 IMPRESSION: No evidence for pneumothorax. No acute consolidations or pleural effusions. Central line is identified extending superiorly presumably in the right internal jugular vein without its tip being identified Head CT 02/10/17 00:00 IMPRESSION: NORMAL BRAIN CT WITHOUT CONTRAST. LEFT MAXILLARY SINUS DISEASE. EVIDENCE OF ACUTE STROKE: NO. Thyroid Ultrasound 02/10/17 00:00 IMPRESSION: NORMAL THYROID ULTRASOUND. NO FOCAL MASSES. Assessment & Plan - Plan Summary Plan Summary: Assessment/plan: (1) Hypercalcemia due to hyperthyroidism Is this a current diagnosis for this admission?: Yes Plan: Thyroid US within normal and no focal masses Work up with no M-spike and serum immunofixation without abnormal patterns Continue Sensipar; Ca level has been improving She will benefit from endocrine evaluation outpatient (2) Encephalopathy Is this a current diagnosis for this admission?: Yes Plan: Resolved (3) Hypoglycemia Is this a current diagnosis for this admission?: Yes Plan: Likely secondary to poor PO intake She has been off all insulin regimen She is status post PEG tube placement, but is currently not to use. Continue to encourage PO intake and psych medications She did have insulin level done this admission and seems to be on the high side She may be benefited from endocrinology outpatient for further workup once medically optimized (4) Ambulatory dysfunction Is this a current diagnosis for this admission?: Yes Plan: Fall risks Continue physical therapy At this time, disposition is unclear. Patient does not want to return home with daughter. Other option is placement. Case management following (5) Weight loss Is this a current diagnosis for this admission?: Yes Plan: Per the daughter 2 months ago, she has had EGD which was normal Continue Megace. Again, patient has a PEG tube and awaiting clearance to use it for feeding. (6) Anemia of chronic disease Is this a current diagnosis for this admission?: Yes Plan: Continue to monitor hemoglobin, follow-up CBC in a.m. Continue PO iron (7) Depression Qualifiers: Depression Type: major depressive disorder Active/Remission status: currently active Is this a current diagnosis for this admission?: Yes Plan: Continue current regimen Plan to follow up with her primary psych once she is discharged She may benefit from inpatient psych (8) Hyperkalemia Is this a current diagnosis for this admission?: Yes Plan: Resolved. Follow-up Chem-7 in a.m. (9) Metabolic acidosis Is this a current diagnosis for this admission?: Yes Plan: Continue bicarb supplements (10) Decubitus skin ulcer Is this a current diagnosis for this admission?: Yes Plan: Continue wound care Encourage good PO intake (11) Infected cyst of skin Is this a current diagnosis for this admission?: Yes Plan: Posterior neck and status post drainage Continue Clindamycin until 02/24/2017 May transition to p.o. per surgery recommendation on discharge (12) Hypernatremia Is this a current diagnosis for this admission?: Yes Plan: Continue IV fluid D5W, currently on 75 mL/h
[2017-02-23] MEDS: OXYCODONE-ACETAMINOPHEN 5-325 MG TABLET PO PRN ×2 (14:55→20:16)
[2017-02-23 15:14] LABS: HEMATOCRIT 25.1 % (36.0-47.0); HEMOGLOBIN 8.3 g/dL (12.0-15.5); HGB HCT DIFFERENCE -0.2; MEAN CORPUSCULAR HEMOGLOBIN 27.8 pg (27.0-33.4); MEAN CORPUSCULAR HGB CONC 32.9 g/dL (32.0-36.0); MEAN CORPUSCULAR VOLUME 85 fl (80-97); RED BLOOD COUNT 2.97 10^6/uL (3.72-5.28); RED CELL DISTRIBUTION WIDTH 18.2 % (11.5-14.0); WHITE BLOOD COUNT 11.7 10^3/uL (4.0-10.5)
[2017-02-23 15:36] LABS: ANION GAP 11 (5-19); BASOPHILS % (MANUAL) 0 % (0-2); BLOOD UREA NITROGEN 5 mg/dL (7-20); CALCIUM 9.9 mg/dL (8.4-10.2); CARBON DIOXIDE 20 mmol/L (22-30); CHLORIDE 108 mmol/L (98-107); CREATININE RESULT 0.85 mg/dL (0.52-1.25); EOSINOPHILS % (MANUAL) 2 % (0-6); GLUCOSE 88 mg/dL (75-110); LYMPHOCYTES % (MANUAL) 20 % (13-45); POTASSIUM 4.1 mmol/L (3.6-5.0); SODIUM 138.7 mmol/L (137-145); TOTAL CELLS COUNTED 100
[2017-02-23 15:38] LABS: ANISOCYTOSIS 1+; POIKILOCYTOSIS SLIGHT; TOXIC GRANULATION SLIGHT
--- NOTE | 2017-02-23 17:08 | OPERATIVE REPORT E ---
Operative Report NAME: IMANI WHITTAKER : 1950 AGE: 66Y DATE OF SURGERY: 02/23/2017 ROOM: 433 PREOPERATIVE DIAGNOSIS: Right greater trochanteric decubitus ulcer stage I-II. POSTOPERATIVE DIAGNOSIS: Right greater trochanteric decubitus ulcer stage I-II. PROCEDURE: Sharp debridement of 2.5 x 3 cm stage I-II ulcer along the right greater trochanteric area. SURGEON: MAHESH CLARK M.D. DESCRIPTION OF PROCEDURE: Patient was placed in a left lateral decubitus position with the right side up. The area around the right greater trochanteric area has an ulcer with necrotic skin stage I-II. This was then prepped and draped. Next, with use of scissors, sharp debridement was then performed of most of the necrotic tissue. The skin appears to be quite adherent to the underlying subcutaneous and no obvious evidence of abscess noted. Because of this, a full thickness debridement was not performed. Patient tolerated procedure well. DICTATING PHYSICIAN: MAHESH CLARK M.D. [id number] PHY#: [id number] ID: [id number] JOB#: [id number] ACCT: [id number] cc:MAHESH CLARK M.D. >
[2017-02-23] MEDS: METOPROLOL SUCCINATE 25 MG TAB.SR.24H PO SCH (17:12)
[2017-02-23] MEDS: ATORVASTATIN CALCIUM 40 MG TABLET PO SCH (21:30)
[2017-02-24] MEDS: OXYCODONE-ACETAMINOPHEN 5-325 MG TABLET PO PRN ×3 (05:28→21:49)
[2017-02-24] MEDS: HEPARIN SOD (PORCINE) 5,000 UNIT/ML 1 ML SYRINGE SUBCUT SCH ×3 (05:28→21:48)
[2017-02-24] MEDS: CLINDAMYCIN 600 MG/D5W RTU 600 MG/50 ML RTUPB IV SCH ×2 (05:28→12:55)
[2017-02-24 06:44] LABS: HEMATOCRIT 26.2 % (36.0-47.0); HEMOGLOBIN 8.4 g/dL (12.0-15.5); MEAN CORPUSCULAR HEMOGLOBIN 27.7 pg (27.0-33.4); MEAN CORPUSCULAR HGB CONC 32.3 g/dL (32.0-36.0); MEAN CORPUSCULAR VOLUME 86 fl (80-97); RED BLOOD COUNT 3.05 10^6/uL (3.72-5.28); RED CELL DISTRIBUTION WIDTH 19.1 % (11.5-14.0); WHITE BLOOD COUNT 10.8 10^3/uL (4.0-10.5)
[2017-02-24 07:15] LABS: ALANINE AMINOTRANSFERASE 24 U/L (9-52); ALBUMIN 2.7 g/dL (3.5-5.0); ALKALINE PHOSPHATASE 45 U/L (38-126); ANION GAP 12 (5-19); ASPARTATE AMINO TRANSFERASE 14 U/L (14-36); BILIRUBIN,DIRECT 0.2 mg/dL (0.0-0.4); BILIRUBIN,TOTAL 0.2 mg/dL (0.2-1.3); BLOOD UREA NITROGEN 7 mg/dL (7-20); CALCIUM 10.1 mg/dL (8.4-10.2); CARBON DIOXIDE 19 mmol/L (22-30); CHLORIDE 107 mmol/L (98-107); CREATININE RESULT 0.89 mg/dL (0.52-1.25); GLUCOSE 107 mg/dL (75-110); POTASSIUM 4.7 mmol/L (3.6-5.0); SODIUM 137.7 mmol/L (137-145)
[2017-02-24 07:21] LABS: BAND NEUTROPHILS % (MANUAL) 1 % (3-5); BASOPHILS % (MANUAL) 0 % (0-2); EOSINOPHILS % (MANUAL) 1 % (0-6); LYMPHOCYTES % (MANUAL) 22 % (13-45); TOTAL CELLS COUNTED 100
[2017-02-24 07:23] LABS: ANISOCYTOSIS 2+; HYPOCHROMASIA SLIGHT; OVALOCYTES 1+; PLATELET CLUMPS PRESENT; POIKILOCYTOSIS 1+; POLYCHROMASIA SLIGHT; SCHISTOCYTES SLIGHT; TOXIC GRANULATION SLIGHT; TOXIC VACUOLATION PRESENT
[2017-02-24] MEDS: NYSTATIN/DEXAMETH/DIPHEN SUSP 120 ML PO SCH ×4 (10:09→21:48)
[2017-02-24] MEDS: DIVALPROEX SODIUM 250 MG TABLET.DR PO SCH ×2 (10:09→21:47)
[2017-02-24] MEDS: CINACALCET HCL 30 MG TABLET PO SCH (10:09)
[2017-02-24] MEDS: ASPIRIN 81 MG TABLET, ENT COATED PO SCH (10:10)
[2017-02-24] MEDS: BUSPIRONE HCL 10 MG TABLET PO SCH ×2 (10:10→21:45)
[2017-02-24] MEDS: MEGESTROL ACETATE SUSP 400 MG/10 ML UDCUP PO SCH ×2 (10:10→17:55)
[2017-02-24] MEDS: FERROUS SULFATE 325 MG TABLET PO SCH ×2 (10:10→17:52)
[2017-02-24] MEDS: DOCUSATE SODIUM 100 MG CAPSULE PO SCH ×2 (10:10→17:52)
[2017-02-24] MEDS: ACETAMINOPHEN 325 MG TABLET PO PRN (10:11)
[2017-02-24] MEDS: SODIUM BICARBONATE 650 MG TABLET PO SCH ×2 (10:11→21:48)
[2017-02-24] MEDS: TOPIRAMATE 100 MG TABLET PO SCH (10:11)
[2017-02-24] MEDS: CHOLECALCIFEROL (D3) 1,000 UNIT TABLET PO SCH (10:11)
[2017-02-24] MEDS: NYSTATIN TOPICAL POWDER 15 GM TP SCH ×2 (10:11→17:55)
[2017-02-24] MEDS: COLLAGENASE CLOSTRIDIUM HIST. OINT 30 GM TP SCH (10:12)
[2017-02-24 12:08] LABS: PATH REVIEW PATHOLOGIST REVIEWED
--- NOTE | 2017-02-24 14:26 | PDOC PROGRESS REPORT ---
Subjective Progress Note for:: 02/24/17 Subjective:: Follow-up visit for patient with hypercalcemia dehydration altered mental status. The patient is a 66-year-old -[place] lady with history of obesity diabetes hypertension depression and anxiety disorder that was admitted on February 03, [id number] with altered mental status. Prior to admission she had been having increasing confusion and recurrent falls as well as significant weight loss. On presentation she was noted to have hypercalcemia as well as wounds on her right sacrum and right hip with evidence of cellulitis the wound culture grew MRSA for which she has completed antibiotics blood cultures grew staph epidermidis as well as staph capitis. Workup for her hypercalcemia revealed primary hyperparathyroidism with no M-spike. Serum immunofixation was normal. She was started on Sensipar and will be evaluated by ammonia operator as outpatient. She also had a colonoscopy as part of her workup which revealed diverticulosis and internal hemorrhoids. Colonic biopsy has been negative for malignancy. Due to her significantly reduced oral intake as well as depression the patient had a PEG tube placed and has been started on tube feeding with Glucerna. She is status post excision debridement of a decubitus ulcer stage I- II of the right greater trochanter (02/23/17) Overnight events noted. Patient continues to have little oral intake but has Glucerna running via PEG tube. Daughter is present in her room. Patient denies chest pain shortness of breath fevers chills diarrhea. She does complain of some mild epigastric pain around the PEG tube incision site. The patient informs me that she is willing to be discharged home eventually with her daughter Physical Exam Vital Signs: Temp Pulse Resp BP Pulse Ox 97.9 F 82 16 110/78 100 02/24/17 11:33 02/24/17 11:33 02/24/17 11:33 02/24/17 11:33 02/24/17 08:50 Intake & Output 02/23/17 02/24/17 02/25/17 06:59 06:59 06:59 Intake Total 2775 1583 Output Total 2600 1500 Balance 175 83 General appearance: PRESENT: no acute distress, cooperative, obese Head exam: PRESENT: atraumatic, normocephalic Respiratory exam: PRESENT: clear to auscultation christy, decreased breath sounds, symmetrical, unlabored Cardiovascular exam: PRESENT: RRR, +S1, +S2 GI/Abdominal exam: PRESENT: normal bowel sounds, soft, other - PEG tube site noted: mild tenderness around site Neurological exam: PRESENT: alert, awake, oriented to person, oriented to place , oriented to time, oriented to situation Psychiatric exam: PRESENT: anxious Skin exam: PRESENT: other - Dressing over sacral decu ulcer noted Results Laboratory Results: 02/24/17 05:52 02/24/17 05:52 02/23/17 02/23/17 02/24/17 15:00 15:00 05:52 WBC 11.7 H RBC 2.97 L Hgb 8.3 L Hct 25.1 L MCV 85 MCH 27.8 MCHC 32.9 RDW 18.2 H Plt Count 458 H Seg Neutrophils % Not Reportable Lymphocytes % Not Reportable Monocytes % Not Reportable Eosinophils % Not Reportable Basophils % Not Reportable Absolute Neutrophils Not Reportable Absolute Lymphocytes Not Reportable Absolute Monocytes Not Reportable Absolute Eosinophils Not Reportable Absolute Basophils Not Reportable Sodium 138.7 137.7 Potassium 4.1 4.7 Chloride 108 H 107 Carbon Dioxide 20 L 19 L Anion Gap 11 12 BUN 5 L 7 Creatinine 0.85 0.89 Est GFR ( Amer) > 60 > 60 Est GFR (Non-Af Amer) > 60 > 60 Glucose 88 107 Calcium 9.9 10.1 Total Bilirubin 0.2 AST 14 ALT 24 Alkaline Phosphatase 45 Total Protein 5.0 L Albumin 2.7 L 02/24/17 05:52 WBC 10.8 H RBC 3.05 L Hgb 8.4 L Hct 26.2 L MCV 86 MCH 27.7 MCHC 32.3 RDW 19.1 H Plt Count 449 Seg Neutrophils % Not Reportable Lymphocytes % Not Reportable Monocytes % Not Reportable Eosinophils % Not Reportable Basophils % Not Reportable Absolute Neutrophils Not Reportable Absolute Lymphocytes Not Reportable Absolute Monocytes Not Reportable Absolute Eosinophils Not Reportable Absolute Basophils Not Reportable Sodium Potassium Chloride Carbon Dioxide Anion Gap BUN Creatinine Est GFR ( Amer) Est GFR (Non-Af Amer) Glucose Calcium Total Bilirubin AST ALT Alkaline Phosphatase Total Protein Albumin 02/02/17 02/02/17 02/03/17 20:18 20:18 04:35 Creatine Kinase 74 58 CK-MB (CK-2) 1.33 Troponin I < 0.012 02/03/17 02/03/17 02/03/17 04:35 12:21 12:21 Creatine Kinase 53 CK-MB (CK-2) 1.32 1.00 Troponin I < 0.012 < 0.012 Impressions: Abdomen Ultrasound 02/03/17 00:00 IMPRESSION: SMALL AMOUNT OF SLUDGE IN THE GALLBLADDER. NO OTHER SIGNIFICANT FINDINGS. THE SPLEEN IS NOT VISUALIZED DUE TO OVERLYING BOWEL GAS. Upper Extremity MRI 02/03/17 00:00 IMPRESSION: Subcutaneous edema along the dorsal proximal forearm ulcer with cellulitis. No bone marrow edema worrisome for osteomyelitis Edema is present in the deep antecubital fossa along the median cubital vein. Question thrombophlebitis. Adjacent brachialis and distal biceps muscle and tendon are intact. Abdomen/Pelvis CT 02/04/17 00:00 IMPRESSION: NO SIGNIFICANT OR ACUTE FINDING IN THE ABDOMEN OR PELVIS ON CT SCAN WITH IV CONTRAST. Chest CT 02/04/17 00:00 IMPRESSION: Extensive thoracic spondylosis. No acute abnormality in the thorax. Chest X-Ray 02/04/17 00:00 IMPRESSION: No evidence for pneumothorax. No acute consolidations or pleural effusions. Central line is identified extending superiorly presumably in the right internal jugular vein without its tip being identified Head CT 02/10/17 00:00 IMPRESSION: NORMAL BRAIN CT WITHOUT CONTRAST. LEFT MAXILLARY SINUS DISEASE. EVIDENCE OF ACUTE STROKE: NO. Thyroid Ultrasound 02/10/17 00:00 IMPRESSION: NORMAL THYROID ULTRASOUND. NO FOCAL MASSES. Assessment & Plan - Diagnosis (1) Hypercalcemia due to hyperthyroidism Is this a current diagnosis for this admission?: Yes Plan: Thyroid ultrasound within normal limits and no focal masses noted. Workup revealed no M spike and serum immunofixation without abnormal patterns. Continue Sensipar and monitor calcium levels (2) Ambulatory dysfunction Is this a current diagnosis for this admission?: Yes Plan: Ambulatory dysfunction with significant for fall risk. She uses a walker. Continue physical therapy treatment. Discharge planning as per the case management (3) Encephalopathy Is this a current diagnosis for this admission?: Yes Plan: Significantly improved (4) Hypernatremia Is this a current diagnosis for this admission?: Yes Plan: Improved (5) Hypoglycemia Is this a current diagnosis for this admission?: Yes Plan: With significant weight loss due to possible oral intake. The patient has been off all insulin regimen. Hypoglycemia has resolved after being started on tube feeding with Glucerna via PEG tube (6) Infected cyst of right shoulder Is this a current diagnosis for this admission?: Yes Plan: Status post drainage. Continue oral antibiotics as ordered (7) Metabolic acidosis Is this a current diagnosis for this admission?: Yes Plan: Improving on bicarbonate supplements (8) Anemia Qualifiers: Anemia type: unspecified type Qualified Code(s): D64.9 - Anemia, unspecified Plan: No indication for packed red blood cell transfusion. Continue to monitor H&H - Time Time Spent with patient: 25-34 minutes Medications reviewed and adjusted accordingly: Yes Anticipated discharge: Home with Homehealth Within: within 36 hours - Inpatient Certification Medical Necessity: Risk of Complication if Not Cared For in Hospital
[2017-02-24] MEDS: METOPROLOL SUCCINATE 25 MG TAB.SR.24H PO SCH (17:52)
[2017-02-24] MEDS: CLINDAMYCIN HCL 150 MG CAPSULE PO SCH ×2 (17:52→23:02)
[2017-02-24] MEDS ORDERED: DIPHENHYDRAMINE HCL 25 MG CAPSULE PO PRN (18:35)
[2017-02-24] MEDS: ATORVASTATIN CALCIUM 40 MG TABLET PO SCH (21:45)
[2017-02-25] MEDS: DEXTROSE 5%-WATER 1000 ML 1,000 ML IV PRN (04:05)
[2017-02-25] MEDS: HEPARIN SOD (PORCINE) 5,000 UNIT/ML 1 ML SYRINGE SUBCUT SCH ×3 (05:40→22:48)
[2017-02-25] MEDS: CLINDAMYCIN HCL 150 MG CAPSULE PO SCH ×3 (05:41→17:43)
[2017-02-25 05:54] LABS: HEMATOCRIT 25.7 % (36.0-47.0); HEMOGLOBIN 8.2 g/dL (12.0-15.5); HGB HCT DIFFERENCE -1.1; MEAN CORPUSCULAR HEMOGLOBIN 27.1 pg (27.0-33.4); MEAN CORPUSCULAR HGB CONC 31.8 g/dL (32.0-36.0); MEAN CORPUSCULAR VOLUME 85 fl (80-97); RED BLOOD COUNT 3.02 10^6/uL (3.72-5.28); RED CELL DISTRIBUTION WIDTH 19.3 % (11.5-14.0); WHITE BLOOD COUNT 13.1 10^3/uL (4.0-10.5)
[2017-02-25 06:13] LABS: ANION GAP 12 (5-19); BLOOD UREA NITROGEN 12 mg/dL (7-20); CALCIUM 10.2 mg/dL (8.4-10.2); CARBON DIOXIDE 20 mmol/L (22-30); CHLORIDE 107 mmol/L (98-107); CREATININE RESULT 0.89 mg/dL (0.52-1.25); GLUCOSE 116 mg/dL (75-110); POTASSIUM 4.5 mmol/L (3.6-5.0); SODIUM 138.5 mmol/L (137-145)
[2017-02-25] MEDS: FERROUS SULFATE 325 MG TABLET PO SCH ×2 (10:29→17:33)
[2017-02-25] MEDS: TOPIRAMATE 100 MG TABLET PO SCH (10:29)
[2017-02-25] MEDS: ASPIRIN 81 MG TABLET, ENT COATED PO SCH (10:29)
[2017-02-25] MEDS: CHOLECALCIFEROL (D3) 1,000 UNIT TABLET PO SCH (10:29)
[2017-02-25] MEDS: SODIUM BICARBONATE 650 MG TABLET PO SCH ×2 (10:30→22:44)
[2017-02-25] MEDS: DIVALPROEX SODIUM 250 MG TABLET.DR PO SCH ×2 (10:30→22:48)
[2017-02-25] MEDS: SCOPOLAMINE HYDROBROMIDE 1.5 MG PATCH.TD72 TD SCH (10:31)
[2017-02-25] MEDS: NYSTATIN/DEXAMETH/DIPHEN SUSP 120 ML PO SCH ×4 (10:33→22:48)
[2017-02-25] MEDS: BUSPIRONE HCL 10 MG TABLET PO SCH ×2 (10:35→22:48)
[2017-02-25] MEDS: CINACALCET HCL 30 MG TABLET PO SCH (10:36)
[2017-02-25] MEDS: DOCUSATE SODIUM 100 MG CAPSULE PO SCH ×2 (10:38→17:31)
[2017-02-25] MEDS: MEGESTROL ACETATE SUSP 400 MG/10 ML UDCUP PO SCH ×2 (10:38→17:43)
[2017-02-25] MEDS: NYSTATIN TOPICAL POWDER 15 GM TP SCH ×2 (10:40→17:45)
[2017-02-25] MEDS: COLLAGENASE CLOSTRIDIUM HIST. OINT 30 GM TP SCH (10:40)
--- NOTE | 2017-02-25 12:36 | PDOC PROGRESS REPORT ---
Subjective Progress Note for:: 02/25/17 Subjective:: Follow-up visit for patient with hypercalcemia dehydration altered mental status. The patient is a 66-year-old -[place] lady with history of obesity diabetes hypertension depression and anxiety disorder that was admitted on February 03, [id number] with altered mental status. Prior to admission she had been having increasing confusion and recurrent falls as well as significant weight loss. On presentation she was noted to have hypercalcemia as well as wounds on her right sacrum and right hip with evidence of cellulitis the wound culture grew MRSA for which she has completed antibiotics blood cultures grew staph epidermidis as well as staph capitis. Workup for her hypercalcemia revealed primary hyperparathyroidism with no M-spike. Serum immunofixation was normal. She was started on Sensipar and will be evaluated by washing machine mechanic as outpatient. She also had a colonoscopy as part of her workup which revealed diverticulosis and internal hemorrhoids. Colonic biopsy has been negative for malignancy. Due to her significantly reduced oral intake as well as depression the patient had a PEG tube placed and has been started on tube feeding with Glucerna. She is status post excision debridement of a decubitus ulcer stage I- II of the right greater trochanter (02/23/17) Overnight events noted. Patient denies any significant complain except for some mild pain around the PEG tube incision site. She denies any nausea vomiting diarrhea, denies chest pain, shortness of breath. She has been afebrile. Patient continues to have little oral intake but has Glucerna running via PEG tube. The patient informs me that she is agreeable to being discharged home tomorrow morning with home health [RN, PT, OT, funeral home assistant] Physical Exam Vital Signs: Temp Pulse Resp BP Pulse Ox 98.3 F 86 16 128/72 H 100 02/25/17 00:00 02/25/17 00:00 02/25/17 00:00 02/25/17 00:00 02/25/17 00:00 Intake & Output 02/24/17 02/25/17 02/26/17 06:59 06:59 06:59 Intake Total 1583 4146 Output Total 1500 1600 Balance 83 2546 General appearance: PRESENT: no acute distress, cooperative, obese Head exam: PRESENT: atraumatic, normocephalic Eye exam: PRESENT: conjunctiva pink, EOMI Respiratory exam: PRESENT: clear to auscultation christy, symmetrical. ABSENT: accessory muscle use, chest wall tenderness, crackles, decreased breath sounds, prolonged expiratory phas, rales, retraction, rhonchi, stridor, tachypnea, unlabored, wheezes, other Cardiovascular exam: PRESENT: RRR, +S1, +S2. ABSENT: bradycardia, clicks, diastolic murmur, gallop, irregular rhythm, rubs, systolic murmur, tachycardia, other GI/Abdominal exam: PRESENT: normal bowel sounds, soft, other - PEG tube site noted, mild tenderness around the insertion site. ABSENT: ascites, diminished bowel sounds, distended, firm, guarding, hernia, hyperactive bowel sounds, hypoactive bowel sounds, mass, Dupree's sign, organolmegaly, rebound, rigid, tenderness Extremities exam: PRESENT: full ROM. ABSENT: calf tenderness, clubbing, joint swelling, pedal edema, tenderness, +1 edema, +2 edema, other Neurological exam: PRESENT: alert, awake, oriented to person, oriented to place , oriented to time, oriented to situation, reflexes normal Psychiatric exam: PRESENT: depressed Results Laboratory Results: 02/25/17 05:40 02/25/17 05:40 02/25/17 02/25/17 05:40 05:40 WBC 13.1 H RBC 3.02 L Hgb 8.2 L Hct 25.7 L MCV 85 MCH 27.1 MCHC 31.8 L RDW 19.3 H Plt Count 455 H Sodium 138.5 Potassium 4.5 Chloride 107 Carbon Dioxide 20 L Anion Gap 12 BUN 12 Creatinine 0.89 Est GFR ( Amer) > 60 Est GFR (Non-Af Amer) > 60 Glucose 116 H Calcium 10.2 02/20/17 10:37 Back - Abscess Gram Stain - Final 02/20/17 10:37 Back - Abscess Wound Culture - Final Peptostreptococcus Species Prevotella Species No Aerobic Organisms 02/02/17 02/02/17 02/03/17 20:18 20:18 04:35 Creatine Kinase 74 58 CK-MB (CK-2) 1.33 Troponin I < 0.012 02/03/17 02/03/17 02/03/17 04:35 12:21 12:21 Creatine Kinase 53 CK-MB (CK-2) 1.32 1.00 Troponin I < 0.012 < 0.012 Impressions: Abdomen Ultrasound 02/03/17 00:00 IMPRESSION: SMALL AMOUNT OF SLUDGE IN THE GALLBLADDER. NO OTHER SIGNIFICANT FINDINGS. THE SPLEEN IS NOT VISUALIZED DUE TO OVERLYING BOWEL GAS. Upper Extremity MRI 02/03/17 00:00 IMPRESSION: Subcutaneous edema along the dorsal proximal forearm ulcer with cellulitis. No bone marrow edema worrisome for osteomyelitis Edema is present in the deep antecubital fossa along the median cubital vein. Question thrombophlebitis. Adjacent brachialis and distal biceps muscle and tendon are intact. Abdomen/Pelvis CT 02/04/17 00:00 IMPRESSION: NO SIGNIFICANT OR ACUTE FINDING IN THE ABDOMEN OR PELVIS ON CT SCAN WITH IV CONTRAST. Chest CT 02/04/17:00 IMPRESSION: Extensive thoracic spondylosis. No acute abnormality in the thorax. Chest X-Ray 02/04/17 00: IMPRESSION: No evidence for pneumothorax. No acute consolidations or pleural effusions. Central line is identified extending superiorly presumably in the right internal jugular vein without its tip being identified Head CT 02/10/17 IMPRESSION: NORMAL BRAIN CT WITHOUT CONTRAST. LEFT MAXILLARY SINUS DISEASE. EVIDENCE OF ACUTE STROKE: NO. Thyroid Ultrasound 02/10/17 00:00 IMPRESSION: NORMAL THYROID ULTRASOUND. NO FOCAL MASSES. Assessment & Plan - Diagnosis (1) Hypercalcemia due to hyperthyroidism Is this a current diagnosis for this admission?: Yes Plan: Thyroid ultrasound within normal limits and no focal masses noted. Workup revealed no M spike and serum immunofixation without abnormal patterns. Continue Sensipar and monitor calcium levels. Outpatient follow-up with endocrinology (2) Ambulatory dysfunction Is this a current diagnosis for this admission?: Yes Plan: Ambulatory dysfunction with significant for fall risk. She uses a walker. Continue physical therapy treatment. Plan to discharge home tomorrow morning with home health [RN, PT, OT, funeral home assistant] (3) Infected cyst of right shoulder Is this a current diagnosis for this admission?: Yes Plan: Status post drainage. Continue oral ciprofloxacin as ordered. [Triple-lumen right femoral catheter will be discontinued today] (4) Hypoglycemia Is this a current diagnosis for this admission?: Yes Plan: With significant weight loss due to possible oral intake. The patient has been off all insulin regimen. Hypoglycemia has resolved after being started on tube feeding with Glucerna via PEG tube (5) Encephalopathy Is this a current diagnosis for this admission?: Yes Plan: Significantly improved (6) Hypernatremia Is this a current diagnosis for this admission?: Yes Plan: Improved (7) Metabolic acidosis Is this a current diagnosis for this admission?: Yes Plan: Improving on bicarbonate supplements (8) Anemia Qualifiers: Anemia type: unspecified type Qualified Code(s): D64.9 - Anemia, unspecified Plan: No indication for packed red blood cell transfusion. Continue to monitor H&H - Time Time Spent with patient: 35 or more minutes Medications reviewed and adjusted accordingly: Yes Anticipated discharge: Home with Homehealth Within: within 24 hours - Inpatient Certification Medical Necessity: Risk of Complication if Not Cared For in Hospital - Patient to be discharged home in a.m. with home health
[2017-02-25] MEDS: OXYCODONE-ACETAMINOPHEN 5-325 MG TABLET PO PRN (17:32)
[2017-02-25] MEDS: METOPROLOL SUCCINATE 25 MG TAB.SR.24H PO SCH (17:33)
[2017-02-25] MEDS: ATORVASTATIN CALCIUM 40 MG TABLET PO SCH (22:48)
[2017-02-26] MEDS: CLINDAMYCIN HCL 150 MG CAPSULE PO SCH ×4 (00:16→18:42)
[2017-02-26] MEDS: OXYCODONE-ACETAMINOPHEN 5-325 MG TABLET PO PRN (05:29)
[2017-02-26] MEDS: HEPARIN SOD (PORCINE) 5,000 UNIT/ML 1 ML SYRINGE SUBCUT SCH ×3 (05:29→23:22)
[2017-02-26 05:50] LABS: HEMATOCRIT 25.3 % (36.0-47.0); HEMOGLOBIN 8.1 g/dL (12.0-15.5); MEAN CORPUSCULAR HEMOGLOBIN 27.5 pg (27.0-33.4); MEAN CORPUSCULAR HGB CONC 32.1 g/dL (32.0-36.0); MEAN CORPUSCULAR VOLUME 86 fl (80-97); RED BLOOD COUNT 2.95 10^6/uL (3.72-5.28); RED CELL DISTRIBUTION WIDTH 19.9 % (11.5-14.0); WHITE BLOOD COUNT 14.2 10^3/uL (4.0-10.5)
[2017-02-26 06:01] LABS: ANION GAP 11 (5-19); BLOOD UREA NITROGEN 13 mg/dL (7-20); CALCIUM 11.1 mg/dL (8.4-10.2); CARBON DIOXIDE 22 mmol/L (22-30); CHLORIDE 105 mmol/L (98-107); CREATININE RESULT 0.89 mg/dL (0.52-1.25); GLUCOSE 146 mg/dL (75-110); MAGNESIUM 1.8 mg/dL (1.6-2.3); POTASSIUM 4.7 mmol/L (3.6-5.0); SODIUM 138.2 mmol/L (137-145)
[2017-02-26] MEDS: DEXTROSE 5%-WATER 1000 ML 1,000 ML IV PRN (06:52)
[2017-02-26] MEDS: ASPIRIN 81 MG TABLET, ENT COATED PO SCH (10:00)
[2017-02-26] MEDS: NYSTATIN/DEXAMETH/DIPHEN SUSP 120 ML PO SCH ×4 (10:00→23:24)
[2017-02-26] MEDS: FERROUS SULFATE 325 MG TABLET PO SCH ×2 (10:00→18:42)
[2017-02-26] MEDS: COLLAGENASE CLOSTRIDIUM HIST. OINT 30 GM TP SCH (10:00)
[2017-02-26] MEDS: SODIUM BICARBONATE 650 MG TABLET PO SCH (10:00)
[2017-02-26] MEDS: CHOLECALCIFEROL (D3) 1,000 UNIT TABLET PO SCH (10:01)
[2017-02-26] MEDS: BUSPIRONE HCL 10 MG TABLET PO SCH ×2 (10:01→23:23)
[2017-02-26] MEDS: TOPIRAMATE 100 MG TABLET PO SCH (10:01)
[2017-02-26] MEDS: DOCUSATE SODIUM 100 MG CAPSULE PO SCH ×2 (10:01→18:42)
[2017-02-26] MEDS: CINACALCET HCL 30 MG TABLET PO SCH (10:01)
[2017-02-26] MEDS: MEGESTROL ACETATE SUSP 400 MG/10 ML UDCUP PO SCH ×2 (10:02→18:42)
[2017-02-26] MEDS: DIVALPROEX SODIUM 250 MG TABLET.DR PO SCH ×2 (10:02→23:23)
[2017-02-26] MEDS: NYSTATIN TOPICAL POWDER 15 GM TP SCH ×2 (10:03→18:43)
[2017-02-26] MEDS: METOPROLOL SUCCINATE 25 MG TAB.SR.24H PO SCH (18:41)
[2017-02-26] MEDS: ATORVASTATIN CALCIUM 40 MG TABLET PO SCH (23:23)
[2017-02-27] MEDS: OXYCODONE-ACETAMINOPHEN 5-325 MG TABLET PO PRN ×2 (00:04→18:21)
[2017-02-27] MEDS: CLINDAMYCIN HCL 150 MG CAPSULE PO SCH ×4 (00:04→17:21)
[2017-02-27] MEDS: HEPARIN SOD (PORCINE) 5,000 UNIT/ML 1 ML SYRINGE SUBCUT SCH ×3 (06:09→22:05)
[2017-02-27 06:16] LABS: HEMATOCRIT 24.5 % (36.0-47.0); HEMOGLOBIN 8.1 g/dL (12.0-15.5); HGB HCT DIFFERENCE -0.2; MEAN CORPUSCULAR HEMOGLOBIN 28.3 pg (27.0-33.4); MEAN CORPUSCULAR VOLUME 86 fl (80-97); RED BLOOD COUNT 2.86 10^6/uL (3.72-5.28); RED CELL DISTRIBUTION WIDTH 20.2 % (11.5-14.0); WHITE BLOOD COUNT 13.9 10^3/uL (4.0-10.5)
[2017-02-27 06:51] LABS: ALANINE AMINOTRANSFERASE 26 U/L (9-52); ALBUMIN 2.6 g/dL (3.5-5.0); ALKALINE PHOSPHATASE 52 U/L (38-126); ANION GAP 10 (5-19); ASPARTATE AMINO TRANSFERASE 13 U/L (14-36); BILIRUBIN,DIRECT 0.2 mg/dL (0.0-0.4); BILIRUBIN,TOTAL 0.2 mg/dL (0.2-1.3); BLOOD UREA NITROGEN 20 mg/dL (7-20); CALCIUM 11.6 mg/dL (8.4-10.2); CARBON DIOXIDE 23 mmol/L (22-30); CHLORIDE 105 mmol/L (98-107); CREATININE RESULT 1.13 mg/dL (0.52-1.25); GLUCOSE 96 mg/dL (75-110); MAGNESIUM 1.9 mg/dL (1.6-2.3); POTASSIUM 5.1 mmol/L (3.6-5.0); SODIUM 137.5 mmol/L (137-145); TOTAL PROTEIN 5.2 g/dL (6.3-8.2)
[2017-02-27 07:08] LABS: BASOPHILS % (MANUAL) 0 % (0-2); EOSINOPHILS % (MANUAL) 0 % (0-6); LYMPHOCYTES % (MANUAL) 8 % (13-45); TOTAL CELLS COUNTED 100
[2017-02-27 07:11] LABS: ANISOCYTOSIS 2+; OVALOCYTES SLIGHT; POIKILOCYTOSIS SLIGHT; POLYCHROMASIA SLIGHT; TEAR DROP CELLS SLIGHT
[2017-02-27] MEDS: ASPIRIN 81 MG TABLET, ENT COATED PO SCH (09:33)
[2017-02-27] MEDS: FERROUS SULFATE 325 MG TABLET PO SCH ×2 (09:33→17:22)
[2017-02-27] MEDS: CHOLECALCIFEROL (D3) 1,000 UNIT TABLET PO SCH (09:33)
[2017-02-27] MEDS: DIVALPROEX SODIUM 250 MG TABLET.DR PO SCH ×2 (09:33→22:05)
[2017-02-27] MEDS: NYSTATIN/DEXAMETH/DIPHEN SUSP 120 ML PO SCH ×4 (09:33→21:49)
[2017-02-27] MEDS: CINACALCET HCL 30 MG TABLET PO SCH (09:33)
[2017-02-27] MEDS: COLLAGENASE CLOSTRIDIUM HIST. OINT 30 GM TP SCH (09:34)
[2017-02-27] MEDS: DOCUSATE SODIUM 100 MG CAPSULE PO SCH ×2 (09:34→17:22)
[2017-02-27] MEDS: MEGESTROL ACETATE SUSP 400 MG/10 ML UDCUP PO SCH ×2 (09:34→17:21)
[2017-02-27] MEDS: TOPIRAMATE 100 MG TABLET PO SCH (09:34)
[2017-02-27] MEDS: BUSPIRONE HCL 10 MG TABLET PO SCH ×2 (09:34→22:05)
[2017-02-27] MEDS: NYSTATIN TOPICAL POWDER 15 GM TP SCH ×2 (09:35→17:23)
[2017-02-27] MEDS ORDERED: OXYCODONE-ACETAMINOPHEN 5-325 MG TABLET ONE (10:15)
--- NOTE | 2017-02-27 12:43 | PDOC PROGRESS REPORT ---
Subjective Progress Note for:: 02/27/17 Subjective:: Follow-up visit for patient with hypercalcemia dehydration altered mental status. The patient is a 66-year-old -[place] lady with history of obesity diabetes hypertension depression and anxiety disorder that was admitted on February 03, 20002016 with altered mental status. Prior to admission she had been having increasing confusion and recurrent falls as well as significant weight loss. On presentation she was noted to have hypercalcemia as well as wounds on her right sacrum and right hip with evidence of cellulitis the wound culture grew MRSA for which she has completed antibiotics blood cultures grew staph epidermidis as well as staph capitis. Workup for her hypercalcemia revealed primary hyperparathyroidism with no M-spike. Serum immunofixation was normal. She was started on Sensipar and will be evaluated by environmental management specialist as outpatient. She also had a colonoscopy as part of her workup which revealed diverticulosis and internal hemorrhoids. Colonic biopsy has been negative for malignancy. Due to her significantly reduced oral intake as well as depression the patient had a PEG tube placed and has been started on tube feeding with Glucerna. She is status post excision debridement of a decubitus ulcer stage I- II of the right greater trochanter (02/23/17). Her triple-lumen right femoral catheter will be discontinued on 02/25/17. Ongoing discharge planning to home with home health. Overnight events noted: Her blood sugar was 78 this morning, after D5 water infusion was discontinued yesterday. Patient continues to complain of some abdominal pain around the PEG tube insertion site. She denies any nausea vomiting diarrhea, denies chest pain, shortness of breath. She has been afebrile. She would prefer to be discharged home on Wednesday. Per nursing report, there was some purulent drainage around the PEG tube incision site. This has been cleaned Physical Exam Vital Signs: Temp Pulse Resp BP Pulse Ox 97.5 F 79 12 109/43 L 99 02/27/17 08:00 02/27/17 08:00 02/27/17 08:00 02/27/17 08:00 02/27/17 08:00 Intake & Output 02/26/17 02/27/17 02/28/17 06:59 06:59 06:59 Intake Total 4019 5446 279 Output Total 9280 2400 Balance -71 -524 279 General appearance: PRESENT: no acute distress, cooperative, obese Head exam: PRESENT: atraumatic, normocephalic Respiratory exam: PRESENT: other - Bilateral breath sounds present. Scattered rhonchi. No wheezing, no rales Cardiovascular exam: PRESENT: other - S1-S2 present regular rate and rhythm, no murmurs rubs or gallops GI/Abdominal exam: PRESENT: other - Soft, nontender, nondistended, bowel sounds present. Mild erythema around PEG tube insertion site Results Laboratory Results: 02/27/17 06:00 02/27/17 06:00 02/27/17 02/27/17 06:00 06:00 WBC 13.9 H RBC 2.86 L Hgb 8.1 L Hct 24.5 L MCV 86 MCH 28.3 MCHC 33.0 RDW 20.2 H Plt Count 427 Seg Neutrophils % Not Reportable Lymphocytes % Not Reportable Monocytes % Not Reportable Eosinophils % Not Reportable Basophils % Not Reportable Absolute Neutrophils Not Reportable Absolute Lymphocytes Not Reportable Absolute Monocytes Not Reportable Absolute Eosinophils Not Reportable Absolute Basophils Not Reportable Sodium 137.5 Potassium 5.1 H Chloride 105 Carbon Dioxide 23 Anion Gap 10 BUN 20 Creatinine 1.13 Est GFR ( Amer) 59 L Est GFR (Non-Af Amer) 48 L Glucose 96 Calcium 11.6 H Magnesium 1.9 Total Bilirubin 0.2 AST 13 L ALT 26 Alkaline Phosphatase 52 Total Protein 5.2 L Albumin 2.6 L 02/02/17 02/02/17 02/03/17 20:18 20:18 04:35 Creatine Kinase 74 58 CK-MB (CK-2) 1.33 Troponin I < 0.012 02/03/17 02/03/17 02/03/17 04:35 12:21 12:21 Creatine Kinase 53 CK-MB (CK-2) 1.32 1.00 Troponin I < 0.012 < 0.012 Impressions: Abdomen Ultrasound 02/03/17 00:00 IMPRESSION: SMALL AMOUNT OF SLUDGE IN THE GALLBLADDER. NO OTHER SIGNIFICANT FINDINGS. THE SPLEEN IS NOT VISUALIZED DUE TO OVERLYING BOWEL GAS. Upper Extremity MRI 02/03/17 00:00 IMPRESSION: Subcutaneous edema along the dorsal proximal forearm ulcer with cellulitis. No bone marrow edema worrisome for osteomyelitis Edema is present in the deep antecubital fossa along the median cubital vein. Question thrombophlebitis. Adjacent brachialis and distal biceps muscle and tendon are intact. Abdomen/Pelvis CT 02/04/17 00:00 IMPRESSION: NO SIGNIFICANT OR ACUTE FINDING IN THE ABDOMEN OR PELVIS ON CT SCAN WITH IV CONTRAST. Chest CT 02/04/17 00 IMPRESSION: Extensive thoracic spondylosis. No acute abnormality in the thorax. Chest X-Ray 02/04/17:00 IMPRESSION: No evidence for pneumothorax. No acute consolidations or pleural effusions. Central line is identified extending superiorly presumably in the right internal jugular vein without its tip being identified Head CT 02/10/17 IMPRESSION: NORMAL BRAIN CT WITHOUT CONTRAST. LEFT MAXILLARY SINUS DISEASE. EVIDENCE OF ACUTE STROKE: NO. Thyroid Ultrasound 02/10/17 00:00 IMPRESSION: NORMAL THYROID ULTRASOUND. NO FOCAL MASSES. Assessment & Plan - Diagnosis (1) Hypercalcemia due to hyperthyroidism Is this a current diagnosis for this admission?: Yes Plan: Thyroid ultrasound within normal limits and no focal masses noted. Workup revealed no M spike and serum immunofixation without abnormal patterns. Calcium has been slowly trending back upwards and is currently 11.1. Continue Sensipar and monitor calcium levels. Outpatient follow-up with endocrinology (2) Ambulatory dysfunction Is this a current diagnosis for this admission?: Yes Plan: Ambulatory dysfunction likely due to generalised weakness with significant for fall risk. She uses a walker. Continue physical therapy treatment. Plan to discharge home with home health [RN, PT, OT, at home independent call center agent] (3) Infected cyst of right shoulder Is this a current diagnosis for this admission?: Yes Plan: Status post incision and drainage. Culture positive for MRSA. Afebrile with improving leukocytosis. Continue oral clindamycin as ordered. (4) Hypoglycemia Is this a current diagnosis for this admission?: Yes Plan: With significant weight loss due to possible oral intake. Hypoglycemia has resolved after being started on tube feeding with Glucerna via PEG tube. Continue at goal rate of 40cc/hr (5) Anemia Qualifiers: Anemia type: unspecified type Qualified Code(s): D64.9 - Anemia, unspecified Plan: No indication for packed red blood cell transfusion. Continue to monitor H&H (6) Encephalopathy Is this a current diagnosis for this admission?: Yes Plan: Significantly improved (7) Hypernatremia Is this a current diagnosis for this admission?: Yes Plan: Improved (8) Metabolic acidosis Is this a current diagnosis for this admission?: Yes Plan: Improving on bicarbonate supplements - Time Time Spent with patient: 35 or more minutes Anticipated discharge: Home with Homehealth - Inpatient Certification Medical Necessity: Risk of Complication if Not Cared For in Hospital - Plan Summary Plan Summary: Plan to discharge home on Wednesday, the patient's request.
[2017-02-27] MEDS: METOPROLOL SUCCINATE 25 MG TAB.SR.24H PO SCH (17:22)
[2017-02-27] MEDS: ATORVASTATIN CALCIUM 40 MG TABLET PO SCH (22:05)
[2017-02-28] MEDS: CLINDAMYCIN HCL 150 MG CAPSULE PO SCH ×4 (00:03→17:38)
[2017-02-28] MEDS: OXYCODONE-ACETAMINOPHEN 5-325 MG TABLET PO PRN ×3 (04:49→17:50)
[2017-02-28] MEDS: HEPARIN SOD (PORCINE) 5,000 UNIT/ML 1 ML SYRINGE SUBCUT SCH ×3 (04:49→22:32)
[2017-02-28 07:10] LABS: ANION GAP 11 (5-19); BLOOD UREA NITROGEN 25 mg/dL (7-20); CARBON DIOXIDE 24 mmol/L (22-30); CHLORIDE 104 mmol/L (98-107); CREATININE RESULT 1.16 mg/dL (0.52-1.25); GLUCOSE 70 mg/dL (75-110); POTASSIUM 5.2 mmol/L (3.6-5.0); SODIUM 139.2 mmol/L (137-145)
[2017-02-28 07:30] LABS: HEMATOCRIT 27.1 % (36.0-47.0); HEMOGLOBIN 8.7 g/dL (12.0-15.5); MEAN CORPUSCULAR HEMOGLOBIN 27.7 pg (27.0-33.4); MEAN CORPUSCULAR VOLUME 86 fl (80-97); RED BLOOD COUNT 3.14 10^6/uL (3.72-5.28); WHITE BLOOD COUNT 17.5 10^3/uL (4.0-10.5)
[2017-02-28] MEDS: NORMAL SALINE 1000 ML 1,000 ML IV PRN (09:16)
[2017-02-28] MEDS: DOCUSATE SODIUM 100 MG CAPSULE PO SCH ×2 (09:27→17:38)
[2017-02-28] MEDS: ASPIRIN 81 MG TABLET, ENT COATED PO SCH (09:28)
[2017-02-28] MEDS: DIVALPROEX SODIUM 250 MG TABLET.DR PO SCH ×2 (09:28→22:33)
[2017-02-28] MEDS: NYSTATIN/DEXAMETH/DIPHEN SUSP 120 ML PO SCH ×4 (09:28→22:32)
[2017-02-28] MEDS: BUSPIRONE HCL 10 MG TABLET PO SCH ×2 (09:28→22:33)
[2017-02-28] MEDS: CHOLECALCIFEROL (D3) 1,000 UNIT TABLET PO SCH (09:28)
[2017-02-28] MEDS: FERROUS SULFATE 325 MG TABLET PO SCH ×2 (09:29→17:38)
[2017-02-28] MEDS: MEGESTROL ACETATE SUSP 400 MG/10 ML UDCUP PO SCH ×2 (09:29→17:44)
[2017-02-28] MEDS: CINACALCET HCL 30 MG TABLET PO SCH (09:29)
[2017-02-28] MEDS: SCOPOLAMINE HYDROBROMIDE 1.5 MG PATCH.TD72 TD SCH (09:29)
[2017-02-28] MEDS: TOPIRAMATE 100 MG TABLET PO SCH (09:29)
[2017-02-28] MEDS: NYSTATIN TOPICAL POWDER 15 GM TP SCH (09:30)
[2017-02-28] MEDS: COLLAGENASE CLOSTRIDIUM HIST. OINT 30 GM TP SCH (09:30)
--- NOTE | 2017-02-28 14:05 | PDOC PROGRESS REPORT ---
Subjective Progress Note for:: 02/28/17 Subjective:: Follow-up visit for patient with hypercalcemia dehydration altered mental status. The patient is a 66-year-old -[place] lady with history of obesity diabetes hypertension depression and anxiety disorder that was admitted on February 03, 20002016 with altered mental status. Prior to admission she had been having increasing confusion and recurrent falls as well as significant weight loss. On presentation she was noted to have hypercalcemia as well as wounds on her right sacrum and right hip with evidence of cellulitis the wound culture grew MRSA for which she has completed antibiotics blood cultures grew staph epidermidis as well as staph capitis. Workup for her hypercalcemia revealed primary hyperparathyroidism with no M-spike. Serum immunofixation was normal. She was started on Sensipar and will be evaluated by cake press operator helper as outpatient. She also had a colonoscopy as part of her workup which revealed diverticulosis and internal hemorrhoids. Colonic biopsy has been negative for malignancy. Due to her significantly reduced oral intake as well as depression the patient had a PEG tube placed and has been started on tube feeding with Glucerna. She is status post excision debridement of a decubitus ulcer stage I- II of the right greater trochanter (02/23/17). Her triple-lumen right femoral catheter will be discontinued on 02/25/17. Ongoing discharge planning to home with home health. Overnight events noted: Triple-lumen catheter was discontinued yesterday. Blood sugars continues to be low normal. She has Glucerna running via PEG tube. She denies any nausea vomiting diarrhea, denies chest pain, shortness of breath. She has been afebrile. Per nursing report, there was some purulent drainage around the PEG tube incision site. Patient states that she wants to be discharged home soon Physical Exam Vital Signs: Temp Pulse Resp BP Pulse Ox 98.4 F 81 18 122/39 L 100 02/28/17 11:49 02/28/17 11:49 02/28/17 11:49 02/28/17 11:49 02/28/17 11:49 Intake & Output 02/27/17 02/28/17 03/01/17 06:59 06:59 06:59 Intake Total 1876 2022 30 Output Total 2400 800 Balance -524 1222 30 General appearance: PRESENT: no acute distress, cooperative, obese Head exam: PRESENT: atraumatic, normocephalic Eye exam: PRESENT: conjunctiva pink, EOMI Respiratory exam: PRESENT: decreased breath sounds, rhonchi, unlabored Cardiovascular exam: PRESENT: RRR, +S1, +S2 GI/Abdominal exam: PRESENT: normal bowel sounds, soft, other - PEG tube in place , mild erythema around insertion site. Neurological exam: PRESENT: alert, awake, oriented to person, oriented to place , oriented to time, oriented to situation, reflexes normal, CN II-XII grossly intact Psychiatric exam: PRESENT: depressed Results Laboratory Results: 02/28/17 06:14 02/28/17 06:14 02/28/17 02/28/17 06:14 06:14 WBC 17.5 H RBC 3.14 L Hgb 8.7 L Hct 27.1 L MCV 86 MCH 27.7 MCHC 32.0 RDW 20.0 H Plt Count 275 Sodium 139.2 Potassium 5.2 H Chloride 104 Carbon Dioxide 24 Anion Gap 11 BUN 25 H Creatinine 1.16 Est GFR ( Amer) 57 L Est GFR (Non-Af Amer) 47 L Glucose 70 L Calcium 12.0 H* 02/02/17 02/02/17 02/03/17 20:18 20:18 04:35 Creatine Kinase 74 58 CK-MB (CK-2) 1.33 Troponin I < 0.012 02/03/17 02/03/17 02/03/17 04:35 12:21 12:21 Creatine Kinase 53 CK-MB (CK-2) 1.32 1.00 Troponin I < 0.012 < 0.012 Impressions: Abdomen Ultrasound 02/03/17 00:00 IMPRESSION: SMALL AMOUNT OF SLUDGE IN THE GALLBLADDER. NO OTHER SIGNIFICANT FINDINGS. THE SPLEEN IS NOT VISUALIZED DUE TO OVERLYING BOWEL GAS. Upper Extremity MRI 02/03/17 00:00 IMPRESSION: Subcutaneous edema along the dorsal proximal forearm ulcer with cellulitis. No bone marrow edema worrisome for osteomyelitis Edema is present in the deep antecubital fossa along the median cubital vein. Question thrombophlebitis. Adjacent brachialis and distal biceps muscle and tendon are intact. Abdomen/Pelvis CT 02/04/17 00:00 IMPRESSION: NO SIGNIFICANT OR ACUTE FINDING IN THE ABDOMEN OR PELVIS ON CT SCAN WITH IV CONTRAST. Chest CT 02/04/17 00:00 IMPRESSION: Extensive thoracic spondylosis. No acute abnormality in the thorax. Chest X-Ray 02/04/17 00:00 IMPRESSION: No evidence for pneumothorax. No acute consolidations or pleural effusions. Central line is identified extending superiorly presumably in the right internal jugular vein without its tip being identified Head CT 02/10/17 00:00 IMPRESSION: NORMAL BRAIN CT WITHOUT CONTRAST. LEFT MAXILLARY SINUS DISEASE. EVIDENCE OF ACUTE STROKE: NO. Thyroid Ultrasound 02/10/17 00:00 IMPRESSION: NORMAL THYROID ULTRASOUND. NO FOCAL MASSES. Status: Image reviewed by me Assessment & Plan - Diagnosis (1) Hypercalcemia due to hyperthyroidism Is this a current diagnosis for this admission?: Yes Plan: Thyroid ultrasound within normal limits and no focal masses noted. Workup revealed no M spike and serum immunofixation without abnormal patterns. Calcium has been slowly trending back upwards and is currently 12 (9.8). Continue Sensipar, restart IVFs and monitor calcium levels. Outpatient follow-up with endocrinology (2) Ambulatory dysfunction Is this a current diagnosis for this admission?: Yes Plan: Ambulatory dysfunction likely due to generalised weakness with significant for fall risk. She uses a walker. Continue physical therapy treatment. Plan to discharge home with home health [RN, PT, OT, echometer engineer] (3) Infected cyst of right shoulder Is this a current diagnosis for this admission?: Yes Plan: Status post incision and drainage. Culture positive for MRSA. Afebrile with leukocytosis. Continue oral clindamycin as ordered. (4) Leukocytosis Qualifiers: Leukocytosis type: bandemia Qualified Code(s): D72.825 - Bandemia Plan: Worsening leukocytosis. WBC 17.5 [9.8]. Has been afebrile. Femoral triple lumen catheter was discontinued yesterday. Follow urinalysis, chest x-ray. Will monitor (5) Hypoglycemia Is this a current diagnosis for this admission?: Yes Plan: With significant weight loss due to possible oral intake. Hypoglycemia has resolved after being started on tube feeding with Glucerna via PEG tube. Increased tube feeding to goal rate of 65cc/hr (6) Anemia Qualifiers: Anemia type: unspecified type Qualified Code(s): D64.9 - Anemia, unspecified Plan: No indication for packed red blood cell transfusion. Hb 8.7. Continue to monitor H&H (7) Encephalopathy Is this a current diagnosis for this admission?: Yes Plan: Metabolic. Significantly improved (8) Hypernatremia Is this a current diagnosis for this admission?: Yes Plan: Improved (9) Metabolic acidosis Is this a current diagnosis for this admission?: Yes Plan: Improving on bicarbonate supplements - Time Anticipated discharge: Home with Homehealth Within: within 48 hours - Inpatient Certification Medical Necessity: Need For IV Fluids, Risk of Complication if Not Cared For in Hospital - Plan Summary Plan Summary: We will maintain hospitalized. Workup worsening leukocytosis, and continued treatment for hypercalcemia
--- NOTE | 2017-02-28 14:52 | RADIOLOGY REPORT (SQ) ---
EXAM DESCRIPTION: CHEST SINGLE VIEW COMPLETED DATE/TIME: 02/28/2017 2:34 pm REASON FOR STUDY: SOB R/O PNA COMPARISON: 02/04/2017. EXAM PARAMETERS: NUMBER OF VIEWS: One view. TECHNIQUE: Single frontal radiographic view of the chest acquired. RADIATION DOSE: NA LIMITATIONS: None. FINDINGS: LUNGS AND PLEURA: No opacities, masses or pneumothorax. No pleural effusion. MEDIASTINUM AND HILAR STRUCTURES: No masses. Contour normal. HEART AND VASCULAR STRUCTURES: Heart normal in size. Normal vasculature. BONES: No acute findings. Degenerative changes in the spine. HARDWARE: Hardware in the cervical spine. OTHER: No other significant finding. IMPRESSION: NO ACUTE RADIOGRAPHIC FINDING IN THE CHEST. TECHNICAL DOCUMENTATION: JOB ID: [id number] [employer]- All Rights Reserved
[2017-02-28 14:55] LABS: HEMATOCRIT 27.5 % (36.0-47.0); HEMOGLOBIN 8.9 g/dL (12.0-15.5); HGB HCT DIFFERENCE -0.8; MEAN CORPUSCULAR HEMOGLOBIN 28.1 pg (27.0-33.4); MEAN CORPUSCULAR HGB CONC 32.3 g/dL (32.0-36.0); MEAN CORPUSCULAR VOLUME 87 fl (80-97); RED BLOOD COUNT 3.16 10^6/uL (3.72-5.28); RED CELL DISTRIBUTION WIDTH 19.8 % (11.5-14.0); WHITE BLOOD COUNT 12.1 10^3/uL (4.0-10.5)
[2017-02-28] MEDS: DEXTROSE 40% GEL 15 GM TUBE PO PRN (16:31)
[2017-02-28] MEDS: DEXTROSE 50%-WATER 25 GM/50 ML DISP.SYRIN IV PRN (16:54)
[2017-02-28] MEDS: METOPROLOL SUCCINATE 25 MG TAB.SR.24H PO SCH (17:39)
[2017-02-28] MEDS: ATORVASTATIN CALCIUM 40 MG TABLET PO SCH (22:32)
[2017-03-01] MEDS: CLINDAMYCIN HCL 150 MG CAPSULE PO SCH ×5 (00:36→22:53)
[2017-03-01] MEDS: NORMAL SALINE 1000 ML 1,000 ML IV PRN (00:36)
[2017-03-01] MEDS: HEPARIN SOD (PORCINE) 5,000 UNIT/ML 1 ML SYRINGE SUBCUT SCH ×3 (05:41→21:41)
[2017-03-01] MEDS: DEXTROSE 50%-WATER 25 GM/50 ML DISP.SYRIN IV PRN (07:00)
[2017-03-01] MEDS: ASPIRIN 81 MG TABLET, ENT COATED PO SCH (10:32)
[2017-03-01] MEDS: BUSPIRONE HCL 10 MG TABLET PO SCH ×2 (10:32→21:41)
[2017-03-01] MEDS: CINACALCET HCL 30 MG TABLET PO SCH (10:32)
[2017-03-01] MEDS: DIVALPROEX SODIUM 250 MG TABLET.DR PO SCH ×2 (10:32→21:41)
[2017-03-01] MEDS: MEGESTROL ACETATE SUSP 400 MG/10 ML UDCUP PO SCH ×2 (10:32→18:27)
[2017-03-01] MEDS: CHOLECALCIFEROL (D3) 1,000 UNIT TABLET PO SCH (10:32)
[2017-03-01] MEDS: NYSTATIN/DEXAMETH/DIPHEN SUSP 120 ML PO SCH ×4 (10:33→21:41)
[2017-03-01] MEDS: COLLAGENASE CLOSTRIDIUM HIST. OINT 30 GM TP SCH (10:33)
[2017-03-01] MEDS: FERROUS SULFATE 325 MG TABLET PO SCH ×2 (10:33→18:26)
[2017-03-01] MEDS: DOCUSATE SODIUM 100 MG CAPSULE PO SCH ×2 (10:33→18:26)
[2017-03-01] MEDS: TOPIRAMATE 100 MG TABLET PO SCH (10:33)
[2017-03-01] MEDS: OXYCODONE-ACETAMINOPHEN 5-325 MG TABLET PO PRN ×2 (14:25→22:52)
[2017-03-01 18:03] LABS: ANION GAP 11 (5-19); BLOOD UREA NITROGEN 21 mg/dL (7-20); CARBON DIOXIDE 20 mmol/L (22-30); CHLORIDE 112 mmol/L (98-107); CREATININE RESULT 1.05 mg/dL (0.52-1.25); GLUCOSE 92 mg/dL (75-110); POTASSIUM 5.7 mmol/L (3.6-5.0); SODIUM 142.8 mmol/L (137-145)
[2017-03-01] MEDS: METOPROLOL SUCCINATE 25 MG TAB.SR.24H PO SCH (18:07)
--- NOTE | 2017-03-01 18:07 | PDOC PROGRESS REPORT ---
Subjective Progress Note for:: 03/01/17 Subjective:: Follow-up visit for patient with hypercalcemia dehydration altered mental status. The patient is a 66-year-old -[place] lady with history of obesity diabetes hypertension depression and anxiety disorder that was admitted on February 03, 20002016 with altered mental status. Prior to admission she had been having increasing confusion and recurrent falls as well as significant weight loss. On presentation she was noted to have hypercalcemia as well as wounds on her right sacrum and right hip with evidence of cellulitis. The wound culture grew MRSA for which she has completed antibiotic therapy. Blood cultures grew staph epidermidis as well as staph capitis. Workup for her hypercalcemia revealed primary hyperparathyroidism with no M spike. Serum immunofixation was normal. She was started on Sensipar and will be evaluated by lasting machine operator bed as outpatient. She also had colonoscopy as part of her workup which revealed diverticulosis and internal hemorrhoids. Colonic biopsy has been negative for malignancy. Due to has significantly reduced oral intake as well as depression, the patient had a PEG tube placed and was started on tube feeding with Glucerna at goal rate of 55 cc/hr. additionally she is status post excision debridement of a decubitus ulcer, stage II, of the right greater trochanter on 02/23/2017. A right femoral triple-lumen catheter was was discontinued on 02/25/2017. At this point patient will be discharged home with home health [RN, PT, OT, home care manager, social work faculty member]. She will follow-up with her primary care physician, and will need an endocrinology referral Overnight events noted: Patient reports feeling better. She is anxious to be discharged home. She denies any nausea vomiting diarrhea, denies chest pain, shortness of breath. She has been afebrile. Discharge today was cancelled after her daughter says she wound able to get her home tonight and requested for the patient to be discharged in a.m. Physical Exam Vital Signs: Temp Pulse Resp BP Pulse Ox 98.9 F 93 18 113/84 100 03/01/17 12:00 03/01/17 12:00 03/01/17 12:00 03/01/17 12:00 03/01/17 12:00 Intake & Output 02/28/17 03/01/17 03/02/17 06:59 06:59 06:59 Intake Total 2021 1726 100 Output Total 800 900 100 Balance 1222 826 0 General appearance: PRESENT: no acute distress, cooperative, obese Head exam: PRESENT: atraumatic, normocephalic Eye exam: PRESENT: conjunctiva pink, EOMI Respiratory exam: PRESENT: clear to auscultation christy, symmetrical, unlabored Cardiovascular exam: PRESENT: RRR, +S1, +S2 GI/Abdominal exam: PRESENT: normal bowel sounds, soft, other - PEG tube site noted, mild erythema present. ABSENT: ascites, diminished bowel sounds, distended, firm, guarding, hernia, hyperactive bowel sounds, hypoactive bowel sounds, mass, Dupree's sign, organolmegaly, rebound, rigid, tenderness Neurological exam: PRESENT: alert, awake, oriented to person, oriented to place , oriented to time, oriented to situation, reflexes normal, CN II-XII grossly intact Results Laboratory Results: 02/28/17 14:47 02/02/17 02/02/17 02/03/17 20:18 20:18 04:35 Creatine Kinase 74 58 CK-MB (CK-2) 1.33 Troponin I < 0.012 02/03/17 02/03/17 02/03/17 04:35 12:21 12:21 Creatine Kinase 53 CK-MB (CK-2) 1.32 1.00 Troponin I < 0.012 < 0.012 Impressions: Abdomen Ultrasound 02/03/17 00:00 IMPRESSION: SMALL AMOUNT OF SLUDGE IN THE GALLBLADDER. NO OTHER SIGNIFICANT FINDINGS. THE SPLEEN IS NOT VISUALIZED DUE TO OVERLYING BOWEL GAS. Upper Extremity MRI 02/03/17 00:00 IMPRESSION: Subcutaneous edema along the dorsal proximal forearm ulcer with cellulitis. No bone marrow edema worrisome for osteomyelitis Edema is present in the deep antecubital fossa along the median cubital vein. Question thrombophlebitis. Adjacent brachialis and distal biceps muscle and tendon are intact. Abdomen/Pelvis CT 02/04/17 00:00 IMPRESSION: NO SIGNIFICANT OR ACUTE FINDING IN THE ABDOMEN OR PELVIS ON CT SCAN WITH IV CONTRAST. Chest CT 02/04/17 00:00 IMPRESSION: Extensive thoracic spondylosis. No acute abnormality in the thorax. Head CT 02/10/17 00:00 IMPRESSION: NORMAL BRAIN CT WITHOUT CONTRAST. LEFT MAXILLARY SINUS DISEASE. EVIDENCE OF ACUTE STROKE: NO. Thyroid Ultrasound 02/10/17 00:00 IMPRESSION: NORMAL THYROID ULTRASOUND. NO FOCAL MASSES. Chest X-Ray 02/28/17 00:00 IMPRESSION: NO ACUTE RADIOGRAPHIC FINDING IN THE CHEST. Assessment & Plan - Diagnosis (1) Hypercalcemia due to hyperthyroidism Is this a current diagnosis for this admission?: Yes Plan: Thyroid ultrasound within normal limits and no focal masses noted. Workup revealed no M spike and serum immunofixation without abnormal patterns. Calcium has been slowly trending back upwards and is currently 12 (9.8). Today's labs pending. continue Sensipar, restart IVFs and monitor calcium levels. Outpatient follow-up with endocrinology (2) Ambulatory dysfunction Is this a current diagnosis for this admission?: Yes (3) Infected cyst of right shoulder Is this a current diagnosis for this admission?: Yes Plan: Status post incision and drainage. Culture positive for MRSA. Afebrile with leukocytosis. Continue oral clindamycin as ordered. (4) Leukocytosis Qualifiers: Leukocytosis type: bandemia Qualified Code(s): D72.825 - Bandemia Plan: Resolving leukocytosis. WBC 12 [17.5][9.8]. Has been afebrile. Femoral triple lumen catheter was discontinued yesterday. Will monitor (5) Hypoglycemia Is this a current diagnosis for this admission?: Yes Plan: With significant weight loss due to possible oral intake. Hypoglycemia has resolved after being started on tube feeding with Glucerna via PEG tube. Increased tube feeding to goal rate of 65cc/hr. recommend not restarting Metformin upon discharge on until blood sugars have stabilized (6) Anemia Qualifiers: Anemia type: unspecified type Qualified Code(s): D64.9 - Anemia, unspecified Plan: No indication for packed red blood cell transfusion. Hb 8.7. Continue to monitor H&H (7) Encephalopathy Is this a current diagnosis for this admission?: Yes Plan: Metabolic. Significantly improved (8) Hypernatremia Is this a current diagnosis for this admission?: Yes Plan: Improved (9) Metabolic acidosis Is this a current diagnosis for this admission?: Yes Plan: Improving on bicarbonate supplements - Time Time Spent with patient: 35 or more minutes - Patient was originally supposed to be discharged this evening. Discharge today was cancelled after her daughter called to say she wound able to get her home tonight and requested for the patient to be discharged in a.m. Medications reviewed and adjusted accordingly: Yes Anticipated discharge: Home with Homehealth Within: within 24 hours - Inpatient Certification Medical Necessity: Other - Avoidable day Not safe for patient to be discharged home alone without support from daughter
[2017-03-01 18:11] LABS: CALCIUM 12.1 mg/dL (8.4-10.2)
[2017-03-01] MEDS ORDERED: SODIUM POLYSTYRENE SULFONATE 15 GM/60 ML PO ONE (18:22)
[2017-03-01] MEDS: ATORVASTATIN CALCIUM 40 MG TABLET PO SCH (21:41)
[2017-03-02] MEDS: CLINDAMYCIN HCL 150 MG CAPSULE PO SCH ×3 (05:39→18:06)
[2017-03-02] MEDS: HEPARIN SOD (PORCINE) 5,000 UNIT/ML 1 ML SYRINGE SUBCUT SCH ×3 (05:39→21:47)
[2017-03-02] MEDS: OXYCODONE-ACETAMINOPHEN 5-325 MG TABLET PO PRN ×2 (06:25→15:54)
[2017-03-02 06:50] LABS: ANION GAP 14 (5-19); BLOOD UREA NITROGEN 21 mg/dL (7-20); CALCIUM 11.2 mg/dL (8.4-10.2); CARBON DIOXIDE 20 mmol/L (22-30); CHLORIDE 108 mmol/L (98-107); CREATININE RESULT 1.01 mg/dL (0.52-1.25); GLUCOSE 115 mg/dL (75-110); POTASSIUM 5.1 mmol/L (3.6-5.0); SODIUM 141.7 mmol/L (137-145)
[2017-03-02] MEDS ORDERED: 1/2 NORMAL SALINE 1,000 ML IV PRN (08:45)
--- NOTE | 2017-03-02 10:11 | PDOC PROGRESS REPORT ---
Subjective Progress Note for:: 03/02/17 Subjective:: No specific complaints today. She was supposed to go home yesterday, but due to abnormal labs her discharge was postponed. In addition, her daughter was not able to pick her up yesterday either. Physical Exam Vital Signs: Temp Pulse Resp BP Pulse Ox 99.4 F 86 20 128/68 H 98 03/02/17 00:00 03/02/17 00:00 03/02/17 00:00 03/02/17 00:00 03/02/17 00:00 Intake & Output 03/01/17 03/02/17 03/03/17 06:59 06:59 06:59 Intake Total 1726 300 Output Total 900 800 Balance 826 -500 Weight 77.1 kg General appearance: PRESENT: no acute distress, cooperative, obese Head exam: PRESENT: atraumatic, normocephalic Eye exam: PRESENT: conjunctiva pink, EOMI, PERRLA. ABSENT: scleral icterus Teeth exam: PRESENT: edentulous Respiratory exam: PRESENT: clear to auscultation christy. ABSENT: rales, rhonchi, wheezes Cardiovascular exam: PRESENT: RRR. ABSENT: diastolic murmur, rubs, systolic murmur GI/Abdominal exam: PRESENT: normal bowel sounds, soft, other - Gastrostomy tube. ABSENT: distended, guarding, mass, organolmegaly, rebound, tenderness Musculoskeletal exam: PRESENT: normal inspection Neurological exam: PRESENT: alert, oriented to person, oriented to place, oriented to time, oriented to situation Psychiatric exam: PRESENT: appropriate affect, normal mood. ABSENT: homicidal ideation, suicidal ideation Results Laboratory Results: 02/28/17 14:47 03/02/17 05:35 03/01/17 03/02/17 16:05 05:35 Sodium 142.8 141.7 Potassium 5.7 H 5.1 H Chloride 112 H 108 H Carbon Dioxide 20 L 20 L Anion Gap 11 14 BUN 21 H 21 H Creatinine 1.05 1.01 Est GFR ( Amer) > 60 > 60 Est GFR (Non-Af Amer) 53 L 55 L Glucose 92 115 H Calcium 12.1 H* 11.2 H 02/02/17 02/02/17 02/03/17 20:18 20:18 04:35 Creatine Kinase 74 58 CK-MB (CK-2) 1.33 Troponin I < 0.012 02/03/17 02/03/17 02/03/17 04:35 12:21 12:21 Creatine Kinase 53 CK-MB (CK-2) 1.32 1.00 Troponin I < 0.012 < 0.012 Impressions: Abdomen Ultrasound 02/03/17 00:00 IMPRESSION: SMALL AMOUNT OF SLUDGE IN THE GALLBLADDER. NO OTHER SIGNIFICANT FINDINGS. THE SPLEEN IS NOT VISUALIZED DUE TO OVERLYING BOWEL GAS. Upper Extremity MRI 02/03/17 00:00 IMPRESSION: Subcutaneous edema along the dorsal proximal forearm ulcer with cellulitis. No bone marrow edema worrisome for osteomyelitis Edema is present in the deep antecubital fossa along the median cubital vein. Question thrombophlebitis. Adjacent brachialis and distal biceps muscle and tendon are intact. Abdomen/Pelvis CT 02/04/17 00:00 IMPRESSION: NO SIGNIFICANT OR ACUTE FINDING IN THE ABDOMEN OR PELVIS ON CT SCAN WITH IV CONTRAST. Chest CT 02/04/17 00:00 IMPRESSION: Extensive thoracic spondylosis. No acute abnormality in the thorax. Head CT 02/10/17 00:00 IMPRESSION: NORMAL BRAIN CT WITHOUT CONTRAST. LEFT MAXILLARY SINUS DISEASE. EVIDENCE OF ACUTE STROKE: NO. Thyroid Ultrasound 02/10/17 00:00 IMPRESSION: NORMAL THYROID ULTRASOUND. NO FOCAL MASSES. Chest X-Ray 02/28/17 00:00 IMPRESSION: NO ACUTE RADIOGRAPHIC FINDING IN THE CHEST. Assessment & Plan - Diagnosis (1) Hypercalcemia due to hyperthyroidism Is this a current diagnosis for this admission?: Yes Plan: Thyroid ultrasound within normal limits and no focal masses noted. Workup revealed no M spike. Serum immunofixation without abnormal patterns. Calcium had been slowly trending upward in the last 48 hours. It was 12.1 on 2016. It came down to 11.2 today, 03/02/2017. IV fluids were reordered yesterday, but not started because of lack of IV access. A PICC line was ordered. (2) Ambulatory dysfunction Is this a current diagnosis for this admission?: Yes Plan: She will require PT and OT at discharge. (3) Infected cyst of right shoulder Is this a current diagnosis for this admission?: Yes Plan: Status post incision and drainage. Culture was positive for MRSA. She is on clindamycin. (4) Hypoglycemia Is this a current diagnosis for this admission?: Yes Plan: She has experienced significant weight loss due to poor oral intake. Hypoglycemia has resolved after being started on tube feeding with Glucerna. Tube feeding goal rate of 65 cc/h. Recommend starting Metformin when/if blood sugars remain stable. (5) Anemia Qualifiers: Anemia type: unspecified type Qualified Code(s): D64.9 - Anemia, unspecified Is this a current diagnosis for this admission?: Yes Plan: Continue to monitor. Hemoglobin remains stable. (6) Encephalopathy Is this a current diagnosis for this admission?: Yes Plan: Significantly improved. (7) Hypernatremia Is this a current diagnosis for this admission?: Yes Plan: Resolved. (8) Metabolic acidosis Is this a current diagnosis for this admission?: Yes Plan: Improved on bicarbonate supplements. - Time Time Spent with patient: 25-34 minutes Medications reviewed and adjusted accordingly: Yes Anticipated discharge: Home with Homehealth Within: within 24 hours
--- NOTE | 2017-03-02 11:24 | RADIOLOGY REPORT (SQ) ---
EXAM DESCRIPTION: PICC INSERTION; FLUORO/CV PLACEMENT; U/S GUIDE FOR VASCULAR ACCESS COMPLETED DATE/TIME: 03/02/2017 11:13 am REASON FOR STUDY: iv access; IV ACCESS COMPARISON: AP chest 02/28/2017 FLUOROSCOPY TIME: 23 seconds 1 digital chest radiograph, 1 ultrasound image saved to PACS. TECHNIQUE: Fluoroscopic and ultrasound guided PICC placement. LIMITATIONS: None. PROCEDURE: After written consent and assessment were obtained, the patient was brought into the fluo roscopy room and place supine on the table. Ultrasound was used on the patient's left arm for PICC a ccess. The left arm was prepped and draped in a sterile fashion along with the ultrasound probe. The entry site was anesthetized with 2.5 mL of 1% lidocaine. A 21 gauge 7 cm needle was advanced through the skin and into the basilic vein under live ultrasound guidance. An ultrasound image was saved to PACS confirming access site. A .018 guide wire was then inserted through the needle and into the solomon ous system. The needle was the removed and an 11 blade scalpel was used to make a 1cm skin incision. A 5 fr peel-away sheath was advanced over the wire and into the venous system. A measurement was the n made using the existing wire and live fluoroscopic guidance. The wire was then removed and the trim med. The PICC was advanced through the peel-away sheath and into the venous system. The peel-away she ath was removed and the catheter was adhered to the patients arm with a stat lock. The catheter was t hen aspirated and flushed and a sterile bandage was placed over the access site. A fluoroscopic spot image was saved to PACS confirming the catheter tip within the superior vena cava. IMPRESSION: SUCCESSFUL PLACEMENT OF A 5 FR DUAL LUMEN 38 CM PICC IN THE LEFT BASILIC VEIN. COMMENT: Patient medication list reviewed: Yes- Quality ID# [id number]:Eligible professional attests to doc umenting in the medical record they obtained, updated, or reviewed the patient's current medications. . Quality ID 145: Final reports for procedures using fluoroscopy that document radiation exposure zonia aurora, or exposure time and number of fluorographic images (if radiation exposure indices are not avail able) Quality ID #76: The patient was prepped and draped using maximum sterile barrier technique including cap, mask, sterile gown, sterile gloves, a large sterile sheet, hand hygiene, and 2% Chlorhexidine fo r cutaneous antisepsis. When ultrasound is used, sterile ultrasound techniques are followed requiring sterile gel and sterile probes. TECHNICAL DOCUMENTATION: JOB ID: [id number] [employer]- All Rights Reserved
[2017-03-02] MEDS: NYSTATIN/DEXAMETH/DIPHEN SUSP 120 ML PO SCH ×4 (12:45→21:47)
[2017-03-02] MEDS: CHOLECALCIFEROL (D3) 1,000 UNIT TABLET PO SCH (12:46)
[2017-03-02] MEDS: DIVALPROEX SODIUM 250 MG TABLET.DR PO SCH ×2 (12:46→21:47)
[2017-03-02] MEDS: ASPIRIN 81 MG TABLET, ENT COATED PO SCH (12:46)
[2017-03-02] MEDS: CINACALCET HCL 30 MG TABLET PO SCH (12:46)
[2017-03-02] MEDS: DOCUSATE SODIUM 100 MG CAPSULE PO SCH ×2 (12:47→18:08)
[2017-03-02] MEDS: FERROUS SULFATE 325 MG TABLET PO SCH ×2 (12:48→18:06)
[2017-03-02] MEDS: BUSPIRONE HCL 10 MG TABLET PO SCH ×2 (12:49→21:47)
[2017-03-02] MEDS: TOPIRAMATE 100 MG TABLET PO SCH (12:49)
[2017-03-02] MEDS: MEGESTROL ACETATE SUSP 400 MG/10 ML UDCUP PO SCH ×2 (12:49→18:08)
[2017-03-02] MEDS: COLLAGENASE CLOSTRIDIUM HIST. OINT 30 GM TP SCH (12:50)
[2017-03-02] MEDS ORDERED: NORMAL SALINE 10 ML SDV (AFTER EACH USE) IV PRN (13:39)
[2017-03-02] MEDS: METOPROLOL SUCCINATE 25 MG TAB.SR.24H PO SCH (18:07)
[2017-03-02] MEDS: ATORVASTATIN CALCIUM 40 MG TABLET PO SCH (21:48)
[2017-03-02] MEDS: NORMAL SALINE 10 ML SDV (SCHEDULED) IV SCH (21:48)
[2017-03-03] MEDS: CLINDAMYCIN HCL 150 MG CAPSULE PO SCH ×3 (00:10→12:50)
[2017-03-03] MEDS: OXYCODONE-ACETAMINOPHEN 5-325 MG TABLET PO PRN (00:12)
[2017-03-03 01:25] VITALS: BP 122/78
[2017-03-03] MEDS: HEPARIN SOD (PORCINE) 5,000 UNIT/ML 1 ML SYRINGE SUBCUT SCH (05:24)
[2017-03-03 06:44] LABS: ANION GAP 11 (5-19); BLOOD UREA NITROGEN 19 mg/dL (7-20); CALCIUM 10.1 mg/dL (8.4-10.2); CARBON DIOXIDE 21 mmol/L (22-30); CHLORIDE 105 mmol/L (98-107); CREATININE RESULT 0.96 mg/dL (0.52-1.25); GLUCOSE 90 mg/dL (75-110); POTASSIUM 4.8 mmol/L (3.6-5.0); SODIUM 136.5 mmol/L (137-145)
[2017-03-03] MEDS: DOCUSATE SODIUM 100 MG CAPSULE PO SCH (10:18)
[2017-03-03] MEDS: CHOLECALCIFEROL (D3) 1,000 UNIT TABLET PO SCH (10:18)
[2017-03-03] MEDS: ASPIRIN 81 MG TABLET, ENT COATED PO SCH (10:18)
[2017-03-03] MEDS: FERROUS SULFATE 325 MG TABLET PO SCH (10:18)
[2017-03-03] MEDS: MEGESTROL ACETATE SUSP 400 MG/10 ML UDCUP PO SCH (10:18)
[2017-03-03] MEDS: TOPIRAMATE 100 MG TABLET PO SCH (10:18)
[2017-03-03] MEDS: CINACALCET HCL 30 MG TABLET PO SCH (10:19)
[2017-03-03] MEDS: BUSPIRONE HCL 10 MG TABLET PO SCH (10:19)
[2017-03-03] MEDS: SCOPOLAMINE HYDROBROMIDE 1.5 MG PATCH.TD72 TD SCH (10:19)
[2017-03-03] MEDS: NORMAL SALINE 10 ML SDV (SCHEDULED) IV SCH (10:20)
[2017-03-03] MEDS: COLLAGENASE CLOSTRIDIUM HIST. OINT 30 GM TP SCH (10:20)
[2017-03-03] MEDS: NYSTATIN/DEXAMETH/DIPHEN SUSP 120 ML PO SCH (10:21)
[2017-03-03] MEDS: DIVALPROEX SODIUM 250 MG TABLET.DR PO SCH (12:49)
--- NOTE | 2017-03-03 18:00 | PDOC DISCHARGE SUMMARY ---
General - Admit/Disc Date/PCP Admission Date/Primary Care Provider: 02/02/17 19:30 Discharge Date: 03/03/17 - Discharge Diagnosis (1) Hypercalcemia due to hyperthyroidism Is this a current diagnosis for this admission?: Yes (2) Ambulatory dysfunction Is this a current diagnosis for this admission?: Yes (3) Infected cyst of right shoulder Is this a current diagnosis for this admission?: Yes (4) Hypoglycemia Is this a current diagnosis for this admission?: Yes (5) Anemia Is this a current diagnosis for this admission?: Yes (6) Encephalopathy Is this a current diagnosis for this admission?: Yes (7) Hypernatremia Is this a current diagnosis for this admission?: Yes (8) Metabolic acidosis Is this a current diagnosis for this admission?: Yes - Additional Information Resuscitation Status: Full Code Discharge Diet: Tube Feeding (Comments), Other (Comments) Discharge Activity: Activity As Tolerated Home Medications: Aripiprazole 20 mg PO DAILY 02/02/17 Aspirin [Aspirin EC] 81 mg PO DAILY 02/02/17 Atorvastatin Calcium [Lipitor 40 mg Tablet] 40 mg PO QHS 02/02/17 Cyclobenzaprine HCl 10 mg PO Q8HP PRN 02/02/17 Doxepin HCl 100 mg PO DAILY 02/02/17 Hydroxyzine Pamoate 100 mg PO Q8 02/02/17 Lisinopril [Prinivil 40 mg Tablet] 40 mg PO DAILY 02/02/17 Lubiprostone [Amitiza 24 Mcg Capsule] 24 mcg PO Q12 02/02/17 Metoprolol Succinate [Toprol Xl 50 mg Tab.sr] 50 mg PO DAILY 02/02/17 Chana-3 Fatty Acids/Fish Oil [Fish Oil 1,000 mg Capsule] 1 each PO BID 02/02/17 Oxycodone HCl/Acetaminophen [Oxycodon-Acetaminophen 7.5-325] 1 each PO Q8HP PRN 02/02/17 Polyethylene Glycol 3350 [Miralax Powder 17 gm/Packet] 17 gm PO DAILY 02/02/17 Topiramate 100 mg PO Q12 02/02/17 Buspirone HCl [Buspar 10 mg Tablet] 5 mg PO DAILY #30 tablet 03/01/17 Buspirone HCl [Buspar 10 mg Tablet] 10 mg PO QHS #30 tablet 03/01/17 Cinacalcet HCl [Sensipar 30 mg Tablet] 30 mg PO DAILY #30 tablet 03/01/17 Clindamycin HCl [Cleocin 150 mg Capsule] 150 mg PO Q6 #18 capsule 03/01/17 Collagenase Clostridium Hist. [Santyl Ointment 30 gm] 1 applic TP DAILY #1 tube 03/01/17 Ferrous Sulfate [Feosol 325 mg Tablet] 325 mg PO BID #60 tablet 03/01/17 Megestrol Acetate [Megace Norma 400 mg/10 ml Udcup] 400 mg PO BID #60 udc Metformin HCl [Glucophage 500 mg Tablet] 1,000 mg PO BID #0 03/01/17 History of Present Illness History of Present Illness: IMANI WHITTAKER is a 66 year old female with a history of obesity, diabetes, hypertension, depression, and anxiety disorder that was admitted on February 02, 2017 with altered mental status. Prior to admission she had been having increasing confusion and recurrent falls as well as significant weight loss. Hospital Course Hospital Course: On presentation she was noted to have hypercalcemia as well as wounds on her right sacrum and right hip with evidence of cellulitis. The wound culture grew MRSA for which she has completed antibiotic therapy. Blood cultures grew staph epidermidis as well as staph capitis. Workup for her hypercalcemia revealed primary hyperparathyroidism with no M spike. Serum immunofixation was normal. She was started on Sensipar and will be evaluated by calculus teacher as outpatient. She also had colonoscopy as part of her workup which revealed diverticulosis and internal hemorrhoids. Colonic biopsy has been negative for malignancy. Due to has significantly reduced oral intake as well as depression , the patient had a PEG tube placed and was started on tube feeding with Glucerna at goal rate of 55 cc/hr. Additionally she is status post excision debridement of a decubitus ulcer, stage II, of the right greater trochanter on 02/23/2017. A right femoral triple-lumen catheter was was discontinued on 02/25. She required additional hydration in order to normalize her calcium level to 10.1 prior to discharge. At this point patient will be discharged home with home health [RN, PT, OT, nursing home director, social media senior associate]. She will follow- up with her primary care physician, and will need an endocrinology referral Physical Exam Vital Signs: Temp Pulse Resp BP Pulse Ox 98.5 F 83 16 122/78 100 03/03/17 15:10 03/03/17 15:10 03/03/17 15:10 03/03/17 15:10 03/03/17 15:10 Intake & Output 03/02/17 03/03/17 03/04/17 06:59 06:59 06:59 Intake Total 300 580 Output Total 800 600 Balance -500 -20 Weight 77.1 kg General appearance: PRESENT: no acute distress, obese Head exam: PRESENT: atraumatic, normocephalic Respiratory exam: PRESENT: clear to auscultation christy. ABSENT: rales, rhonchi, wheezes Cardiovascular exam: PRESENT: RRR. ABSENT: diastolic murmur, rubs, systolic murmur GI/Abdominal exam: PRESENT: normal bowel sounds, soft. ABSENT: distended, guarding, mass, organolmegaly, rebound, tenderness Neurological exam: PRESENT: alert, awake, oriented to person, oriented to place , oriented to time, oriented to situation, CN II-XII grossly intact. ABSENT: motor sensory deficit Psychiatric exam: PRESENT: appropriate affect, normal mood. ABSENT: homicidal ideation, suicidal ideation Results Laboratory Results: 02/28/17 14:47 03/03/17 05:10 03/03/17 05:10 Sodium 136.5 L Potassium 4.8 Chloride 105 Carbon Dioxide 21 L Anion Gap 11 BUN 19 Creatinine 0.96 Est GFR ( Amer) > 60 Est GFR (Non-Af Amer) 59 L Glucose 90 Calcium 10.1 02/02/17 02/02/17 02/03/17 20:18 20:18 04:35 Creatine Kinase 74 58 CK-MB (CK-2) 1.33 Troponin I < 0.012 02/03/17 02/03/17 02/03/17 04:35 12:21 12:21 Creatine Kinase 53 CK-MB (CK-2) 1.32 1.00 Troponin I < 0.012 < 0.012 Impressions: Abdomen Ultrasound 02/03/17 00:00 IMPRESSION: SMALL AMOUNT OF SLUDGE IN THE GALLBLADDER. NO OTHER SIGNIFICANT FINDINGS. THE SPLEEN IS NOT VISUALIZED DUE TO OVERLYING BOWEL GAS. Upper Extremity MRI 02/03/17 00:00 IMPRESSION: Subcutaneous edema along the dorsal proximal forearm ulcer with cellulitis. No bone marrow edema worrisome for osteomyelitis Edema is present in the deep antecubital fossa along the median cubital vein. Question thrombophlebitis. Adjacent brachialis and distal biceps muscle and tendon are intact. Abdomen/Pelvis CT 02/04/17 00:00 IMPRESSION: NO SIGNIFICANT OR ACUTE FINDING IN THE ABDOMEN OR PELVIS ON CT SCAN WITH IV CONTRAST. Chest CT 02/04/17 00:00 IMPRESSION: Extensive thoracic spondylosis. No acute abnormality in the thorax. Head CT 02/10/17 00:00 IMPRESSION: NORMAL BRAIN CT WITHOUT CONTRAST. LEFT MAXILLARY SINUS DISEASE. EVIDENCE OF ACUTE STROKE: NO. Thyroid Ultrasound 02/10/17 00:00 IMPRESSION: NORMAL THYROID ULTRASOUND. NO FOCAL MASSES. Chest X-Ray 02/28/17 00:00 IMPRESSION: NO ACUTE RADIOGRAPHIC FINDING IN THE CHEST. Guidance Fluoroscopy 03/02/17 00:00 IMPRESSION: SUCCESSFUL PLACEMENT OF A 5 FR DUAL LUMEN 38 CM PICC IN THE LEFT BASILIC VEIN. Interventional Vascular Procedure 03/02/17 00:00 IMPRESSION: SUCCESSFUL PLACEMENT OF A 5 FR DUAL LUMEN 38 CM PICC IN THE LEFT BASILIC VEIN. PICC Line Insertion 03/02/17 09:28 IMPRESSION: SUCCESSFUL PLACEMENT OF A 5 FR DUAL LUMEN 38 CM PICC IN THE LEFT BASILIC VEIN. Qualifiers PATEINT BEING DISCHARGED WITH ANY OF THE FOLLOWING DIAGNOSIS?: No
--- NOTE | 2017-03-05 11:16 | Progress Note ---
Provider Note Provider Note: Discussed the case with the patient's daughter Nya, phone #[phone]. Nya was concerned because her mother was discharged home on several medications that it was her understanding the psychologist had asked her to stop. I reviewed the psychologist note and they did recommend that we stop the Abilify, doxepin and hydroxyzine. I contacted [facility] and spoke with the nurse data integration architect and gave her a verbal order to stop the above medications.
== END 2017-03-03 16:32 | disposition home health service (06) | DRG 603 ==
LOC: ER 14:04 → EH 19:30 → UNDOADMIN 19:30 → EDLOC 19:30 → EH 22:15 → 4S 22:15 → EH 02-14 09:22 → UNDOADMIN 02-14 09:22 → 4S 02-14 09:22
PROVIDERS: ADMIT Pediatrics; ATTEND Internal Medicine
PROC: 3E0F73Z Introduction of Anti-inflammatory into Respiratory Tract, Via Natural or Artificial Opening (ICD-10-PCS; 2017-02-03)
PROC: 05HM33Z Insertion of Infusion Device into Right Internal Jugular Vein, Percutaneous Approach (ICD-10-PCS; 2017-02-04)
PROC: 0DBF8ZX Excision of Right Large Intestine, Via Natural or Artificial Opening Endoscopic, Diagnostic (ICD-10-PCS; 2017-02-09)
PROC: 0H96XZX Drainage of Back Skin, External Approach, Diagnostic (ICD-10-PCS; 2017-02-20)
PROC: 0DH63UZ Insertion of Feeding Device into Stomach, Percutaneous Approach (ICD-10-PCS; 2017-02-22)
PROC: 0JDL3ZZ Extraction of Right Upper Leg Subcutaneous Tissue and Fascia, Percutaneous Approach (ICD-10-PCS; principal; 2017-02-23)
PROC: 06PY33Z Removal of Infusion Device from Lower Vein, Percutaneous Approach (ICD-10-PCS; 2017-02-25)
PROC: 02HV33Z Insertion of Infusion Device into Superior Vena Cava, Percutaneous Approach (ICD-10-PCS; 2017-03-02)
PROC: B548ZZA Ultrasonography of Superior Vena Cava, Guidance (ICD-10-PCS; 2017-03-02)
PROC: B548ZZA Ultrasonography of Superior Vena Cava, Guidance (ICD-10-PCS; 2017-03-02)
DX: L03.115 Cellulitis of right lower limb (principal); E87.0 Hyperosmolality and hypernatremia; L03.312 Cellulitis of back [any part except buttock and flank]; R78.81 Bacteremia; L03.113 Cellulitis of right upper limb; E87.2 Acidosis; E83.52 Hypercalcemia; E05.90 Thyrotoxicosis, unspecified without thyrotoxic crisis or storm; E11.649 Type 2 diabetes mellitus with hypoglycemia without coma; E66.9 Obesity, unspecified; Z68.29 Body mass index [BMI] 29.0-29.9, adult; I10 Essential (primary) hypertension; F32.9 Major depressive disorder, single episode, unspecified; B95.62 Methicillin resistant Staphylococcus aureus infection as the cause of diseases classified elsewhere; E21.0 Primary hyperparathyroidism; K57.30 Diverticulosis of large intestine without perforation or abscess without bleeding; K64.8 Other hemorrhoids; L89.212 Pressure ulcer of right hip, stage 2; M47.814 Spondylosis without myelopathy or radiculopathy, thoracic region; J32.0 Chronic maxillary sinusitis; E78.5 Hyperlipidemia, unspecified; F41.1 Generalized anxiety disorder; F17.210 Nicotine dependence, cigarettes, uncomplicated; R13.10 Dysphagia, unspecified; E11.69 Type 2 diabetes mellitus with other specified complication; L72.3 Sebaceous cyst; K59.00 Constipation, unspecified; L89.152 Pressure ulcer of sacral region, stage 2; G24.01 Drug induced subacute dyskinesia; E83.42 Hypomagnesemia; E86.0 Dehydration; R63.4 Abnormal weight loss; D63.8 Anemia in other chronic diseases classified elsewhere; E87.5 Hyperkalemia; Z91.81 History of falling; Z79.82 Long term (current) use of aspirin; Z79.891 Long term (current) use of opiate analgesic; Z79.4 Long term (current) use of insulin; Z79.899 Other long term (current) drug therapy; Z88.6 Allergy status to analgesic agent; Z88.3 Allergy status to other anti-infective agents; Z88.0 Allergy status to penicillin; Z88.7 Allergy status to serum and vaccine; Z88.8 Allergy status to other drugs, medicaments and biological substances; Z90.710 Acquired absence of both cervix and uterus; Z82.49 Family history of ischemic heart disease and other diseases of the circulatory system; Z83.6 Family history of other diseases of the respiratory system; Z83.3 Family history of diabetes mellitus; Z80.1 Family history of malignant neoplasm of trachea, bronchus and lung
CPT/HCPCS: 00300; 36415; 36569; 43246; 45380; 51702; 70450; 71010; 71260; 74177; 76536; 76700; 76937; 77001; 80048; 80053; 80202; 80307; 81001; 82306; 82330; 82397; 82550; 82553; 82565; 82607; 82652; 82728; 82746; 82947; 82962; 83036; 83525; 83540; 83550; 83735; 83970; 84100; 84156; 84166; 84439; 84443; 84466; 84481; 84484; 84681; 85025; 85027; 85045; 85652; 86140; 86320; 86335; 87040; 87070; 87075; 87077; 87086; 87186; 87205; 88305; 93005; 93010; 93306; 96360; 99285; A6266; C1751; J0171; J1200; J1610; J1642; J1644; J1815; J1940; J2250; J2270; J2310; J2405; J2704; J3010; J3370; J3475; J3490; J7030; J7060; J7620

== ENCOUNTER → 2017-03-12 | Outpatient (CLI) | payer MEDICAID ==
--- NOTE | 2017-03-12 16:26 | RADIOLOGY REPORT (SQ) ---
EXAM DESCRIPTION: INJECT EXISTING/TUBE PLACEMENT; NOT FOR OR FLUORO TO 1 HR; KUB/ABDOMEN (SINGLE VIEW) COMPLETED DATE/TIME: 03/12/2017 4:10 pm REASON FOR STUDY: NAUSEA, DYSPHAGIA; NAUSEA,DYSPHAGIA COMPARISON: None. TECHNIQUE: Gastrografin instilled through an indwelling G-tube. RADIATION DOSE: Fluoro 1.2 minutes 4 images saved to PACS. LIMITATIONS: None. FINDINGS: Gastrostomy appears to be in good position. No evidence for contrast extravasation. Prom pt gastric emptying observed. IMPRESSION: Indwelling gastrostomy tube with no complications noted. COMMENT: None TECHNICAL DOCUMENTATION: JOB ID: [id number] [employer]- All Rights Reserved
--- NOTE | 2017-03-12 16:26 | RADIOLOGY REPORT (SQ) ---
EXAM DESCRIPTION: INJECT EXISTING/TUBE PLACEMENT; NOT FOR OR FLUORO TO 1 HR; KUB/ABDOMEN (SINGLE VIEW) COMPLETED DATE/TIME: 03/12/2017 4:10 pm REASON FOR STUDY: NAUSEA, DYSPHAGIA; NAUSEA,DYSPHAGIA COMPARISON: None. TECHNIQUE: Gastrografin instilled through an indwelling G-tube. RADIATION DOSE: Fluoro 1.2 minutes 4 images saved to PACS. LIMITATIONS: None. FINDINGS: Gastrostomy appears to be in good position. No evidence for contrast extravasation. Prom pt gastric emptying observed. IMPRESSION: Indwelling gastrostomy tube with no complications noted. COMMENT: None TECHNICAL DOCUMENTATION: JOB ID: [id number] [employer]- All Rights Reserved
--- NOTE | 2017-03-12 16:26 | RADIOLOGY REPORT (SQ) ---
EXAM DESCRIPTION: INJECT EXISTING/TUBE PLACEMENT; NOT FOR OR FLUORO TO 1 HR; KUB/ABDOMEN (SINGLE VIEW) COMPLETED DATE/TIME: 03/12/2017 4:10 pm REASON FOR STUDY: NAUSEA, DYSPHAGIA; NAUSEA,DYSPHAGIA COMPARISON: None. TECHNIQUE: Gastrografin instilled through an indwelling G-tube. RADIATION DOSE: Fluoro 1.2 minutes 4 images saved to PACS. LIMITATIONS: None. FINDINGS: Gastrostomy appears to be in good position. No evidence for contrast extravasation. Prom pt gastric emptying observed. IMPRESSION: Indwelling gastrostomy tube with no complications noted. COMMENT: None TECHNICAL DOCUMENTATION: JOB ID: [id number] [employer]- All Rights Reserved
== END ==
LOC: RAD 15:35
PROVIDERS: ATTEND Surgery
DX: R13.10 Dysphagia, unspecified (principal); R11.0 Nausea; R10.9 Unspecified abdominal pain
CPT/HCPCS: 49465; 74000; 76000

== ENCOUNTER 2017-07-24 17:26 | Emergency (ER) | payer MEDICAID ==
[2017-07-24] MEDS ORDERED: NORMAL SALINE 1000 ML 1,000 ML IV ONE (18:30)
[2017-07-24] MEDS ORDERED: HALOPERIDOL LACTATE INJ 5 MG/1 ML VIAL IV ONE (18:31)
--- NOTE | 2017-07-24 20:37 | RADIOLOGY REPORT (SQ) ---
EXAM DESCRIPTION: CHEST SINGLE VIEW COMPLETED DATE/TIME: 07/24/2017 8:26 pm REASON FOR STUDY: chest discomfort COMPARISON: CT chest 02/04/2017, Chest films 02/28/2017 EXAM PARAMETERS: NUMBER OF VIEWS: One view. TECHNIQUE: Single frontal radiographic view of the chest acquired. RADIATION DOSE: NA LIMITATIONS: None. FINDINGS: LUNGS AND PLEURA: No opacities, masses or pneumothorax. No pleural effusion. MEDIASTINUM AND HILAR STRUCTURES: No masses. Contour normal. HEART AND VASCULAR STRUCTURES: Heart normal in size. Normal vasculature. BONES: No acute findings. HARDWARE: None in the chest. OTHER: No other significant finding. IMPRESSION: NO ACUTE RADIOGRAPHIC FINDING IN THE CHEST. TECHNICAL DOCUMENTATION: JOB ID: [id number] [employer]- All Rights Reserved Reading location - IP/workstation name: [email or web address]
--- NOTE | 2017-07-24 21:08 | ER Document Report ---
ED General - General Chief Complaint: Headache Stated Complaint: HEADACHE Time Seen by Provider: 07/24/17 18:28 Notes: Patient is a 66-year-old female with medical history as recorded who presents with multiple complaints. Patient states that throughout the day today she has had a dull, constant throbbing pain to the left side of her head that radiates all the way down to her toes. She states that it has been worsening since onset and started gradually. She states the pain is most prominent to the left side of her head and neck but does intimately go over the left side of her chest. She denies any focal weakness, numbness, confusion, nausea or vomiting. No shortness of breath. Nothing improves or worsens her symptoms. She is uncertain of whether or not she has had similar symptoms in the past. She has not seen a primary care doctor regarding today's concerns. She denies any known cardiac history. TRAVEL OUTSIDE OF THE [place] IN LAST 30 DAYS: No - Related Data Allergies/Adverse Reactions: Penicillins Allergy (Severe, Verified 02/03/17 00:33) Anaphylaxis alprazolam [From Xanax] Allergy (Verified 02/02/17 14:22) azithromycin [Azithromycin] Allergy (Verified 02/02/17 14:22) propoxyphene napsylate [From Darvocet-N 100] Allergy (Verified 02/02/17 14:22) Tetanus Vaccines and Toxoid Allergy (Verified 02/02/17 14:22) Past Medical History - General Information source: Patient - Social History Smoking Status: Never Smoker Frequency of alcohol use: None Drug Abuse: None Lives with: Family Family History: CAD, COPD, DM - Grandfather, Malignancy - Lung cancer Patient has suicidal ideation: No Patient has homicidal ideation: No - Past Medical History Cardiac Medical History: Reports: Hx Hypercholesterolemia, Hx Hypertension Neurological Medical History: Denies: Hx Seizures Endocrine Medical History: Reports: Hx Diabetes Mellitus Type 2 Renal/ Medical History: Denies: Hx Peritoneal Dialysis Psychiatric Medical History: Reports: Hx Depression Past Surgical History: Reports: Hx Oral Surgery, Hx Orthopedic Surgery, Hx Tonsillectomy, Other - JAMARCUS/BSO, EGD, Colonoscopy - incomplete most recent, Left jaw plate/trauma. Denies: Hx Hysterectomy - Immunizations Hx Diphtheria, Pertussis, Tetanus Vaccination: Yes Review of Systems - Review of Systems Notes: Constitutional: Negative for fever. HENT: Negative for sore throat. Eyes: Negative for visual changes. Cardiovascular: Positive for chest pain. Respiratory: Negative for shortness of breath. Gastrointestinal: Negative for abdominal pain, vomiting or diarrhea. Genitourinary: Negative for dysuria. Musculoskeletal: Negative for back pain. Skin: Negative for rash. Neurological: Positive for headache 10 point ROS negative except as marked above and in HPI. Physical Exam - Vital signs Vitals: Temp Pulse Resp BP Pulse Ox 98.2 F 98 18 146/82 H 99 07/24/17 17:46 07/24/17 17:46 07/24/17 17:46 07/24/17 17:46 07/24/17 17:46 Interpretation: Hypertensive Notes: PHYSICAL EXAMINATION: GENERAL: Well-appearing, well-nourished and in no acute distress. HEAD: Atraumatic, normocephalic. EYES: Pupils equal round and reactive to light, extraocular movements intact, sclera anicteric, conjunctiva are normal. ENT: nares patent, oropharynx clear without exudates. Moist mucous membranes. NECK: Normal range of motion, supple without lymphadenopathy LUNGS: Breath sounds clear to auscultation bilaterally and equal. No wheezes rales or rhonchi. HEART: Regular rate and rhythm without murmurs ABDOMEN: Soft, nontender, normoactive bowel sounds. No guarding, no rebound. No masses appreciated. EXTREMITIES: Normal range of motion, no pitting or edema. No cyanosis. NEUROLOGICAL: Face symmetric. Tongue protrudes midline. Extraocular motions intact. Pupils are 2 mm and equally reactive. Normal speech, normal gait. 5 out of 5 strength in both the distal and proximal upper and lower extremities bilaterally. Sensation is grossly intact throughout. Finger to nose testing normal. Pronator drift normal. PSYCH: Normal mood, normal affect. SKIN: Warm, Dry, normal turgor, no rashes or lesions noted. Course - Re-evaluation Re-evalutation: 07/24/17 20:49 Patient presents with multiple vague complaints that did not appear to be concerning for any acute life-threatening pathology. Vitals are within normal limits at triage and at time of discharge. Physical examination is unremarkable. Patient has tolerated oral intake without difficulty. Patient was not noted to be in distress at any point during their ER visit. At this time, based on the reassuring evaluation, I do not suspect an acute AL, pulmonary embolus, aortic dissection, acute intra-abdominal pathology, stroke, or sepsis. Patient did complain of a headache today. Headache was not maximal in onset, patient has no focal neurologic deficits, no nuchal rigidity, vital signs within normal limits, no papilledema, and patient is overall well in appearance. Based on clinical history and examination I do not suspect an acute subarachnoid hemorrhage, dural venous sinus thrombosis, acute meningitis, or intercranial mass. Given my low clinical suspicion for any acute life- threatening etiology, I do not feel advanced neuro imaging is indicated. Patient did have resolution of all symptoms after receiving a migraine cocktail in the emergency department. Patient did mention that she felt the pain went from her head to her feet and denied any distinct chest pressure with also states that all areas of her body had pain. Troponin assay testing was therefore sent and is noted to be normal. EKG is likewise unremarkable. Will discharge with return precautions and follow-up recommendations. Verbal discharge instructions given a the bedside and opportunity for questions given. Medication warnings reviewed. Patient is in agreement with this plan and has verbalized understanding of return precautions and the need for primary care follow-up in the next 24-72 hours. - Vital Signs Vital signs: Temp Pulse Resp BP Pulse Ox 98.2 F 98 14 160/83 H 100 07/24/17 23:29 07/24/17 17:46 07/24/17 23:07 07/24/17 23:07 07/24/17 23:07 - Laboratory Result Diagrams: 07/24/17 21:30 07/24/17 23:15 Laboratory results interpreted by me: 07/24/17 07/24/17 21:30 23:15 WBC 11.4 H MCHC 31.5 L RDW 14.9 H Sodium 151.8 H Chloride 119 H Carbon Dioxide 19 L Est GFR (Non-Af Amer) 52 L Calcium 10.8 H - Diagnostic Test Radiology reviewed: Image reviewed, Reports reviewed Radiology results interpreted by me: 07/24/17 20:50 Chest x-ray: No acute infiltrate or pneumothorax Discharge - Discharge Clinical Impression: Dehydration, Hypernatremia Headache Qualifiers: Headache type: unspecified Headache chronicity pattern: acute headache Intractability: not intractable Qualified Code(s): R51 - Headache Hypertension Qualifiers: Hypertension type: essential hypertension Qualified Code(s): I10 - Essential ( primary) hypertension Condition: Stable Disposition: HOME, SELF-CARE Additional Instructions: Please be sure to continue to drink plenty of fluids. Please return to the emergency room immediately if you experience any concerning symptoms including high fevers, severe headache, chest pain, difficulty breathing, abdominal pain, slurred speech, numbness or weakness in your arms or legs, or any other symptom that concerns you. Referrals: GUANAKO FRIEDMAN MD [Primary Care Provider] - Follow up as needed
[2017-07-24 21:42] LABS: ABSOLUTE BASOPHILS # (AUTO) 0.1 10^3/uL (0.0-0.2); ABSOLUTE EOSINOPHILS # (AUTO) 0.3 10^3/uL (0.0-0.6); ABSOLUTE LYMPHOCYTES (AUTO) 3.7 10^3/uL (0.5-4.7); ABSOLUTE MONOCYTES (AUTO) 0.6 10^3/uL (0.1-1.4); ABSOLUTE NEUT (AUTO) 6.7 10^3/uL (1.7-8.2); EOSINOPHILS % (AUTO) 2.3 % (0-6); HEMATOCRIT 39.3 % (36.0-47.0); HEMOGLOBIN 12.4 g/dL (12.0-15.5); LYMPHOCYTES % (AUTO) 32.6 % (13-45); MEAN CORPUSCULAR HEMOGLOBIN 27.4 pg (27.0-33.4); MEAN CORPUSCULAR HGB CONC 31.5 g/dL (32.0-36.0); MEAN CORPUSCULAR VOLUME 87 fl (80-97); MONOCYTES % (AUTO) 5.7 % (3-13); PLATELET COUNT 267 10^3/uL (150-450); RED BLOOD COUNT 4.52 10^6/uL (3.72-5.28); RED CELL DISTRIBUTION WIDTH 14.9 % (11.5-14.0); SEGMENTED NEUTROPHILS % (AUTO) 58.4 % (42-78); TOTAL CELLS COUNTED % (AUTO) 100 %; WHITE BLOOD COUNT 11.4 10^3/uL (4.0-10.5)
[2017-07-24 23:44] LABS: ANION GAP 14 (5-19); BLOOD UREA NITROGEN 11 mg/dL (7-20); CALCIUM 10.8 mg/dL (8.4-10.2); CARBON DIOXIDE 19 mmol/L (22-30); CHLORIDE 119 mmol/L (98-107); GLUCOSE 88 mg/dL (75-110); POTASSIUM 4.8 mmol/L (3.6-5.0); SODIUM 151.8 mmol/L (137-145)
[2017-07-25 00:38] VITALS: BP 163/88
--- NOTE | 2017-07-25 08:03 | EKG REPORT ---
SEVERITY:- NORMAL ECG - SINUS RHYTHM : Confirmed by: Jl Sánchez MD 25-Jul-2017 08:02:45
== END 2017-07-25 00:38 | disposition home or self-care (01) ==
LOC: ER 17:26
DX: R51 Headache (principal); E86.0 Dehydration; E87.0 Hyperosmolality and hypernatremia; I10 Essential (primary) hypertension; E78.00 Pure hypercholesterolemia, unspecified; E11.9 Type 2 diabetes mellitus without complications; Z88.0 Allergy status to penicillin; Z88.3 Allergy status to other anti-infective agents; Z88.7 Allergy status to serum and vaccine
CPT/HCPCS: 93005; 99284; 96361; 96374; 36415; 85025; 80048; 84484; 71045; 93010; J1630; J7030

== ENCOUNTER 2017-11-19 00:34 | Emergency (ER) | payer MEDICARE, MEDICAID ==
[2017-11-19] MEDS ORDERED: ASPIRIN 81 MG TABLET, CHEWABLE PO ONE (04:22)
--- NOTE | 2017-11-19 04:25 | ER Document Report ---
ED Medical Screen (RME) - General Chief Complaint: Chest Pain Stated Complaint: BACK PAIN Time Seen by Provider: 11/19/17 04:16 Mode of Arrival: Wheelchair Information source: Patient Notes: Patient is a 66-year-old female who presents via EMS to the emergency department [facility] with complaint of chest pain. Patient reports she has had the chest pain ongoing for 1-2 days, reports that it starts in the mid sternum, radiates to her right shoulder around in her her back. Patient also reports the pain is sometimes located in the left lower quadrant of her abdomen. Patient reports that the pain comes and goes intermittently without any exacerbating or alleviating factors. Patient denies any nausea, vomiting or diarrhea. Patient does report mild shortness of breath. Patient denies history of any myocardial infarction. Reports history of hypertension and diabetes which patient states are both resolved. Patient currently rates pain 1 /5. Patient was given 324 a baby aspirin via EMS. Exam: Tenderness to palpation to mid sternum. Tenderness to palpation to thoracic spine. Lung sounds clear to auscultation bilaterally. I have greeted and performed a rapid initial assessment of this patient. A comprehensive ED assessment and evaluation of the patient, analysis of test results and completion of the medical decision making process will be conducted by additional ED providers. Dictation of this chart was performed using voice recognition software; therefore, there may be some unintended grammatical errors. TRAVEL OUTSIDE OF THE [place] IN LAST 30 DAYS: No - Related Data Allergies/Adverse Reactions: Penicillins Allergy (Severe, Verified 02/03/17 00:33) Anaphylaxis alprazolam [From Xanax] Allergy (Verified 02/02/17 14:22) azithromycin [Azithromycin] Allergy (Verified 02/02/17 14:22) propoxyphene napsylate [From Darvocet-N 100] Allergy (Verified 02/02/17 14:22) Tetanus Vaccines and Toxoid Allergy (Verified 02/02/17 14:22) Past Medical History - Past Medical History Cardiac Medical History: Reports: Hx Hypercholesterolemia, Hx Hypertension Neurological Medical History: Denies: Hx Seizures Endocrine Medical History: Reports: Hx Diabetes Mellitus Type 2 Renal/ Medical History: Denies: Hx Peritoneal Dialysis Psychiatric Medical History: Reports: Hx Depression Past Surgical History: Reports: Hx Oral Surgery, Hx Orthopedic Surgery, Hx Tonsillectomy, Other - JAMARCUS/BSO, EGD, Colonoscopy - incomplete most recent, Left jaw plate/trauma. Denies: Hx Hysterectomy - Immunizations Hx Diphtheria, Pertussis, Tetanus Vaccination: Yes History of Influenza Vaccine for 01/2017 - 06/2017 Season: No Physical Exam - Vital signs Vitals: Temp Pulse Resp BP Pulse Ox 98.2 F 95 16 140/62 H 99 11/19/17 00:42 11/19/17 00:42 11/19/17 00:42 11/19/17 00:42 11/19/17 00:42 Course - Vital Signs Vital signs: Temp Pulse Resp BP Pulse Ox 98.2 F 95 16 140/62 H 99 11/19/17 00:42 11/19/17 00:42 11/19/17 00:42 11/19/17 00:42 11/19/17 00:42 - Laboratory Laboratory results interpreted by me: 11/19/17 02:37 POC Glucose 134 H Doctor's Discharge - Discharge Referrals: TARA POWERS DPM [Primary Care Provider] - Follow up as needed
[2017-11-19 05:30] LABS: ALANINE AMINOTRANSFERASE 25 U/L (9-52); ALKALINE PHOSPHATASE 30 U/L (38-126); ANION GAP 13 (5-19); ASPARTATE AMINO TRANSFERASE 21 U/L (14-36); BILIRUBIN,DIRECT 0.3 mg/dL (0.0-0.4); BILIRUBIN,TOTAL 0.4 mg/dL (0.2-1.3); BLOOD UREA NITROGEN 12 mg/dL (7-20); CALCIUM 10.6 mg/dL (8.4-10.2); CARBON DIOXIDE 17 mmol/L (22-30); CHLORIDE 116 mmol/L (98-107); CREATINE KINASE 39 U/L (30-135); GLUCOSE 96 mg/dL (75-110); POTASSIUM 4.2 mmol/L (3.6-5.0); SODIUM 145.8 mmol/L (137-145)
[2017-11-19 05:40] LABS: CREATINE KINASE MB 0.48 ng/mL (<4.55)
[2017-11-19 05:42] LABS: TROPONIN I < 0.012 ng/mL
--- NOTE | 2017-11-19 05:45 | RADIOLOGY REPORT (SQ) ---
EXAM DESCRIPTION: XR CHEST 1 VIEW COMPLETED DATE/TME: 11/19/2017 04:22 CLINICAL HISTORY: chest pain COMPARISON: 07/24/2017 FINDINGS: Single frontal view of the chest. The cardiomediastinal silhouette has normal size and contour. No consolidation, pneumothorax, or pleural effusion. Leads overlie the chest. Degenerative change of the spine. Upper abdominal soft tissues are unremarkable. IMPRESSION: 1. No acute pulmonary process identified.
[2017-11-19 07:10] LABS: ABSOLUTE BASOPHILS # (AUTO) 0.1 10^3/uL (0.0-0.2); ABSOLUTE EOSINOPHILS # (AUTO) 0.1 10^3/uL (0.0-0.6); ABSOLUTE MONOCYTES (AUTO) 0.5 10^3/uL (0.1-1.4); ABSOLUTE NEUT (AUTO) 8.8 10^3/uL (1.7-8.2); BASOPHILS % (AUTO) 0.5 % (0-2); EOSINOPHILS % (AUTO) 0.6 % (0-6); HEMATOCRIT 39.3 % (36.0-47.0); HEMOGLOBIN 12.7 g/dL (12.0-15.5); LYMPHOCYTES % (AUTO) 17.3 % (13-45); MEAN CORPUSCULAR HEMOGLOBIN 28.4 pg (27.0-33.4); MEAN CORPUSCULAR HGB CONC 32.3 g/dL (32.0-36.0); MEAN CORPUSCULAR VOLUME 88 fl (80-97); MONOCYTES % (AUTO) 4.2 % (3-13); PLATELET COUNT 219 10^3/uL (150-450); RED BLOOD COUNT 4.47 10^6/uL (3.72-5.28); RED CELL DISTRIBUTION WIDTH 13.3 % (11.5-14.0); SEGMENTED NEUTROPHILS % (AUTO) 77.4 % (42-78); TOTAL CELLS COUNTED % (AUTO) 100 %; WHITE BLOOD COUNT 11.4 10^3/uL (4.0-10.5)
--- NOTE | 2017-11-19 08:37 | ER Document Report ---
ED General <GLORIA CASTILLO - Last Filed: 11/19/17 09:23> - General Mode of Arrival: Wheelchair TRAVEL OUTSIDE OF THE [place] IN LAST 30 DAYS: No <ZAK MALDONADO - Last Filed: 11/19/17 11:55> - General Chief Complaint: Chest Pain Stated Complaint: BACK PAIN Time Seen by Provider: 11/19/17 04:16 Notes: This 66-year-old female patient comes emerged from complaining of anterior chest pain for the past 2 days. Pain goes to her right shoulder and into her back. She also complains of pain in her left abdomen that comes and goes. She does have a gastrostomy tube because she had difficulty eating and swallowing in the past. She states she is able to drink fluids now without problems, and is starting to eat and is less dependent on the gastrostomy tube. (GLORIA CASTILLO) - Related Data Allergies/Adverse Reactions: Penicillins Allergy (Severe, Verified 02/03/17 00:33) Anaphylaxis alprazolam [From Xanax] Allergy (Verified 02/02/17 14:22) azithromycin [Azithromycin] Allergy (Verified 02/02/17 14:22) propoxyphene napsylate [From Darvocet-N 100] Allergy (Verified 02/02/17 14:22) Tetanus Vaccines and Toxoid Allergy (Verified 02/02/17 14:22) Past Medical History - General Information source: Patient - Social History Smoking Status: Unknown if Ever Smoked Cigarette use (# per day): No Chew tobacco use (# tins/day): No Frequency of alcohol use: None Drug Abuse: None Lives with: Family Family History: Reviewed & Not Pertinent, CAD, COPD, DM - Grandfather, Malignancy - Lung cancer Patient has suicidal ideation: No Patient has homicidal ideation: No - Past Medical History Cardiac Medical History: Reports: Hx Hypercholesterolemia, Hx Hypertension Endocrine Medical History: Reports: Hx Diabetes Mellitus Type 2 Psychiatric Medical History: Reports: Hx Depression Past Surgical History: Reports: Hx Oral Surgery, Hx Orthopedic Surgery, Hx Tonsillectomy, Other - JAMARCUS/BSO, EGD, Colonoscopy - incomplete most recent, Left jaw plate/trauma. Denies: Hx Hysterectomy - Immunizations Hx Diphtheria, Pertussis, Tetanus Vaccination: Yes <ZAK MALDONADO - Last Filed: 11/19/17 11:55> Review of Systems - Review of Systems Constitutional: No symptoms reported EENT: No symptoms reported Cardiovascular: See HPI, Chest pain Respiratory: No symptoms reported Gastrointestinal: See HPI, Constipation Genitourinary: No symptoms reported Female Genitourinary: No symptoms reported Musculoskeletal: No symptoms reported Skin: No symptoms reported Hematologic/Lymphatic: No symptoms reported Neurological/Psychological: No symptoms reported -: Yes All other systems reviewed and negative <ZAK MALDONADO - Last Filed: 11/19/17 11:55> Physical Exam - HEENT Head: Normocephalic, Atraumatic Eyes: Normal Pupils: PERRL Neck: Other - Posterior cervical muscles are very tender to palpate. - Respiratory Respiratory status: No respiratory distress Breath sounds: Normal Chest palpation: Tender - Anterior chest wall is very tender to palpate especially on the left side. She states that this reproducible pain is the same pain she has been having for the past 2 days. - Cardiovascular Rhythm: Other Heart sounds: Normal auscultation Murmur: No - Abdominal Inspection: Other - Patient has a gastrostomy tube. Distension: No distension Bowel sounds: Normal Tenderness: Nontender - Abdomen is resonant to percuss, no focal tenderness noted. - Back Back: Tender - Tender to palpate the trapezius muscles and scapular muscles in her back. - Extremities General upper extremity: Normal inspection General lower extremity: Normal inspection - Neurological Neuro grossly intact: Yes - Psychological Associated symptoms: Normal affect, Normal mood - Skin Skin Temperature: Warm Skin Moisture: Dry Skin Color: Normal <GLORIA CASTILLO - Last Filed: 11/19/17 09:23> <ZAK MALDONADO - Last Filed: 11/19/17 11:55> - Vital signs Vitals: Temp Pulse Resp BP Pulse Ox 98.2 F 95 16 140/62 H 99 11/19/17 00:42 11/19/17 00:42 11/19/17 00:42 11/19/17 00:42 11/19/17 00:42 - Notes Notes: Physical Exam: General: Alert, appears well, resting comfortably. HEENT: Normocephalic. Atraumatic. PERRL. Extraocular movements intact. Oropharynx clear. Neck: Supple. Non-tender. Posterior cervical musculature tenderness with palpation. Respiratory: No respiratory distress. Clear and equal breath sounds bilaterally. Anterior chest wall tenderness with palpation. Cardiovascular: Regular rate and rhythm. Abdominal: Normal Inspection. Non-tender. No distension. Normal Bowel Sounds. Back: Trapezius tenderness with palpation. No deformity or step off. Extremities: Moves all four extremities. Upper extremities: Normal inspection. Normal ROM. Lower extremities: Normal inspection. No edema. Normal ROM. Neurological: Normal cognition. AAOx4. Normal speech. Psychological: Normal affect. Normal Mood. Skin: Warm. Dry. Normal color. (ZAK MALDONADO) Course - Laboratory Result Diagrams: 11/19/17 06:50 11/19/17 04:35 - Diagnostic Test Radiology reviewed: Reports reviewed - KUB does not show any gross abnormality. There is a lot of intestinal gas seen. Chest x-ray does not show any acute abnormality. - EKG Interpretation by Sd EKG shows normal: Sinus rhythm, [place], Intervals, QRS Complexes, ST-T Waves Rate: Normal - 87 Rhythm: NSR <GLORIA CASTILLO - Last Filed: 11/19/17 09:23> - Laboratory Result Diagrams: 11/19/17 06:50 11/19/17 04:35 <ZAK MALDONADO - Last Filed: 11/19/17 11:55> - Vital Signs Vital signs: Temp Pulse Resp BP Pulse Ox 97.6 F 95 17 103/56 L 95 11/19/17 05:05 11/19/17 00:42 11/19/17 09:01 11/19/17 09:01 11/19/17 09:01 - Laboratory Laboratory results interpreted by or: 11/19/17 11/19/17 11/19/17 02:37 04:35 06:50 WBC 11.4 H Absolute Neutrophils 8.8 H Sodium 145.8 H Chloride 116 H Carbon Dioxide 17 L Est GFR (Non-Af Amer) 49 L POC Glucose 134 H Calcium 10.6 H Alkaline Phosphatase 30 L Discharge <GLORIA CASTILLO - Last Filed: 11/19/17 09:23> <ZAK MALDONADO - Last Filed: 11/19/17 11:55> - Discharge Clinical Impression: Chest wall pain Abdominal pain Qualifiers: Abdominal location: left upper quadrant Qualified Code(s): R10.12 - Left upper quadrant pain Condition: Stable Disposition: HOME, SELF-CARE Additional Instructions: Chest Wall Pain Your chest pain has been diagnosed as coming from the chest wall. This is often caused by straining the muscles or joints in the chest during physical activity, direct trauma, coughing, or vigorous vomiting. Persons with arthritis are especially prone to this type of pain, due to inflammation of the cartilage joints near the breast bone. Occasionally, no cause can be found. Rest from strenuous physical activity. This kind of chest pain is usually made worse by movement of the chest. Depending on the symptoms, we may prescribe medicine for pain, muscle relaxation, and antiinflammatory effects. If the pain is new, and seems to be due to muscle strain, cold packs can help. Otherwise, apply gentle warmth to the painful area for 15 minutes every hour or two. You should contact the doctor immediately if things change. Further evaluation is needed if you develop a fever or cough, if the nature of the pain changes, or if you become short of breath. Abdominal Pain There are many causes of abdominal pain. Pain can mean a serious problem requiring surgery (such as appendicitis). It can also be an innocent problem that goes away on its own (such as a viral infection). Often, time must pass to determine the cause of pain. The physician does not feel that hospitalization is necessary, at present. Things may change within the next 24 hours. Call the doctor or come back for re- examination if any problems occur, such as: (1) Pain that becomes more severe, steady, or becomes concentrated in one specific area. Also, pain that is more severe with movement or coughing. (2) Vomiting that persists or becomes more frequent. (3) Blood in the vomitus, urine, or bowel movements. Blood in the stool may have a tarry or black appearance. (4) Shaking chills or fever greater than 100 degrees F. (5) The abdomen becomes more distended or swollen. (6) Bowel movements cease. (7) Failure to improve as expected. Constipation Constipation is a common problem. It is especially likely as you get older. Constipation is a common cause of abdominal pain, but sometimes causes no symptoms at all. Causes of constipation include certain medications, dehydration, diets, inactivity, and low-fiber intake. Rarely, it can be a symptom of underlying disease. The physician has evaluated you for this. Avoid constipation by eating a diet high in fiber, fruits, and vegetables. Drink plenty of liquids. Get regular exercise. If possible, avoid constipating medicines like narcotic pain medication. Some vitamin tablets can cause constipation. Stool softeners may be needed for difficult cases. An excellent stool softener is Konsyl which is available at [employer], and [employer] drug store. Just add a teaspoon to a glass of pineapple or orange juice daily or twice a day if needed. Laxatives are useful for occasional constipation. You should use them only when necessary. Too-frequent use can make your bowels dependent on them. Some over the counter laxatives available without prescription are: Milk of Magnesia, 1-2 tablespoons twice a day Dulcolax, 5 mg pill or 10 mg suppository. Citrate of Magnesia, 4-5 ounces a day for a day or two For acute constipation, Fleet's Enemas and Dulcolax suppositories are helpful. 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 Your bowel may become dependant on them. You do not need to have a bowel movement every day. Many people do fine with a bowel movement every three or four days. You should call your doctor or return for re-evaluation if you pass blood in the stool, or if you develop fever or increasing abdominal pain. Your chest pain appears to be related to chest wall tenderness there is readily reproduced on palpating her chest wall. Abdominal x-ray shows a lot of intestinal gas, this may be causing some of your discomfort. There is not a lot of constipation or stool noted on the x-ray. You should continue your regular medications. Drink plenty of fluids. Follow-up with your primary care provider Wednesday for reevaluation of not improving. RETURN TO THE EMERGENCY ROOM IF ANY NEW OR WORSENING SYMPTOMS. Referrals: GUANAKO FRIEDMAN MD [Primary Care Provider] - Follow up as needed Scribe Attestation: 11/19/17 08:59 I personally performed the services described in the documentation, reviewed and edited the documentation which was dictated to the scribe in my presence, and it accurately records my words and actions. (GLORIA CASTILLO) Scribe Documentation - Scribe Written by Jane:: Jane Cruz, 11/19/2017 1155 acting as scribe for :: Yusef <ZAK MALDONADO - Last Filed: 11/19/17 11:55>
--- NOTE | 2017-11-19 09:08 | RADIOLOGY REPORT (SQ) ---
EXAM DESCRIPTION: KUB/ABDOMEN (SINGLE VIEW) COMPLETED DATE/TIME: 11/19/2017 8:54 am REASON FOR STUDY: Abdominal pain, constipation COMPARISON: None. NUMBER OF VIEWS: One view. TECHNIQUE: Supine radiographic image of the abdomen acquired. LIMITATIONS: None. FINDINGS: BOWEL GAS PATTERN: Normal bowel gas pattern. No dilated loops. CALCIFICATIONS: No suspicious calcifications. SOFT TISSUES: No gross mass or suggestion of organomegaly. HARDWARE: Gastrostomy tube. BONES: No acute fracture. No worrisome bone lesions. OTHER: No other significant finding. IMPRESSION: NO RADIOGRAPHIC EVIDENCE FOR ACUTE ABDOMINAL DISEASE. TECHNICAL DOCUMENTATION: JOB ID: [id number] [employer]- All Rights Reserved Reading location - IP/workstation name: [email or web address]
[2017-11-19 09:47] VITALS: BP 103/56
--- NOTE | 2017-11-19 09:54 | EKG REPORT ---
SEVERITY:- NORMAL ECG - SINUS RHYTHM : Confirmed by: Diamond Fox MD 19-Nov-2017 09:53:57
== END 2017-11-19 09:47 | disposition home or self-care (01) ==
LOC: ER 00:34
DX: R07.89 Other chest pain (principal); M25.511 Pain in right shoulder; K59.00 Constipation, unspecified; R14.3 Flatulence; M54.9 Dorsalgia, unspecified; R10.9 Unspecified abdominal pain; I10 Essential (primary) hypertension; E11.9 Type 2 diabetes mellitus without complications; R13.10 Dysphagia, unspecified; Z93.1 Gastrostomy status; Z88.1 Allergy status to other antibiotic agents; Z88.5 Allergy status to narcotic agent; Z88.7 Allergy status to serum and vaccine; Z88.8 Allergy status to other drugs, medicaments and biological substances; Z87.892 Personal history of anaphylaxis; Z88.0 Allergy status to penicillin
CPT/HCPCS: 93005; 99285; 36415; 82553; 82962; 82550; 85025; 80053; 84484; 71045; 74018; 93010; A9270